=== PATIENT | female | born 1955 | race Caucasian/White ===

== ENCOUNTER 2024-10-21 09:28 | Outpatient (REF) | payer MEDICARE, SELFPAY ==
--- OUTSIDE RECORDS SUMMARY | 2024-10-21 09:33 | XMS_ITS | Encounter Summary ---
Author Organization [facility] Address [address] [place] [address] Care Team Providers Care Spinning Machine Operator Name Role Phone Derrick Ortiz DO Unavailable [phone] Derrick Ortiz DO Primary Care Provider [phone] Encounter Details Date Type Department Care Team (Late st Contact Info) Description 04/22/2024 Orders Only [facility] [address] [facility] [address] [place] [phone] Travis Arreguin MD [address] [facility] [address] [place] [address] Social History Tobacco Use Types Packs/Day Years Used Date Smoking Tobacco: Former Cigarettes Smokeless Tobacco: Never Alcohol Use Standard Drinks/Week Comments Never 0 (1 standard drink = 0.6 oz pur e alcohol) AUDIT-C Answer Date Recorded Q1: How often do you have a drink containing alcohol? Never 06/09/2023 Q2: How many drinks containi ng alcohol do you have on a typical day when you are drinking? Patient does not drink Q3: How often do you have si x or more drinks on one occasion? Never 06/09/2023 PHQ-2 Answer Date Recorded Patient Health Questionnaire-2 Score 0 02/05/2024 Comments No Sex and Gender Information Value Date Recorded Sex Assigned at Not on file Legal Sex Female 7:17 PM EDT Gender Identity Not on file Sexual Orientation Not on file documented as of this encounter Plan of Treatment Not on file documented as of this encounter Procedures Procedure Name Priority Date/Time Associated Diagnosis Comments COLONOSCOPY Routine 04/22/2024 9:00 AM EST documented in this encounter Results * Colonoscopy (04/22/2024 9:00 AM EST) Anatomical Region Laterality Modality Endoscopy Travis Yoon MD ENDOSCOPY PROCEDURE ORDERABL ES Final Result documented in this encounter Visit Diagnoses Not on filedocumented in this encounter Additional Health Concerns Assessment Noted Time PHQ-9 Depression Total Score: 0 05/14/19 24 2:00 PM EST documented as of this encounter Care Teams Spinning Machine Operator Relationship Specialty Start Date End Date Derrick Ortiz DO [address] [place] [address] PCP - ACO Reach 08/15/22 Derrick Ortiz DO [address] [place] [address] PCP - General Family Medicine 10/23/22 documented as of this encounter
--- OUTSIDE RECORDS SUMMARY | 2024-10-21 09:33 | XMS_ITS | Encounter Summary ---
Author Organization [facility] Address [address] [place] [address] Care Team Providers Care Facility Operations Manager Name Role Phone Derrick Ortiz DO Unavailable [phone] Derrick Ortiz DO Primary Care Provider [phone] Encounter Details Date Type Department Care Team (Late st Contact Info) Description 05/14/2024 Abstract [facility] [address] [place] [phone] Derrick Ortiz DO [address] [place] [address] Social History Tobacco Use Types Packs/Day Years [...] Date Recorded Patient Health Questionnaire-2 Score 0 05/14/2024 Comments No Sex and Gender Information Value Date Recorded Sex Assigned at Not on file Legal Sex Female 7:17 PM EDT Gender Identity Not on file Sexual Orientation Not on file documented as of this encounter Functional Status * Over the past 2 weeks, how often have you been bothered by any of the following problems? Question Answer Date of Assessment Author Little interest or pleasure in doing things Not at all 05/14/2024 11:00 AM Maryann Schreiber N P Feeling down, depressed, or hopeless Not at all 05/14/2024 11:00 AM Maryann Schreiber N P Patient Health Questionnaire -2 Score 0 05/14/2024 11:00 AM Maryann Schreiber N P * Question Answer Date of Assessment Author Trouble falling or staying asleep, or sleeping too much Not at all 05/14/2024 11:00 AM Britney Schreiber NP Feeling tired or having mac le energy Not at all 05/14/2024 11:00 AM Maryann Schreiber N P Poor appetite or overeating Not at all 05/14/2024 11 :00 AM Maryann Schreiber NP Feeling bad about yourself - or that you are a failure or have let yourself or your family down Not at all 05/14/2024 11:00 AM Maryann Johnson NP Trouble concentrating on thi ngs, such as reading the newspaper or watching television Not at all 05/14/2024 11:00 AM Maryann Schreiber N P Moving or speaking so slowly that other people could have noticed? Or the opposite - being so fidgety or restless that you have been moving around a lot more than usual. Not at all 05/14/2024 11:00 AM Maryann Schreiber N P Thoughts that you would be better off or hurting yourself in some way Not at all 05/14/2024 11:00 AM Maryann Schreiber NP Patient Health Questionnaire -9 Score 0 05/14/2024 11:00 AM Maryann Schreiber N P documented as of this encounter Plan of Treatment Not on file documented as of this encounter Visit Diagnoses Not on filedocumented in this encounter Additional Health Concerns Assessment Noted Time PHQ-9 Depression Total Score: 0 05/14/19 25 11:00 AM EST documented as of this encounter Care Teams Facility Operations Manager Relationship Specialty Start Date End Date Derrick Ortiz DO [address] [place] [address] PCP - ACO Reach 08/15/22 Derrick Ortiz DO [address] [facility] [address] [place] [address] PCP - General Family Medicine 10/23/22 documented as of this encounter
--- OUTSIDE RECORDS SUMMARY | 2024-10-21 09:33 | XMS_ITS | Encounter Summary ---
Author Organization [facility] Address [address] [place] [address] Care Team Providers Care Health Sciences Manager Name Role Phone Derrick Ortiz DO Unavailable Derrick Ortiz DO Primary Care Provider [phone] Encounter Details Date Type Department Care Team (Late st Contact Info) Description 05/14/2023 Abstract [facility] [address] [place] [phone] Derrick Ortiz DO [address] [place] [address] Social History Tobacco Use Types Packs/Day Years Used Date Smoking Tobacco: Former Cigarettes Smokeless Tobacco: Never Alcohol Use Standard Drinks/Week Comments Never 0 (1 standard drink = 0.6 oz pur e alcohol) AUDIT-C Answer Date Recorded Q1: How often do you have a drink containing alcohol? Never 12/10/2022 Q2: How many drinks containi ng alcohol do you have on a typical day when you are drinking? Patient does not drink Q3: How often do you have si x or more drinks on one occasion? Never 12/10/2022 PHQ-2 Answer Date Recorded Patient Health Questionnaire-2 Score 0 05/14/2023 Comments Unknown Sex and Gender Information Value Date Recorded [...] pleasure in doing things Not at all 05/14/2023 2:00 PM Lachelle Chavez MA Feeling down, depressed, or hopeless Not at all 05/14/2023 2:00 PM Lachelle Chavez MA Patient Health Questionnaire -2 Score 0 05/14/2023 2:00 PM Lachelle Chavez MA * Question Answer Date of Assessment Author Trouble falling or staying asleep, or sleeping too much Not at all 05/14/2023 2:00 PM Lachelle Chavez MA Feeling tired or having mca le energy Not at all 05/14/2023 2:00 PM Lachelle Chavez MA Poor appetite or overeating Not at all 05/14/2023 2: 00 PM Lachelle Chavez MA Feeling bad about yourself - or that you are a failure or have let yourself or your family down Not at all 05/14/2023 2:00 PM Lachelle Chavez MA Trouble concentrating on things, such as reading the newspaper or watching television Not at all 05/14/2023 2:00 PM Lachelle Chavez MA Moving or speaking so slowly that other people could have noticed? Or the opposite - being so fidgety or restless that you have been moving around a lot more than usual. Not at all 05/14/2023 2:00 PM Lachelle Chavez MA Thoughts that you would be better off or hurting yourself in some way Not at all 05/14/2023 2:00 PM Lachelle Chavez MA Patient Health Questionnaire -9 Score 0 05/14/2023 2:00 PM Lachelle Chavez MA documented as of this encounter Plan of Treatment Not on file documented as of this encounter Visit Diagnoses Not on filedocumented in this encounter Additional Health Concerns Assessment Noted Time PHQ-9 Depression Total Score: 0 05/14/19 2:00 PM EST documented as of this encounter Care Teams Health Sciences Manager Relationship Specialty Start Date End Date Derrick Ortiz DO [address] [place] [address] PCP - ACO Reach 08/15/22 Derrick Ortiz DO [address] [place] [id number] PCP - General Family Medicine 10/23/22 documented as of this encounter
--- OUTSIDE RECORDS SUMMARY | 2024-10-21 09:33 | XMS_ITS | Encounter Summary ---
Author Organization [facility] Address [address] [place] [address] Care Team Providers Care Professor Of Business Administration Name Role Phone Diana Derrick Loza DO Unavailable [phone] Derrick Ortiz DO Primary Care Provider [phone] Encounter Details Date Type Department Care Team (Late st Contact Info) Description 10/14/2024 Telephone [facility] [address] [place] [id number] Lachelle Moura MA Social History Tobacco Use Types Packs/Day Years [...] Date Recorded Patient Health Questionnaire-2 Score 0 09/28/2024 Comments No Sex and Gender Information Value Date Recorded Sex Assigned at Not on file Legal Sex Female 7:17 PM EDT Gender Identity Not on file Sexual Orientation Not on file documented as of this encounter Miscellaneous Notes * Telephone Encounter - Shen NICK Chauhan - 10/14/2024 12:45 PM EDT HH notified Dr. Ortiz will follow the patient. Closing. * Telephone Encounter - Lachelle Moura MA - 10/14/2024 9:32 AM EDT Viki from [facility] called to see if Dr. Ortiz would follow for [facility] [phone] this is a secure vm documented in this encounter Plan of Treatment Not on file documented as of this encounter Visit Diagnoses Not on filedocumented in this encounter Additional Health Concerns Assessment Noted Time PHQ-9 Depression Total Score: 0 05/14/19 25 11:00 AM EST documented as of this encounter Care Teams Professor Of Business Administration Relationship Specialty Start Date End Date Derrick Ortiz DO [address] [place] [address] PCP - ACO Reach 08/15/22 Derrick Ortiz DO [address] [place] [address] PCP - General Family Medicine 10/23/22 documented as of this encounter
--- OUTSIDE RECORDS SUMMARY | 2024-10-21 09:33 | XMS_ITS | Encounter Summary ---
Author Organization [facility] Address [address] [place] [address] Care Team Providers Care Bank Representative Name Role Phone Derrick Ortiz Unavailable [phone] Derrick Ortiz DO Primary Care Provider [phone] Encounter Details Date Type Department Care Team (Late st Contact Info) Description 03/25/2023 Orders Only [facility] [address] [place] [phone] A, Unknown Practice [address] [id number] Social History Tobacco Use Types Packs/Day Years [...] Date Recorded Patient Health Questionnaire-2 Score 0 10/24/2022 Comments Unknown Sex and Gender Information Value Date Recorded Sex Assigned at Not on file Legal Sex Female 7:17 PM EDT Gender Identity Not on file Sexual Orientation Not on file documented as of this encounter Plan of Treatment Not on file documented as of this encounter Procedures Procedure Name Priority Date/Time Associated Diagnosis Comments SCANNED LABS Routine 03/20/2023 2:22 PM EST SCANNED LABS Routine 03/20/2023 1:39 PM EST documented in this encounter Results * SCANNED LABS (03/20/2023 2:22 PM EST) us Unknown Practice A LAB CHG PERFORMABLES Final Re sult * SCANNED LABS (03/20/2023 1:39 PM EST) us Unknown Practice A LAB CHG PERFORMABLES Final Re sult documented in this encounter Visit Diagnoses Not on filedocumented in this encounter Care Teams Bank Representative Relationship Specialty Start Date End Date Derrick Ortiz DO [address] [place] [address] PCP - ACO Reach 08/15/22 Derrick Ortiz DO [address] [place] [address] PCP - General Family Medicine 10/23/22 documented as of this encounter
--- OUTSIDE RECORDS SUMMARY | 2024-10-21 09:33 | XMS_ITS | Encounter Summary ---
Author Organization [facility] Address [address] [facility] [place] [place] [address] Care Team Providers Care Team Guide Name Role Phone Derrick Ortiz DO Unavailable [phone] Derrick Ortiz DO Primary Care Provider [phone] Reason for Visit * Reason Onset Date Comments BS reading 10/18/2024 Encounter Details Date Type Department Care Team (Late st Contact Info) Description 10/18/2024 Telephone [facility] [address] [place] [address] Yanni Gonzalez MA BS reading Social History Tobacco Use Types Packs/Day Years [...] as of this encounter Miscellaneous Notes * Addendum Note - Mason Chauhan LPN - 10/18/2024 12:14 PM EDTAddended by: MASON CHAUHAN on: 10/18/2024 12:14 PM Modules accepted: Orders * Telephone Encounter - Mason Chauhan LPN - 10/18/2024 11:58 AM EDT Spoke to pt regarding. She states she is currently on IV abx tid. She states she is having procedures for kidney stone blasting but urology is keeping her off of ozempic. Spoke to Dr. Ortiz and he advised starting back on glyburide 2.5 mg bid. She does have a few of 5 mg at home which she will split in half until able to get to the pharmacy in a few days. Pt notified this was sent over and to call once procedure is completed. * Telephone Encounter - Yanni Gonzalez MA - 10/18/2024 10:05 AM EDT Pt called, she was giving our office her BS numbers. 145, 176, 163, 205, 175 these numbers are fromFriday until this morning documented in this encounter Plan of Treatment Not on file documented as of this encounter Visit Diagnoses Diagnosis Eczema, unspecified type Urinary tract infection with hematuria, site unspecified Type 2 diabetes mellitus without complication, without long-term current use of insulin (HCC) documented in this encounter Additional Health Concerns Assessment Noted Time PHQ-9 Depression Total Score: 0 05/14/19 25 11:00 AM EST documented as of this encounter Care Teams Team Guide Relationship Specialty Start Date End Date Derrick Ortiz DO [address] [place] [address] PCP - ACO Reach 08/15/22 Derrick Ortiz DO [address] [place] [address] PCP - General Family Medicine 10/23/22 documented as of this encounter
--- OUTSIDE RECORDS SUMMARY | 2024-10-21 09:33 | XMS_ITS | Clinical Summary ---
Author Organization [facility] Healthcare Address [address] [place] [address] Care Team Providers Care Icd 9 Coder Name Role Phone Derrick Ortiz DO Unavailable Derrick Ortiz DO Primary Care Provider [phone] Allergies No known active allergies Medications omeprazole (PriLOSEC) [address] capsuleIndication s:Gastroesophagea l reflux disease without esophagitis Take 1 capsule (20 mg) by mouth 1 (one) time each day at the same time 90 capsule 3 01/13/20 24 Active magnesium 30 MG tablet Take 30 mg by mouth Daily Active lisinopril 10 MG tabletIndications :Benign essential hypertension Take 1 tablet (10 mg) by mouth Daily 90 tablet 1 05/05/19 25 025 Active metFORMIN XR (Glucophage-XR) 500 MG 24 hr tabletIndications :Type 2 diabetes mellitus without complication, without long-term current use of insulin (HCC) Take 2 tablets (1,000 mg) by mouth in the evening. Take with meals Do not crush, chew, or split. 180 tablet 1 05/05/19 25 Active Semaglutide,0.25 or 0.5MG/DOS, (Ozempic, 0.25 or 0.5 MG/DOSE,) 2 MG/3ML solution pen-injectorIndic ations:Type 2 diabetes mellitus without complications (HCC) Inject 0.5 mg under the skin every 7 (seven) days 3 mL 09/03/19 25 Active semaglutide (Ozempic, 1 MG/DOSE,) 4 MG/3ML solution pen-injectorIndic ations:Type 2 diabetes mellitus without complication, without long-term current use of insulin (HCC) Inject 1 mg under the skin 1 (one) time per week 1 each 09/29/19 25 Active triamcinolone (Kenalog) 0.1 % creamIndications: Eczema, unspecified type Apply topically 2 (two) times a day as needed (pain and swelling) 45 g 2 09/29/19 25 Active aspirin 81 MG EC tabletIndications :Type 2 diabetes mellitus with diabetic nephropathy (HCC) Take 1 tablet (81 mg) by mouth 1 (one) time each day at the same time 09/29/19 25 Active glyBURIDE (Diabeta) 2.5 MG tabletIndications :Type 2 diabetes mellitus without complication, without long-term current use of insulin (HCC) Take 1 tablet (2.5 mg) by mouth in the morning and 1 tablet (2.5 mg) before bedtime. 60 tablet 11 10/19/19 25 026 Active aspirin 81 MG EC tabletIndications :Type 2 diabetes mellitus with diabetic nephropathy (HCC) Take 1 tablet (81 mg) by mouth 1 (one) time each day at the same time 05/05/19 25 025 Discontinu ed(Reorder ) glyBURIDE (Diabeta) 5 MG tabletIndications :Type 2 diabetes mellitus without complication, without long-term current use of insulin (HCC) Take 1 tablet (5 mg) by mouth in the morning and 1 tablet (5 mg) in the evening. Take with meals. 60 tablet 6 05/14/19 25 025 Discontinu ed(Ineffec tive) ciprofloxacin (Cipro) 500 MG tabletIndications :Urinary tract infection with hematuria, site unspecified,Recur rent UTI Take 1 tablet (500 mg) by mouth in the morning and 1 tablet (500 mg) before bedtime. Do all this for 7 days. 14 tablet 09/29/19 25 025 Active Problems Problem Noted Date Diagnosed Date History of recurrent urinary tract infection Microscopic hematuria 08/13/2024 Colon cancer screening 05/04/2024 Diverticulosis large intesti ne w/o perforation or abscess w/o bleeding 05/04/2024 Positive colorectal cancer screening using Colog uard test 03/30/2024 Post-menopause 01/13/2024 Visual impairment 05/13/2023 IBS (irritable bowel syndrome) 05/13/2023 Assessment & Plan (09/28/2024 1:30 PM EDT): Problem is stable, will continue with current treatment plan. Call or return to clinic if any changes occur Essential (primary) hypertension 05/13/2023 Assessment & Plan (09/28/2024 1:30 PM EDT): Record Blood Pressures 2-4 times weekly and record. Return with readings at next appointment. Call with readings if sees significant changes Eczema 05/13/2023 Assessment & Plan (09/28/2024 1:30 PM EDT): Patient advised to return if symptoms worsen and/or persist despite treatment. Orders: triamcinolone (Kenalog) 0.1 % cream; Apply topically 2 (two) times a day as needed (pain and swelling) Comprehensive metabolic panel; Future CBC and differential; Future Arthritis 05/13/2023 Benign essential hypertension 10/21/2022 Gastroesophageal reflux disease 10/21/2022 Mixed hyperlipidemia 10/21/2022 Assessment & Plan (09/28/2024 1:30 PM EDT): Labs ordered today, will follow up when results available Orders: Lipid panel; Future Comprehensive metabolic panel; Future CBC and differential; Future Neuropathy 10/21/2022 Assessment & Plan (09/28/2024 1:30 PM EDT): Problem is stable, will continue with current treatment plan. Call or return to clinic if any changes occur Orders: Comprehensive metabolic panel; Future CBC and differential; Future Type 2 diabetes mellitus without complications 0 10/21/2022 Assessment & Plan (09/28/2024 1:30 PM EDT): Reviewed labs and/or imaging at today. Will continue current treatment regimen and follow up at next scheduled visit unless problems arise. Orders: semaglutide (Ozempic, 1 MG/DOSE,) 4 MG/3ML solution pen-injector; Inject 1 mg under the skin 1 (one) time per week Microalbumin / creatinine urine ratio; Future Comprehensive metabolic panel; Future CBC and differential; Future Hemoglobin A1c; Future Assessment & Plan (09/28/2024 1:30 PM EDT): Orders: Comprehensive metabolic panel; Future CBC and differential; Future Leukocytosis 07/08/2019 Encounters Date Type Department Care Team Description 10/18/2024 Telephone [facility] [address] [place] [address] Yanni Gonzalez MA BS reading 10/15/2024 Telephone [facility] [address] [place] [address] Yanni Gonzalez MA Medication Question 10/15/2024 Patient Outreach [facility] [place] [address] [place] [address] Andreia Bolaños LPN 10/14/2024 Telephone [facility] [address] [place] [address] Lachelle Moura MA 09/28/2024 1:00 PM EDT Office Visit [facility] [address] [place] [address] Derrick Ortiz DO Essential (primary) hypertension (Primary Dx); Irritable bowel syndrome, unspecified type; Dysuria; Urinary tract infection with hematuria, site unspecified; Type 2 diabetes mellitus without complication, without long-term current use of insulin (HCC); Eczema, unspecified type; Mixed hyperlipidemia ; Neuropathy; Recurrent UTI; Type 2 diabetes mellitus without complications (HCC); Type 2 diabetes mellitus with diabetic nephropathy (HCC); Encounter for screening mammogram for breast cancer 09/28/2024 Bamboo flowsheet [facility] [address] [place] [id number] Derrick Ortiz DO 09/28/2024 Travel [facility]/02[facility] [address] [place] [phone] Derrick Ortiz, DO Type 2 diabetes mellitus without complications (HCC) 08/24/2024 10:20 AM EDT Office Visit [facility] [address] [place] [address] Urinary tract infection with hematuria, site unspecified 08/24/2024 Telephone [facility] [address] [place] [address] Yanni Gonzalez MA Care Coordination 08/24/2024 Travel 08/23/2024 Telephone [facility] [address] [place] [address] Derrick Ortiz, DO Medication Question from Last 3 Months Immunizations Immunization Administration Dates Next Due Influenza, High Dose Seasona l, Preservative Free 01/06/2020,02/02/2015,01/17/2014 Influenza, Injectable, MDCK, preservative free 01/13/2017 Influenza, Seasonal, Quadriv alent, Adjuvanted 01/06/2020 Influenza, Unspecified 01/06/2020,02/03/2015, Influenza, injectable, MDCK, preservative free, quadrivalent 01/13/2017 Influenza, injectable, quadr ivalent, preservative free 02/03/2015,01/18/2014 Influenza, seasonal, intrade rmal, preservative free 01/20/2015 Pneumococcal Conjugate PCV 13 08/27/2018 Pneumococcal Polysaccharide PPSV23 03/01/2015 Zoster, live 08/30/2015 Family History Medical History Relation Name Comments Heart disease Father Relation Name Status Comments Brother 2 brothers Daughter 2 daughters Father Mother Other Spouse Alive Sister 4 sisters Son 1 son Social History Tobacco Use Types Packs/Day Years Used Date Smoking Tobacco: Former Cigarettes Smokeless Tobacco: Never Tobacco Cessation:Counseling Given: Yes Alcohol Use Standard Drinks/Week Comments Never 0 [...] on file Sexual Orientation Not on file Last Filed Vital Signs Vital Sign Reading Time Taken Comments Blood Pressure 134/80 09/28/2024 12:52 PM EDT Pulse 107 09/28/2024 12:52 PM EDT Temperature 36.1 C (96.9 F) 09/28/2024 12:52 PM EDT Respiratory Rate - - Oxygen Saturation 97% 09/28/2024 12:52 PM EDT Inhaled Oxygen Concentration - - Weight 93.9 kg (207 lb) 09/28/2024 12:52 PM EDT Height 158.8 cm (5' 2.5 ) 09/28/2024 12:52 PM ED T Body Mass Index 37.26 09/28/2024 12:52 PM EDT Plan of Treatment Health Maintenance Due Date Last Done Comments CT Colonography 1953 FIT 1953 FOBT 1955 Sigmoidoscopy 1955 Diabetes: Retinopathy Screening 06/26/1963 Pneumococcal Vaccine: 65+ Ye ars (3 of 3 - PCV20 or PCV21) 08/28/2023 08/27/2018, 03/01/2015 Mammogram 06/17/2024 06/18/2023, 08/22, 12/01/2018, Additional history exists Influenza Vaccine (#1) 2024 0, 01/06/2020, 01/06/2020, Additional history exists Diabetes: Hemoglobin A1C 12/10/2024 025, 05/05/2024, 01/13/2024, Additional history exists Medicare Annual Wellness (AWV) 05/14/2025 0 05/14/2024, 05/14/2024, 05/14/2023, Additional history exists Diabetes: Urine Protein Screening 09/09/2025 09/09/2024, 05/05/2024, 01/13/2024, Additional history exists FIT-DNA 01/26/2027 01/27/2024, 10/0 07/2020, 12/26/2020, Additional history exists Colonoscopy 04/22/2034 04/22/2024, 03/30/2024 Colorectal Cancer Screening 04/22/2034 Procedures Procedure Name Priority Date/Time Associated Diagnosis Comments POCT URINALYSIS DIPSTICK Routine 09/28/2024 1:07 PM EDT Dysuria Urinary tract infection with hematuria, site unspecified URINE CULTURE CLEAN CATCH REFLEX Routine 09/28/2024 12:00 AM EDT CULTURE, URINE, ROUTINE Routine 09/28/2024 12:00 AM EDT Dysuria Urinary tract infection with hematuria, site unspecified HEMOGLOBIN A1C Routine 09/09/2024 2:32 PM EDT Recurrent UTI CBC (INCLUDES DIFF/PLT) Routine 09/09/2024 2:32 PM EDT Benign essential hypertension Type 2 diabetes mellitus without complication, without long-term current use of insulin (HCC) Recurrent UTI COMPREHENSIVE METABOLIC PANEL Routine 09/09/2024 2:32 PM EDT Benign essential hypertension Type 2 diabetes mellitus without complication, without long-term current use of insulin (HCC) Recurrent UTI MICROALBUMIN / CREATININE URINE RATIO Routine 09/09/2024 2:32 PM EDT Type 2 diabetes mellitus without complication, without long-term current use of insulin (HCC) POCT URINALYSIS DIPSTICK Routine 08/24/2024 10:44 AM EDT Urinary tract infection with hematuria, site unspecified URINE CULTURE CLEAN CATCH REFLEX Routine 08/24/2024 12:00 AM EDT CULTURE, URINE, ROUTINE Routine 08/24/2024 12:00 AM EDT Urinary tract infection with hematuria, site unspecified COLONOSCOPY Routine 04/22/2024 9:00 AM EST LAB COLOGUARD COLON CANCER SCREEN Routine 01/27/2024 9:31 AM EST Colon cancer screening BI MAMMOGRAM SCREENING TOMOSYNTHESIS BILATERAL Routine 06/18/2023 1:05 PM EDT Breast screening from Last 3 Months or Most Recently Relevant to Health Maintenance Results * (ABNORMAL) POCT Urinalysis dipstick (09/28/2024 1:07 PM EDT) Only the most recent of2 resultswithin the time period is included. Color, UA Yellow Clarity, UA Cloudy Glucose, UA Negative Negative - 2000(110) ++++ mg/dL Bilirubin, UA Negative Negative - 4(70) +++ mg/dL Ketones, UA Negative Negative - 160(16) ++++ mg/dL Spec Grav, UA 1.020 1 - 1.03 Blood, UA Positive Negative - 50 Jabier/mcL pH, UA 6.0 5 - 9 Protein, UA Trace Negative - 2000(20) ++++ mg/dL Urobilinogen, UA 1.0 0.2 - 12 mg/dL Leukocytes, UA Moderate Negative - 500+++ Tracy/mcL Nitrite, UA Positive Negative - Positive Urine 09/28/2024 1:07 PM EDT Derrick Ortiz DO POINT OF CARE TEST ENTER/EDIT ORDERABLES Final Result * Urine Culture Clean Catch Reflex (09/28/2024 12:00 AM EDT) Only the most recent of2 resultswithin the time period is included. Ur Cult 1 Comment [facility] Comment: Greater than 2 organisms recovered, none predominant. Please submit another sample if clinically indicated. Greater than 100,000 colony forming units per mL Ur Cult 2 Not applicable [facility] 09/28/2024 09/28/2024 Narrative [facility] - 10/02/2024 1:07 PM EDT Performed at: [address] [place] [id number] Bench Lathe Operator: Armani Gann PhD, Phone: [phone] Derrick Boothequentin LAB URINE ORDERABLES Final Re sult Performing Organization Address [facility] Co de Phone Number [facility] * Urine culture (09/28/2024 12:00 AM EDT) Only the most recent of2 resultswithin the time period is included. Urine Cult Rt Status Final report [facility] Urine Urine specimen obtained by clean catch procedure / Unknown 09/28/2024 09/28/2024 Comment:URINE - CLEAN CATCH Narrative [facility] - 10/02/2024 1:07 PM EDT Performed at: - [address] [id number] Bench Lathe Operator: Armani Gann PhD, Phone: [phone] Derrick Loza Diana LAB MICROBIOLOGY - GENERAL OR DERABLES Final Result Performing Organization Address [facility] de Phone Number [facility] * (ABNORMAL) Microalbumin / creatinine urine ratio (09/09/2024 2:32 PM EDT) Creat Ur 9.6 Not Estab. mg/dL [facility] Albumin Ur 10.1 Not Estab. ug/mL [facility] Alb/Creat Ratio Urine Comment(A ) 0 - 29 mg/g creat [facility] Comment: The result is below the assay's limit of quantitation which may indicate a dilute specimen or other clinical condition. Consider recollection at a time likely to provide a urine that is more concentrated. Normal: 0 - 29 Moderately increased: 30 - 300 Severely increased: >300 Urine Urine specimen obtained by clean catch procedure / Unknown 09/09/2024 2:32 PM EDT 09/09/2024 Narrative [facility] - 09/10/2024 10:07 AM EDT Performed at: 02 - [address] [id number] Bench Lathe Operator: Armani Gann PhD, Phone: [phone] Derrick Denia Diana LAB URINE ORDERABLES Final Re sult [facility] * (ABNORMAL) CBC and differential (09/09/2024 2:32 PM EDT) WBC 11.8(H) 3.4 - 10.8 x10E3/uL [facility] RBC 4.65 3.77 - 5.28 x10E6/uL [facility] Hgb 13.6 11.1 - 15.9 g/dL [facility] Hct 41.7 34.0 - 46.6 % [facility] MCV 90 79 - 97 fL [facility] MCH 29.2 26.6 - 33.0 pg [facility] MCHC 32.6 31.5 - 35.7 g/dL [facility] RDW 13.1 11.7 - 15.4 % [facility] Platelets 404 150 - 450 x10E3/uL [facility] Neutrophils 56 Not Estab. % [facility] Lymphs 36 Not Estab. % [facility] Monocytes 7 Not Estab. % [facility] Eos 1 Not Estab. % [facility] Basos 0 Not Estab. % [facility] Neutrophils Abs 6.6 1.4 - 7.0 x10E3/uL [facility] Lymphs Abs 4.2(H) 0.7 - 3.1 x10E3/uL [facility] MonocytesAbs 0.8 0.1 - 0.9 x10E3/uL [facility] Eos Abs 0.2 0.0 - 0.4 x10E3/uL [facility] Baso Abs 0.0 0.0 - 0.2 x10E3/uL [facility] Immature Granulocytes 0 Not Estab. % [facility] Immature Grans Abs 0.0 0.0 - 0.1 x10E3/uL [facility] Blood Venous blood specimen / Unknown 09/09/2024 2:32 PM EDT 09/09/2024 Narrative [facility] - 09/10/2024 10:07 AM EDT Performed at: 01 - [facility] [place] [address], [address], [place], [place] [id number] Bench Lathe Operator: Elroy Jack MD, Phone: [phone] Derrick Ortiz DO LAB BLOOD ORDERABLES Final Re sult [facility] * (ABNORMAL) Hemoglobin A1c (09/09/2024 2:32 PM EDT) HgbA1C 6.4(H) 4.8 - 5.6 % [facility] Comment: Prediabetes: 5.7 - 6.4 Diabetes: >6.4 Glycemic control for adults with diabetes: <7.0 Blood Venous blood specimen / Unknown 09/09/2024 2:32 PM EDT 09/09/2024 Narrative [facility] - 09/10/2024 10:07 AM EDT Performed at: 02 - [address] [id number] Bench Lathe Operator: Armani Gann PhD, Phone: [phone] Derrick Ortiz DO LAB BLOOD ORDERABLES Final Re sult Performing Organization Address City/[facility]/ZIP Co de Phone Number [facility] * (ABNORMAL) Comprehensive metabolic panel (09/09/2024 2:32 PM EDT) Glucose 107(H) 70 - 99 mg/dL [facility] BUN 18 8 - 27 mg/dL [facility] Creat 0.60 0.57 - 1.00 mg/dL [facility] EGFR 96 >59 mL/min/1.7 3 [facility] BUN/Creat Ratio 30(H) 12 - 28 [facility] Sodium 138 134 - 144 mmol/L [facility] Potassium 4.4 3.5 - 5.2 mmol/L [facility] Chloride 98 96 - 106 mmol/L [facility] Carbon Dioxide 25 20 - 29 mmol/L [facility] Calcium 10.2 8.7 - 10.3 mg/dL [facility] Protein Total 7.2 6.0 - 8.5 g/dL [facility] Albumin 4.6 3.8 - 4.8 g/dL [facility] Globulin Total 2.6 1.5 - 4.5 g/dL [facility] Bili Total 0.4 0.0 - 1.2 mg/dL [facility] Alk Phosphatase 68 44 - 121 IU/L [facility] AST 15 15 - 59 IU/L [facility] ALT 22 0 - 35 IU/L [facility] Blood Venous blood specimen / Unknown 09/09/2024 2:32 PM EDT 09/09/2024 Narrative [facility] - 09/10/2024 10:07 AM EDT Performed at: 01 - [facility] [address], [address], [place], [place] [id number] Bench Lathe Operator: Elroy Jack MD, Phone: [phone] Derrick Ortiz DO LAB BLOOD ORDERABLES Final Re sult [facility] * Colonoscopy (04/22/2024 9:00 AM EST) Anatomical Region Laterality Modality Endoscopy Travis Yoon MD ENDOSCOPY PROCEDURE ORDERABL ES Final Result * (ABNORMAL) Cologuard?? colon cancer screening (01/27/2024 9:31 AM EST) [facility] COLON CA DNA+OCC BLD SCRN STL-IMP Positive( A) Negative 02/03/2024 5:27 PM EST [facility] (CLIA #:[id number]) Comment: POSITIVE TEST RESULT. A positive Cologuard result should be followed with a colonoscopy or visual examination of the colon. The normal value (reference range) for this assay is negative. TEST DESCRIPTION: Composite algorithmic analysis of stool DNA-biomarkers with hemoglobin immunoassay. Quantitative values of individual biomarkers are not reportable and are not associated with individual biomarker result reference ranges. Cologuard is intended for colorectal cancer screening of adults of either sex, 45 years or older, who are at average-risk for colorectal cancer (CRC). Cologuard has been approved for use by the U.S. FDA. The performance of Cologuard was established in a cross sectional study of average-risk adults aged 50-84. Cologuard performance in patients ages 45 to 49 years was estimated by sub-group analysis of near-age groups. Colonoscopies performed for a positive result may find as the most clinically significant lesion: colorectal cancer [4.0%], advanced adenoma (including sessile serrated polyps greater than or equal to 1cm diameter) [20%] or non- advanced adenoma [31%]; or no colorectal neoplasia [45%]. These estimates are derived from a prospective cross-sectional screening study of 10,000 individuals at average risk for colorectal cancer who were screened with both Cologuard and colonoscopy. (Partha Farrar al, N Engl J Med 2014;370(14):6256-6636.) Cologuard may produce a false negative or false positive result (no colorectal cancer or precancerous polyp present at colonoscopy follow up). A negative Cologuard test result does not guarantee the absence of CRC or advanced adenoma (pre-cancer). The current Cologuard screening interval is every 3 years. ([place] [employer] and U.S. Multi-Society Task Force). Cologuard performance data in a 10,000 patient pivotal study using colonoscopy as the reference method can be accessed at the following location: www.[employer].fm/results. Additional description of the Cologuard test process, warnings and precautions can be found at [email or web address]. Stool specimen (specimen) 01/27/2024 9:31 AM EST 01/28/2024 12:14 PM EST Derrick Ortiz DO LAB MOLECULAR DIAGNOSTICS ORD ERABLES Final Result [facility] (CLIA #:[id number]) [place] [address] [place] [address], * Bilateral screening mammogram with tomosynthesis (06/18/2023 1:05 PM EDT) Anatomical Region Laterality Modality Breast Bilateral Mammography 06/20/2023 12:3 2 PM EDT Impressions 06/20/2023 1:47 PM EDT BIRADS 1 - Negative Follow-up: Routine Screening Mamm. Density: Almost entirely fatty [1]. Board Certified Radiologists. Accredited by the ACR and FDA. MAMMOGRAPHY IS VERY IMPORTANT TO YOUR HEALTH. THE CURRENT CITIZEN OF THE [place] [employer]LE[employer] OF [employer] AND NATIONAL COMPREHENSIVE [employer] NETWORK GUIDELINES RECOMMENDS ANNUAL MAMMOGRAPHY BEGINNING AT AGE 40. THIS FACILITY UTILIZES A REMINDER SYSTEM TO ENSURE ALL PATIENTS RECEIVE REMINDER NOTIFICATIONS AT THE APPROPRIATE TIME BASED ON THE RECOMMENDATIONS OF THIS EXAM. ELECTRONICALLY SIGNED BY: Tre Buck MD Narrative 06/20/2023 1:47 PM EDT EXAM: BI MAMMOGRAM SCREENING TOMOSYNTHESIS BILATERAL DATE: 06/18/2023 12:48 PM CLINICAL HISTORY: screening. COMPARISONS: 09/04/2021. TECHNIQUE: Routine full-field digital mammograms and 3D breast tomosynthesis of both breasts were obtained. FINDINGS: There are no developing masses, suspicious microcalcifications, or areas of architectural distortion identified on the current study. No significant changes are identified from the prior studies, given differences in technique and positioning. Derrick Ortiz DO [facility] BI PROCEDURES Final Resul t from Last 3 Months or Most Recently Relevant to Health Maintenance Insurance MEDICARE T Care Teams Icd 9 Coder Relationship Specialty Start Date End Date Derrick Ortiz DO [address] [address] PCP - ACO Reach 08/15/22 Derrick Ortiz DO [address] [facility] [address] [place] [address] PCP - General Family Medicine 10/23/22
--- OUTSIDE RECORDS SUMMARY | 2024-10-21 09:33 | XMS_ITS ---
Author Organization [facility] Address [address] [place] [address] Care Team Providers Care Filter Changer Name Role Phone Derrick Ortiz DO Unavailable [phone] Derrick Ortiz DO Primary Care Provider [phone] Inpatient Discharge Transitional Care Management (TCM) Status:Closed (Closed) Start date:10/14/2024 Enrollment date:10/15/2024 Enrollment reason:Identified using hospital discharge data End date:10/18/2024 Close reason:Unable to reach patient Overview Patient discharged from [facility] on 10/14. Please contact for hospital RICHARD and schedule follow-up appointment within 7-14 days. Continued Care and Services Coordination
--- OUTSIDE RECORDS SUMMARY | 2024-10-21 09:33 | XMS_ITS | Encounter Summary ---
Author Organization [facility] Address [address] [place] [address] Care Team Providers Care Funeral Home Location Manager Name Role Phone Derrick Ortiz DO Unavailable [phone] RkDerrick castellon Primary Care Provider [phone] Encounter Details Date Type Department Care Team (Late st Contact Info) Description 10/15/2024 Patient Outreach [facility] [address] [place] [place] [id number] Andreia Bolaños LPN [address] [place] [address] Social History Tobacco Use Types Packs/Day Years [...] on file documented as of this encounter Progress Notes * Andreia Bolaños LPN - 10/15/2024 10:57 AM EDT Images from the original note were not included. Records in chart. Ops Analyst leaves message x2 without return call back. [facility] complete, unable to reconcile meds. No upcoming appts with PCP. ELISA Ortiz Flowsheet Row Patient Outreach from 10/15/2024 in [facility] with Andreia Bolaños LPN Hospital Information ED, Hospital or Group Home Facility Discharge? Hospital Patient has been contacted within two business days of discharge No Have two attempts been made to contact the patient within two business days of being discharged? Yes [LM x2 without retunr clal back] Diagnosis DX:Medication monitoring encounter (Primary Dx), Urologic disorders, History of recurrenturinary tract infection, Primary hydronephrosis Discharge Date 10/14/24 Discharged To: Home Setting Discharge Hospital [facility] Engagement Admission Date 10/12/24 Medications Discharge medications reviewed and reconciled from hospital? No Appointments Does the patient have a primary care provider? Yes Self Management Patient Teaching Wrap Up Wrap Up Additional Comments PT had CYSTOSCOPY,INSERT URETERAL STENT CYSTOSCOPY INSERTION STENT URETER CYSTOSCOPY RETROGRADE PYELOGRAM and labs done documented in this encounter Plan of Treatment Not on file documented as of this encounter Visit Diagnoses Diagnosis Essential (primary) hypertension- Primary Unspecified essential hypertension Type 2 diabetes mellitus without complication, unspecified whether care home insulin use (HCC) documented in this encounter Additional Health Concerns Assessment Noted Time PHQ-9 Depression Total Score: 0 05/14/19 25 11:00 AM EST documented as of this encounter Care Teams Funeral Home Location Manager Relationship Specialty Start Date End Date Derrick Ortiz DO [address] [place] [address] PCP - ACO Reach 08/15/22 Derrick Ortiz DO [address] [place] [address] PCP - General Family Medicine 10/23/22 documented as of this encounter
--- OUTSIDE RECORDS SUMMARY | 2024-10-21 09:33 | XMS_ITS | Encounter Summary ---
Author Organization [facility] Address [address] [place] [address] Care Team Providers Care Salesperson Yard Goods Name Role Phone Derrick Ortiz DO Unavailable [phone] TlelizabethDerrick castellon Primary Care Provider [phone] Encounter Details Date Type Department Care Team (Late st Contact Info) Description 10/21/2022 Orders Only [facility] [address] [place] [id number] Amalia Baker, SEED DISTRICT SALES MANAGER [address] [place] [address] Social History Tobacco Use Types Packs/Day Years Used Date Smoking Tobacco: Former Cigarettes Smokeless Tobacco: Never Alcohol Use Standard Drinks/Week Comments Never 0 (1 standard drink = 0.6 oz pur e alcohol) PHQ-2 Answer Date Recorded Patient Health Questionnaire-2 [...] pleasure in doing things Not at all 10/24/2022 2:00 PM EDT Dianna Chauhan LPN Feeling down, depressed, or hopeless Not at all 10/24/2022 2:00 PM EDT Dianna Chauhan LPN Patient Health Questionnaire-2 Score 0 10/24/2022 2:00 PM EDT Raúl Chauhan LPN documented as of this encounter Plan of Treatment Not on file documented as of this encounter Visit Diagnoses Not on filedocumented in this encounter Care Teams Salesperson Yard Goods Relationship Specialty Start Date End Date Derrick Ortiz DO [address] [place] [address] PCP - ACO Reach 08/15/22 Derrick Ortiz DO [address] [place] [address] PCP - General Family Medicine 10/23/22 documented as of this encounter
[2024-10-21 09:55] LABS: Hematocrit 35.3 % (36.0-48.0); Hemoglobin 11.6 g/dL (12.0-16.0); Immature Granulocytes Abs Auto 0.02 10^3/uL (0.00-0.03); Immature Granulocytes Pct Auto 0.3 % (0.0-0.5); Lymphocytes Absolute Auto 2.4 10^3/uL (1.2-3.8); Mean Corpuscular HGB Conc 32.9 g/dL (29.9-35.2); Mean Corpuscular Hemoglobin 29.1 pg (26.7-34.0); Mean Corpuscular Volume 88.5 fL (81.0-99.0); Platelet Count 274 10^3/uL (150-450); Red Blood Count 3.99 10^6/uL (4.20-5.40); White Blood Count 6.6 10^3/uL (4.0-11.0)
[2024-10-21 10:29] LABS: Blood Urea Nitrogen 15.0 mg/dL (7.0-18.0); Estimated GFR (African America >60 (>=60 mL/min/1.73m^2); Estimated GFR (Non-African Ame >60 (>=60 mL/min/1.73m^2)
== END 2024-10-21 09:29 | disposition home or self-care (01) ==
LOC: LAB 09:28
DX: N20.0 Calculus of kidney (principal)
CPT/HCPCS: 36415; 82565; 84520; 85025; 86140

== ENCOUNTER 2024-10-21 17:21 | Emergency (ER) | payer MEDICARE, SELFPAY ==
[2024-10-21 17:28] VITALS: BP 145/80; PULSE 80; TEMP 37.2; O2SAT 100; BMI 37.1
--- NOTE | 2024-10-21 17:52 | ED_ITS ---
HPI HPI - General Adult General Chief complaint: Recheck/Abnormal Lab/Rx Stated complaint: BLEACH ANALYST ISSUE Time Seen by Provider: 10/21/24 17:39 Source: patient Mode of arrival: walk-in Limitations: no limitations History of Present Illness HPI narrative: The patient is 69-year-old female who is receiving at home meropenem with the help of her daughter for history of UTI, they are coming to the ER after the daughter mentioned that she have a concern about the PICC line not working Before my arrival the patient was helped by the caring nurse and she flushed the PICC line appropriately and it is working Related Data Home Medications ?Medication ?Instructions ?Recorded ?Confirmed glyburide 5 mg tablet mg 10/21/24 lisinopril 10 mg tablet mg 10/21/24 metformin 1,000 mg tablet mg 10/21/24 omeprazole 20 mg capsule,delayed mg 10/21/24 release oxybutynin chloride 10 mg mg PO 10/21/24 tablet,extended release 24 hr tamsulosin 0.4 mg capsule mg PO 10/21/24 Allergies Allergy/AdvReac Type Severity Reaction Status Date / Time No Known Drug Allergies Allergy Verified 10/21/24 17:28 Review of Systems ROS Status of ROS 10 or more systems reviewed and unremark able except as noted in history and below PFSH PFSH Social History Little interest or pleasure in doing things: not at all Feeling down, depressed, or hopeless: not at all Exam Narrative Exam Narrative: Nurses notes and vital signs reviewed and patient is not hypoxic. General: Well-appearing and in no apparent distress. Left arm exam: The patient have PICC line in the anterior of the left arm , no surrounding tenderness or edema and the patient have no vascular injury detected Constitutional Vital Signs, click to edit/add: Last Vital Signs Temp 98.9 F 10/21/24 17:28 Pulse 80 10/21/24 17:28 Resp 18 10/21/24 17:28 BP 145/80 H 10/21/24 17:28 Pulse Ox 100 10/21/24 17:28 O2 Del Method Room Air 10/21/24 17:28 Course Vital Signs Vital signs: Vital Signs Temperature 98.9 F 10/21/24 17:28 Pulse Rate 80 10/21/24 17:28 Respiratory Rate 18 10/21/24 17:28 Blood Pressure 145/80 H 10/21/24 17:28 Pulse Oximetry 100 10/21/24 17:28 Oxygen Delivery Method Room Air 10/21/24 17:28 Temperature 98.9 F 10/21/24 17:28 Pulse Rate 80 10/21/24 17:28 Respiratory Rate 18 10/21/24 17:28 Blood Pressure 145/80 H 10/21/24 17:28 Pulse Oximetry 100 10/21/24 17:28 Oxygen Delivery Method Room Air 10/21/24 17:28 Medical Decision Making MDM Narrative Medical decision making narrative: PICC line is working right now after it was flushed properly The family at the bedside had their questions addressed and they were informed that at any time they have any concern pt to can come back to the ER to be evaluated as well The patient is to follow up with primary care physician in next 2-3 days or to return to the emergency department should any of the signs or symptoms worsen or new symptoms develop. The patient agrees with the following Diagnosis and Treatment plan and the patient will be discharged home. Discharge Plan Discharge Chief Complaint: Recheck/Abnormal Lab/Rx Clinical Impression: PIC line (peripherally inserted central catheter) flush Patient Disposition: Home, Self-Care Time of Disposition Decision: 17:53 Condition: Good Prescriptions / Home Meds: No Action oxybutynin chloride 10 mg tablet extended release 24hr PO glyburide 5 mg tablet tamsulosin 0.4 mg capsule PO metformin 1,000 mg tablet lisinopril 10 mg tablet omeprazole 20 mg capsule,delayed release(/EC) Print Language: Japanese Instructions: How to Care for Your PICC (Peripherally Inserted Central Catheter) (ED) Referrals: Lul RILEY [Primary Care Provider, Family Practice] - 1 week Discharge Date/Time: 10/21/24 17:58
== END 2024-10-21 17:58 | disposition home or self-care (01) ==
PROVIDERS: Emergency Provider Emergency Medicine; PCP Family Medicine
DX: T82.898A Other specified complication of vascular prosthetic devices, implants and grafts, initial encounter (principal); Z87.440 Personal history of urinary (tract) infections; N20.0 Calculus of kidney
CPT/HCPCS: 36415; 82565; 84520; 85025; 86140; 99284

== ENCOUNTER 2024-10-28 09:06 | Outpatient (REF) | payer MEDICARE, SELFPAY ==
--- OUTSIDE RECORDS SUMMARY | 2014-01-17 20:00 | XMS_ITS | Continuity of Care Document ---
Author Organization [facility] Address [address] [place] [address] Phone Care Team Providers Care Heavy Equipment Operator Apprentice Name Role Phone Griffin CASTILLO sUama Unavailable Unavailable Procedures Procedure Date IMMUNIZATION ADMIN FLU VAC NO PRSV 4 CRISTINA 3 YRS+ OFFICE/OUTPATIENT VISIT, EST Advance Directives Directive Yes / No Effective Date File Name Resuscitation Not Answered N/A N/A Life Support Not Answered N/A N/A Intubation Not Answered N/A N/A Antibiotics Not Answered N/A N/A IV Fluid Support Not Answered N/A N/A Tube Feed Not Answered N/A N/A Other Directive N/A N/A WARNING:The information contained in this section is historical and is provided for information only and does not constitute a legal document or any assurance that the information is still accurate. Please verify the information with the berumen of the legal document before using it for clinical purposes. Encounters Encounter Description Practice Location Reason(s) For Visit Diagnoses Date Provider Providers Copied on Encounter OFFICE/OUTPATI ENT VISIT, EST [facility], [address] [place], [place], [id number], [place] tel:[phone] [facility] Influenza Vaccine Griffin Saavedra. [address] [place] [address], [id number], [place]. tel:[phone] Family History Family Member Type Diagnosis Age At Onset No Information Immunizations Vaccine Date Status Comments Flu (split) (3 yrs or older) administered Source: New Immunization Record Flu (split) (3 yrs or older) administered Source: New Immunization Record Flu (split) (3 yrs or older) administered Source: New Immunization Record Flu (split) (3 yrs or older) administered Source: New Immunization Record Flu (split) (3 yrs or older) administered Source: New Immunization Record Flu (split) (3 yrs or older) administered Source: New Immunization Record Flu (split) (3 yrs or older) administered Source: New Immunization Record Flu (split) (3 yrs or older) administered Source: New Immunization Record Flu (split) (3 yrs or older) administered Source: New Immunization Record Flu (split) (3 yrs or older) administered Source: New Immunization Record Flu (split) (3 yrs or older) administered Source: New Immunization Record Flu (split) (3 yrs or older) administered Source: New Immunization Record Flu (split) (3 yrs or older) administered Source: New Immunization Record Payers Payer name Insurance type Covered libertarian ID Authorhugo viramontes(s) Kia TACOS [id number] Social History Type Description Quantity Date Captured Comments Alcohol Use Details Unknown Caffeine Use Details Unknown Tobacco Use Status No Information Smoking Status No Information Sex Female Chief Complaint And Reason For Visit No Information Reason For Referral Reason For Referral No Information History Of Present Illness Encounter Date Complaint History Of Prese nt Illness No Information Functional Status Date Functional Assessmen t No Information Instructions Date Instruction Additional Infor mation No Information Assessments Type Assessment Date No Information Patient Care Teams Name Effective Dates (start - stop) Status Members No Information
--- OUTSIDE RECORDS SUMMARY | 2024-10-12 09:29 | XMS_ITS | Encounter Summary ---
Author Organization [facility] tem Address [id number] [address] [place] [address] Care Team Providers Care Manager Erp Name Role Phone Diana Joya DO, George R Primary Care Provider + Reason for Visit * Auth/Cert Specialty Diagnoses / Procedures Referred By Carlos t Referred To Contact Diagnoses Kidney stones History of recurrent urinary tract infection Primary hydronephrosis Kidney stones [N20.0] History of recurrent urinary tract infection [Z87.440] Primary hydronephrosis [Q62.0] Procedures DE CYSTOSCOPY,INSERT URETERAL STENT CYSTOSCOPY INSERTION STENT URETER CYSTOSCOPY RETROGRADE PYELOGRAM Rolando Ross Jr., MD [address] [place] [id number] Phone: tel: fax: Referral ID Status Reason Start Date Expiration Date Visits Re quested Visits Authorized [id number] 1 1 Encounter Details Date Type Department Care Team (Latest Contact Info) Description 10/12/2024 9:29 AM EDT - 10/14/2024 2:14 PM EDT Hospital Encounter [facility] [address] [place] [address] Rolando Ross Jr., MD [address] [place], [place] [id number] Medication monitoring encounter (Primary Dx); Urologic disorders; History of recurrent urinary tract infection; Primary hydronephrosis Discharge Disposition: Home Health Social History Tobacco Use Types Packs/Day Years Used Date Smoking Tobacco: Former Cigarettes 1 40 1 971 - 2010 Smokeless Tobacco: Never Alcohol Use Standard Drinks/Week Comments Not Currently 0 (1 standard drink = 0.6 oz pur e alcohol) Hunger Screening Answer Date Recorded Within the past 12 months we worried whether our food would run out before we got money to buy more. Never True 10/12/2024 Within the past 12 months th e food we bought just didn't last and we didn't have money to get more. Never True 10/12/2024 Comments No Sex and Gender Information Value Date Recorded Sex Assigned at Not on file Legal Sex Female 9:12 AM EST Gender Identity Not on file Sexual Orientation Not on file documented as of this encounter Last Filed Vital Signs Vital Sign Reading Time Taken Comments Blood Pressure 148/78 10/14/2024 7:45 AM EDT Pulse 100 10/14/2024 7:45 AM EDT Temperature 36.6 C (97.9 F) 10/14/2024 7:45 AM EDT Respiratory Rate 16 10/14/2024 7:45 AM EDT Oxygen Saturation 100% 10/14/2024 7:45 AM EDT Inhaled Oxygen Concentration - - Weight 93.9 kg (207 lb) 10/13/2024 10:09 PM EDT Height 160 cm (5' 3 ) 10/13/2024 10:09 PM EDT Body Mass Index 36.67 10/13/2024 10:09 PM EDT documented in this encounter Medications at Time of Discharge heparin lock flush, porcine, 10 unit/mL injection Infuse 1-5 mL (10-50 Units total) into a venous catheter as needed (line care per nursing agency protocol.). 1 mL 5 heparin lock flush, porcine, injection 100 unit/mL solution Infuse 1-5 mL (100-500 Units total) into a venous catheter as needed (line care per nursing agency protocol.). 1 mL 5 lisinopriL (PRINIVIL,ZESTR IL) 10 mg tabletIndicatio ns:hypertension Take 1 tablet (10 mg total) by mouth before bedtime. Indications: high blood pressure. meropenem (MERREM) 1 gram injection Infuse 1,000 mg into a venous catheter every 8 (eight) hours for 21 days. End Date 11/03/2024 63 each 5 11/04/19 25 meropenem 1,000 mg in sodium chloride 0.9 % 100 mL IVPB W/ADAPTER Infuse 1,000 mg into a venous catheter every 8 (eight) hours for 21 days. 1 each 5 11/04/19 25 metFORMIN (GLUCOPHAGE) 1000 mg tabletIndicatio ns:type 2 diabetes mellitus Take 1 tablet (1,000 mg total) by mouth daily with dinner Indications: type 2 diabetes mellitus. omeprazole (PriLOSEC) 20 mg capsuleIndicati ons:gastroesoph ageal reflux disease Take 1 capsule (20 mg total) by mouth every morning before breakfast Indications: gastroesophageal reflux disease. 5 oxybutynin XL (DITROPAN XL) 10 mg 24 hr tablet Take 1 tablet (10 mg total) by mouth in the morning. 30 tablet 5 oxyCODONE-aceta minophen (PERCOCET) 5-325 mg per tabletIndicatio ns:Kidney stones Take 1 tablet by mouth every 6 (six) hours as needed for pain for up to 5 days. Max Daily Amount: 4 tablets 5 tablet 5 10/31/19 25 sodium chloride injection Infuse 10-20 mL into a venous catheter as needed for line care (line care per nursing agency protocol.). 1 mL 5 tamsulosin (FLOMAX) 0.4 mg capsule Take 1 capsule (0.4 mg total) by mouth nightly. 90 capsule 1 5 triamcinolone (KENALOG) 0.1 % cream Apply 1 Application topically 2 (two) times a day as needed for rash or irritation. documented as of this encounter Progress Notes * Rolando Ross Jr., MD - 10/14/2024 7:39 AM EDT Images from the original note were not included. Urology Progress Note CC: Right obstructing kidney stone, UTI 0 Subjective: Tolerating stent, eager to go home. Weight: 93.9 kg (207 lb) Patient Vitals for the past 24 hrs: BP Temp Temp src Pulse Resp SpO2 Height Weight 10/13/24 2209 -- -- -- -- -- -- 160 cm (5' 3 ) 93.9 kg (207 lb) 10/13/24 1926 (!) 125/91 36.6 ??C (97.8 ??F) Oral 112 16 98 % -- -- 10/13/24 0750 146/63 36.8 ??C (98.2 ??F) Oral 80 17 96 % -- -- No intake or output data in the 24 hours ending 10/14/24 0739 Results from last 7 days Lab Units 10/13/24 0749 10/12/24 1606 10/12/24 1522 CREATININE mg/dL -- -- 0.49 BEDSIDE GLUCOSE mg/dL 159* < > -- < > = values in this interval not displayed. Results from last 7 days Lab Units 10/08/24 1254 HEMOGLOBIN g/dL 13.3 HEMATOCRIT % 41.0 Lab Results Component Value Date GLU 159 (H) 10/13/2024 Additional Lab/culture results:ntains abnormal data Urine Culture Order: [id number] Status: Edited Result - FINAL Next appt: 10/18/2024 at 08:00 AM in Urology (ROLANDO ROSS JR, MD) Dx: Kidney stones Test Result Released: Yes (not seen) Specimen Information: Urine, Clean Catch Midstream 0 Result Notes CULTURE RESULTS >100,000 CFU/mL Klebsiella pneumoniae Abnormal Resulting Agency: [facility] Susceptibility Klebsiella pneumoniae (1) Antibiotic Interpretation DIEGO value(ug/ml) Method Status Ampicillin Resistant >=32 Not Specified Final PIPERACIL/TAZOBACTAM Susceptible (dose dependent) 16 Not Specified Final Cefazolin (non-urinary) Resistant >=32 Not Specified Final Cefazolin (urinary) Resistant >=32 Not Specified Final Ertapenem Resistant 2 Not Specified Final This is an appended report. These results have been appended to a previously final verified report. IMIPENEM Resistant <=0.25 Not Specified Final This is an appended report. These results have been appended to a previously final verified report. Meropenem Resistant 1 Not Specified Final This is an appended report. These results have been appended to a previously final verified report. Amikacin Susceptible <=1 Not Specified Final Gentamicin Susceptible <=1 Not Specified Final Tobramycin Susceptible <=1 Not Specified Final Ciprofloxacin Resistant >=4 Not Specified Final Levofloxacin Resistant >=8 Not Specified Final Trimethoprim + Sulfamethoxazole Resistant 80 Not Specified Final KPC (CARBAPENEMASE) Negative Not Specified Final [id number] (CARBAPENEMASE) Negative Not Specified Final VIM (CARBAPENEMASE) Negative Not Specified Final IMP (CARBAPENEMASE) Negative Not Specified Final NDM (CARBAPENEMASE) Negative Not Specified Final Susceptibility Comments Carbapenem Resistant Organism (SUPERVISOR CLAM BED). The CARBA5 test only detects the 5 most prevalent carbapenemase producing mechanisms in the [place] Other carbapenemase producing mechanisms not detected by this test are rare. Physical Exam: Physical Exam Vitals reviewed. Constitutional: Appearance: She is not ill-appearing or diaphoretic. HENT: Head: Atraumatic. Mouth/Throat: Mouth: Mucous membranes are dry. Eyes: Conjunctiva/sclera: Conjunctivae normal. Cardiovascular: Rate and Rhythm: Tachycardia present. Pulmonary: Effort: Pulmonary effort is normal. No respiratory distress. Abdominal: General: There is no distension. Palpations: Abdomen is soft. Tenderness: There is no abdominal tenderness. Neurological: Mental Status: She is alert and oriented to person, place, and time. Interval Imaging Findings: Impression: 69 yof -MDR Klebsiella UTI, requiring home IV atb -Right obstructing ureteral stone -s/p cysto right ureteral stent, POD 2 Follow up Plan: -Discharge planning, Care navigation working on home health to start home IV atb today. -Follow up appointment scheduled for 10/18/24 8 a.m. with RED Chandler 10/14/24 0630 I, ROLANDO ROSS JR, MD, personally performed the face to face diagnostic evaluation on this patient. My findings are as follows: Interval Infectious Disease provider note reviewed and appreciated. Patient looks great but is tachycardic 112 this morning and has had on further review substantial prior episodes of tachycardia after surgery, and she obviously needs very substantial ongoing surgical intervention.. Impressions: 1. IBS with Urolithiasis; by history status post ESWL x2 estimated 2004 elsewhere without success [facility] stones ???in a pocket?? and at some point stent insertion; CT NOMS 02/16/2024 multiple right renal stones including 2.7 cm staghorn with mild hydronephrosis; CT urogram 08/26/2024 estimated at least 7 radiopaque right renal stones largest 2.7 cm to my view likely with 1 or possibly even2 stones in pelvicalyceal diverticuli with mild hydronephrosis and solitary punctate left renal stone; 10/12/2024 cystoscopic right stent placement with multi resistant Klebsiella; patient's nephew Conrad Adams MD 2. Very Recurrent UTIs 3. Microscopic hematuria 4. Multiple left parapelvic cysts CT urogram 08/26/2024 5. KUB July 2024; CT August 2024 Now with significant postop tachycardia and absence of any clinical deterioration. Recommendations: 1. Cardiology consultation regarding tachycardia, as this patient is going to require likely multiple significant endoscopic surgeons for her large stone burden. Discharge to home pending cardiology recommendations 2. really appreciate Infectious Disease making provisions for 3 weeks outpatient meropenem, and we will be attempting to schedule 1st stage of surgery well before that with outpatient office appointment in the meantime Dr. Lori Flores we will be taking over as hospitalist urologist for our group starting tomorrow. Thank you very much. I appreciate being asked to help with this patient's care. Rolando Ross Jr., M.D. [facility] [phone] * Alexx Bonner, - 10/13/2024 9:56 AM EDT Images from the original note were not included. Division of Infectious Diseases Progress note Academic Team Our team prefers to use [employer] for communication during business hours (8 AM - 5 PM). We make every effort to keep the Treatment Team in [facility] updated. If I do not respond within 30 minutes, please call the answering service. From 5 PM - 8 AM, please call our answering service at [phone] to speak to the on-call physician. Patient name: Rosina Alcantara Patient Today's Date and Time: 10/13/2024, 9:56 AM Admission Date: 10/12/2024 Impression : Complicated cystitis Primary hydronephrosis s/p stent placement Recurrent UTI Right sided nephrolithiasis Tolerating meropenem, does not have any oral options. Will need definitive stone management at a later date. Would provide up to three weeks of coverage at this time, prolonged carbapenem exposure likely to only increase resistance if there is no source control. Recommendations: Continue on meropenem Ok to discharge from ID standpoint. Subjective Interval History: Ambulating well, able to void, tolerating antibiotics Objective Physical Examination : BP 146/63 Pulse 80 Temp 36.8 ??C (98.2 ??F) (Oral) Resp 17 Wt 94 kg (207 lb 3.7 oz) SpO2 96% BMI 36.71 kg/m?? Temperature Range: Temp: 36.8 ??C (98.2 ??F) Temp Av.4 ??C (97.6 ??F) Min: 36.2 ??C (97.2 ??F)Max: 36.8 ??C (98.2 ??F) General Appearance: Awake, alert, and in no apparent distress Abdomen: soft, non-tender, without masses or organomegaly; normal bowel sounds Extremities: No cyanosis, clubbing, edema, or effusions. Neurologic: Alert and oriented x 3, gait normal. Skin: No rash or lesions. No pallor Laboratory data: I have independently reviewed the following labs: Results from last 7 days Lab Units 10/08/24 1254 HEMOGLOBIN g/dL 13.3 HEMATOCRIT % 41.0 Results from last 7 days Lab Units 10/12/24 1522 CREATININE mg/dL 0.49 Results from last 7 days Lab Units 10/08/24 1134 R. B. CELLS 14* W. B. CELLS 538* Imaging Studies: No new imaging. Cultures: Microbiology Results Procedure Component Value Units Date/Time Urine Culture [[id number]] (Abnormal) (Susceptibility) Collected: 10/08/24 1134 Specimen: Urine, Clean Catch Midstream Updated: 10/11/24 1459 CULTURE RESULTS >100,000 CFU/mL Klebsiella pneumoniae Susceptibility Klebsiella pneumoniae Not Specified Amikacin <=1 Susceptible Ampicillin >=32 Resistant Cefazolin (non-urinary) >=32 Resistant Cefazolin (urinary) >=32 Resistant Ciprofloxacin >=4 Resistant Ertapenem 2 Resistant [1] Gentamicin <=1 Susceptible IMIPENEM <=0.25 Resistant [1] IMP (CARBAPENEMASE) Negative KPC (CARBAPENEMASE) Negative Levofloxacin >=8 Resistant Meropenem 1 Resistant [1] NDM (CARBAPENEMASE) Negative [id number] (CARBAPENEMASE) Negative PIPERACIL/TAZOBACTAM 16 Susceptible (dose dependent) Tobramycin <=1 Susceptible Trimethoprim + Sulfamethoxazole 80 Resistant VIM (CARBAPENEMASE) Negative [1] This is an appended report. These results have been appended to a previously final verified report. Susceptibility Comments Klebsiella pneumoniae Carbapenem Resistant Organism (SUPERVISOR CLAM BED). The CARBA5 test only detects the 5 most prevalent carbapenemase producing mechanisms in the [place] Other carbapenemase producing mechanisms not detected by this test are rare. Medications: famotidine, 20 mg, oral, Q12H insulin lispro, 1-5 Units, subcutaneous, TID with meals lisinopriL, 10 mg, oral, Daily [COMPLETED] meropenem, 1,000 mg, intravenous, Once FOLLOWED BY meropenem, 1,000 mg, intravenous, Q8H [COMPLETED] Consult PICC nurse, , , Once AND sodium chloride, 10 mL, intravenous, Q12H AND sodium chloride, 10 mL, intravenous, PRN AND sodium chloride, 20 mL, intravenous, PRN sodium chloride, 3 mL, intravenous, Q12H MARY tamsulosin, 0.4 mg, oral, Nightly trospium, 20 mg, oral, BID AC This progress note was completed using a voice audio technician system. Every effort was made to ensure accuracy; however, inadvertent computerized audio technician errors may be present. Thank you for allowing us to participate in the care of this patient. Alexx Bonner DO [place] Infectious Diseases Pager: I prefer to be contacted via [employer] for non-urgent matters. After hours, please call [phone] to have the on-call physician contacted. * Rolando Ross Jr., MD - 10/13/2024 7:01 AM EDT Images from the original note were not included. Jr. Allyn, Ermelinda Lopez, Jr. Vandana, Ermelinda Buckner, Lito Garcia M.D., Collin Doe M.D., Segnu Garcia M.D., Tiny Brar M.D., Segun Parker M.D., Lori Canales M.D. Hospital day: 0 Chief Complaint: nephrolithiasis, MDR UTI. Subjective: pt is POD 1 cystoscopy, R ureteral stent placement, kevin placement. She complains of kevin discomfort, sensation of burning and urinary urgency. Midline IV placed yesterday for need for IV abx at home per ID. Patient Vitals for the past 24 hrs: BP Temp Temp src Pulse Resp SpO2 10/12/242013 132/79 36.6 ??C (97.8 ??F) Oral 110 16 94 % 10/12/24 1500 130/64 36.4 ??C (97.5 ??F) Oral 105 16 94 % 10/12/24 1420 129/71 36.2 ??C (97.2 ??F) -- -- -- -- 10/12/24 1355 129/71 36.3 ??C (97.3 ??F) -- 91 12 98 % 10/12/24 1325 119/82 -- -- 95 18 99 % 10/12/24 1320 100/79 -- -- 97 23 100 % 10/12/24 1253 99/75 -- -- 91 18 96 % 10/12/24 1223 96/48 -- -- 95 19 96 % 10/12/24 1208 105/45 -- -- 97 19 96 % 10/12/24 1155 (!) 88/49 -- -- 101 17 96 % 10/12/24 1143 92/56 -- -- 98 16 100 % 10/12/24 1137 (!) 84/49 36.2 ??C (97.2 ??F) -- 92 12 100 % 10/12/24 1015 130/51 36.5 ??C (97.7 ??F) Skin 97 24 96 % Intake/Output Summary (Last 24 hours) at 10/13/2024 0701 Last data filed at 10/13/2024 0600 Gross per 24 hour Intake 1367.96 ml Output 3675 ml Net -2307.04 ml Results from last 7 days Lab Units 10/12/24 2141 10/12/24 1606 10/12/24 1522 CREATININE mg/dL -- -- 0.49 BEDSIDE GLUCOSE mg/dL 206* < > -- < > = values in this interval not displayed. Results from last 7 days Lab Units 10/08/24 1254 HEMOGLOBIN g/dL 13.3 HEMATOCRIT % 41.0 Lab Results Component Value Date GLU 206 (H) 10/12/2024 Additional Lab/culture results: Physical Exam: Gen: NAD CV: RRR Resp: nonlabored ABD: tender over R flank. : kevin in place draining clear yellow urine. Interval Imaging Findings: Impression: Multiple large R renal calculi POD 1 R ureteral stent placement MDR UTI Klebsiella pneumoniae Plan: IV meropenem for at least 3 wks Plan for definitive stone tx while on abx RED MOREIRA 7:01 AM 10/13/2024 RED Moreira 10/13/24 0706 IROLANDO JR, MD, personally performed the face to face diagnostic evaluation on this patient. My findings are as follows: interval Infectious Disease provider note reviewed and appreciated. Operative findings reviewed with the patient. Clear kate urine Kevin catheter. She wants to get rid of the catheter understandably.lVoiding trial today, then I expect discharge to home. Office staff is arranging ureteroscopic at least 1st stage treatment of her multiple right renal stones. Outpatient IV antibiotics as noted. Appointment with me next week in the office to follow up on all the plans. The patient/family are to call for fever, bleeding, signs of infection, urinary rete ntion, malfunction of any urinary catheters, chest pain, shortness of breath, swelling or pain in lower extremities, or any other problems. Rolando Ross Jr., M.D. [facility] [phone]. * Paula Villafuerte RN - 10/12/2024 10:00 PM EDT Patient refused insulin stated she takes ozempic at home and does not want that. * Neno Arce RPH - 10/12/2024 1:[address] [facility] Department of Pharmacy Pharmacist to Physician Communication The dose of meropenem for UTI has been changed to a 1 gram loading dose infused over 30 minutes followed by 1 gram infused every 8 hours by extended infusion over 3 hours per the [facility] approved extended-infusion beta-lactam dosing policy, based on an previous Scr 0.81 on 08/17/24. Ordering new Scr to confirm renal function. Thank you, Neno Arce RPH documented in this encounter H&P Notes * Rolando Ross Jr., MD - 10/12/2024 10:37 AM EDT HISTORY AND PHYSICAL INTERVAL NOTE: Rosina Alcantara 1955 [id number] H&P updated. The patient was examined and patient with dramatic multiple right renal stones andpossible stone or stones in varicocele diverticuli also with culture proven Klebsiella UTI multi resistant and left parapelvic renal cysts. I personally obtained consent for the procedure. Advise patient she will need admission to observation for initiation of long-term IV antibiotic to permit definitive ureteroscopic management of her stones. ROLANDO ROSS JR, MD Source Note - Anaya Broderick APRN-MULTI SLIDE MACHINE TENDER - 10/08/2024 11:45 AM EDT PRE-ADMISSION TESTING HISTORY AND PHYSICAL EXAM DATE: 10/08/24 PCP: SAMEER ORTIZ JR, DO CHIEF COMPLAINT: kidney stones HISTORY OF PRESENT ILLNESS: Rosina Olsen Quinton, a 69 y.o. White or female, presents to [facility] for a pre- surgical H&P. The patient has been diagnosed with Kidney stones [N20.0]. Patient has a history of kidney stones in the past and has had 2 lithotripsies with stents. Patient has chronic urinary tract infections and has been on antibiotics off and on for the last 2-1/2 years. Patient has a lot of bladder irritation. S he denies any dysuria. She has some occasional right-sided flank pain. She denies any gross hematuria but does have microscopic hematuria on urinalysis. Patient has urgency and frequency but she attributes this to increased fluid intake to try and flush the kidneys. She denies any recent illness, fever, or cough. Anesthesia problems: denies. Latex allergy: denies. Bleeding/ clotting disorders: denies. Recent hospitalizations: denies. PAST MEDICAL HISTORY: Past Medical History: Diagnosis Date Atherosclerosis Colon, diverticulosis Dental disease upper partial, full lower plate Diabetes ([facility] Diarrhea Diverticulosis large intestine w/o perforation or abscess w/o bleeding 07/2024 per colonoscopy History of recurrent urinary tract infection 08/13/2024 Hypertension Irritable bowel Kidney stones 08/13/2024 Nephrolithiasis Neuropathy Obesity Primary hydronephrosis 10/08/2024 Rash 10/08/2024 currently using steroid cream as needed on legs Urologic disorders 08/12/2024 1. IBS with Urolithiasis; by history status post ESWL x2 estimated 2004 elsewhere without success [facility] stones ???in a pocket?? ; CT NOMS 02/16/2024 multiple right renalstones including 2.7 cm staghorn with mild hydronephrosis; patient's nephew Conrad Adams MD 2. Recurrent UTIs 3. Microscopic hematuria UTI (urinary tract infection) Visual impairment glasses PAST SURGICAL HISTORY: Past Surgical History: Procedure Laterality Date CHOLECYSTECTOMY pt unsure of date - done at [facility] COLONOSCOPY 07/2024 [facility] [place] [place] - no further screening colonoscopies required per DENTAL SURGERY multiple teeth extractions on both upper and lower LITHOTRIPSY x 2 with stents - pt unsure of date TONSILLECTOMY 1964 as a child TUBAL LIGATION 1978 FAMILY HISTORY: Family History Problem Relation Age of Onset Anesthesia problems Neg Hx SOCIAL HISTORY: The patient reports that she does not currently use alcohol. She reports that she quit smoking about 14 years ago. Her smoking use included cigarettes. She started smoking about 54 years ago. She has a 40 pack-year smoking history. She has never used smokelesstobacco. She reports no history of drug use. ALLERGIES: No Known Allergies MEDICATIONS: Current Outpatient Medications: lisinopriL (PRINIVIL,ZESTRIL) 10 mg tablet, Take 1 tablet (10 mg total) by mouth before bedtime. Indications: high blood pressure., Disp: , Rfl: metFORMIN (GLUCOPHAGE) 1000 mg tablet, Take 1 tablet (1,000 mg total) by mouth daily with dinner Indications: type 2 diabetes mellitus., Disp: , Rfl: omeprazole (PriLOSEC) 20 mg capsule, Take 1 capsule (20 mg total) by mouth every morning before breakfast Indications: gastroesophageal reflux disease., Disp: , Rfl: semaglutide 1 mg/dose (4 mg/3 mL) pen injector, Inject 0.5 mg under the skin once a week Indications: type 2 diabetes mellitus. Takes every Friday - pt did take her last injection on 10/04/2024, Disp:, Rfl: triamcinolone (KENALOG) 0.1 % cream, Apply 1 Application topically 2 (two) times a day as needed for rash or irritation., Disp: , Rfl: ciprofloxacin HCl (CIPRO) 500 mg tablet, Take 1 tablet (500 mg total) by mouth in the morning and 1tablet (500 mg total) before bedtime. Do all this for 7 days., Disp: 14 tablet, Rfl: 0 tamsulosin (FLOMAX) 0.4 mg capsule, Take 1 capsule (0.4 mg total) by mouth nightly., Disp: 90 capsule, Rfl: 1 REVIEW OF SYSTEMS: Review of Systems Constitutional: Negative. HENT: Negative. Eyes: Glasses Respiratory: Negative for apnea, shortness of breath and wheezing. Cardiovascular: Negative for chest pain, palpitations and tachycardia. Hypertension Gastrointestinal: Diverticulosis, IBS Endocrine: Negative. Genitourinary: Positive for flank pain. History of urinary tract infection, primary hydronephrosis, kidney stone Skin: Negative. Allergic/Immunologic: Negative. Neurological: Negative. Hematological: Negative. Psychiatric/Behavioral: Negative. VITAL SIGNS: BP 143/73 Pulse 94 Temp 36.7 ??C (98.1 ??F) (Oral) Resp 16 Ht 160 cm (5' 3 ) Wt 94 kg (207 lb 3.7 oz) SpO2 98% BMI 36.71 kg/m?? PHYSICAL EXAM: Physical Exam Constitutional: Appearance: Normal appearance. HENT: Head: Normocephalic and atraumatic. Nose: Nose normal. Mouth/Throat: Mouth: Mucous membranes are moist. Pharynx: Oropharynx is clear. Eyes: Extraocular Movements: Extraocular movements intact. Conjunctiva/sclera: Conjunctivae normal. Pupils: Pupils are equal, round, and reactive to light. Cardiovascular: Rate and Rhythm: Normal rate and regular rhythm. Heart sounds: Normal heart sounds. Pulmonary: Effort: Pulmonary effort is normal. Breath sounds: Normal breath sounds. Abdominal: General: Bowel sounds are normal. Palpations: Abdomen is soft. Musculoskeletal: General: Normal range of motion. Cervical back: Normal range of motion and neck supple. Skin: General: Skin is warm. Neurological: General: No focal deficit present. Mental Status: She is alert and oriented to person, place, and time. PERTINENT TESTING AVAILABLE IN [facility] (WITHIN THE PAST 2 YEARS): EK10/08/2024 pending cardiology interpretation. Echo: No results found. Stress test: 11/19/2017 in Care Everywhere 1. Normal exercise tolerance test. 2. No ischemic ST segment abnormalities were noted with exercise. 3. No chest pain or cardiac arrhythmia provoked by exercise. 4. Limited exercise tolerance for age. No previous studies are available for comparison. Holter: No results found. Cardiac catheterization: No results found. Carotids: No results found. Pulmonary function testing: No results found. RECENT LABS: Lab Results Component Value Date CREATININE 0.81 08/17/2024 EGFR 78 08/17/2024 *Please note that labs listed above are the most recent lab values available in [facility] at the time the H&P was signed. ASSESSMENT / DIAGNOSIS: Kidney stones [N20.0] PLAN: Rosina Alcantara is scheduled for CYSTOSCOPY INSERTION STENT URETER - Right, CYSTOSCOPY RETROGRADE PYELOGRAM(psb) - Right on 10/11/[address] Ross. Labs and EKG done with today's visit. See [facility] for results. Anaya Broderick APRN-MULTI SLIDE MACHINE TENDER 10/08/24 1321 Anaya Broderick APRN-OMAIRA 10/12/24 1038 documented in this encounter Procedure Notes * Carroll Dia RN - 10/12/2024 4:02 PM EDT Midline placement note: Dynamic deicer kit assembler: Carroll Dia RN Prescribed IV therapy: Okay to place midline, we will plan on meropenem currently and continue meropenem till at least the date of her surgery for definitive stone management and likely afterwards aswell. History / Labs / Allergies were reviewed prior to insertion Bedside time out performed with nurse TONY Steel utilizing two identifiers Midline: Product type: 18 gauge SL Bard powerglide inserted into the left cephalic vein Ref: [id number] Lot: [id number] Exp: 08/21/2025 Catheter length 10 cm with 0 cm external Number of attempts: 1 Dressed per protocol with statlock and CHG tegaderm Following successful completion of procedure, all Midline kit components including sharps were accounted for, intact, and disposed of properly. Midline catheter tip is located at the level of the axilla and was placed with a brisk blood return. Line is immediately released for use. Per facility policy midline is okay for 30 days use but is to be removed due to signs of infiltration / phlebitis / extravasation. Line is to be used as a peripheral catheter with caution for any vesicant administration. Per facility policy and product IFU line is okay for lab draws if a blood return is present. Midline is okay to use if no blood return is present as long as there are no signs/symptoms of infiltration / phlebitis / extravasation including but not limited to leaking and/or redness at the insertion site and pain during infusion. documented in this encounter Consult Notes * Neno Allen MD - 10/14/2024 10:53 AM EDT Images from the original note were not included. [facility] [address] [place] [address] HISTORY & PHYSICAL / CONSULT NOTE Rosina Alcantara PCP: SAMEER ORTIZ JR, DO Date of Admission: 10/12/2024 Date of Consultation: 10/14/2024 10:53 AM Consult for tachycardia SUBJECTIVE History of Present Illness: Rosina Alcantara is a 69 y.o. female asked to consult on tachycardia. Patient's heart rates has been a low 100s at most. Presently in the 90s it all appears to be sinus although the patient is not on monitor at this time. ECGs show sinus rhythm. Smoker but quit many years ago Patient has several reasons for physiologic sinus tach including infection/discomfort/kidney stones. She actually looks pretty good and feels fine presently. The patient is generally active with no interference symptoms at home can achieve above 4 Mets with no issues Previous Medical History: Past Medical History: Diagnosis Date Atherosclerosis Colon, diverticulosis Common bile duct dilatation Dental disease upper partial, full lower plate Diabetes ([facility]) Diarrhea Diverticulosis large intestine w/o perforation or abscess w/o bleeding 07/2024 per colonoscopy History of recurrent urinary tract infection 08/13/2024 Hypertension Irritable bowel Kidney stones 08/13/2024 Nephrolithiasis Neuropathy Obesity Primary hydronephrosis 10/08/2024 Rash 10/08/2024 currently using steroid cream as needed on legs Urologic disorders 08/12/2024 1. IBS with Urolithiasis; by history status post ESWL x2 estimated 2004 elsewhere without success [facility] stones ???in a pocket?? ; CT NOMS 02/16/2024 multiple right renalstones including 2.7 cm staghorn with mild hydronephrosis; patient's nephew Conrad Adams MD 2. Recurrent UTIs 3. Microscopic hematuria UTI (urinary tract infection) Visual impairment glasses Previous Surgical History: Past Surgical History: Procedure Laterality Date CHOLECYSTECTOMY pt unsure of date - done at [facility] COLONOSCOPY 07/2024 [facility] in [place], [place] - no further screening colonoscopies required per CYSTOSCOPY INSERTION STENT URETER Right 10/12/2024 Performed by Rolando Ross Jr., MD at [facility] CYSTOSCOPY RETROGRADE PYELOGRAM Right 10/12/2024 Performed by Rolando Ross Jr., MD at [facility] DENTAL SURGERY multiple teeth extractions on both upper and lower LITHOTRIPSY x 2 with stents - pt unsure of date TONSILLECTOMY 1964 as a child TUBAL LIGATION 1978 Allergies: No Known Allergies Hospital Meds: Current Facility-Administered Medications Medication Dose Route Frequency Provider Last Rate Last Admin dextrose (GLUTOSE) 40 % gel 15 g 15 g oral PRN Scar Demarco MD dextrose 5 % (D5W) infusion 100 mL/hr intravenous Continuous PRN Scar Demarco MD dextrose 50 % in water (D50W) 50% solution 25 mL 25 mL intravenous PRN Scar Demarco MD famotidine (PEPCID) tablet 20 mg 20 mg oral Q12H Scar Demarco MD 20 mg at 10/14/24 0952 glucagon HCL injection 1 mg 1 mg intramuscular PRN Scar Demarco MD insulin lispro (HumaLOG) injection 1-5 Units 1-5 Units subcutaneous TID with meals Scar Demarco MD 2 Units at 10/12/24 1610 lisinopriL (PRINIVIL,ZESTRIL) tablet 10 mg 10 mg oral Daily Scar Demarco MD 10 mg at 10/14/24 0951 meropenem (MERREM) 1,000 mg in sodium chloride 0.9 % 100 mL IVPB W/ADAPTER 1,000 mg intravenous [id number] Bonner, DO 33.3 mL/hr at 10/14/24 0958 1,000 mg at 10/14/24 0958 sennosides-docusate sodium (SENOKOT-S) 8.6-50 mg 1 tablet 1 tablet oral Q12H PRN Scar Demarco MD sodium chloride 0.9 % flush 10 mL 10 mL intravenous Q12H Alexx Bonner, DO 10 mL at 10/14/24 0055 And sodium chloride 0.9 % flush 10 mL 10 mL intravenous PRN Alexx Bonner DO And sodium chloride 0.9 % flush 20 mL 20 mL intravenous PRN Alexx Bonner, DO sodium chloride 0.9 % flush 3 mL 3 mL intravenous PRN Scar Demarco MD sodium chloride 0.9 % flush 3 mL 3 mL intravenous Q12H [facility] Scar Demarco MD 3 mL at 10/14/24 0959 sodium chloride 0.9 % flush bag 25 mL intravenous PRN Scar Demarco MD tamsulosin (FLOMAX) 24 hr capsule 0.4 mg 0.4 mg oral Nightly Scar Demarco MD 0.4 mg at 10/13/242024 triamcinolone (KENALOG) 0.1 % cream 1 Application 1 Application topical BID PRN Scar Demarco MD trospium (SANCTURA) tablet 20 mg 20 mg oral BID AC Scar Demarco MD 20 mg at 10/14/24 0527 Home Meds: Prior to Admission medications Medication Sig Start Date End Date Taking? Authorizing Provider lisinopriL (PRINIVIL,ZESTRIL) 10 mg tablet Take 1 tablet (10 mg total) by mouth before bedtime. Indications: high blood pressure. Yes Not In System Ref Prov metFORMIN (GLUCOPHAGE) 1000 mg tablet Take 1 tablet (1,000 mg total) by mouth daily with dinner Indications: type 2 diabetes mellitus. Yes Not In System Ref Prov omeprazole (PriLOSEC) 20 mg capsule Take 1 capsule (20 mg total) by mouth every morning before breakfast Indications: gastroesophageal reflux disease. 06/15/24 Yes Not In System Ref Prov tamsulosin (FLOMAX) 0.4 mg capsule Take 1 capsule (0.4 mg total) by mouth nightly. 10/08/24 Yes Rolando Ross Jr., MD triamcinolone (KENALOG) 0.1 % cream Apply 1 Application topically 2 (two) times a day as needed forrash or irritation. Yes Not In System Ref Prov heparin lock flush, porcine, 10 unit/mL injection Infuse 1-5 mL (10-50 Units total) into a venous catheter as needed (line care per nursing agency protocol.). 10/13/24 Alexx Bonner, DO heparin lock flush, porcine, injection 100 unit/mL solution Infuse 1-5 mL (100- 500 Units total) into a venous catheter as needed (line care per nursing agency protocol.). 10/13/24 Alexx Bonner, DO meropenem (MERREM) 1 gram injection Infuse 1,000 mg into a venous catheter every 8 (eight) hours for 21 days. End Date 11/03/2024 10/13/24 11/03/24 Alexx Bonner, DO meropenem 1,000 mg in sodium chloride 0.9 % 100 mL IVPB W/ADAPTER Infuse 1,000 mg into a venous catheter every 8 (eight) hours for 21 days. 10/13/24 11/03/24 RED Moreira oxybutynin XL (DITROPAN XL) 10 mg 24 hr tablet Take 1 tablet (10 mg total) by mouth in the morning.10/13/24 RED Moreira semaglutide 1 mg/dose (4 mg/3 mL) pen injector Inject 0.5 mg under the skin once a week Indications: type 2 diabetes mellitus. Takes every Friday - pt did take her last injection on 10/04/2024 07/14/24Not In System Ref Prov sodium chloride injection Infuse 10-20 mL into a venous catheter as needed for line care ([facility] 10/13/24 Alexx Bonner DO Social History: TOBACCO: reports that she quit smoking about 14 years ago. Her smoking use included cigarettes. Shestarted smoking about 54 years ago. She has a 40 pack- year smoking history. She has never used smokeless tobacco. ETOH: reports that she does not currently use alcohol. DRUGS: reports no history of drug use. OCCUPATION: Family History: Family History Problem Relation Age of Onset Anesthesia problems Neg Hx Review of Systems: Constitutional: there has been no unanticipated weight loss, no change in energy level, sleep pattern, or activity level. Eyes: No visual changes or diplopia, no scleral icterus. ENT: No Headaches, hearing loss or vertigo, no mouth sores or sore throat. Cardiovascular: No chest pain, dyspnea on exertion, palpitations or loss of consciousness, no cough, hemoptysis, pleuritic pain, or phlebitis. Respiratory: No cough or wheezing, no sputum production, no hematemesis. Gastrointestinal: No abdominal pain, appetite loss, blood in stools, no change in bowel or bladder habits. Genitourinary: No dysuria, trouble voiding, or hematuria Musculoskeletal: No gait disturbance, weakness or joint complaints Integumentary: No rash or pruritis Neurological: No headache, diplopia, change in muscle strength, numbness or tingling, no change in gait, balance, coordination, mood, affect, memory, mentation, behavior Psychiatric: No anxiety, or depression Endocrine: No temperature intolerance, no excessive thirst, fluid intake, or urination, no tremor Hematologic/Lymphatic: No abnormal bruising or bleeding, blood clots or swollen lymph nodes Allergic/Immunologic: No nasal congestion or hives OBJECTIVE LAST LABS: CBC: Results from last 7 days Lab Units 10/08/24 1254 HEMOGLOBIN g/dL 13.3 HEMATOCRIT % 41.0 BMP: Results from last 7 days Lab Units 10/12/24 1522 CREATININE mg/dL 0.49 PT/INR: APTT: MAG: D Dimer: Troponin I ProBNP Lipid Panel: No results found for: CHOL , TRIG , HDL , CHOLHDLR Liver Panel: No results found for: TBIL , ALB HgA1C: No results found for: HGBA1C ABG: CV HISTORY: ECHO: No results found. STRESS: No results found. HOLTER: No results found. CARDIAC CATH: No results found. CAROTID: No results found. CXR: No results found. EKG: TELEMETRY: PHYSICAL EXAM Admission Weight: Weight: 94 kg (207 lb 3.7 oz) I/O last 3 completed shifts: In: - Out: 2049 [Urine:2049] Weight change: Wt Readings from Last 3 Encounters: 10/13/24 93.9 kg (207 lb) 10/08/24 94 kg (207 lb 3.7 oz) 10/08/24 93.9 kg (207 lb) Vitals: Vitals: 10/13/24 0750 10/13/24 1926 10/13/24 2209 10/14/24 0745 BP: 146/63 (!) 125/91 148/78 Pulse: 80 112 100 Resp: 17 16 16 Temp: 36.8 ??C (98.2 ??F) 36.6 ??C (97.8 ??F) 36.6 ??C (97.9 ??F) TempSrc: Oral Oral Oral SpO2: 96% 98% 100% Weight: 93.9 kg (207 lb) Height: 160 cm (5' 3 ) Admit Weight Weight: 94 kg (207 lb 3.7 oz) Last 3 Weights Last 3 Weight Readings 10/13/24 0700 10/13/242208 Weight: 94 kg (207 lb 3.7 oz) 93.9 kg (207 lb) Body mass index is 36.67 kg/m??. INTAKE/OUTPUT I/O last 3 completed shifts: In: - Out: 2049 [Urine:2049] No intake or output data in the 24 hours ending 10/14/24 1053 General appearance: Alert oriented and cooperative, in no acute distress Skin: Warm and dry to touch Head: Normocephalic, without obvious abnormality, atraumatic Eyes: Conjunctivae unremarkable, EOMs intact, sclera non icteric Neck: No JVD, no carotid bruit, neck supple, trachea midline Lungs: Clear to ausculation bilaterally, no use of accessory muscles. Heart:: RRR with normal S1 and S2 , no murmurs and no gallops. Abdomen: Soft, non-tender, bowel sounds normal Extremities: No edema Neurologic: Oriented to time, person and place, affect appropriate, no focal/major motor or sensorydefects noted Psychiatric: Appropriate mood, memory and judgment ASSESSMENT 1. Most likely physiologic sinus tach. Patient should tolerate procedures as planned at low risk. Iunderstand she is going home today and there is no reason for us to hold this up PLAN 1. Neno Allen MD This note was completed using a voice audio technician system. Every effort was made to ensure accuracy. However, inadvertent computerized audio technician errors may be present. * Alexx Bonner DO - 10/12/2024 12:07 PM EDTAssociated Order(s): IP CONSULT TO INFECTIOUS DISEASES Images from the original note were not included. Division of Infectious Diseases Initial Consult note Academic Team Our team prefers to use [employer] for communication during business hours (8 AM - 5 PM). We make every effort to keep the Treatment Team in [employer] updated. If I do not respond within 30 minutes, please call the answering service. From 5 PM - 8 AM, please call our answering service at [phone] to speak to the on-call physician.. Patient name: Rosina Alcantara Patient Today's Date and Time: 10/12/2024, 12:07 PM Admission Date: 10/12/2024 Impression: Complicated cystitis Primary hydronephrosis s/p stent placement Recurrent UTI Right sided nephrolithiasis Can continue with meropenem, while she has noted ertapenem resistance with Klebsiella pneumoniae the mics to both meropenem and imipenem are low indicating susceptibility. She does not have any oral options given that she is Bactrim resistant she has had several courses of Bactrim in the last 6 months. She has also fluoroquinolone resistant. Okay to place midline, we will plan on meropenem currently and continue meropenem till at least thedate of her surgery for definitive stone management and likely afterwards as well. Recommendations: Discontinue gentamicin Will start meropenem, ok to place midline Plan on at least 3 weeks given we do not have oral suppressive option Will need definitive stone management. Subjective Reason for consultation / Chief complaint: ESBL/MDR Klebsiella Our consultation addresses :complex antimicrobial therapy counseling and treatment History of Present Illness Rosina Alcantara is a 69 y.o.-year-old female who was initially admitted on 10/12/2024. Patient with apast medical history of nephrolithiasis has previously had 2 lithotripsies with stents. Patient hasbeen dealing with recurrent cystitis and urinary tract infection for approximately the last 2-2-1/2years. In the last 6 months she has gotten several courses of either oral Bactrim or ciprofloxacin.Most recent culture from 10/06 shows MDR Klebsiella pneumoniae. Patient presented with complaints ofoccasional right-sided flank pain no gross hematuria but had increasing urgency and frequency. She describes the increased urgency and frequency to increased oral fluid intake in an attempt to try and flush her kidneys. She denies any recent fevers cough nausea or vomiting. Patient was admitted for right-sided hydronephrosis and plan for cystoscopy placement of right ureteral stent possible retrograde pyelogram. Patient was given Ancef and ciprofloxacin prior to her planned procedure. Given the susceptibilities on her most recent urine culture she was given preop doses of IV gentamicin. Stent was placed noted to have cloudy urine from stent placement. She has also had significant cystitis on visualization. Doing well in postop. Denied any fevers chills nausea vomiting following procedure. She does have tenderness to the suprapubic region. Past Medical History: Past Medical History: Diagnosis Date Atherosclerosis Colon, diverticulosis Common bile duct dilatation Dental disease upper partial, full lower plate Diabetes ([facility]) Diarrhea Diverticulosis large intestine w/o perforation or abscess w/o bleeding 07/2024 per colonoscopy History of recurrent urinary tract infection 08/13/2024 Hypertension Irritable bowel Kidney stones 08/13/2024 Nephrolithiasis Neuropathy Obesity Primary hydronephrosis 10/08/2024 Rash 10/08/2024 currently using steroid cream as needed on legs Urologic disorders 08/12/2024 1. IBS with Urolithiasis; by history status post ESWL x2 estimated 2004 elsewhere without success [facility] stones ???in a pocket?? ; CT NOMS 02/16/2024 multiple right renalstones including 2.7 cm staghorn with mild hydronephrosis; patient's nephew Conrad Adams MD 2. Recurrent UTIs 3. Microscopic hematuria UTI (urinary tract infection) Visual impairment glasses Past Surgical History: Past Surgical History: Procedure Laterality Date CHOLECYSTECTOMY pt unsure of date - done at [facility] COLONOSCOPY 07/2024 [facility] in [place], [place] - no further screening colonoscopies required per MD DENTAL SURGERY multiple teeth extractions on both upper and lower LITHOTRIPSY x 2 with stents - pt unsure of date TONSILLECTOMY 1963 as a child TUBAL LIGATION 1978 Medications: famotidine, 20 mg, oral, Q12H gentamicin, 1.5 mg/kg (Order-Specific), intravenous, Q12H insulin lispro, 1-5 Units, subcutaneous, TID with meals lisinopriL, 10 mg, oral, Daily sodium chloride, 3 mL, intravenous, Q12H MARY tamsulosin, 0.4 mg, oral, Nightly trospium, 20 mg, oral, BID AC Social History: Social History Socioeconomic History Marital status: Tobacco Use Smoking status: Former Current packs/day: 0.00 Average packs/day: 1 pack/day for 40.0 years (40.0 ttl pk-yrs) Types: Cigarettes Start date: 1970 Quit date: 2010 Years since quittin.5 Smokeless tobacco: Never Vaping Use Vaping status: Never Used Substance and Sexual Activity Alcohol use: Not Currently Drug use: Never Sexual activity: Defer Social Drivers of Health Food Insecurity: No Food Insecurity (10/08/2024) Hunger Screening Food Insecurity - Worry: Never True Food Insecurity - Inability: Never True Family History: Family History Problem Relation Age of Onset Anesthesia problems Neg Hx Immunization History: There is no immunization history on file for this patient. Allergies: No Known Allergies Review of Systems: General: Negative for fever, chills, night sweats Eyes: Negative for double vision, redness, vision loss ENT: Negative for sore throat, nasal congestion, ear pain Cardiovascular: Negative for chest pain, palpitations, orthopnea Lung: Negative for dyspnea, cough, sputum production Abdomen: Negative for abdominal pain, nausea, vomiting, diarrhea Genitourinary: Negative for dysuria, hematuria, suprapubic pain, flank pain Musculoskeletal: Negative for joint pain, muscle pain Hematologic: Negative for bleeding, bruising Neurologic: Negative for headache, vision changes, weakness, tingling Review of systems reviewed and otherwise negative unless listed in HPI or above ROS portion. Objective Physical Examination: BP (!) 84/49 Pulse 92 Temp 36.2 ??C (97.2 ??F) Resp 12 SpO2 100% Temperature Range: Temp: 36.2 ??C (97.2 ??F) Temp Av.4 ??C (97.5 ??F) Min: 36.2 ??C (97.2 ??F)Max: 36.5 ??C (97.7 ??F) General Appearance: Awake, alert, and in no apparent distress Head: Normocephalic, without obvious abnormality, atraumatic Eyes: Pupils equal, round, reactive, to light and accommodation; extraocular movements intact; sclera anicteric; conjunctivae pink ENT: Oropharynx clear, without erythema, exudate, or thrush. Neck: Supple, without lymphadenopathy. Pulmonary/Chest: Clear to auscultation, without wheezes, rales, or rhonchi Cardiovascular: Regular rate and rhythm without murmurs, rubs, or gallops. Abdomen: Soft, nontender, nondistended. Suprapubic tenderness on palpation Extremities: No cyanosis, clubbing, edema, or effusions. Neurologic: Bulk and tone are normal. No atrophy is noted. Skin: No rash or lesions. Labs: Results from last 7 days Lab Units 10/08/24 1254 HEMOGLOBIN g/dL 13.3 HEMATOCRIT % 41.0 Results from last 7 days Lab Units 10/12/24 1032 BEDSIDE GLUCOSE mg/dL 152* Results from last 7 days Lab Units 10/08/24 1134 R. B. CELLS 14* W. B. CELLS 538* Imaging Studies: Relevant imaging reviewed Cultures: Microbiology Results Procedure Component Value Units Date/Time Urine Culture [[id number]] (Abnormal) (Susceptibility) Collected: 10/08/24 1134 Specimen: Urine, Clean Catch Midstream Updated: 10/11/24 1459 CULTURE RESULTS >100,000 CFU/mL Klebsiella pneumoniae Susceptibility Klebsiella pneumoniae Not Specified Amikacin <=1 Susceptible Ampicillin >=32 Resistant Cefazolin (non-urinary) >=32 Resistant Cefazolin (urinary) >=32 Resistant Ciprofloxacin >=4 Resistant Ertapenem 2 Resistant [1] Gentamicin <=1 Susceptible IMIPENEM <=0.25 Resistant [1] IMP (CARBAPENEMASE) Negative KPC (CARBAPENEMASE) Negative Levofloxacin >=8 Resistant Meropenem 1 Resistant [1] NDM (CARBAPENEMASE) Negative [id number] (CARBAPENEMASE) Negative PIPERACIL/TAZOBACTAM 16 Susceptible (dose dependent) Tobramycin <=1 Susceptible Trimethoprim + Sulfamethoxazole 80 Resistant VIM (CARBAPENEMASE) Negative [1] This is an appended report. These results have been appended to a previously final verified report. Susceptibility Comments Klebsiella pneumoniae Carbapenem Resistant Organism ([employer]). The CARBA5 test only detects the 5 most prevalent carbapenemase producing mechanisms in the [place] Other carbapenemase producing mechanisms not detected by this test are rare. Thank you for allowing us to participate in the care of this patient. Alexx Bonner DO [place] Infectious Diseases Pager: I prefer to be contacted via [employer] for non-urgent matters. After hours, please call [phone] to have the on-call physician contacted. documented in this encounter Nursing Notes * Yolis Johnson RN - 10/14/2024 1:55 PM EDT AVS reviewed, all questions answered. documented in this encounter Miscellaneous Notes * Discharge Planning Note - Navin Vazquez RN - 10/14/2024 10:30 AM EDT DISCHARGE PLANNING NOTE Notified that patient is ready for discharge. Received phone call from [facility] that they will be doing a start of care this evening at 5:00 PM. They were requesting patient midline information which was print attached in [employer]. [facility] will be delivering medications between 11:00 and 3:00 PM. * Discharge Planning Note - Lachelle Wetzel RN - 10/13/2024 12:25 PM EDT DISCHARGE PLANNING NOTE Community Referral Form/medication reconciliation attached to [facility] for [facility] and [facility]. [facility] care can start care tomorrow 10-14-24 at 5pm. [facility] between 11am-3pm. Yennifer daughter updated. Bedside RN updated as well. - Lachelle Wetzel RN 10/13/24 2:37 PM Patient should DC with [facility] and [facility] for IV infusion. Awaiting call back from [facility] regarding start of care time. Patient is q8H with antibiotics and need to make sure SOC willline up with next dose. [facility] is coming to bedside to teach today. Cost of medications is 140.00/wk with supplies. Daughter Yennifer has been updated and agreeable to cost. Once SOC and delivery is arranged patient can DC. - Lachelle Wetzel RN 10/13/24 12:27 PM * Significant Event - Alexx Bonner DO - 10/13/2024 9:56 AM EDT Images from the original note were not included. Patient name: Rosina Alcantara Date of : 1955 Admission date: 10/12/2024 ANTIBIOTIC ORDERS Infectious Diseases Diagnosis for antibiotic management: ESBL Klebsiella Name/dosing/frequency of antibiotic: Meropenem 1 grams IV every 8 hours Continue antibiotics through: 11/03/2024 Dosing changes determined by pharmacy should be discussed with the Infectious Diseases provider managing the case LABORATORY ORDERS: Draw WEEKLY the following labs: CBC BUN, Creatinine >>>FAX RESULTS TO [phone] <<< Discontinue laboratory orders when antibiotics have completed Call Infectious Diseases with critical lab values. CONTACT NUMBERS For all questions call: [phone] or [phone] IV ACCESS: Midline OK to draw blood from IV access device: yes Leave intravenous access in place until patient's follow up appointment. IV ACCESS FLUSHING ORDERS PER INFUSION COMPANY PROTOCOL ID PHYSICIAN WHO WILL BE OVERSEEING OUTPATIENT IV ANTIMICROBIAL THERAPY: Callie Adams CNP PRIMARY CARE PROVIDER: SAMEER ORTIZ JR, DO ALLERGIES: No Known Allergies WEIGHT: Wt Readings from Last 1 Encounters: 10/13/24 94 kg (207 lb 3.7 oz) HEIGHT: Ht Readings from Last 1 Encounters: 10/08/24 160 cm (5' 3 ) RECENT LABS: Results from last 7 days Lab Units 10/13/24 0749 10/12/24 1606 10/12/24 1522 CREATININE mg/dL -- -- 0.49 BEDSIDE GLUCOSE mg/dL 159* < > -- < > = values in this interval not displayed. Results from last 7 days Lab Units 10/08/24 1254 HEMOGLOBIN g/dL 13.3 HEMATOCRIT % 41.0 Significant Hospital Summary: Recurrent UTI with Klebsiella, significant resistance. Hydronephrosison the right s/p stent placement. Can continue with meropenem, while she has noted ertapenem resistance with Klebsiella pneumoniae the mics to both meropenem and imipenem are low indicating susceptibility. She does not have any oral options given that she is Bactrim resistant she has had several courses of Bactrim in the last 6 months. She has also fluoroquinolone resistant. Okay to place midline, we will plan on meropenem currently and continue meropenem till at least thedate of her surgery for definitive stone management and likely afterwards as well. MICROBIOLOGY: Susceptibility data from last 90 days. Collected Specimen Info Organism Amikacin $$ Ampicillin $ Cefazolin (non- urinary) Cefazolin (Urinary) Ciprofloxacin $ Ertapenem $$$$ Gentamicin $ Imipenem IMP Carbapenemase KPC Carbapenemase 10/08/24 Urine, Clean Catch Midstream Klebsiella pneumoniae S R R R R R S R NEG NEG Collected Specimen Info Organism Levofloxacin $ Meropenem $$$ NDM Carbapenemase OXA-48-like Carbapenemase Piperacillin / Tazobactam $$ Tobramycin $ Trimethoprim + Sulfamethoxazole 10/08/24 Urine, Clean Catch Midstream Klebsiella pneumoniae R R NEG NEG SDD S R Collected Specimen Info Organism VIM Carbapenemase 10/08/24 Urine, Clean Catch Midstream Klebsiella pneumoniae NEG DISPOSITION: Home Follow-up: Patient needs to follow up in 2 weeks. Please call patient to schedule appointment. * Discharge Planning Note - China Rudd - 10/12/2024 5:07 PM EDT DISCHARGE PLANNING NOTE Referral sent to. [facility] in [place], [place] (P# ; F# ) Referral sent to. [facility]- [place], [place] [facility] - (P# ; F# ) * Discharge Planning Note - Navin Vazquez RN - 10/12/2024 4:15 PM EDT Images from the original note were not included. DISCHARGE PLANNING NOTE Services Requested: Services Requested Patient expects to be discharged to:: Home Care and Infusion Does the patient wish to have family/friend/caregiver involved in their discharge planning?: No, the patient does not wish to have family/friend/caregiver involved in their discharge planning Discharge Disposition: Home with home health services, Home Infusion Facility/Service Name: [facility] Name: [facility] Does the patient need discharge transportation arranged?: No Mobility issues discussed with transportation provider: No Patient choice offered: Yes List Provided: Yes [facility] List Provided: Home Care Patient Goals: Goals: Goals <enter goal here> (pt-stated) Evaluation of progress towards goal: Patient will discharge with home health care and infusion. - Navin Vazquez RN 10/12/24 4:26 PM Met with patient to review transitions of care. Patient lives at home alone. She is going to require IV antibiotics at discharge. Patient is teachable. Offered home care choice and started referral to [facility]. Pt will need acceptance. Also started referral to [facility]. PCP is Dr Diana Mccauley. Patient has transportation. She can afford her medications. She denies smoking, drinking alcohol, or doing illicit drugs. * Op Note - Rolando Ross Jr., MD - 10/12/2024 10:57 AM EDT Operative Note NAME: Rosina Alcantara :1955 PROCEDURE DATE: 10/12/2024 Surgeon: ROLANDO ROSS JR, MD Assistants: Dr. Deep Demarco Pre-op Diagnosis: Kidney stones [N20.0] History of recurrent urinary tract infection [Z87.440] Primary hydronephrosis [Q62.0] Multiple large right renal stones, Klebsiella UTI recurrent, likely right per calyceal diverticularstone or stones Post-op Diagnosis: Post-Op Diagnosis Codes: * Kidney stones [N20.0] * History of recurrent urinary tract infection [Z87.440] * Primary hydronephrosis [Q62.0] Multiple large right renal stones, Klebsiella UTI recurrent, likely right per calyceal diverticularstone or stones, cystitis, grade 2 midline cystocele Procedure : Cystoscopy, insertion right ureteral stent with fluoroscopic visualization Indications: The patient is a 69-year-old female with the aforementioned presentation. Benefits, risks, and alternatives discussed and questions answered. As requested, I have offered to schedule theprocedure. Details of Procedure: Patient on oral Cipro, resistant to her Klebsiella. I marked the patient's right flank in the preoperative holding area with marking pen with my initials, with the patient's assistance per protocol. EPC cuffs were applied and activated. The patient was taken to the OR, administered general anesthesia, IV gentamicin antibiotic, and protocol time-out was completed. The patientwas sterilely prepped and draped in the dorsal lithotomy position. Cystoscope was passed in the bladder. Cystoscopic findings included normal urethra. Obvious substantial cystitis throughout the bladder. Urine however was clear and not cloudy. Clear efflux orthotopic ureteral orifice bilaterally, ex cept she did have a grade 2 midline cystocele. No tumors or stones identified.. An angled Glidewire was passed up the right ureter with direct and fluoroscopic visualization, withcoil confirmed in the expected position of the collecting system. Next, a 8 Faroese 24 cm, double-J ureteral stent was passed over the wire using a pusher until the stent was positioned appropriately, and the wire was then withdrawn, with coil confirmed in the renal collecting system and in the bladder. Cloudy drainage from stent. Scope withdrawn. Due to bladder appearances and cloudy drainage from stent, Eighteen Faroese well lubricated Kevin catheter passed in the bladder with return of clear irrigating fluid. Balloon inflated to 10 mL with sterile water. Catheter attached to gravity drainage. Please note the stones were seen very easily under fluoroscopy. Anesthesia Type: General LMA anesthesia * No Diagnosis Codes entered * Complications: None Additions (Drains, Specimens, Implants): Stent and Kevin catheter Estimated Blood Loss: 0 Total IV Fluids: Intravenous fluids were administered Crystalloids 500 mls Colloids 0 mls. Condition: good Findings: Substantial cystitis, grade 2 midline cystocele Disposition: Operative findings discussed with her daughter, Yennifer. Admit to observation with Infectious Disease consultation to help set up long-term outpatient antibiotic. I will plan definitive ureteroscopic treatment with laser no sooner than 14 days, and she needs to be kept on IV antibiotic through the day of surgery and several days after. Discharge to home pending clinical course either today or tomorrow, I expect with Kevin catheter removed. Plan to continue Flomax 0.4 mg nightly. Discontinue p.o. Cipro. Start Ditropan XL 10 mg daily. Analgesic as needed. Await radiology report. The patient/family are instructed to call for fever, bleeding, urinary retention, pain, malfunction of any drainage tubes, chest pain, shortness of breath, swelling or pain ofthe lower extremities, or any other trouble. Otherwise keep scheduled follow-up appointment. * Perioperative Nursing Note - Kasie Bray RN - 10/11/2024 6:41 AM EDT + FAXED TO [facility]. documented in this encounter Plan of Treatment Upcoming Encounters Date Type Department Care Team (Latest Contact Info) Description 11/01/2024 3:30 PM EDT Hospital Encounter [facility] [address] [place] [phone] Rolando Ross Jr., MD [address] [place] [phone] 11/01/2024 3:30 PM EDT - 11/01/2024 7:00 PM EDT Surgery [facility] [address] [place] [phone] Rolando Ross Jr., MD [address] [place] [phone] LASER HOLMIUM URETEROSCOPY WITH VACUUM ASPIRATION 11/02/2024 4:15 PM EDT Office Visit [facility] [address] [place] [phone] Rolando Ross Jr., MD [address] [place] [phone] Scheduled Orders Name Type Priority Associated Diagnoses Orde r Schedule CBC auto differential Lab Routine History of recurrent urinary tract infection Primary hydronephrosis Medication monitoring encounter Once a week for 3 Occurrences starting 10/13/2024 until 10/13/2025 Basic Metabolic Panel Lab Routine History of recurrent urinary tract infection Primary hydronephrosis Medication monitoring encounter Once a week for 3 Occurrences starting 10/13/2024 until 10/13/2025 Liver panel Lab Routine History of recurrent urinary tract infection Primary hydronephrosis Medication monitoring encounter Once a week for 3 Occurrences starting 10/13/2024 until 10/13/2025 Scheduled Procedures Name Priority Associated Diagnoses Date/Ti me LASER HOLMIUM URETEROSCOPY WITH VACUUM ASPIRATION Kidney stones Ureteral stent present 11/01/2024 3:30 PM EDT CYSTOSCOPY EXCHANGE STENT URETER Kidney stones Ureteral stent present 11/01/2024 3:30 PM EDT CYSTOSCOPY RETROGRADE PYELOGRAM Kidney stones Ureteral stent present 11/01/2024 3:30 PM EDT documented as of this encounter Goals Goal Patient Goal Type Associated Problems Recent Progress Patient-Stated? Author <enter goal here> General Yes Navin Vazquez, RN Note: Evaluation of progress towards goal: Patient will discharge with home health care and infusion. - Navin Vazquez RN 10/12/24 4:26 PM Autogenerated Goal Care Plan Autogenerated Problem No Abida Ace documented as of this encounter Procedures Procedure Name Priority Date/Time Associated Diagnosis Comments BEDSIDE GLUCOSE Routine 10/13/2024 7:49 AM EDT BEDSIDE GLUCOSE Routine 10/12/2024 9:41 PM EDT BEDSIDE GLUCOSE Routine 10/12/2024 4:06 PM EDT CREATININE, SERUM Routine 10/12/2024 3:2 2 PM EDT EXTRA TUBES LAVENDER TOP Routine 10/12/2024 3:17 PM EDT EXTRA TUBES Routine 10/12/2024 3:17 PM EDT FL FLUOROSCOPY UP TO 1 HOUR Routine 10/12/2024 1:42 PM EDT BEDSIDE GLUCOSE Routine 10/12/2024 12:48 PM EDT PULSE OXIMETRY, SPOT Routine 10/12/2024 11:48 AM EDT CYSTOSCOPY RETROGRADE PYELOGRAM 10/12/2024 10:57 AM EDT Kidney stones History of recurrent urinary tract infection Primary hydronephrosis Case Notes LAURA (EPIC 45, GAVE 45) DE CYSTOSCOPY,INSERT URETERAL STENT 10/12/2024 10:57 AM EDT Kidney stones History of recurrent urinary tract infection Primary hydronephrosis Case Notes LAURA (EPIC 45, GAVE 45) BEDSIDE GLUCOSE Routine 10/12/2024 10:32 AM EDT documented in this encounter Results * (ABNORMAL) Bedside Glucose *Place/Obtain serum glucose if >500 per glucometer. (10/13/2024 7:49 AM EDT) Bedside Glucose (POC) 159(H) 65 - 99 mg/dL 10/13/2024 8:46 AM EDT [facility] arterial/capilla ry 10/13/2024 7:49 AM EDT 10/13/2024 8:46 AM EDT us Rolando Ross Jr., MD POINT OF CARE TEST ORDER LINCOLN Final Result Performing Organization Address City/[facility]/ZIP Co de Phone Number [facility] [address] [place] [address], [place] * (ABNORMAL) Bedside Glucose *Place/Obtain serum glucose if >500 per glucometer. (10/12/2024 9:41 PM EDT) Bedside Glucose (POC) 206(H) 65 - 99 mg/dL 10/12/2024 9:43 PM EDT [facility] arterial/capilla ry 10/12/2024 9:41 PM EDT 10/12/2024 9:43 PM EDT us Rolando Ross Jr., MD POINT OF CARE TEST ORDER LINCOLN Final Result Performing Organization Address City/[facility]/ZIP Co de Phone Number [facility] [address] [place] [address], [place] * (ABNORMAL) Bedside Glucose *Place/Obtain serum glucose if >500 per glucometer. (10/12/2024 4:06 PM EDT) Bedside Glucose (POC) 216(H) 65 - 99 mg/dL 10/12/2024 4:12 PM EDT [facility] arterial/capilla ry 10/12/2024 4:06 PM EDT 10/12/2024 4:12 PM EDT us Rolando Ross Jr., MD POINT OF CARE TEST ORDER LINCOLN Final Result Performing Organization Address City/[facility]/ZIP Co de Phone Number [facility] [address] [place] [address], [place] * Creatinine includes GFR, serum (10/12/2024 3:22 PM EDT) CREATININE 0.49 0.40 - 1.00 mg/dL 10/12/2024 4:16 PM EDT [facility] Comment:METHOD TRACEABLE TO IDMS STANDARD EGFR Non-Race Dependent >90 >=60 ml/min/1.7 3sq.m 10/12/2024 4:16 PM EDT [facility] Comment: Reported eGFR is based on the CKD-EPI 2020 equation that does not use a race coefficient. Blood Venous blood / Unknown Venipuncture / Unknown 10/12/2024 3:22 PM EDT 10/12/2024 3:43 PM EDT us Alexx Bonner DO LAB BLOOD ORDERABLES Final Resu lt Performing Organization Address City/[facility]/ZIP Co de Phone Number [facility] [address] [place] [address], [place] [phone] * Lavender Top (10/12/2024 3:17 PM EDT) Extra Tube Auto Resulted 10/12/2024 5:01 PM EDT [facility] Blood Venous blood / Unknown Venipuncture / Unknown 10/12/2024 3:17 PM EDT 10/12/2024 3:43 PM EDT us Rolando Ross Jr., MD LAB BLOOD ORDERABLES Fin al Result Performing Organization Address City/[facility]/ZIP Co de Phone Number [facility] [address] [place] [address], [place] [phone] * Fluoroscopy less than one hour (10/12/2024 1:42 PM EDT) Anatomical Region Laterality Modality Radio Fluoroscop y 10/12/2024 1:49 PM EDT Narrative 10/12/2024 1:49 PM EDT FL FLUOROSCOPY UP TO 1 HOUR HISTORY: Stent. COMPARISON: None. IMPRESSION: Reference air kerma 0.6 mGy. Fluoroscopic guidance provided. Please see details within procedural/operative note. Finalized by Hans Green MD on 10/12/2024 1:49 PM Procedure Note Hans Green MD - 10/12/2024 FL FLUOROSCOPY UP TO 1 HOUR HISTORY: Stent. COMPARISON: None. IMPRESSION: Reference air kerma 0.6 mGy. Fluoroscopic guidance provided. Please seedetails within procedural/operative note. Finalized by Hans Green MD on 10/12/2024 1:49 PM us Rolando Ross Jr., MD IMG FLUOROSCOPY ORDERABL ES Final Result * (ABNORMAL) Bedside Glucose *Place/Obtain serum glucose if >500 per glucometer. (10/12/2024 12:48PM EDT) Bedside Glucose (POC) 147(H) 65 - 99 mg/dL 10/12/2024 12:50 PM EDT [facility] arterial/capilla ry 10/12/2024 12:48 PM EDT 10/12/2024 12:50 PM EDT Rolando Ross Jr., MD POINT OF CARE TEST ORDER LINCOLN Final Result [facility] [address] [place] [address], [place] * (ABNORMAL) Bedside Glucose *Place/Obtain serum glucose if >500 per glucometer. 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 Urologic disorders Unspecified disorder of urethra and urinary tract History of recurrent urinary tract infection Primary hydronephrosis 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 Medication monitoring encounter Encounter for therapeutic drug monitoring History of recurrent urinary tract infection Urologic disorders Unspecified disorder of urethra and urinary tract Kidney stones Calculus of kidney Ureteral stent present documented in this encounter Admitting Diagnoses Diagnosis Kidney stones Calculus of kidney History of recurrent urinary tract infection Primary hydronephrosis 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 If blood glucose is not greater than 70 mg/dL after initial treatment, repeat treatment. dextrose 5 % (D5W) infusion 100 mL/hr, intravenous, Continuous PRN, blood glucose less than 70 mg/dL, Starting on Fri10/12/24 at 1151, Use immediately following dextrose 50% or glucagon treatment for patients who are unconscious or NPO. Contact prescriber for additional orders. If blood glucose is not greater than 70 mg/dL after initial treatment, repeat treatment. dextrose 50 % in water (D50W) 50% solution 25 mL 25 mL, intravenous, As needed, low blood sugar, blood glucose less than 70 mg/dL and unconscious or NPO with IV access, Starting on Fri10/12/24 at 1151, Push over 1-3 minutes STAT. If conscious and not NPO, immediately follow with meal tray or high protein (7 grams) snack if tray not available. If NPO, initiate 5% dextrose in water at 100 mL/hr and contact prescriber for additional orders. If blood glucose is not greater than 70 mg/dL after initial treatment, repeat treatment. VESICANT (RED) Warning: HYPERTONIC solution. famotidine (PEPCID) tablet 20 mg 20 mg, oral, Every 12 hours, First dose on Fri10/12/24 at 1200, Pharmacy to adjust dose per renal function Given 10/14/2024 9:52 AM EDT 20 mg Given 10/13/2024 8:25 PM EDT 20 mg Given 10/13/2024 8:31 AM EDT 20 mg glucagon HCL injection 1 mg 1 mg, intramuscular, As needed, low blood sugar, blood glucose less than 70 mg/dL and unconscious or NPO without IV access., Starting on Fri10/12/24 at 1151, If conscious and not NPO, immediately follow with meal tray or high protein (7Grams) snack if tray not available. If NPO, initiate IV 5% Dextrose/Water at 100 mL/hr and contact prescriber for additional orders. If blood glucose is not greater than 70 mg/dL after initial treatment, repeat treatment. insulin lispro (HumaLOG) injection 1-5 Units 1-5 Units, subcutaneous, 3 times daily with meals, First dose on Fri10/12/24 at 1200, Daytime hyperglycemia dosing. For blood glucose 151-200 mg/dL, give 1 unit. For blood glucose 201-250 mg/dL, give 2 units. For blood glucose 251-300 mg/dL, give 3 units. For blood glucose 301-350 mg/dL, give 4 units. For blood glucose 351-400 mg/dL, give 5 units. Give even if NPO or meals skipped. Do NOT give more often than every 4 hours when NPO. Notify prescriber if blood glucose greater than 400 mg/dL. Look-alike/sound-alike medication - verify indication for use. Prime with 2 units of insulin prior to administration. Prandial/supplemental Insulin. Pre-filled pens stable 28 days at room temperature. Insulin lispro should be administered within 15 minutes before or immediately after a meal. Given 10/12/2024 4:10 PM EDT 2 Units Left Arm lactated ringers infusion 50 mL/hr, intravenous, Continuous, Starting on Fri10/12/24 at 1000, Pre-op, If fluid restriction is not indicated, infuse at a rate up to 5 mL/kg/hr not to exceed the total replacement volume (2 ml/kg/hr) from the time NPO status was initiated. Restarted 10/12/2024 11:28 AM EDT Continued by Anesthesia 10/12/2024 10:57 AM EDT 50 mL/hr New Bag 10/12/2024 10:38 AM EDT 50 mL/hr 50 mL/hr lisinopriL (PRINIVIL,ZESTRIL) tablet 10 mg 10 mg, oral, Daily, First dose on Fri10/12/24 at 1200, Hold for SBP < 110 Look-alike/sound-alike medication - verify indication for use., Indications: hypertensionIndications:hypertension Given 10/14/2024 9:51 AM EDT 10 mg Given 10/13/2024 8:25 PM EDT 10 mg meropenem (MERREM) 1,000 mg in sodium chloride 0.9 % 100 mL IVPB W/ADAPTER 1,000 mg, intravenous, at 200 mL/hr, Administer over 0.5 Hours, Once, On Fri10/12/24 at 1530, For 1 dose, For Vial-2-Bag: Attach bag and vial to adapter - Use immediately after activating; dissolve drug prior to administration., Pathogen: ESBL organism, Indication: UTI, Authorizing Service: ID consult has been placed, I acknowledge that an appropriate consult is REQUIRED to use this drug at [facility], [facility] and [facility] per [facility]-approved policy # MM 1.15: Yes New Bag 10/12/2024 4:08 PM EDT 1,000 mg 200 mL/hr meropenem (MERREM) 1,000 mg in sodium chloride 0.9 % 100 mL IVPB W/ADAPTER 1,000 mg, intravenous, at 33.3 mL/hr, Administer over 3 Hours, Every 8 hours, First dose on Fri10/12/24 at 2330, For Vial-2-Bag: Attach bag and vial to adapter - Use immediately after activating; dissolve drug prior to administration., Pathogen: ESBL organism, Indication: UTI, Authorizing Service: ID consult has been placed, I acknowledge that an appropriate consult is REQUIRED to use this drug at [facility], [facility] and [facility] per [facility]-approved policy # MM 1.15: Yes New Bag 10/14/2024 9:58 AM EDT 1,000 mg 33.3 mL/hr New Bag 10/14/2024 12:00 AM EDT 1,000 mg 33.3 mL/hr New Bag 10/13/2024 4:04 PM EDT 1,000 mg 33.3 mL/hr midazolam (PF) (VERSED) injection 2 mg 2 mg, intravenous, Once as needed, anxiety, Starting on Fri10/12/24 at 0955, For 1 dose, Pre-op, May repeat in 10 minutes, if needed, if original midazolam (VERSED) ineffective, Indication: Other, Indication: anxiety Given 10/12/2024 10:54 AM EDT 2 mg sennosides-docusate sodium (SENOKOT-S) 8.6-50 mg 1 tablet 1 tablet, oral, Every 12 hours PRN, constipation, Starting on Fri10/12/24 at 1148 sodium chloride 0.9 % flush 10 mL 10 mL, intravenous, Every 12 hours, First dose on Fri10/12/24 at 1400, PICC line. Administer 10 mL per lumen; 10 mL total (for single lumen flush) Given 10/14/2024 12:55 AM EDT 10 mL Given 10/13/2024 4:02 PM EDT 10 mL Given 10/12/2024 4:13 PM EDT 10 mL sodium chloride 0.9 % flush 10 mL 10 mL, intravenous, As needed, line care, Starting on Fri10/12/24 at 1345, PICC line. Administer 10 mL to each lumen before and after each use. Administer 10 mL per lumen; 10 mL total (for single lumen flush) sodium chloride 0.9 % flush 20 mL 20 mL, intravenous, As needed, line care, Starting on Fri10/12/24 at 1345, PICC line. Administer 20 mL to each lumen after lab draws, blood infusion, and meds known to precipitate. Administer 20 mL per lumen; 20 mL total (for single lumen flush) sodium chloride 0.9 % flush 3 mL 3 mL, intravenous, As needed, line care, before and after each intermittent use, Starting on Fri10/12/24 at 1147 sodium chloride 0.9 % flush 3 mL 3 mL, intravenous, Every 12 hours scheduled, First dose on Fri10/12/24 at 1200 Given 10/14/2024 9:59 AM EDT 3 mL Given 10/13/2024 7:31 PM EDT 3 mL Given 10/13/2024 8:32 AM EDT 3 mL sodium chloride 0.9 % flush bag 25 mL, intravenous, at 100 mL/hr, Administer over 15 Minutes, As needed, line care, line care after IVPB administration, Starting on Fri10/12/24 at 1147 sodium chloride 0.9 % infusion 75 mL/hr, intravenous, Continuous, Starting on Fri10/12/24 at 1200, For 1 day Rate/Dose Verify 10/12/2024 6:27 PM EDT 75 mL/hr Rate/Dose Verify 10/12/2024 4:56 PM EDT 75 mL/h r Rate/Dose Verify 10/12/2024 4:55 PM EDT 75 mL/h r tamsulosin (FLOMAX) 24 hr capsule 0.4 mg 0.4 mg, oral, Nightly, First dose on Fri10/12/24 at 2200, Do not crush or chew. Given 10/13/2024 8:25 PM EDT 0.4 m g Given 10/12/2024 10:12 PM EDT 0.4 mg trospium (SANCTURA) tablet 20 mg 20 mg, oral, 2 times daily before meals, First dose (after last modification) on Fri10/12/24 at 1245, PACU & Post-op Given 10/14/2024 5:27 AM EDT 20 mg Given 10/13/2024 5:07 PM EDT 20 mg Given 10/13/2024 5:56 AM EDT 20 mg documented in this encounter Active and Recently Administered Medications Times are shown in EDT. Scheduled Medication Order 10/12/2024 10/13/2024 10/14/2024 famotidine (PEPCID) tablet 20 mg 20 mg, oral, Every 12 hours, First dose on Fri10/12/24 at 1200, Pharmacy to adjust dose per renal function 1249 (Given - Provider: Angela Jha RN)2212 (Given - Provider: Paula Villafuerte RN) 0831 (Given - Provider: Milvia Hussein, TONY)2024 (Given - Provider: Javi Sagastume RN) 0952 (Given - Provider: Yolis Johnson RN) gentamicin (GARAMYCIN) injection 80 mg 80 mg, intramuscular, Once, On Fri10/12/24 at 1030, For 1 dose, Indication: UTI 1030 (Due) gentamicin IVPB 80 mg/100 mL in iso-osmotic sodium chloride (0.8 mg/mL premix) (COMPLETED) 80 mg, intravenous, at 100 mL/hr, Administer over 60 Minutes, Once, On Fri10/12/24 at 1045, For 1 dose, Indication: UTI 1058 (Given - Provider: EFRA Saravia)1158 (Stop Bag - Provider: EFRA Saravia) insulin lispro (HumaLOG) injection 1-5 Units 1-5 Units, subcutaneous, 3 times daily with meals, First dose on Fri10/12/24 at 1200, Daytime hyperglycemia dosing. For blood glucose 151-200 mg/dL, give 1 unit. For blood glucose 201-250 mg/dL, give 2 units. For blood glucose 251-300 mg/dL, give 3 units. For blood glucose 301-350 mg/dL, give 4 units. For blood glucose 351-400 mg/dL, give 5 units. Give even if NPO or meals skipped. Do NOT give more often than every 4 hours when NPO. Notify prescriber if blood glucose greater than 400 mg/dL. Look-alike/sound-alike medication - verify indication for use. Prime with 2 units of insulin prior to administration. Prandial/supplemental Insulin. Pre-filled pens stable 28 days at room temperature. Insulin lispro should be administered within 15 minutes before or immediately after a meal. 1200 (Not Given - Provider: Angela Jha RN - Reason: Order parameters not met - Comment: [id number])1610 (Given - Provider: Milvia Hussein RN) 0800 (Not Given - Provider: Milvia Hussein RN - Reason: Patient/family refused)1200 (Not Given - Provider: Milvia Hussein RN - Reason: Patient/family refused)1700 (Not Given - Provider: Milvia Hussein RN - Reason: Patient/family refused) 0906 (Not Given - Provider: Yolis Johnson RN - Reason: Patient/family refused)1200 (Due) lisinopriL (PRINIVIL,ZESTRIL) tablet 10 mg 10 mg, oral, Daily, First dose on Fri10/12/24 at 1200, Hold for SBP < 110 Look-alike/sound-alike medication - verify indication for use., Indications: hypertension 1200 (Not Given - Provider: Angela Jha RN - Reason: Order parameters not met - Comment: low bp) 202 (Given - Provider: Javi Sagastume RN) 0951 (Given - Provider: Yolis Johnson RN) meropenem (MERREM) 1,000 mg in sodium chloride 0.9 % 100 mL IVPB W/ADAPTER (COMPLETED)(Linked Group 1) 1,000 mg, intravenous, at 200 mL/hr, Administer over 0.5 Hours, Once, On Fri10/12/24 at 1530, For 1 dose, For Vial-2-Bag: Attach bag and vial to adapter - Use immediately after activating; dissolve drug prior to administration., Pathogen: ESBL organism, Indication: UTI, Authorizing Service: ID consult has been placed, I acknowledge that an appropriate consult is REQUIRED to use this drug at [facility], [facility] and [facility] per [facility]-approved policy # MM 1.15: Yes 1400 (Canceled Entry - Provider: Nandini Humphreys LPN)1608 (New Bag - Provider: Milvia Hussein RN)1638 (Stop Bag - Provider: Nandini Humphreys LPN) meropenem (MERREM) 1,000 mg in sodium chloride 0.9 % 100 mL IVPB W/ADAPTER(Linked Group 1) 1,000 mg, intravenous, at 33.3 mL/hr, Administer over 3 Hours, Every 8 hours, First dose on Fri10/12/24 at 2330, For Vial-2-Bag: Attach bag and vial to adapter - Use immediately after activating; dissolve drug prior to administration., Pathogen: ESBL organism, Indication: UTI, Authorizing Service: ID consult has been placed, I acknowledge that an appropriate consult is REQUIRED to use this drug at [facility], [facility] and [facility] per [facility]-approved policy # MM 1.15: Yes 2214 (New Bag - Provider: Paula Villafuerte RN - Comment: pt req) 0114 (Stop Bag - Provider: Paula Villafuerte RN)0556 (New Bag - Provider: Paula Villafuerte RN - Comment: pt req)0856 (Stop Bag - Provider: Milvia Hussein RN)1604 (New Bag - Provider: Milvia Hussein RN)1904 (Stop Bag - Provider: Javi Sagastume RN) 0000 (New Bag - Provider: Javi Sagastume RN)0300 (Stop Bag - Provider: Javi Sagastume RN)0958 (New Bag - Provider: Yolis Johnson RN)1258 (Due: Stop Bag - Provider: Yolis Johnson RN) sodium chloride 0.9 % flush 10 mL(Linked Group 2) 10 mL, intravenous, Every 12 hours, First dose on Fri10/12/24 at 1400, PICC line. Administer 10 mL per lumen; 10 mL total (for single lumen flush) 1613 (Given - Provider: Milvia Hussein RN) 0200 (Not Given - Provider: Paula Villafuerte RN - Reason: IV infusing)1602 (Given - Provider: Milvia Hussein RN) 0055 (Given - Provider: Javi Sagastume RN)1400 (Due) sodium chloride 0.9 % flush 3 mL 3 mL, intravenous, Every 12 hours scheduled, First dose on Fri10/12/24 at 1200 1200 (Not Given - Provider: Angela Jha RN - Reason: IV infusing)2200 (Not Given - Provider: Paula Villafuerte RN - Reason: IV infusing) 0832 (Given - Provider: Milvia Hussein RN)1931 (Given - Provider: Javi Sagastume RN) 0959 (Given - Provider: Yolis Johnson RN) tamsulosin (FLOMAX) 24 hr capsule 0.4 mg 0.4 mg, oral, Nightly, First dose on Fri10/12/24 at 2200, Do not crush or chew. 2212 (Given - Provider: Paula Villafuerte RN) 2025 (Given - Provider: Javi Sagastume RN) trospium (SANCTURA) tablet 20 mg 20 mg, oral, 2 times daily before meals, First dose (after last modification) on Fri10/12/24 at 1245, PACU & Post-op 1249 (Given - Provider: Angela Jha RN) 0556 (Given - Provider: Paula Villafuerte RN - Comment: patient req)1707 (Given - Provider: Milvia Hussein RN) 0527 (Given - Provider: Javi Sagastume RN) Continuous Medication Order 10/12/2024 10/13/2024 10/14/2024 lactated ringers infusion (CANCELED) 50 mL/hr, intravenous, Continuous, Starting on Fri10/12/24 at 1000, Pre-op, If fluid restriction is not indicated, infuse at a rate up to 5 mL/kg/hr not to exceed the total replacement volume (2 ml/kg/hr) from the time NPO status was initiated. 1038 (New Bag - Provider: Marcelino Monge RN)1057 (Continued by Anesthesia - Provider: EFRA Saravia)1127 (Paused - Provider: EFRA Saravia - Comment: Switch to gravity)1128 (Restarted - Provider: EFRA Saravia)1135 (Stop Bag - Provider: Angela Jha RN - Comment: [Order ends at this time. Document the following action when infusion is complete: Stop Bag])1136 (Anesthesia Volume Adjustment - Provider: EFRA Sandhu) sodium chloride 0.9 % infusion () 75 mL/hr, intravenous, Continuous, Starting on Fri10/12/24 at 1200, For 1 day 1200 (Not Given - Provider: Angela Jha RN - Reason: IV infusing)1541 (New Bag - Provider: Milvia Hussein RN)1608 (Paused - Provider: Milvia Hussein RN)1638 (Restarted - Provider: Milvia Hussein RN)1655 (Rate/Dose Verify - Provider: Milvia Hussein RN)1656 (Rate/Dose Verify - Provider: Milvia Hussein RN)1827 (Rate/Dose Verify - Provider: Milvia Hussein RN) 1540 (Stop Bag - Provider: Milvia Hussein RN - Comment: [Order ends at this time. Document the following action when infusion is complete: Stop Bag]) PRN Medication Order 10/12/2024 10/13/2024 10/14/2024 dextrose (GLUTOSE) 40 % gel 15 g 15 g, oral, As needed, low blood sugar, blood glucose less than 70 mg/dL, Starting on Fri10/12/24 at 1151, If patient conscious and taking PO. If blood glucose is not greater than 70 mg/dL after initial treatment, repeat treatment. dextrose 5 % (D5W) infusion 100 mL/hr, intravenous, Continuous PRN, blood glucose less than 70 mg/dL, Starting on Fri10/12/24 at 1151, Use immediately following dextrose 50% or glucagon treatment for patients who are unconscious or NPO. Contact prescriber for additional orders. If blood glucose is not greater than 70 mg/dL after initial treatment, repeat treatment. dextrose 50 % in water (D50W) 50% solution 25 mL 25 mL, intravenous, As needed, low blood sugar, blood glucose less than 70 mg/dL and unconscious or NPO with IV access, Starting on Fri10/12/24 at 1151, Push over 1-3 minutes STAT. If conscious and not NPO, immediately follow with meal tray or high protein (7 grams) snack if tray not available. If NPO, initiate 5% dextrose in water at 100 mL/hr and contact prescriber for additional orders. If blood glucose is not greater than 70 mg/dL after initial treatment, repeat treatment. VESICANT (RED) Warning: HYPERTONIC solution. glucagon HCL injection 1 mg 1 mg, intramuscular, As needed, low blood sugar, blood glucose less than 70 mg/dL and unconscious or NPO without IV access., Starting on Fri10/12/24 at 1151, If conscious and not NPO, immediately follow with meal tray or high protein (7Grams) snack if tray not available. If NPO, initiate IV 5% Dextrose/Water at 100 mL/hr and contact prescriber for additional orders. If blood glucose is not greater than 70 mg/dL after initial treatment, repeat treatment. midazolam (PF) (VERSED) injection 2 mg (COMPLETED) 2 mg, intravenous, Once as needed, anxiety, Starting on Fri10/12/24 at 0955, For 1 dose, Pre-op, May repeat in 10 minutes, if needed, if original midazolam (VERSED) ineffective, Indication: Other, Indication: anxiety 1054 (Given - Provider: Marcelino Monge RN) sennosides-docusate sodium (SENOKOT-S) 8.6-50 mg 1 tablet 1 tablet, oral, Every 12 hours PRN, constipation, Starting on Fri10/12/24 at 1148 sodium chloride 0.9 % (bag) (NS) 0.9 % irrigation solution (CANCELED) As needed, Starting on Fri10/12/24 at 1104, Intra-op 1104 (Given - Provider: Rolando Ross Jr., MD) sodium chloride 0.9 % flush 10 mL(Linked Group 2) 10 mL, intravenous, As needed, line care, Starting on Fri10/12/24 at 1345, PICC line. Administer 10 mL to each lumen before and after each use. Administer 10 mL per lumen; 10 mL total (for single lumen flush) sodium chloride 0.9 % flush 20 mL(Linked Group 2) 20 mL, intravenous, As needed, line care, Starting on Fri10/12/24 at 1345, PICC line. Administer 20 mL to each lumen after lab draws, blood infusion, and meds known to precipitate. Administer 20 mL per lumen; 20 mL total (for single lumen flush) sodium chloride 0.9 % flush 3 mL 3 mL, intravenous, As needed, line care, before and after each intermittent use, Starting on Fri10/12/24 at 1147 sodium chloride 0.9 % flush bag 25 mL, intravenous, at 100 mL/hr, Administer over 15 Minutes, As needed, line care, line care after IVPB administration, Starting on Fri10/12/24 at 1147 sterile water irrigation solution (CANCELED) As needed, Starting on Fri10/12/24 at 1104, Intra-op 1104 (Given - Provider: Rolando Ross Jr., MD) triamcinolone (KENALOG) 0.1 % cream 1 Application 1 Application, topical, 2 times daily PRN, rash, irritation, Starting on Fri10/12/24 at 1150, Apply to affected areas. Linked Groups Order Group 1: meropenem (MERREM) 1,000 mg in sodium chloride 0.9 % 100 mL IVPB W/ADAPTER (COMPLETED)Jump to med 1,000 mg, intravenous, at 200 mL/hr, Administer over 0.5 Hours, Once, On Fri10/12/24 at 1530, For 1 dose, For Vial-2-Bag: Attach bag and vial to adapter - Use immediately after activating; dissolve drug prior to administration., Pathogen: ESBL organism, Indication: UTI, Authorizing Service: ID consult has been placed, I acknowledge that an appropriate consult is REQUIRED to use this drug at [facility], [facility] and [facility] per [facility]-approved policy # MM 1.15: Yes Followed by meropenem (MERREM) 1,000 mg in sodium chloride 0.9 % 100 mL IVPB W/ADAPTERJump to med 1,000 mg, intravenous, at 33.3 mL/hr, Administer over 3 Hours, Every 8 hours, First dose on Fri10/12/24 at 2330, For Vial-2-Bag: Attach bag and vial to adapter - Use immediately after activating; dissolve drug prior to administration., Pathogen: ESBL organism, Indication: UTI, Authorizing Service: ID consult has been placed, I acknowledge that an appropriate consult is REQUIRED to use this drug at [facility], [facility] and [facility] per [facility]-approved policy # MM 1.15: Yes Group 2: Consult PICC nurse (COMPLETED) Reason for consult? Insert Midline IV, Indication: Antibiotic Therapy, Number of Lumen(s): 1 Lumen And sodium chloride 0.9 % flush 10 mLJump to med 10 mL, intravenous, Every 12 hours, First dose on Fri10/12/24 at 1400, PICC line. Administer 10 mL per lumen; 10 mL total (for single lumen flush) And sodium chloride 0.9 % flush 10 mLJump to med 10 mL, intravenous, As needed, line care, Starting on Fri10/12/24 at 1345, PICC line. Administer 10 mL to each lumen before and after each use. Administer 10 mL per lumen; 10 mL total (for single lumen flush) And sodium chloride 0.9 % flush 20 mLJump to med 20 mL, intravenous, As needed, line care, Starting on Fri10/12/24 at 1345, PICC line. Administer 20 mL to each lumen after lab draws, blood infusion, and meds known to precipitate. Administer 20 mL per lumen; 20 mL total (for single lumen flush) documented in this encounter Additional Health Concerns Active Problems Noted Date Diagnosed Date Autogenerated Problem 10/08/2024 documented as of this encounter Care Teams Manager Erp Relationship Specialty Start Date End Date Sameer Ortiz Jr., [address] [place] [address], [place] [id number] PCP - General Family Medicine 09/30/24 documented as of this encounter
--- OUTSIDE RECORDS SUMMARY | 2024-10-18 14:15 | XMS_ITS | Encounter Summary ---
Author Organization [facility] tem Address [id number] [address] [place] [address] Care Team Providers Care Environmental Quality Analyst Name Role Phone Diana Joya DO, George R Primary Care Provider + Encounter Details Date Type Department Care Team (Late st Contact Info) Description 10/18/2024 2:15 PM EDT [facility] On [address] [phone] Social History Tobacco Use Types Packs/Day Years [...] got money to buy more. Never True 10/18/2024 Within the past 12 months th e food we bought just didn't last and we didn't have money to get more. Never True 10/18/2024 Comments No Sex and Gender Information Value Date Recorded Sex Assigned at Not on file Legal Sex Female 9:12 AM EST Gender Identity Not on file Sexual Orientation Not on file documented as of this encounter Miscellaneous Notes * Pre-Procedure Instructions - Aby Kulkarni RN - 10/18/2024 2:15 PM EDT Bathing Before Surgery- Patients greater than 2 months of age You can help to lower your chance of infection at the site of your surgery by showering or bathing with a special soap called chlorhexidine gluconate (CHG). Germs live on your skin. This special soapwill help lower the amount of germs so they do not get into your surgery site. Special points to know: Do not use this soap if you know that you are allergic to CHG. Shower or bathe with CHG the night before and the morning of surgery. Do not shave the area of your body where the surgery will be done within 7 days of surgery. The CHG may make your skin a little dry, but do not use lotion. Steps for Bathing: Wash your hair as usual with your normal shampoo. Rinse your hair and body well after you shampoo to get rid all of the shampoo. Wash gently with the CHG from the neck down, but do not scrub the skin to hard. Be sure to wash thearea of your surgery very well. If showering, turn the water off while washing and then turn the water back onto rinse. Do not get CHG in the genital (private) area. Do not get CHG in the eyes, ears, nose or mouth. (If the soap gets into the eyes, flush them immediately with water). Do not wash with regular soap after CHG is used. Pat skin dry with a soft, clean towel. Patient should sleep in freshly laundered night clothes and report for surgery in clean clothes. Place freshly laundered linens on your bed after bathing with wipes or soap. Do not allow pets in your bed Your surgery/procedure is scheduled at [facility] on 10-25-2024 at 3:45 PM Arrival Time 1:45 PM [facility] Address: [address] [place] [address]. [address]1 Parking lot located on [facility]. Report to the Entrance B. Check in at the information desk the surgery. The waiting room located on the second floor. If you have any questions prior to surgery, please call Pre-Admission Clinic at [phone] between 7:30 am and 4:30 pm Friday through Friday. If you have questions the morning of surgery, please call the Pre-op Department at [phone]. Notify your SURGEON if you develop any illness such as a cold, cough, fever, sore throat, vomiting or are hospitalized between now and your surgery. Medication Instructions (Do not stop your medications without consulting the prescribing physician). Take the following medications the morning of surgery with a sip of water: OMEPRAZOLE Diabetic or Weight loss medications: HOLD OZEMPIC LAST DOSE 10-04-2024 Take inhalers as prescribed the morning of surgery. Due to the risk associated with these medications. If these medications are not held per instruction below, your surgery is at an increased risk for cancellation. SGLT2 Medications- Hold 3 days prior to surgery: Jardiance, Empagliflozin, Farxiga, Dapagliflozin, Invokana, Canagliflozin, Trijardy, Synjardy GLP-1 Medications (Injection or Pill)- If taken daily hold day of surgery. If taken weekly, hold 1 week prior to surgery: Adlyxin, Byetta, Bydureon, Ozempic, Rybelsus,Trulicity, Victoza, Wegovy, Lixisenatide, Exenatide, Semaglutide, Dulaglutide, Liraglutide GIP/GLP-1(Injection or Pill)- If taken daily hold day of surgery. If taken weekly, hold 1 week prior to surgery: Mounjaro . Blood thinners: Please contact your prescribing physician regarding a stop/hold date for these medications. Medications such as Coumadin, Heparin, Aspirin, Plavix, Eliquis, Pradaxa Diabetics: If you take insulin, contact your prescribing doctor for instructions on how to manage this the night before and the morning of surgery. Non-steriodal Anti-Inflammatory Drugs (NSAIDS)- Hold 3 days prior to surgery unless otherwise directed by your surgeon. Vitamins/Herbal Products: You may continue to take your prescribed vitamins such as potassium, iron, vitamin B, vitamin C, or multivitamin unless specifically instructed by your surgeon to hold. STOPtaking all herbal products/teas one week prior to your surgery. Marijuana: Stop marijuana 72 hours prior to surgery, stop CBD oil 48 hours prior to surgery. If you have been given bowel prep instructions by your surgeon, please call the surgeon's office with any questions about these instructions. What do I do the day of Surgery? Age 2 through adult - Stop all solids by midnight, You may have clear liquids up to 2 hours before surgery, unless otherwise instructed by your surgeon. Clear liquids are: water, sports drinks such as Gatorade or G2, or apple juice. You may NOT have: tube feedings, dairy products, alcoholic beverages, orange juice, or any liquids with solids or pulp in it. If applicable, shower again with CHG soap the morning of your surgery. In order to help prevent infection post-operatively, you may be asked to use a CHG mouthwash when you arrive to the Pre-op area. Your nurse will provide instruction the morning of. What do I need to do to prepare for surgery? If you will be going home the same day as your surgery, arrange for an adult over [address] Riding in a bus or taxi by yourself is not permitted. You should not smoke or drink alcohol 24 hours before your surgery. Alcohol thins the blood and may cause bleeding problems during surgery. Smoking increases the risk of breathing problems after surgery. Do not use lotions, creams, powders, perfume, make up, cologne or after-shaves day of surgery. Remove ALL jewelry including wedding rings, body piercings (including dermal piercing's, hair extensions that contain metal, nail amharic, make-up, and contact lens. You may brush your teeth the morning of surgery, but do not swallow the water. Wear your dentures and partial plates to the hospital (no adhesive). Shower the night the before. If applicable, use the CHG (chlorhexidine gluconate) soap or wipes. Place clean linens on your bed after showering. Do not allow pets to sleep in your bed What should I bring to the hospital? Eyeglass or contact lens case If you will be spending the night, please bring personal care items and leave them in the car untilyou are taken to your room after surgery. Leave ALL valuables at home. If any of these instructions conflict with those you received from the surgeon, please seek clarification from your surgeon's office. DEEP BREATHING EXERCISES This exercise helps promote good air exchange and helps to prevent pneumonia after surgery. Breathe in slowly and deeply through the nose. Hold your breath for a few seconds and then exhale slowly through the mouth. Repeat this three times and then cough.Coughing helps to clear your lungs. If you have had a surgery with an incision into your abdomen or chest, press gently against your incision with a pillow or a folded blanket when you cough. Please be aware - it may not be ortiz to cough following some types of surgeries involving the eyes,ears, sinuses and throat. Always follow your doctor's instructions. LEG EXERCISE These exercises help promote good circulation and help to prevent blood clots after surgery. Point your toes to the ceiling and then point them to the wall. Do this slowly about 15-20 times. You may also move your feet in circles. Do the exercise that is most comfortable for you. If you have had surgery involving your shoulder or arm, we recommend you move your fingers. PRACTICING We ask that you begin practicing these exercises before your surgery. After surgery try to do both exercises at least every 2 hours during the day and early evening. Surgical Site Infection Prevention What is a Surgical Site Infection (SSI)? Infection can happen to the area of the body where surgery is done. This is called a surgical site infection (SSI). A SSI does not happen very often. What are some of the things that hospitals are doing to prevent SSIs? Soap and water or alcohol hand rub are used before and after caring for each patient. Special soap is used to clean surgery workers hands and arms just before the surgery. Masks, gowns, gloves and hair covers are worn during the surgery to keep the area clean. Hair in the surgery area may be removed with clippers (not razors). A special soap that kills germs is used to clean the skin at the surgery site. Antibiotics may be given before the surgery starts. What can you do to prevent SSIs? Before surgery: You may be asked to shower or bathe with a special soap that kills germs the night before and the day of surgery. Use the soap as you were told. Place clean sheets on your bed the night before surgery and do not allow your pets in your bed. If you smoke or vape, stop or cut down. This creates a stress response in your body that increases inflammation, constricts blood vessels and deprives your tissues of oxygen. After surgery, this stress response disrupts the travel of oxygen, nutrients, and blood to your surgical site, interfering with the wound healing process. It also decreases the ability of your cells to fight infection. Ask your doctor about ways to quit. If you have high blood sugars or diabetes please talk with your doctor about having healthy blood sugar levels to promote healing. Do not shave near where you will have surgery. Shaving can irritate the skin and make it easier to get and infection. After surgery: Be sure that the doctors and nurses clean their hands before and after touching you. Be sure your family and friends clean their hands before and after visiting you. Do not be afraid to remind them. Always wash your hands before touching your incisional area. * Care for your wound at home as told by your doctor or nurse * Call your doctor right away if you have fever, redness, increased pain, or drainage at the surgery site. Can SSIs be treated? Antibiotics are used to treat SSI. Some patients may need another surgery to treat the infection. The doctor will discuss treatment options with you. Further questions? Contact the doctor, nurse or the Infection Prevention and Control department if you have any questions. PATIENT RIGHTS AND RESPONSIBILITIES As a patient at [facility], you have the right to: Receive medical care and be informed of who is taking care of you Be treated with dignity and respect Have a family member/customer sales representative of choice and your physician notified of your admission Receive information and actively participate in decisions about your care and treatment Refuse care, treatment and services Decide who may provide your support and speak for you Access mandaen and spiritual services Participate in ethical issues and questions about your care Receive private and confidential care Have appropriate assessment and management of your pain Know guest visitation restrictions or limitations Have an advance directive Access protective services Consent or refuse to participate in research studies or production or recordings, films or other images Have resolution of your complaints Receive information of hospital charges and payment methods Patient/patient customer sales representative responsibilities are to: Provide information about health status to facilitate care, treatment and services Follow the treatment, plan, keep appointments and speak up when you do not understand the plan Respect the rights of other patients and healthcare personnel Follow organizational rules and regulations that support quality care and a safe environment Fulfill financial obligations as promptly as possible documented in this encounter Plan of Treatment Upcoming Encounters Date Type Department Care Team (Latest Contact Info) Description 11/01/2024 3:30 PM EDT Hospital Encounter [facility] - Surgery [address] [place] [address]. [place] [phone] Dudley Lundberg Jr., MD [facility] [place] [address] 11/01/2024 3:30 PM EDT - 11/01/2024 7:00 PM EDT Surgery [facility] - Surgery [address] [place] [phone] Dudley Lundberg Jr., MD [address] [place] [phone] LASER HOLMIUM URETEROSCOPY WITH VACUUM ASPIRATION 11/02/2024 4:15 PM EDT Office Visit [facility] [address] [place] [phone] uDdley Lundberg Jr., MD [address] [place] [phone] Scheduled Procedures Name Priority Associated Diagnoses Date/Ti wv LASER HOLMIUM URETEROSCOPY WITH VACUUM ASPIRATION Kidney stones Ureteral stent present 11/01/2024 3:30 PM EDT CYSTOSCOPY EXCHANGE STENT URETER Kidney stones Ureteral stent present 11/01/2024 3:30 PM EDT CYSTOSCOPY RETROGRADE PYELOGRAM Kidney stones Ureteral stent present 11/01/2024 3:30 PM EDT documented as of this encounter Goals Goal Patient Goal Type Associated Problems Recent Progress Patient-Stated? Author <enter goal here> General Yes Navin Vazquez, TONY Note: Evaluation of progress towards goal: Patient will discharge with home health care and infusion. - Navin Vazquez RN 10/12/24 4:26 PM Autogenerated Goal Care Plan Autogenerated Problem No Abida Ace Autogenerated Goal Care Plan Autogenerated Problem No Calli Wheat documented as of this encounter Visit Diagnoses Not on filedocumented in this encounter Additional Health Concerns Active Problems Noted Date Diagnosed Date Autogenerated Problem 10/08/2024 Autogenerated Problem 10/14/2024 documented as of this encounter Care Teams Environmental Quality Analyst Relationship Specialty Start Date End Date Derrick Ortiz Jr., [address] [facility], [id number] [place] [address] PCP - General Family Medicine 09/30/24 documented as of this encounter
--- OUTSIDE RECORDS SUMMARY | 2024-10-21 15:00 | XMS_ITS | Encounter Summary ---
Author Organization [facility] Address [address] [place] [address] Care Team Providers Care Adjunct Nursing Faculty Name Role Phone Unavailable Primary Care Provider Unavailabl e Encounter Details Date Type Department Care Team (Late st Contact Info) Description 10/21/2024 3:00 PM EDT Telemedicine [facility] Infectious Disease [address] [place] [address] Nakul Coleman CNP [address] [facility]/[place] [address] Recurrent UTI (Primary Dx); Infection due to ESBL-producing Klebsiella pneumoniae; Right renal stone; Ureteral stent present Social History Tobacco Use Types Packs/Day Years Used Date Smoking Tobacco: Never Assessed Comments Unknown Sex and Gender Information Value Date Recorded Sex Assigned at Choose not to disclose 1:05 PM EDT Legal Sex Female 3:24 PM EDT Gender Identity Choose not to disclose 1:05 PM EDT Sexual Orientation Choose not to disclose 2024 1:05 PM EDT documented as of this encounter Patient Instructions * Patient Instructions* Nakul Coleman CNP - 10/21/2024 3:00 PM EDT Continue to monitor for signs and symptoms of infection including fever, chills, shortness of breath, chest pain, abdominal pain, nausea, vomiting and diarrhea. Flank pain, hematuria. Call our office if you notice any of these or go to the ED if needing to documented in this encounter Progress Notes * Nakul Coleman CNP - 10/21/2024 3:00 PM EDT Infectious Disease. Telemedicine Note Consent Statement: I discussed risks, benefits, and alternatives of a real-time synchronous audiovisual consultation with the patient (and any accompanying persons) including the risks that the patient's personal health details and medical records will be discussed over real-time, synchronous, interactive video/audio/telecommunication technology, the visit will not be recorded without the express consent of both the provider and the patient, and that there are some limitations compared to [id number] evaluations. We elected to proceed. Division of Infectious Diseases - Progress Note Our team prefers to use [employer] for communication during business hours (8 AM - 5 PM). We make every effort to keep the Treatment Team in Walk-in updated. If I do not respond within 30 minutes, please call the answering service. From 5 PM - 8 AM, please call our answering service at [phone] to speak to the on-call physician. Patient name: Rosina Alcantara Patient Today's Date and Time: 10/20/2024, 3:26 PM PCP: N/a Discharged from [facility] on 10/18/24 Location of provider: [facility] Current location of patient: [place] Impression /Recommendations: Recurrent UTI Right renal stones Ureteral stent Bilateral ureter stricture (malformation) 15 years of stones. Hx of two lithotripsy and stents Dealing with this for 2.5 years, monthly 08/26 CT urogram: Multiple and large, partially obstructive right renal calculi measuring 2.7 cm withconfiguration suggestive of a staghorn calculus. Mucosal thickening and periureteral stranding about the proximal/mid right ureter could reflect sequela of intermittent obstruction versus infectious/inflammatory process 10/08 UC: MDR Klebsiella pneumoniae (Meropenem resistant but no CRE so susceptibility inferred, gentand amikacin susceptible) 10/12 S/p stent placement 10/21 Dysuria improved 10/25 plan for lithotripsy Please send cultures if able Continue Meropenem 1g q8, EOT 11/03/24 Midline Weekly CBC, CMP DM 2, poorly controlled 05/14 A1c: 7.2 Tight glycemic is control important for preventing infections Frequently check feet, including between toes and heels to assess for any skin breakdown IBS Labs: N/a WBC: Cr.: () Pt doing well with only slight dysuria. Plan as above. Continue to monitor for s/s of worsening infection. If you start having fever, chills, nausea with vomiting; go to the ED. Follow Up: 11/03/24 Subjective Interval History: Rosina Alcantara is a 69 y.o.-year-old female who was initially admitted on 10/12/24. This is a patient with a PMH significant for 15 years of stones. Hx of two lithotripsy and stents. Patient has been dealing with recurrent cystitis and urinary tract infection for approximately the last 2-2-1/2 years. In the last 6 months she has gotten several courses of either oral Bactrim or ciprofloxacin. Pt came to the ED s/t intermittent right flank pain, dysuria, urgency and frequency. Recently 08/26 CT urogram showed, Multiple and large, partially obstructive right renal calculi measuring 2.7 cm with configuration suggestive of a staghorn calculus. Mucosal thickening and periureteral stranding about the proximal/mid right ureter could reflect sequela of intermittent obstruction versus infectious/inflammatory process. 10/08 UC: MDR Klebsiella pneumoniae (Meropenem resistant but no CRE so susceptibility inferred, gent and amikacin susceptible). She was started on IV Meropenem. ON 10/12 s/p stentplacement. A midline was placed and she was discharged. Today, the patient is completing a hospital follow up with telemedicine. The patient reports doing well. Continues to drink lots of water to flush her system. Continues infusing the IV Meropenem via midline as prescribed. Did have some issues with the rate of infusion and the midline had to be adjusted. Now working fine. C/o some dysuria, but improved. Denies fever, chills, flank pain, frequency,urgency, nausea and vomiting. Plans to undergo lithotripsy with Dr. Toño Mccauley on 10/25. Medical History[1] Objective Physical Examination : There were no vitals taken for this visit. Temperature Range: General Appearance: Awake, alert, and in no apparent distress Eyes: Sclera anicteric; conjunctivae pink ENT: Oropharynx clear, without erythema, exudate, or thrush. Neck: Supple, without lymphadenopathy. Extremities: RUE midline, No cyanosis, clubbing, edema, or effusions. Neurologic: A&Ox4 . Medications: This progress note was completed using a voice central office inspector system. Every effort was made to ensure accuracy; however, inadvertent computerized central office inspector errors may be present. Thank you for allowing us to participate in the care of this patient. Please do not hesitate to reach out to me via [employer] or pager with any questions or concerns. Nakul Coleman APRN, CNP Please contact via [employer] [1] No past medical history on file. documented in this encounter Plan of Treatment Upcoming Encounters Date Type Department Care Team (Late st Contact Info) Description 11/03/2024 2:00 PM EDT Telemedicine [facility] Infectious Disease [address] [place] [address] Nakul Coleman CNP [address] [facility] [address] documented as of this encounter Visit Diagnoses Diagnosis Recurrent UTI- Primary Urinary tract infection, site not specified Infection due to ESBL-producing Klebsiella pneumoniae Right renal stone Ureteral stent present documented in this encounter
--- OUTSIDE RECORDS SUMMARY | 2024-10-25 13:52 | XMS_ITS | Encounter Summary ---
Author Organization [employer] tem Address [id number] [address] [place] [address] Care Team Providers Care Flight Mechanic Name Role Phone Diana Joya DO, George R Primary Care Provider + Reason for Referral * Misc (Routine) - Authorized Specialty Diagnoses / Procedures Referred By Contac t Referred To Contact Procedures No dressing needed Rolando Ross Jr., MD [address] [place] [address] Phone: tel: fax: Referral ID Status Reason Start Date Expiration Date V isits Requested Visits Authorized [id number] Authorized 10/25/2024 10/25/2025 1 1 * Misc (Routine) - Authorized Specialty Diagnoses / Procedures Referred By Contac t Referred To Contact Procedures Adult diet Rolando Ross Jr., MD [address] [place] [address] Phone: tel: fax: Referral ID Status Reason Start Date Expiration Date V isits Requested Visits Authorized [id number] Authorized 10/25/2024 10/25/2025 1 1 * Misc (Routine) - Authorized Specialty Diagnoses / Procedures Referred By Contac t Referred To Contact Procedures Discharge Follow-Up - Specify Details in Comments Rolando Ross Jr., MD [address] [place] [address] Phone: tel: fax: Referral ID Status Reason Start Date Expiration Date V isits Requested Visits Authorized [id number] Authorized 10/25/2024 10/25/2025 1 1 Reason for Visit * Auth/Cert Specialty Diagnoses / Procedures Referred By Contac t Referred To Contact Diagnoses Kidney stones Kidney stones [N20.0] Procedures LASER HOLMIUM URETEROSCOPY WITH VACUUM ASPIRATION CYSTOSCOPY EXCHANGE STENT URETER CYSTOSCOPY RETROGRADE PYELOGRAM WITH FLOUROSCOPY Rolando Ross Jr., MD [address] [place] [address] Phone: tel: fax: Referral ID Status Reason Start Date Expiration Date Visits Re quested Visits Authorized [id number] Encounter Details Date Type Department Care Team (Latest Contact Info) Description 10/25/2024 1:52 PM EDT - 10/25/2024 8:26 PM EDT Hospital Encounter [facility] - Surgery [address] [place] [phone] Rolando Ross Jr., MD [address] [place] [id number] Kidney stones Discharge Disposition: Home Social History Tobacco Use Types Packs/Day Years [...] Sign Reading Time Taken Comments Blood Pressure 158/62 10/25/2024 8:09 PM EDT Pulse 97 10/25/2024 8:09 PM EDT Temperature 36 C (96.8 F) 10/25/2024 8:09 PM EDT Respiratory Rate 17 10/25/2024 8:09 PM EDT Oxygen Saturation 94% 10/25/2024 8:09 PM EDT Inhaled Oxygen Concentration - - Weight 93.9 kg (207 lb) 10/25/2024 2:14 PM EDT Height 160 cm (5' 3 ) 10/25/2024 2:14 PM EDT Body Mass Index 36.67 10/25/2024 2:14 PM EDT documented in this encounter Discharge Instructions * Discharge Instructions* Dimple Phillips RN - 10/25/2024 7:18 PM EDT Images from the original note were not included. GENERAL ACTIVITY: If you have been put to sleep (general anesthetic) or received any sedation your judgment and/or coordination may be impaired. Be careful on steps, holding a hot drink, etc. Do not make any important decisions or sign any important papers in the next 24 Hours. You should have a responsible adult with you the rest of today and tonight. Restrict your activities and rest for the day. Resume light to normal activity tomorrow as you feel you can. Do not engage in strenuous activities that may place stress on your incision. Do not drive or operate machinery for 24 hours. Ask your Surgeon when you can resume driving. Do not consume alcohol, tranquilizers, sleeping medications, or any non-prescribed medication for 24 hours unless advised by your doctor to do so. You are advised to go directly home from the hospital. Children may become very pink and flushed for the next 24 hours. Diet: May resume normal diet as you feel you can. Begin with liquids. If not nauseated, you may progress to a regular diet when you desire. SPECIFIC PROBLEMS TO WATCH FOR: ___ Persistent bleeding or bleeding through dressing and stopped by direct pressure. A small amountof bleeding may occur. ___ Large amount of swelling around the incision. A small amount of swelling and/or bruising is expected. ___ Severe or unexplained pain. ___ Numbness, tingling or discoloration of fingers or toes. ___ Fever in the next few days. A low grade fever may occur. ___ Inability to pass urine in the next 6 to 8 hours. ___ If you have had a laparoscopic procedure you may develop shoulder pain in the first 24 hours. To help relieve this pain try setting up, reclining or lying on your side. ___ Special Instructions: ___ HIGH [employer]CHOOL BAND DIRECTOR procedures: You may have varying amounts of vaginal drainage, less than a normal period. Notify the Doctor: if you are changing your dylan pad more than once an hour or have any bright red bleeding/large amounts of clots. If you develop any of these problems contact your Surgeon. How to Prevent Surgical Site Infections About this topic A surgical wound is a cut in the skin from a procedure. Doctors are either taking something out of the body or treating a disease inside the body. Any cut made on the skin gives germs easy access into the body. This may result in infection. Some surgical site infections are at the skin level only. Others are more serious and involve tissues under the skin, organs, or implanted materials from the surgery. This infection can start at any time from 2 to 3 days to 2 to 3 weeks after the surgery. The infection may spread deeper in the body if it is not treated. You will start to feel unwell and serious health problems may happen. An infection may also cause the cut to open again. General These things can raise your risk of getting infection after surgery: Poor nutritional status If you have diabetes and you do not take your drugs regularly Smoking or use of tobacco products Being overweight If you have other infected wounds Weak immune system like in HIV, chemotherapy, and transplant patients Long-term use of steroids Long stay in the hospital People using contraceptive pills Certain health problems like liver disease, kidney disease, and poor blood circulation You can help to lower your chance of getting a surgical site infection. Here are some things you can do. Before Your Surgery Tell your doctor if you already have other infections. Even something like a cold or sore throat may raise your risk of getting a surgical site infection. Wash your hair and take a bath or shower before your procedure. Your doctor may have you use a special soap or shampoo. Talk to your doctor about all of the infections you have had in the past. Your doctor may order drugs for you before, during, and after your surgery. If you need to remove hair from the surgical site, clip the hair with scissors or electrical clippers. Do not shave the area with a razor. Do not apply lotions, powders, hair spray, or makeup before your surgery. If your doctor gives you antibiotics before the procedure, take them as ordered. Do not miss any doses. After Your Surgery Wash your hands before and after you touch your wound or dressing or change the dressing. Make sureany person who touches the dressing washes their hands first. Tell your doctor right away if you see signs of infection or if you feel ill. Talk to your doctor and learn how to care for your cut site. Ask your doctor about: When you should change your bandages When you may take a bath or shower If your doctor prescribes drugs for infection, you need to take the drug as directed until the drugis gone. When changing your dressing, do it in a clean room. Store your bandages in a clean bag and cabinet.Throw away the dirty dressing right away and wash your hands. What will the results be? Taking good care of your surgical site will help avoid infection and your wound will heal faster. What lifestyle changes are needed? Keep good hygiene. Cleanliness is very important for proper wound healing. Stop or lessen smoking. Get lots of rest. Sleep when you are feeling tired. Avoid doing tiring activities. Eat a healthy diet. Ask your doctor what kind of diet you should be on. Keep pets out of your bed while you recover. Take care of your general health. Other diseases you may have, such as diabetes, can affect wound healing What drugs may be needed? The doctor may order drugs to: Help with pain Prevent or fight an infection Will physical activity be limited? Movement may be limited in most used body parts like the hands, elbows, and knees. Limiting the movement may help with faster wound healing. Do not go swimming, take tub baths, or do other activities that may soak your wound. Dirty water can get in the wound and may cause infection. Avoid stretching and pulling activities that could cause your scar to pull apart. Call your doctor if this happens. Your doctor may ask you to avoid lifting, straining, exercise, or sports for the first month after surgery. Talk with your doctor about the right amount of activity for you. Will there be any other care needed? Some wounds need tubes to drain the fluids coming out of the wound. Talk with your doctor about howto care for your drain if you have one. Some stitches melt away in 1 to 3 weeks. You need to clean the cut line with care. Your doctor willgive you orders on how to clean them. If you have stitches or gerald, you will need to have them taken out. Your doctor will often want to do this in 1 to 2 weeks. What problems could happen? Infection Scarring Wound opens up Pneumonia Blood clots When do I need to call the doctor? Signs of infection. These include a fever of 100.4??F (38??C) or higher, chills, wound that will not heal. Signs of wound infection. These include swelling, redness, warmth around the wound; too much pain when touched; yellowish, greenish, or bloody discharge; foul smell coming from the cut site; cut siteopens up. You are not feeling better in 2 to 3 days or you are feeling worse Helpful tips Wear loose clothing. Good blood supply is important for healing. Do not remove your bandages unless your doctor says so. If your wound all of a sudden bleeds, applying some pressure may help stop the bleeding. See your doctor right away. Teach Back: Helping You Understand The Teach Back Method helps you understand the information we are giving you. After you talk with the staff, tell them in your own words what you learned. This helps to make sure the staff has described each thing clearly. It also helps to explain things that may have been confusing. Before going home, make sure you can do these: I can tell you about my procedure. I can tell you what I can do to help prevent infection before and after my surgery. I can tell you what I will do if I have a fever, or swelling, redness, or warmth around my wound. Where can I learn more? Centers for Disease Control and Prevention http://www.cdc.gov/Features/SafeSurgery/ Last Reviewed Date 2020-06-21 Consumer Information Use and Disclaimer This generalized information is a limited summary of diagnosis, treatment, and/or medication information. It is not meant to be comprehensive and should be used as a tool to help the user understand and/or assess potential diagnostic and treatment options. It does NOT include all information about conditions, treatments, medications, side effects, or risks that may apply to a specific patient. Itis not intended to be medical advice or a substitute for the medical advice, diagnosis, or treatment of a health care provider based on the health care provider's examination and assessment of a patient???s specific and unique circumstances. Patients must speak with a health care provider for complete information about their health, medical questions, and treatment options, including any risks orbenefits regarding use of medications. This information does not endorse any treatments or medications as safe, effective, or approved for treating a specific patient. [employer] and its affiliates disclaim any warranty or liability relating to this information or the use thereof. The use of this information is governed by the Terms of Use, available at https://www.[employer].InStaff/en/know/lmudedlq-cobcgpngbsttz-iwfyv Copyright Copyright ?? 2022 [employer] and its affiliates and/or licensors. All rights reserved. documented in this encounter Medications at Time of Discharge glyBURIDE (DIABETA) 2.5 mg tablet Take 1 tablet (2.5 mg total) by mouth in the morning and 1 tablet (2.5 mg total) before bedtime. 5 10/19/19 26 heparin lock flush, porcine, 10 unit/mL injection [...] 4 tablets 5 tablet 5 10/31/19 25 semaglutide (OZEMPIC) 1 mg/dose (4 mg/3 mL) pen injector Inject under the skin. LAST DOSE 10-04-2024 HOLDING UNTIL AFTER SURGERY 10-25-2024 sodium chloride injection Infuse 10-20 mL into [...] or irritation. documented as of this encounter H&P Notes * Rolando Ross Jr., MD - 10/25/2024 3:52 PM EDT HISTORY AND PHYSICAL INTERVAL NOTE: Rosina Alcantara 1955 [id number] H&P updated. The patient was examined and continues on home meropenem. I personally obtained consent for the procedure. ROLANDO ROSS JR, MD Source Note - Anaya Broderick, COMPUTER TRAINING SPECIALIST-FREIGHT COORDINATOR - 10/08/2024 11:45 AM EDT PRE-ADMISSION TESTING HISTORY AND PHYSICAL EXAM DATE: 10/08/24 PCP: SAMEER ORTIZ JR, DO CHIEF COMPLAINT: kidney stones HISTORY OF PRESENT ILLNESS: Rosina Alcantara, a 69 y.o. White or female, presents to [facility] for a pre- surgical H&P. The patient [...] disease upper partial, full lower plate Diabetes ([facility]) Diarrhea Diverticulosis large intestine w/o perforation or abscess w/o bleeding 07/2024 per colonoscopy History of recurrent urinary tract infection 08/13/2024 Hypertension Irritable bowel Kidney stones 08/13/2024 Nephrolithiasis Neuropathy Obesity Primary hydronephrosis 10/08/2024 Rash 10/08/2024 currently using steroid cream as needed on legs Urologic disorders 08/12/2024 1. IBS with Urolithiasis; by history status post ESWL x2 estimated 2004 elsewhere without success [facility] stones ???in a pocket?? ; CT NOMS 02/16/2024 multiple right renalstones including 2.7 cm staghorn with mild hydronephrosis; patient's nephew Conrad Adams MD 2. Recurrent UTIs 3. Microscopic hematuria UTI (urinary tract infection) Visual impairment glasses PAST SURGICAL HISTORY: Past Surgical History: Procedure Laterality Date CHOLECYSTECTOMY pt unsure of date - done at [facility] COLONOSCOPY 07/2024 Surgical Center in [place], [place] - no further screening colonoscopies required [...] place, and time. PERTINENT TESTING AVAILABLE IN [facility] (WITHIN THE PAST 2 YEARS): EK10/08/2024 [...] the most recent lab values available in [facility] at the time the H&P was signed. ASSESSMENT / DIAGNOSIS: Kidney stones [N20.0] PLAN: Rosina Alcantara is scheduled for CYSTOSCOPY INSERTION STENT URETER - Right, CYSTOSCOPY RETROGRADE PYELOGRAM(psb) - Right on 10/11/[address] Ross. Labs and EKG done with today's visit. See [facility] for results. DONTAE Waldron 10/08/24 1321 DONTAE Waldron 10/25/24 1553 documented in this encounter Miscellaneous Notes * Op Note - Rolando Ross Jr., MD - 10/25/2024 4:11 PM EDT Operative Note NAME: Rosina Alcantara :1955 PROCEDURE DATE: 10/25/2024 Surgeon: ROLANDO ROSS JR, MD Assistants: none Pre-op Diagnosis: Kidney stones [N20.0] Multiple right renal stones with UTI and possible dylan calyceal diverticular stones Post-op Diagnosis: Post-Op Diagnosis Codes: * Kidney stones [N20.0] Same Procedure : Procedure(s): Cystoscopy, right flexible ureteral pyeloscopy holmium laser right 2.7 cm renal pelvic stone with clear Gregory vacuum assist access sheath, exchange right ureteral stent with fluoroscopy Note: Request modifier 22 due to needed use of vacuum assist access sheath and laser time of 2 hours plus additional scope time for total scope time about 2.5 hours Indications: The patient is a 69-year-old female with the aforementioned presentation. Benefits, risks, and alternatives discussed and questions answered. As requested, I have offered to schedule theprocedure. Preoperative films were reviewed. Details of Procedure: I marked the patient's right side with patient/family involvement in the preoperative holding area per protocol. The patient was taken the OR. Time-out completed the patient wasadministered Mirapex him IV antibiotic, which he has been taking at therapeutic dose, and EPC cuffsapplied and activated. The patient was administered general anesthesia in the supine position and paralysis and sterilely prepped and draped in the dorsal lithotomy position. Twenty-two Sri [place]ankan cystoscope sheath was passed with 30 degree lens into the bladder. Cystoscopic findings included normal urethra. Stent visualized coming from the right ureteral orifice. Stent grasped with grasping forceps, the distal tip brought outside the urethral meatus. Glidewire passed with direct and fluoroscopic visualization through the stent to the right renal collecting system. The remainder of the stent was removed manually without difficulty. Digital flexible ureteral scope passed over the wire into the bladder and subsequently all the way up the right ureter to the right renal collecting system. Wire withdrawn, and the collecting system was inspected, but not completely because of a very large right renal pelvic stone. Upper pole calices did not appear to have stone, but I was not able to visualize the mid and lower pole calices because of the renal pelvic stone. Patient was placed in Trendelenburg position. Protective eye gear were provided all operating room personnel, and the patient's eyes were taped closed. The ureter seemed decently open, so I did decide to try to place a clear Gregory 11 Sri [place]ankan 46 cm ureteral access sheath. The ureteral scope was withdrawn over a replaced guidewire, and the clear Gregory vacuum assist access sheath was passed with obturator easily over the wire to the right UPJ, and theobturator and wire were withdrawn. Digital flexible ureteral scope passed through the access sheath to the collecting system.. Two hundred seventy-two micron meter holmium laser inserted through the ureteral scope, and the very large renal pelvic stone was addressed with mostly dusting and sometimes fragment setting with 0.4or 1 joules, 50 hertz or 10 hertz, 20 w or 10 w totalk joules 43.68. The vacuum assist access sheath was used with suction to retrieve stone fragments, frequently retracting the ureteral scope through the access sheath to bring out larger fragments. With a great deal of progress made on the renal pelvic stone determined fluoroscopically but some persistent stones certainly still present as well as the other obvious stones, and with laser time at about 2 hours withpatient with positive prior urine culture and some mild ooze slowing work pace, I decided to complete the procedure for the day and place stent. Accordingly, the laser was withdrawn. Glidewire passedthrough the ureteral scope to the renal collecting system, and the ureteral scope and access sheathwere withdrawn simultaneously, confirming good condition of the ureter with no stones in the ureter. Cystoscope backloaded over the remaining wire and placed in the bladder. Seven Sri [place]ankan 24 cm double-J ureteral stent passed over the wire advancing the stent with a pusher, until the stent was nicely up the right ureter. Wire withdrawn with coil confirmed in the collecting system and in the bladder.Bladder drained. Scope withdrawn. Uro jet applied. Staff ordered a send stone for analysis. Anesthesia Type: General endotracheal anesthesia with paralysis * No Diagnosis Codes entered * Complications: None Additions (Drains, Specimens, Implants): Seven Sri [place]ankan double-J ureteral stent Estimated Blood Loss: 10 mL Total IV Fluids: Intravenous fluids were administered Crystalloids 600 mls Colloids 0 mls. Condition: good Findings: Dramatic stone burden Disposition: Operative findings discussed with her daughter, Caroline. Plan discharge continuing herIV meropenem which is supposed to and on 11/03/2024. Discussed option of quaternary referral but atthis point we will plan on second- look ureteroscopy next Friday or Friday. I think she would do fine with a 12 Sri [place]ankan clear Gregory access sheath based on the easy passage today of the 11 Sri Lankan. Continue IV meropenem, Ditropan XL, Flomax, and I provided prescription for 5 tablets of Percocet 5/325. Await stone analysis and radiology reports. Eventually metabolic stone evaluation. documented in this encounter Plan of Treatment Upcoming Encounters Date Type Department Care Team (Latest Contact Info) Description 11/01/2024 3:30 PM EDT Hospital Encounter [facility] Surgery [address] [place] [address]. [place] [phone] Rolando Ross Jr., MD [address] [place] [id number] 11/01/2024 3:30 PM EDT - 11/01/2024 7:00 PM EDT Surgery [facility] Surgery [address] [place] [phone] Rolando Ross Jr., MD [address] [place] [id number] LASER HOLMIUM URETEROSCOPY WITH VACUUM ASPIRATION 11/02/2024 4:15 PM EDT Office Visit [facility] [address] [place] [phone] Rolando Ross Jr., MD [address] [place] [phone] Pending Results Name Type Priority Associated Diagnoses Date /Time Kidney Stone Analysis: Lab STAT Kidney stones 10/25/2024 6:54 PM EDT Scheduled Orders Name Type Priority Associated Diagnoses Orde r Schedule Kidney Stone Analysis: Lab Routine Kidney stones Release Upon Ordering for 1 Occurrences starting 10/25/2024 Scheduled Procedures Name Priority Associated Diagnoses Date/Ti nc LASER HOLMIUM URETEROSCOPY WITH VACUUM ASPIRATION Kidney [...] Calli Wheat documented as of this encounter Procedures Procedure Name Priority Date/Time Associated Diagnosis Comments FL FLUOROSCOPY UP TO 1 HOUR Routine 10/25/2024 7:21 PM EDT BEDSIDE GLUCOSE Routine 10/25/2024 7:13 PM EDT CYSTOSCOPY RETROGRADE PYELOGRAM 10/25/2024 4:11 PM EDT Kidney stones Case Notes (EPIC 175) GAVE 180 WORKING CLEAR GREGORY / GENERAL ANESTHESIA WITH PARALYSIS Special Needs CLEAR GREGORY / GENERAL ANESTHESIA WITH PARALYSIS CYSTOSCOPY EXCHANGE STENT URETER 10/25/2024 4:11 PM EDT Kidney stones Case Notes (EPIC 175) GAVE 180 WORKING CLEAR GREGORY / GENERAL ANESTHESIA WITH PARALYSIS Special Needs CLEAR GREGORY / GENERAL ANESTHESIA WITH PARALYSIS LASER HOLMIUM URETEROSCOPY WITH VACUUM ASPIRATION 10/25/2024 4:11 PM EDT Kidney stones Case Notes (EPIC 175) GAVE 180 WORKING CLEAR GREGORY / GENERAL ANESTHESIA WITH PARALYSIS Special Needs CLEAR GREGORY / GENERAL ANESTHESIA WITH PARALYSIS documented in this encounter Results * Fluoroscopy less than one hour (10/25/2024 7:21 PM EDT) Anatomical Region Laterality Modality Radio Fluoroscop y 10/25/2024 11:0 7 PM EDT Narrative 10/25/2024 11:07 PM EDT FL FLUOROSCOPY UP TO 1 HOUR: 10/25/2024 PROVIDED HISTORY: * 69 years old Female * Right cystoscopy with laser and stent COMPARISON: None TECHNIQUE: Fluoroscopic images were obtained intraoperatively and submitted for dictation. FINDINGS/IMPRESSION: Fluoroscopic images demonstrate ongoing intervention. Reference air kerma: 8 mGy Recommend correlation with real-time findings and operative note for further details. Finalized by Lambert Husain MD on 10/25/2024 11:07 PM Procedure Note Lambert Husain MD - 10/25/2024 FL FLUOROSCOPY UP TO 1 HOUR: 10/25/2024 PROVIDED HISTORY: * 69 years old Female * Right cystoscopy with laser and stent COMPARISON: None TECHNIQUE: Fluoroscopic images were obtained intraoperatively andsubmitted for dictation. FINDINGS/IMPRESSION: Fluoroscopic images demonstrate ongoing intervention. Reference air kerma: 8 mGy Recommend correlation with real-time findings and operative note forfurther details. Finalized by Lambert Husain MD on 10/25/2024 11:07 PM Rolando Ross Jr., MD IMG FLUOROSCOPY ORDERABL ES Final Result * (ABNORMAL) Bedside Glucose *Place/Obtain serum glucose if >500 per glucometer. (10/25/2024 7:13 PM EDT) Bedside Glucose (POC) 166(H) 65 - 99 mg/dL 10/26/2024 3:11 AM EDT [facility] arterial/capilla ry 10/25/2024 7:13 PM EDT 10/26/2024 3:11 AM EDT us Rolando Ross Jr., MD POINT OF CARE TEST ORDER LINCOLN Final Result [facility] [address] [place] [address], documented in this encounter Visit Diagnoses Diagnosis Kidney stones- Primary Calculus of kidney Kidney stones Calculus of kidney Ureteral stent present documented in this encounter Admitting Diagnoses Diagnosis Kidney stones Calculus of kidney documented in this encounter Administered Medications Inactive Administered Medications - up to 3 most recent administrations Medication Order MAR Action Action Date Dose Rate Site amisulpride (BARHEMSYS) injection 10 mg 10 mg, intravenous, Once, On Fri10/25/24 at 2014, For 1 dose, PACU & Post-op, Administer over 2 minutes. Flush line before and after administration with D5W or NS. Given 10/25/2024 8:01 PM EDT 10 mg fentaNYL (SUBLIMAZE) injection 25 mcg 25 mcg, intravenous, Every 5 min PRN, pain scale 1-6, Starting on Fri10/25/24 at 1858, PACU (only), Maximum fentaNYL (SUBLIMAZE) dose: 200 mcg Look-alike/sound-alike medication - verify indication for use. fentaNYL (SUBLIMAZE) injection 50 mcg 50 mcg, intravenous, Every 5 min PRN, severe pain - pain scale 7-10, Starting on Fri10/25/24 at 1858, PACU (only), Maximum fentaNYL (SUBLIMAZE) dose: 200 mcg Look-alike/sound-alike medication - verify indication for use. Given 10/25/2024 7:40 PM EDT 50 mcg hydrALAZINE (APRESOLINE) injection 5 mg 5 mg, intravenous, Every 10 min PRN, high blood pressure, systolic blood pressure greater than 160 mmHg, Starting on Fri10/25/24 at 1858, PACU (only), Maximum dose of hydrALAZINE (APRESOLINE) is 20 mg while in PACU Look-alike/sound-alike medication - verify indication for use. Administer IV doses as a slow IV push; maximum rate: 5 mg/minute. labetaloL (NORMODYNE,TRANDATE) injection 5 mg 5 mg, intravenous, Every 5 min PRN, high blood pressure, systolic blood pressure greater than 160 mmHg and heart rate greater than 60 beats per minute, Starting on Fri10/25/24 at 1858, PACU (only), Maximum dose of labetalol (TRANDATE) is 20 mg while in PACU Look-alike/sound-alike medication - verify indication for use. lactated ringers infusion 50 mL/hr, intravenous, Continuous, Starting on Fri10/25/24 at 1515, Pre-op, If fluid restriction is not indicated, infuse at a rate up to 5 mL/kg/hr not to exceed the total replacement volume (2 ml/kg/hr) from the time NPO status was initiated. Restarted 10/25/2024 4:11 PM EDT New Bag 10/25/2024 4:08 PM EDT 50 mL/hr 50 mL/hr meperidine (DEMEROL) injection 25 mg 25 mg, intravenous, Every 15 min PRN, shivering, Starting on Fri10/25/24 at 1858, For 2 doses, PACU (only), May repeat initial dose in 15 minutes, once, if initial meperidine (DEMEROL) dose ineffective for shivering. midazolam (PF) (VERSED) injection 2 mg 2 mg, intravenous, As needed, anxiety, Starting on Fri10/25/24 at 1507, Pre-op, May repeat in 10 minutes, if needed, if original midazolam (VERSED) ineffective, Indication: Other, Indication: anxiety Given 10/25/2024 4:07 PM EDT 2 mg ondansetron (PF) (ZOFRAN) injection 4 mg 4 mg, intravenous, Once as needed, nausea, Starting on Fri10/25/24 at 1858, For 1 dose, PACU (only), Intravenous administration preferred to be given over 2-5 minutes. Given 10/25/2024 7:26 PM EDT 4 mg oxyCODONE (ROXICODONE) immediate release tablet 10 mg 10 mg, oral, Every 4 hours PRN, severe pain - pain scale 7-10, Starting on Fri10/25/24 at 1858, For 2 doses, PACU (only), Look-alike/sound-alike medication - verify indication for use. Immediate release. oxyCODONE (ROXICODONE) immediate release tablet 5 mg 5 mg, oral, Every 4 hours PRN, pain scale 1-6, Starting on Fri10/25/24 at 1858, For 2 doses, PACU (only), Look-alike/sound-alike medication - verify indication for use. Immediate release. documented in this encounter Active and Recently Administered Medications Times are shown in EDT. Scheduled Medication Order 10/23/2024 10/24/2024 10/25/2024 amisulpride (BARHEMSYS) injection 10 mg (COMPLETED) 10 mg, intravenous, Once, On Fri10/25/24 at 2015, For 1 dose, PACU & Post-op, Administer over 2 minutes. Flush line before and after administration with D5W or NS. 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, Indication: Other, Specify: currently taking at home for resistant uti, Authorizing Service: ID consult has been placed, I acknowledge that an appropriate consult is REQUIRED to use this drug at [facility], [facility] and [facility] per [facility]-approved policy # MM 1.15: Yes 1632 (New Bag - Prov ider: EFRA Blair)1702 (Stop Bag - Provider: EFRA Blair) Continuous Medication Order 10/23/2024 10/24/2024 10/25/2024 lactated ringers infusion (CANCELED) 50 mL/hr, intravenous, Continuous, Starting on Fri10/25/24 at 1515, Pre-op, If fluid restriction is not indicated, infuse at a rate up to 5 mL/kg/hr not to exceed the total replacement volume (2 ml/kg/hr) from the time NPO status was initiated. 1608 (New Bag - Prov ider: Brigid Bernabe RN)1610 (Paused - Provider: EFRA Blair - Comment: Switch to gravity)161 (Restarted - Provider: EFRA Blair)185 (Anesthesia Volume Adjustment - Provider: EFRA Cramer)1907 (Due: Order Ending - Provider: Automatic Transfer Provider - Comment: [Order ends at this time. Document the following action when infusion is complete: Stop Bag]) PRN Medication Order 10/23/2024 10/24/2024 10/25/2024 fentaNYL (SUBLIMAZE) injection 25 mcg 25 mcg, intravenous, Every 5 min PRN, pain scale 1-6, Starting on Fri10/25/24 at 1858, PACU (only), Maximum fentaNYL (SUBLIMAZE) dose: 200 mcg Look-alike/sound-alike medication - verify indication for use. fentaNYL (SUBLIMAZE) injection 50 mcg 50 mcg, intravenous, Every 5 min PRN, severe pain - pain scale 7-10, Starting on Fri10/25/24 at 1858, PACU (only), Maximum fentaNYL (SUBLIMAZE) dose: 200 mcg Look-alike/sound-alike medication - verify indication for use. 1940 (Given - Provid er: Lachelle Mathias RN) hydrALAZINE (APRESOLINE) injection 5 mg 5 mg, intravenous, Every 10 min PRN, high blood pressure, systolic blood pressure greater than 160 mmHg, Starting on Fri10/25/24 at 1858, PACU (only), Maximum dose of hydrALAZINE (APRESOLINE) is 20 mg while in PACU Look-alike/sound-alike medication - verify indication for use. Administer IV doses as a slow IV push; maximum rate: 5 mg/minute. iohexoL (OMNIPAQUE) 300 mg iodine/mL (CANCELED) As needed, Starting on Fri10/25/24 at 1629, Intra-op 1629 (Given - Provid er: Rolando Ross Jr., MD - Comment: GIVEN TO STERILE FIELD) labetaloL (NORMODYNE,TRANDATE) injection 5 mg 5 mg, intravenous, Every 5 min PRN, high blood pressure, systolic blood pressure greater than 160 mmHg and heart rate greater than 60 beats per minute, Starting on Fri10/25/24 at 1858, PACU (only), Maximum dose of labetalol (TRANDATE) is 20 mg while in PACU Look-alike/sound-alike medication - verify indication for use. lidocaine (URO-JET) 2 % jelly (CANCELED) As needed, Starting on Fri10/25/24 at 1845, Intra-op 1845 (Given - Provid er: Rolando Ross Jr., MD) meperidine (DEMEROL) injection 25 mg 25 mg, intravenous, Every 15 min PRN, shivering, Starting on Fri10/25/24 at 1858, For 2 doses, PACU (only), May repeat initial dose in 15 minutes, once, if initial meperidine (DEMEROL) dose ineffective for shivering. midazolam (PF) (VERSED) injection 2 mg (CANCELED) 2 mg, intravenous, As needed, anxiety, Starting on Fri10/25/24 at 1507, Pre-op, May repeat in 10 minutes, if needed, if original midazolam (VERSED) ineffective, Indication: Other, Indication: anxiety 1607 (Given - Provid er: Brigid Bernabe RN) ondansetron (PF) (ZOFRAN) injection 4 mg (COMPLETED) 4 mg, intravenous, Once as needed, nausea, Starting on Fri10/25/24 at 1858, For 1 dose, PACU (only), Intravenous administration preferred to be given over 2-5 minutes. 192 (Given - Provid er: Lachelle Mathias RN) oxyCODONE (ROXICODONE) immediate release tablet 10 mg(Linked Group 1) 10 mg, oral, Every 4 hours PRN, severe pain - pain scale 7-10, Starting on Fri10/25/24 at 1858, For 2 doses, PACU (only), Look-alike/sound-alike medication - verify indication for use. Immediate release. oxyCODONE (ROXICODONE) immediate release tablet 5 mg(Linked Group 1) 5 mg, oral, Every 4 hours PRN, pain scale 1-6, Starting on Fri10/25/24 at 1858, For 2 doses, PACU (only), Look-alike/sound-alike medication - verify indication for use. Immediate release. sodium chloride 0.9 % (bag) (NS) 0.9 % irrigation solution (CANCELED) As needed, Starting on Fri10/25/24 at 1631, Intra-op 1631 (Given - Provid er: Rolando Ross Jr., MD) sterile water irrigation solution (CANCELED) As needed, Starting on Fri10/25/24 at 1628, Intra-op 1628 (Given - Provid er: Rolando Ross Jr., MD - Comment: BACK TABLE) Linked Groups Order Group 1: oxyCODONE (ROXICODONE) immediate release tablet 5 mgJump to med 5 mg, oral, Every 4 hours PRN, pain scale 1-6, Starting on Fri10/25/24 at 1858, For 2 doses, PACU (only), Look-alike/sound-alike medication - verify indication for use. Immediate release. Or oxyCODONE (ROXICODONE) immediate release tablet 10 mgJump to med 10 mg, oral, Every 4 hours PRN, severe pain - pain scale 7-10, Starting on Fri10/25/24 at 1858, For 2 doses, PACU (only), Look-alike/sound-alike medication - verify indication for use. Immediate release. documented in this encounter Additional Health Concerns Active Problems Noted Date Diagnosed Date Autogenerated Problem 10/08/2024 Autogenerated Problem 10/14/2024 documented as of this encounter Care Teams Flight Mechanic Relationship Specialty Start Date End Date Sameer Ortiz Jr., [address] [place] [address], # [id number] [phone] PCP - General Family Medicine 09/30/24 documented as of this encounter
--- OUTSIDE RECORDS SUMMARY | 2024-10-25 15:53 | XMS_ITS | Encounter Summary ---
Author Organization [facility] tem Address [id number] [address] [place] [address] Care Team Providers Care Obstetric Assistant Name Role Phone Diana Joya DO, George R Primary Care Provider + Reason for Visit * Auth/Cert Specialty Diagnoses / Procedures Referred By Carlos t Referred To Contact Diagnoses Kidney stones Kidney stones [N20.0] Procedures LASER HOLMIUM URETEROSCOPY WITH VACUUM ASPIRATION CYSTOSCOPY EXCHANGE STENT URETER CYSTOSCOPY RETROGRADE PYELOGRAM WITH FLOUROSCOPY Rolando Ross Jr., MD [address] [place] [address] Phone: tel: fax: Referral ID Status Reason Start Date Expiration Date Visits Re quested Visits Authorized [id number] Encounter Details Date Type Department Care Team (Late st Contact Info) Description 10/25/2024 3:53 PM EDT - 10/25/2024 7:23 PM EDT Surgery [facility] - Surgery [address] [place] [phone] Rolando Ross Jr., MD [address] [place] [phone] LASER HOLMIUM URETEROSCOPY WITH VACUUM ASPIRATION Surgery Details Date/Time Status Location OR Service Patient Class Case Cl ass Case Type Trauma Case? 10/25/2024 3:53 PM Posted [facility] 1 Procedure LRB Anes Op Region Wound Class Comments LASER HOLMIUM URETEROSCOPY W ITH VACUUM ASPIRATION Right General Clean Contaminated CYSTOSCOPY EXCHANGE STENT URETER Right General Clean Contaminated CYSTOSCOPY RETROGRADE PYELOG SUSANA WITH FLOUROSCOPY Right General Clean Contaminated Surgeon Surgeon Role Service Panel Rolando Ross Jr., MD Primary Urology 1 Case Notes (EPIC 175) GAVE 180 WORKING CLEAR GREGORY / GENERAL ANESTHESIA WITH PARALYSIS Special Needs CLEAR GREGORY / GENERAL ANESTHESIA WITH PARALYSIS documented in this encounter Social History Tobacco Use Types Packs/Day Years Used Date Smoking Tobacco: Former Cigarettes 1 40 1 1 - 2010 Smokeless Tobacco: Never Alcohol Use [...] Sign Reading Time Taken Comments Blood Pressure 152/68 10/25/2024 7:09 PM EDT Pulse 92 10/25/2024 7:09 PM EDT Temperature 36.4 C (97.5 F) 10/25/2024 7:09 PM EDT Respiratory Rate 17 10/25/2024 7:09 PM EDT Oxygen Saturation 98% 10/25/2024 7:09 PM EDT Inhaled Oxygen Concentration - - [...] on your side. ___ Special Instructions: ___ VALIDATION SCIENTIST procedures: You may have varying amounts of [...] or approved for treating a specific patient. [employer] and its affiliates disclaim any warranty or liability relating to this information or the use thereof. The use of this information is governed by the Terms of Use, available at https://www.woltersKingdom Breweriesuwer.com/en/know/oupgvjwi-zemmidknkilie-dyyxj Copyright Copyright ?? 2022 [employer]. and its affiliates and/or licensors. All rights [...] AND PHYSICAL INTERVAL NOTE: Rosina Alcantara 1955 [id number] H&P updated. The patient was examined and continues on home meropenem. I personally obtained consent for the procedure. ROLANDO ROSS JR, MD Source Note - Anaya Denia Broderick APRN-HYDRAULIC CHAIR ASSEMBLER - 10/08/2024 11:45 AM EDT PRE-ADMISSION TESTING HISTORY AND PHYSICAL EXAM DATE: 10/08/24 PCP: SAMEER ORTIZ JR, DO CHIEF COMPLAINT: kidney stones HISTORY OF PRESENT ILLNESS: Rosina Alcantara, a 69 y.o. White or female, presents to [facility] for a pre- surgical H&P. The [...] disease upper partial, full lower plate Diabetes ([facility]) Diarrhea Diverticulosis large intestine w/o perforation or abscess w/o bleeding 07/2024 per colonoscopy History of recurrent urinary tract infection 08/13/2024 Hypertension Irritable bowel Kidney stones 08/13/2024 Nephrolithiasis Neuropathy Obesity Primary hydronephrosis 10/08/2024 Rash 10/08/2024 currently using steroid cream as needed on legs Urologic disorders 08/12/2024 1. IBS with Urolithiasis; by history status post ESWL x2 estimated 2004 elsewhere without success [facility] and [facility] stones ???in a pocket?? ; CT NOMS 02/16/2024 multiple right renalstones including 2.7 cm staghorn with mild hydronephrosis; patient's nephew Conrad Adams MD 2. Recurrent UTIs 3. Microscopic hematuria UTI (urinary tract infection) Visual impairment glasses PAST SURGICAL HISTORY: Past Surgical History: Procedure Laterality Date CHOLECYSTECTOMY pt unsure of date - done at [facility] COLONOSCOPY 07/2024 Surgical [facility] in [place], [place] - no further screening colonoscopies required [...] place, and time. PERTINENT TESTING AVAILABLE IN [facility] (WITHIN THE PAST 2 YEARS): EK10/08/2024 pending [...] the most recent lab values available in [facility] at the time the H&P was signed. ASSESSMENT / DIAGNOSIS: Kidney stones [N20.0] PLAN: Rosina Alcantara is scheduled for CYSTOSCOPY INSERTION STENT URETER - Right, CYSTOSCOPY RETROGRADE PYELOGRAM(psb) - Right on 10/11/[address] Ross. Labs and EKG done with today's visit. See [facility] for results. DONTAE Waldron 10/08/24 1321 DONTAE [...] draped in the dorsal lithotomy position. Twenty-two Chilean cystoscope sheath was passed with 30 degree [...] try to place a clear Gregory 11 Chilean 46 cm ureteral access sheath. The ureteral [...] wire and placed in the bladder. Seven Chilean 24 cm double-J ureteral stent passed over [...] Complications: None Additions (Drains, Specimens, Implants): Seven Chilean double-J ureteral stent Estimated Blood Loss: 10 [...] she would do fine with a 12 Chilean clear Gregory access sheath based on the easy passage today of the 11 Chilean. Continue IV meropenem, Ditropan XL, Flomax, and I provided prescription for 5 tablets of Percocet 5/325. Await stone analysis and radiology reports. Eventually metabolic stone evaluation. documented in this encounter Plan of Treatment Upcoming Encounters Date Type Department Care Team (Latest Contact Info) Description 11/01/2024 3:30 PM EDT Hospital Encounter [facility] - Surgery [address] [place] [phone] Rolando Ross Jr., MD [address] [place] [phone] 11/01/2024 3:30 PM EDT - 11/01/2024 7:00 PM EDT Surgery [facility] Surgery [address] [place] [phone] Rolando Ross Jr., MD [address] [place] [phone] LASER HOLMIUM URETEROSCOPY WITH VACUUM ASPIRATION 11/02/2024 4:15 PM EDT Office Visit [facility] [address] [place] [phone] Rolando Ross Jr., MD [address] [place] [phone] Pending Results Name Type Priority Associated Diagnoses Date /Time Kidney Stone Analysis: Lab STAT Kidney stones 10/25/2024 6:54 PM EDT Scheduled Orders Name Type Priority Associated Diagnoses Orde r Schedule Kidney Stone Analysis: Lab Routine Kidney stones Release Upon Ordering for 1 Occurrences starting 10/25/2024 Scheduled Procedures Name Priority Associated Diagnoses Date/Ti mo LASER HOLMIUM URETEROSCOPY WITH VACUUM ASPIRATION Kidney stones Ureteral stent present 11/01/2024 3:30 PM EDT CYSTOSCOPY EXCHANGE STENT URETER Kidney stones Ureteral stent present 11/01/2024 3:30 PM EDT CYSTOSCOPY RETROGRADE PYELOGRAM Kidney stones Ureteral stent present 11/01/2024 3:30 PM EDT documented as of this encounter Goals Goal Patient Goal Type Associated Problems Recent Progress Patient-Stated? Author <enter goal here> General Yes Navin Vazquez RN Note: Evaluation of progress towards goal: [...] - 99 mg/dL 10/26/2024 3:11 AM EDT [facility] arterial/capilla ry 10/25/2024 7:13 PM EDT 10/26/2024 3:11 AM EDT us Rolando Ross Jr., MD POINT OF CARE TEST ORDER LINCOLN Final Result [facility] [address] [place] [address], documented in this encounter Visit Diagnoses Diagnosis Kidney stones- Primary Calculus of kidney Kidney stones Calculus of kidney Kidney stones Calculus of kidney Ureteral stent present documented in this encounter Admitting Diagnoses Diagnosis Kidney stones Calculus of kidney documented in this encounter Administered Medications Inactive Administered Medications - up to 3 most recent administrations Medication Order MAR Action Action Date Dose Rate Site amisulpride (BARHEMSYS) injection 10 mg 10 mg, intravenous, Once, On 10/25/24 at 2014, For 1 dose, PACU & [...] 5 mg/minute. iohexoL (OMNIPAQUE) 300 mg iodine/mL As needed, Starting on Fri10/25/24 at 1629, Intra-op Given 10/25/2024 4:29 PM EDT 50 mL Operative Site labetaloL (NORMODYNE,TRANDATE) injection 5 mg 5 mg, [...] 4:08 PM EDT 50 mL/hr 50 mL/hr lidocaine (URO-JET) 2 % jelly As needed, Starting on Fri10/25/24 at 1845, Intra-op Given 10/25/2024 6:45 PM EDT 1 Application Operative Site meperidine (DEMEROL) injection 25 mg 25 mg, [...] % (bag) (NS) 0.9 % irrigation solution As needed, Starting on Fri10/25/24 at 1631, Intra-op Given 10/25/2024 4:31 PM EDT 3,000 mL Operative Site sterile water irrigation solution As needed, Starting on Fri10/25/24 at 1628, Intra-op Given 10/25/2024 4:28 PM EDT 1,000 mL Operative Site documented in this encounter Active and Recently [...] is REQUIRED to use this drug at [facility], [facility] and [facility] per [facility]-approved policy # MM 1.15: Yes 1632 (New [...] Blair)185 (Anesthesia Volume Adjustment - Provider: EFRA Cramer)190 (Due: Order Ending - Provider: Automatic Transfer [...] Look-alike/sound-alike medication - verify indication for use. 194 (Given - Provid er: Lachelle Mathias RN) [...] preferred to be given over 2-5 minutes. 1926 (Given - Provid er: Lachelle Mathias RN) [...] documented as of this encounter Care Teams Obstetric Assistant Relationship Specialty Start Date End Date Sameer Ortiz Jr., DO [address] [place] [address], # [id number] [phone] PCP - General Family Medicine 09/30/24 documented as of this encounter
--- OUTSIDE RECORDS SUMMARY | 2024-10-25 16:11 | XMS_ITS | Encounter Summary ---
Author Organization [facility] tem Address [id number] [address] [place] [address] Care Team Providers Care Depositing Machine Operator Name Role Phone Diana Joya DO, George R Primary Care Provider + Reason for Visit * Auth/Cert Specialty Diagnoses / Procedures Referred By Carlos t Referred To Contact Diagnoses Kidney stones Kidney stones [N20.0] Procedures LASER HOLMIUM URETEROSCOPY WITH VACUUM ASPIRATION CYSTOSCOPY EXCHANGE STENT URETER CYSTOSCOPY RETROGRADE PYELOGRAM WITH FLOUROSCOPY Dudley Lundberg Jr., MD [address] [place] [address] Phone: tel: fax: Referral ID Status Reason Start Date Expiration Date Visits Re quested Visits Authorized [id number] Encounter Details Date Type Department Care Team (Late st Contact Info) Description 10/25/2024 4:11 PM EDT Anesthesia Event [facility] - Surgery [address] [place] [address] Pankaj Wilcox MD [address] [place] [address] Aubrie Fletcher, SPOOL HAULER-CHANNELING MACHINE OPERATOR [address] [place] [address] Anesthesia Record Procedure Summary Procedure Name Responsible Anesthesiologist Anesthesia Start Time Anesthesia Stop Time LASER HOLMIUM URETEROSCOPY WITH VACUUM ASPIRATION (Right) Pankaj Wilcox MD 10/25/24 1611 10/25/24 1909 Events Date Time Event Comment 10/25/2024 1510 1611 An Start 1611 An Start Data 1617 An Induction The patient was reevaluated immediately before moderate or deep sedation use and before anesthesia induction. 1622 An Intubation 1624 Patient Ready for Surgeon 1624 Position 1654 Quick Note Paralytic given and RR decreased per surgeons request 1904 An Extubation 1904 an stop data 1904 Transport/Transfer From the OR 1908 Handoff to RN Transported to :PACU, Spontaneous Ventilation, O2 per Simple face mask, 5 LPM Pt. Tolerated procedure well, vital signs stable and document on nursing record Care transferred to receiving RN 1908 An Stop Meds Name Total fentaNYL (SUBLIMAZE) injection 150 mcg lidocaine PF (XYLOCAINE) local injection 1% 50 mg propofol (DIPRIVAN) injection 120 mg rocuronium (ZEMURON) 50 mg/5 mL injectio n 70 mg dexAMETHasone (DECADRON) injection 4 mg/ mL 5 mg ondansetron PF (ZOFRAN) 2 mg/mL injectio n 4 mg sugammadex (BRIDION) injection 200 mg meropenem (MERREM) 1,000 mg in sodium ch loride 0.9 % 100 mL IVPB W/ADAPTER 1,000 mg phenylephrine (HERLINDA-SYNEPHRINE) injection 100 mcg/mL 500 mcg lactated ringers infusion 600 mL * Agents Name Sevoflurane Inspired Sevoflurane * Blood No blood administrations on file. Lines, Drains, and Airways Type Details Placement Removal Midline Single Lumen Placement Date: 10/12/24; Placement Time: 1601; Existing LDA Placed by: Other (Comment); Cath Out Checklist Completed: Yes; Length: 10 cm; Orientation: Left; Location: Cephalic; Site Prep: Chlorhexadine and isopropyl alcohol; Local Anesth: None; Inserted By: Carroll Dia RN; Insertion Attempts: 1; Patient Tolerance: Tolerated well; Placement Verification: Blood return 10/12/24 1601 by Carroll Dia RN ETT Placement Date: 10/25/24; Placement Time: 1622 (created via procedure documentation); Mask Ventilation: With oral airway; Type: Cuffed, Inflated; Tube Size: 7 mm; Laryngoscope: (christianson); Blade Size: 3; Location: Oral; Grade View: 1; Insertion Attempts: 2; Placement Verification: Auscultation, End tidal CO2, Symmetrical chest wall movement; Airway Comment: Poor view with mac 3; Removal Date: 10/25/24; Removal Time: 190310/25/24 1622 by EFRA Blair 10/25/24 190 by EFRA Cramer documented in this encounter Social History Tobacco [...] on file documented as of this encounter OR Notes * Anesthesia Postprocedure Evaluation - Kalen Ramirez MD - 10/25/2024 7:09 PM EDT ANESTHESIA POST-EVALUATION [facility] Procedure Summary Date: 10/25/24 Room / Location: [facility] Anesthesia Start: 161 Anesthesia Stop: Procedures: LASER HOLMIUM URETEROSCOPY WITH VACUUM ASPIRATION (Right) CYSTOSCOPY EXCHANGE STENT URETER (Right) CYSTOSCOPY RETROGRADE PYELOGRAM WITH FLOUROSCOPY (Right) Diagnosis: Kidney stones (Kidney stones [N20.0]) Surgeons: Dudley Lundberg Jr., MD Responsible Provider: Pankaj Wilcox MD Anesthesia Type: general endotracheal ASA Status: 3 Vitals: 10/25/241908 BP: 152/68 Pulse: 92 Resp: 17 Temp: 36.4 ??C (97.5 ??F) SpO2: 98% Patient Evaluated: PACU Patient Participation: Complete - patient participated Patient Level of Consciousness: Awake and Alert Pain Management: Adequate Airway Patency: Patent Anesthetic Complications: No Cardiovascular Status: Hemodynamically Stable Respiratory Status: Stable/Baseline, Nonlabored Ventilation and Face Mask Post-op Hydration: Euvolemic Final Anesthesia Type: general endotracheal No notable events documented. * Anesthesia Procedure Notes - EFRA Blair - 10/25/2024 4:37 PM EDT Associated Order(s): Airway Airway Patient location during procedure: OR Urgency: Elective Date/Time: 10/25/2024 4:22 PM Airway not difficult IV In Situ: Peripheral General Information and Staff Service Provider: Pankaj Wilcox MD Placed by: EFRA Blair Patient Identified, IV Checked, Risks and Benefits Discussed, Surgical Consent, Monitors and Equipment Checked, Pre-op Evaluation and Timeout Performed Fire Risk Assessment Score: 0 Consent for Emergent Airway (if performed for an anesthetic, see related documentation for consents) Risks and benefits: risks, benefits and alternatives were discussed Indications and Patient Condition Sedation level: Deep Preoxygenated: yesPatient position: Supine MILS maintained throughout Mask difficulty assessment: With Oral Airway Indications for airway management: Anesthesia Complications: Yes Esophageal Intubation - recognized Complicating Factors: Yes Anterior Larynx Final Airway Details Final airway type: ETT Endotracheal airway: Cuffed, ETT - Single Lumen and Inflated Techniques used for successful ETT Placement: With Stylet and Video Laryngoscopy Cormack-Lehane Classification: Grade I Endotracheal tube insertion site: Oral Dentition Check Pre: See Pre-Evaluaton documentation Post Intubation Trauma? No Visibility: Cords Clear Blade type: christianson. Blade size: #3 Placement verified by: chest auscultation, capnography and symmetrical chest wall movement ETT size: 7.0 mm Measured from: Lips Secured at (cm): 21 Number of other approaches attempted: 1 Ventilation between attempts: None Number of attempts at approach: 2 Other AttemptsUnsuccessful attempted endotracheal techniques: Direct Laryngoscopy Additional Comments Poor view with mac 3 * Anesthesia Preprocedure Evaluation - Mike Comer MD - 10/25/2024 3:08 PM EDT Images from the original note were not included. ANESTHESIA [facility] Procedure(s): LASER HOLMIUM URETEROSCOPY WITH VACUUM ASPIRATION CYSTOSCOPY EXCHANGE STENT URETER CYSTOSCOPY RETROGRADE PYELOGRAM WITH FLOUROSCOPY Past Medical History: Diagnosis Date Atherosclerosis Colon, diverticulosis Common bile duct dilatation Dental disease upper partial, full lower plate Diabetes [facility] Diabetes mellitus type 2, controlled ([facility]) Diarrhea Diverticulosis large intestine w/o perforation or abscess w/o bleeding 07/2024 per colonoscopy History of recurrent urinary tract infection 08/13/2024 Hypertension IBS (irritable bowel syndrome) Irritable bowel Kidney stones 08/13/2024 Nephrolithiasis Neuropathy Obesity Primary hydronephrosis 10/08/2024 Rash 10/08/2024 currently using steroid cream as needed on legs Urologic disorders 08/12/2024 1. IBS with Urolithiasis; by history status post ESWL x2 estimated 2004 elsewhere without success [facility] stones ???in a pocket?? ; [facility] 02/16/2024 multiple right renalstones including 2.7 cm staghorn with mild hydronephrosis; patient's nephew Conrad Adams MD 2. Recurrent UTIs 3. Microscopic hematuria UTI (urinary tract infection) RESISTANCE TO ANTIBIOTICS Visual impairment glasses Past Surgical History: Procedure Laterality Date CHOLECYSTECTOMY pt unsure of date - done at [facility] COLONOSCOPY 07/2024 [facility] in [place], [place] - no further screening colonoscopies required per CYSTOSCOPY INSERTION STENT URETER Right 10/12/2024 Performed by Dudley Lundberg Jr., MD at [facility] CYSTOSCOPY RETROGRADE PYELOGRAM Right 10/12/2024 Performed by Dudley Lundberg Jr., MD at [facility] DENTAL SURGERY multiple teeth extractions on both upper and lower LITHOTRIPSY x 2 with stents - pt unsure of date TONSILLECTOMY 1964 as a child TUBAL LIGATION 1978 ANESTHESIA PHYSICAL EXAM Patient summary reviewed and nursing notes reviewed. Echocardiogram reviewed No history of anesthetic complications Airway Mallampati: II TM distance: >3 FB Neck ROM: full Patient is not intubated Patient does not have tracheostomy (-) vocal cord disorder Dental Pulmonary : exam normal Cardiovascular : exam normal Exercise tolerance: Good ECG reviewed Rhythm: Regular Rate: Normal Neuro Abdominal : exam normal Other Findings Medication List ASK your doctor about these medications Instructions Last Dose Given Next Dose Due glyBURIDE 2.5 mg tablet Commonly known as: DIABETA Take 1 tablet (2.5 mg total) by mouth in the morning and 1 tablet (2.5 mg total) before bedtime. * heparin lock flush (porcine) 10 unit/mL injection Infuse 1-5 mL (10-50 Units total) into a venous catheter as needed (line care per nursing agency protocol.). * heparin lock flush (porcine) injection 100 unit/mL solution Infuse 1-5 mL (100-500 Units total) into a venous catheter as needed (line care per nursing agency protocol.). lisinopriL 10 mg tablet Commonly known as: PRINIVIL,ZESTRIL Take 1 tablet (10 mg total) by mouth before bedtime. Indications: high blood pressure. meropenem 1 gram injection Commonly known as: MERREM Infuse 1,000 mg into a venous catheter every 8 (eight) hours for 21 days. End Date 11/03/2024 meropenem 1,000 mg in sodium chloride 0.9 % 100 mL IVPB W/ADAPTER Infuse 1,000 mg into a venous catheter every 8 (eight) hours for 21 days. metFORMIN 1000 mg tablet Commonly known as: GLUCOPHAGE Take 1 tablet (1,000 mg total) by mouth daily with dinner Indications: type 2 diabetes mellitus. omeprazole 20 mg capsule Commonly known as: PriLOSEC Take 1 capsule (20 mg total) by mouth every morning before breakfast Indications: gastroesophageal reflux disease. oxybutynin XL 10 mg 24 hr tablet Commonly known as: DITROPAN XL Take 1 tablet (10 mg total) by mouth in the morning. OZEMPIC 1 mg/dose (4 mg/3 mL) pen injector Generic drug: semaglutide Inject under the skin. LAST DOSE 10-04-2024 HOLDING UNTIL AFTER SURGERY 10-25-2024 sodium chloride injection Infuse 10-20 mL into a venous catheter as needed for line care (line care per nursing agency protocol.). tamsulosin 0.4 mg capsule Commonly known as: FLOMAX Take 1 capsule (0.4 mg total) by mouth nightly. triamcinolone 0.1 % cream Commonly known as: KENALOG Apply 1 Application topically 2 (two) times a day as needed for rash or irritation. * This list has 2 medication(s) that are the same as other medications prescribed for you. Read thedirections carefully, and ask your doctor or other care provider to review them with you. 1. Normal exercise Cardiolite SPECT MPI. 2. No tomographic evidence of ischemia or prior myocardial infarction. 3. Normal left ventricular volume and wall motion, ejection fraction measured 74% with normal TID at 0.8. No previous study is available for comparison. Transcribed By: LILIA 11/21/17 1824 Dictated By: Chidi Arceo MD 11/21/17 1300 Signed By: <Electronically signed by Chidi Arceo MD> 11/25/17 0948 Narrative PERFORMED AT [facility] LOCATION:[address] [place] [address] [place] [address] Nuclear Medicine Report Signed Patient: Rosina Alcantara MR#: [id number] : 1955 Acct:[id number] Age/Sex: 62 / F ADM Date: 11/19/17 Loc: Room: Type: [facility] Attending Dr: Mejia Ortiz DO Ordering Provider: Mejia ORTIZ DO Date of Service: 11/19/17 NM/NM kurt perf SPECT rest str: CHEST PAIN Copies to: Chidi Arceo MD, G. ROBERT DO Resting images were obtained after intravenous administration of 28.4 mCi of Cardiolite given on . Stress images were obtained after intravenous administration of 27.5 mCi of Cardiolite given after peak exercise on 11/19/2017. Subsequently, gated SPECT MPI was obtained. TOMOGRAPHIC DATA: The study is normal and demonstrates homogenous tracer uptake. Left ventricular volu Invalid input(s): LABALBU ANNIE ANESTHESIA PLAN ASA 3 Anesthesia Type: general endotracheal Induction: Intravenous Anesthetic risks, plan and alternatives discussed with Patient. Use of blood products discussed with Patient who. Plan discussed with CHANNELING MACHINE OPERATOR. Airway Management: Endotracheal Post op Pain Management: IV Analgesics Transfer to PACU PONV: Intermediate Risk Total Score: 2 Female patient Non-smoker Criteria that do not apply: History of PONV and/or Motion Sickness Intended opioid administration RCRI: Low Risk: Score of 0 = 3.9% (2.8-5.4%) Risk of major cardiac event Score of 1 = 6.0% (4.9-7.4%) Risk of major cardiac event Total Score: 0 Criteria that do not apply: Cerebrovascular Disease Ischemic Heart Disease Congestive Heart Failure Elevated Risk Surgery Pre-operative Treatment with Insulin Pre-operative Creatinine >2 mg/dL / 176.8 mol/L Patient Active Problem List Diagnosis Urologic disorders Kidney stones History of recurrent urinary tract infection Microscopic hematuria Primary hydronephrosis documented in this encounter Plan of Treatment Upcoming Encounters Date Type Department Care Team (Latest Contact Info) Description 11/01/2024 3:30 PM EDT Hospital Encounter [address] [phone] Dudley Lundberg Jr., MD [address] [place] [id number] 11/01/2024 3:30 PM EDT - 11/01/2024 7:00 PM EDT Surgery [address] [phone] Dudley Lundberg Jr., MD [address] [place] [address] LASER HOLMIUM URETEROSCOPY WITH VACUUM ASPIRATION 11/02/2024 4:15 PM EDT Office Visit [facility] [address] [place] [phone] Dudley Lundberg Jr., MD [address] [place] [address] Scheduled Procedures Name Priority Associated Diagnoses Date/Ti al LASER HOLMIUM URETEROSCOPY WITH VACUUM ASPIRATION Kidney [...] Procedure Name Priority Date/Time Associated Diagnosis Comments HI AN ELECTIVE ENDOTRACHEAL AIRWAY Routine 10/25/2024 4:22 PM EDT documented in this encounter Results * HI AN ELECTIVE ENDOTRACHEAL AIRWAY (10/25/2024 4:22 PM EDT) Narrative Aubrie Fletcher APRN-CRNA - 10/25/2024 4:22 PM EDT EFRA Blair 10/25/2024 4:38 PM Airway Patient location during procedure: OR Urgency: Elective Date/Time: 10/25/2024 4:22 PM Airway not difficult IV In Situ: Peripheral General Information and Staff Service Provider: Pankaj Wilcox MD Placed by: EFRA Blair Patient Identified, IV Checked, Risks and Benefits Discussed, Surgical Consent, Monitors and Equipment Checked, Pre-op Evaluation and Timeout Performed Fire Risk Assessment Score: 0 Consent for Emergent Airway (if performed for an anesthetic, see related documentation for consents) Risks and benefits: risks, benefits and alternatives were discussed Indications and Patient Condition Sedation level: Deep Preoxygenated: yesPatient position: Supine MILS maintained throughout Mask difficulty assessment: With Oral Airway Indications for airway management: Anesthesia Complications: Yes Esophageal Intubation - recognized Complicating Factors: Yes Anterior Larynx Final Airway Details Final airway type: ETT Endotracheal airway: Cuffed, ETT - Single Lumen and Inflated Techniques used for successful ETT Placement: With Stylet and Video Laryngoscopy Cormack-Lehane Classification: Grade I Endotracheal tube insertion site: Oral Dentition Check Pre: See Pre-Evaluaton documentation Post Intubation Trauma? No Visibility: Cords Clear Blade type: christianson. Blade size: #3 Placement verified by: chest auscultation, capnography and symmetrical chest wall movement ETT size: 7.0 mm Measured from: Lips Secured at (cm): 21 Number of other approaches attempted: 1 Ventilation between attempts: None Number of attempts at approach: 2 Other AttemptsUnsuccessful attempted endotracheal techniques: Direct Laryngoscopy Additional Comments Poor view with mac 3 us Pankaj Wilcox MD ANESTHESIA ORDERABLES Final Resu lt documented in this encounter Visit Diagnoses Not on filedocumented in this encounter Administered Medications Inactive Administered Medications - up to 3 most recent administrations Medication Order MAR Action Action Date Dose Rate Site dexAMETHasone (DECADRON) injection intravenous, As needed, Starting on Fri10/25/24 at 1630, Anesthesia Intra-op Given 10/25/2024 4:30 PM EDT 5 mg fentaNYL (SUBLIMAZE) injection intravenous, As needed, Starting on Fri10/25/24 at 1617, Anesthesia Intra-op Given 10/25/2024 6:42 PM EDT 25 mcg Given 10/25/2024 5:40 PM EDT 25 mcg Given 10/25/2024 4:17 PM EDT 100 mcg lactated ringers infusion 50 mL/hr, intravenous, Continuous, Starting on Fri10/25/24 at 1515, Pre-op, If fluid restriction is not indicated, infuse at a rate up to 5 mL/kg/hr not to exceed the total replacement volume (2 ml/kg/hr) from the time NPO status was initiated. Restarted 10/25/2024 4:11 PM EDT New Bag 10/25/2024 4:08 PM EDT 50 mL/hr 50 mL/hr lidocaine PF (XYLOCAINE) 10 mg/mL (1 %) injection intravenous, As needed, Starting on Fri10/25/24 at 1617, Anesthesia Intra-op Given 10/25/2024 4:17 PM EDT 50 mg meropenem (MERREM) 1,000 mg in sodium [...] is REQUIRED to use this drug at [facility], [facility] and [facility] per [facility]-approved policy # MM 1.15: Yes New Bag 10/25/2024 4:32 PM EDT 1,000 mg ondansetron (PF) (ZOFRAN) injection intravenous, As needed, Starting on Fri10/25/24 at 1850, Anesthesia Intra-op Given 10/25/2024 6:50 PM EDT 4 mg phenylephrine HCl in 0.9% NaCl 1 mg/10 mL (100 mcg/mL) syringe intravenous, As needed, Starting on Fri10/25/24 at 1651, Anesthesia Intra-op Given 10/25/2024 5:32 PM EDT 100 mcg Given 10/25/2024 5:19 PM EDT 100 mcg Given 10/25/2024 5:08 PM EDT 100 mcg propofoL (DIPRIVAN) infusion intravenous, As needed, Starting on Fri10/25/24 at 1617, Anesthesia Intra-op Given 10/25/2024 4:17 PM EDT 120 mg rocuronium (ZEMURON) injection intravenous, As needed, Starting on Fri10/25/24 at 1617, Anesthesia Intra-op Given 10/25/2024 4:54 PM EDT 10 mg Given 10/25/2024 4:49 PM EDT 10 mg Given 10/25/2024 4:17 PM EDT 50 mg sugammadex (BRIDION) injection intravenous, As needed, Starting on Fri10/25/24 at 1855, Anesthesia Intra-op Given 10/25/2024 6:55 PM EDT 200 mg documented in this encounter Additional Health Concerns Active Problems Noted Date Diagnosed Date Autogenerated Problem 10/08/2024 Autogenerated Problem 10/14/2024 documented as of this encounter Care Teams Depositing Machine Operator Relationship Specialty Start Date End Date Derrick Ortiz Jr., DO [address] [place] [address], [id number] [place] [address] PCP - General Family Medicine 09/30/24 documented as of this encounter
--- OUTSIDE RECORDS SUMMARY | 2024-10-28 09:09 | XMS_ITS | Encounter Summary ---
Author Organization [facility] Healthcare Address [address] [place] [address] Care Team Providers Care Strategic Marketing Manager Name Role Phone Derrick Ortiz DO Unavailable [phone] RkDerrick castellon Primary Care Provider [phone] Encounter Details Date Type Department Care Team (Late st Contact Info) Description 10/15/2024 Patient Outreach [facility] [address] [place] [phone] Andreia Bolaños LPN [address] [place] [address] Social History Tobacco Use Types Packs/Day Years [...] note were not included. Records in chart. Assembly Machine Operator leaves message x2 without return call back. [facility] complete, unable to reconcile meds. No upcoming appts with PCP. ELISA Ortiz Flowsheet Row Patient Outreach from 10/15/2024 in [facility] with Andreia Bolaños LPN Hospital Information ED, Hospital or Longterm Facility Discharge? Hospital Patient has been contacted within two business days of discharge No Have two attempts been made to contact the patient within two business days of being discharged? Yes [LM x2 without retunr clal back] Diagnosis DX:Medication monitoring encounter (Primary Dx), Urologic disorders, History of recurrenturinary tract infection, Primary hydronephrosis Discharge Date 10/14/24 Discharged To: Home Setting Discharge Hospital [facility] Engagement Admission Date 10/12/24 Medications Discharge [...] 2 diabetes mellitus without complication, unspecified whether termite helper insulin use (HCC) documented in this encounter Additional Health Concerns Assessment Noted Time PHQ-9 Depression Total Score: 0 05/14/19 25 11:00 AM EST documented as of this encounter Care Teams Strategic Marketing Manager Relationship Specialty Start Date End Date Derrick Ortiz DO [address] [place] [address] PCP - ACO Reach 08/15/22 Derrick Ortiz DO [address] [place] [address] PCP - General Family Medicine 10/23/22 documented as of this encounter
--- OUTSIDE RECORDS SUMMARY | 2024-10-28 09:09 | XMS_ITS | Encounter Summary ---
Author Organization [facility] Address [address] [place] [address] Care Team Providers Care Product Development Intern Name Role Phone Diana Derrick Loza DO Unavailable [phone] Derrick Ortiz DO Primary Care Provider [phone] Encounter Details Date Type Department Care Team (Late st Contact Info) Description 10/14/2024 Telephone [facility] [place] [facility] [address] [place] [phone] Lachelle Moura MA Social History Tobacco Use [...] - 10/14/2024 9:32 AM EDT Viki from [facility] called to see if Dr. Ortiz would follow for [facility] [phone] this is a secure vm documented in this encounter Plan of Treatment Not on file documented as of this encounter Visit Diagnoses Not on filedocumented in this encounter Additional Health Concerns Assessment Noted Time PHQ-9 Depression Total Score: 0 05/14/19 25 11:00 AM EST documented as of this encounter Care Teams Product Development Intern Relationship Specialty Start Date End Date Derrick Ortiz DO [address] [place] [address] PCP - ACO Reach 08/15/22 Derrick Ortiz DO [address] [place] [address] PCP - General Family Medicine 10/23/22 documented as of this encounter
--- OUTSIDE RECORDS SUMMARY | 2024-10-28 09:09 | XMS_ITS | Encounter Summary ---
Author Organization [facility] Address [address] [place] [address] Care Team Providers Care Production Proofreader Name Role Phone Derrick Ortiz DO Unavailable [phone] Derrick Ortiz DO Primary Care Provider [phone] Reason for Visit * Reason Onset Date Comments Medication Question 10/15/2024 Encounter Details Date Type Department Care Team (Late st Contact Info) Description 10/15/2024 Telephone [facility] [address] [facility] [address] [facility] [address] [place] [address] Yanni Gonzalez MA Medication Question Social History Tobacco Use Types Packs/Day Years [...] encounter Miscellaneous Notes * Telephone Encounter - Lachelle Moura MA - 10/15/2024 12:10 PM EDT Pt notified of recommendations and will call back on Friday with readings * Telephone Encounter - Yanni Gonzalez MA - 10/15/2024 11:18 AM EDT Pt called, she was released yesterday from [facility]. They took her off of her Ozempic, she is unsure if she should go back on her Glipizide. She currently has a IV in at this time and she willhave it in at least 3 week. She is currently doing treatments at home. She will be going in 10/25 to have some stones zapped. documented in this encounter Plan of Treatment Not on file documented as of this encounter Visit Diagnoses Not on filedocumented in this encounter Additional Health Concerns Assessment Noted Time PHQ-9 Depression Total Score: 0 05/14/19 11:00 AM EST documented as of this encounter Care Teams Production Proofreader Relationship Specialty Start Date End Date Derrick Ortiz DO [address] [place] [address] PCP - ACO Reach 08/15/22 Derrick Ortiz DO [address] [place] [address] PCP - General Family Medicine 10/23/22 documented as of this encounter
--- OUTSIDE RECORDS SUMMARY | 2024-10-28 09:09 | XMS_ITS | Encounter Summary ---
Author Organization [facility] Address [address] [facility]Note 2[place] [address] Care Team Providers Care Physics Technician Name Role Phone Derrick Ortiz DO Unavailable [phone] Derrick Ortiz DO Primary Care Provider [phone] Reason for Visit * Reason Onset Date Comments BS reading 10/18/2024 Encounter Details Date Type Department Care Team (Late st Contact Info) Description 10/18/2024 Telephone [facility] [address] [facility] [address] [place] [address] Yanni Gonzalez MA BS reading Social History [...] documented as of this encounter Care Teams Physics Technician Relationship Specialty Start Date End Date Derrick Ortiz DO [address] [place] [address] PCP - ACO Reach 08/15/22 Derrick Ortiz DO [address] [place] [address] PCP - General Family Medicine 10/23/22 documented as of this encounter
--- OUTSIDE RECORDS SUMMARY | 2024-10-28 09:09 | XMS_ITS | Encounter Summary ---
Author Organization [facility] Address [address] [place] [address] Care Team Providers Care Furnace Roaster Name Role Phone Derrick Ortiz Unavailable [phone] Derrick Ortiz DO Primary Care Provider Encounter Details Date Type Department Care Team (Late st Contact Info) Description 03/25/2023 Orders Only [facility] [address] [place] [phone] A, Unknown Practice [address] [phone] Social History Tobacco Use Types Packs/Day Years [...] on filedocumented in this encounter Care Teams Furnace Roaster Relationship Specialty Start Date End Date Derrick Ortiz DO [address] [place] [address] PCP - ACO Reach 08/15/22 Derrick Ortiz DO [address] [place] [address] PCP - General Family Medicine 10/23/22 documented as of this encounter
--- OUTSIDE RECORDS SUMMARY | 2024-10-28 09:10 | XMS_ITS ---
Author Organization [facility] Address [address] [place] [address] Care Team Providers Care Induction Machine Setter Name Role Phone Derrick Ortiz DO Unavailable [phone] Derrick Ortiz DO Primary Care Provider Inpatient Discharge Transitional Care Management (TCM) Status:Closed (Closed) Start date:10/14/2024 Enrollment date:10/15/2024 Enrollment reason:Identified using hospital discharge data End date:10/18/2024 Close reason:Unable to reach patient Overview Patient discharged from [facility] on 10/14. Please contact for hospital RICHARD and schedule follow-up appointment within 7-14 days. Continued Care and Services Coordination
--- OUTSIDE RECORDS SUMMARY | 2024-10-28 09:10 | XMS_ITS | Encounter Summary ---
Author Organization [employer] Address [id number] [address] [place] [address] Care Team Providers Care Instant Powder Supervisor Name Role Phone Diana Joya DO, George R Primary Care Provider + Encounter Details Date Type Department Care Team (Late st Contact Info) Description 10/12/2024 Telephone [facility] [address] [place] [address] [address] [place] [address] Dudlye Lundberg Jr., MD [address] [place], [place] [id number] Social History Tobacco Use Types Packs/Day Years [...] encounter Miscellaneous Notes * Telephone Encounter - Dudley Lundberg Jr., MD - 10/12/2024 11:51 AM EDT Dx multiple large right renal stones diameter greater than 2 cm procedure cystoscopy, right flexible ureteral pyeloscopy holmium laser/basket extraction right renal stones with clear Gloria, exchange right ureteral stent possible retrograde pyelogram with fluoroscopic visualization anesthesia Schedule with general anesthetic with paralysis with PAT clearance. location any preferably [facility] or [place] when 10-14 days. Please note patient is being maintained on IV antibiotic. No sooner than 10 days. asa class 3 time 3 hours-1.75 hours if [facility] follow up 1 week antibiotics patient to continue IV antibiotic arranged by Infectious Disease meds to hold none pre op films no other no * Telephone Encounter - Ebonie Valdez - 10/12/2024 11:51 AM EDT Holding time pt is not aware. * Telephone Encounter - Ebonie Valdez - 10/12/2024 11:51 AM EDT Spoke to pt 10/15/24 Pat phone call 10/18/2024 (Pat completed 10/08/2024 with urine_ Tth 10/25/2024 @ 345pm arrive @ 145pm F/u 11/02/2024 @ 415pm Pt aware verbal 10/15/2024 documented in this encounter Plan of Treatment Upcoming Encounters Date Type Department Care Team (Latest Contact Info) Description 11/01/2024 3:30 PM EDT Hospital Encounter [facility] Surgery [address] [place] [phone] Dudley Lundberg Jr., MD [address] [place] [address] 11/01/2024 3:30 PM EDT - 11/01/2024 7:00 PM EDT Surgery [facility] Surgery [address] [place] [phone] Dudley Lundberg Jr., MD [address] [place] [place] [address] LASER HOLMIUM URETEROSCOPY WITH VACUUM ASPIRATION 11/02/2024 4:15 PM EDT Office Visit [facility] [address] [place] [phone] Dudley Lundberg Jr., MD [address] [place] [place] [address] Scheduled Procedures Name Priority Associated Diagnoses Date/Ti wy LASER HOLMIUM URETEROSCOPY WITH VACUUM ASPIRATION Kidney [...] documented as of this encounter Care Teams Instant Powder Supervisor Relationship Specialty Start Date End Date Derrick Ortiz Jr., [address] [facility], [address] [address] PCP - General Family Medicine 09/30/24 documented as of this encounter
--- OUTSIDE RECORDS SUMMARY | 2024-10-28 09:10 | XMS_ITS | Encounter Summary ---
Author Organization [employer] Address [id number] [address] [place] [address] Care Team Providers Care Program Coordinator Executive Education Name Role Phone Diana Joya DO, George R Primary Care Provider + Encounter Details Date Type Department Care Team (Late st Contact Info) Description 10/11/2024 [facility] [address] [place] [address] Tory Welsh CMA Social History Tobacco Use Types Packs/Day Years [...] encounter Miscellaneous Notes * Telephone Encounter - Tory Welsh CMA - 10/11/2024 8:44 AM EDT Patient has a PRE-KAISER +UC 10/08/2024 with a procedure date of 10/12/2024. Please advise. * Telephone Encounter - MEEK FinkELECTRICAL AND INSTRUMENT MECHANIC - 10/11/2024 8:[address] Lundberg started her on Cipro 10/08/24. Please continue to track for final results and discuss withDr Lundberg. Thank you documented in this encounter Plan of Treatment Upcoming Encounters Date Type Department Care Team (Latest Contact Info) Description 11/01/2024 3:30 PM EDT Hospital Encounter [facility] Surgery [address] [place] [phone] Dudley Lundberg Jr., MD [address] [place] [address] 11/01/2024 3:30 PM EDT - 11/01/2024 7:00 PM EDT Surgery [address] [address] Dudley Lundberg Jr., MD [address] [place] [address] LASER HOLMIUM URETEROSCOPY WITH VACUUM ASPIRATION 11/02/2024 4:15 PM EDT Office Visit [facility] [address] [place] [phone] Dudley Lundberg Jr., MD [address] [place] [address] Scheduled Procedures Name Priority Associated Diagnoses Date/Ti co LASER HOLMIUM URETEROSCOPY WITH VACUUM ASPIRATION Kidney [...] Abida Ace documented as of this encounter Visit Diagnoses Not on filedocumented in this encounter Additional Health Concerns Active Problems Noted Date Diagnosed Date Autogenerated Problem 10/08/2024 documented as of this encounter Care Teams Program Coordinator Executive Education Relationship Specialty Start Date End Date Derrcik Ortiz Jr., DO [address] [place] [address], [address] [address] PCP - General Family Medicine 09/30/24 documented as of this encounter
--- OUTSIDE RECORDS SUMMARY | 2024-10-28 09:10 | XMS_ITS | Clinical Summary ---
Author Organization [facility] Address [address] [place] [address] Care Team Providers Care Cash Shortage Investigator Name Role Phone Derrick Ortiz DO Unavailable [phone] Derrick Ortiz DO Primary Care Provider [phone] Allergies No known active allergies Medications omeprazole (PriLOSEC) [address] capsuleIndication s:Gastroesophagea l reflux disease without esophagitis Take 1 capsule (20 mg) by mouth 1 (one) time each day at the same time 90 capsule 3 4 Active magnesium 30 MG tablet Take 30 mg by mouth Daily Active lisinopril 10 MG tabletIndications :Benign essential hypertension Take 1 tablet (10 mg) by mouth Daily 90 tablet 1 5 11/02/19 25 Active metFORMIN XR (Glucophage-XR) 500 MG 24 hr tabletIndications :Type 2 diabetes mellitus without complication, without long-term current use of insulin (HCC) Take 2 tablets (1,000 mg) by mouth in the evening. Take with meals Do not crush, chew, or split. 180 tablet 1 5 Active Semaglutide,0.25 or 0.5MG/DOS, (Ozempic, 0.25 or 0.5 MG/DOSE,) 2 MG/3ML solution pen-injectorIndic ations:Type 2 diabetes mellitus without complications (HCC) Inject 0.5 mg under the skin every 7 (seven) days 3 mL 5 Active semaglutide (Ozempic, 1 MG/DOSE,) 4 MG/3ML solution pen-injectorIndic ations:Type 2 diabetes mellitus without complication, without long-term current use of insulin (HCC) Inject 1 mg under the skin 1 (one) time per week 1 each 5 5 Active triamcinolone (Kenalog) 0.1 % creamIndications: Eczema, unspecified type Apply topically 2 (two) times a day as needed (pain and swelling) 45 g 2 5 Active aspirin 81 MG EC tabletIndications :Type 2 diabetes mellitus with diabetic nephropathy (HCC) Take 1 tablet (81 mg) by mouth 1 (one) time each day at the same time 5 Active glyBURIDE (Diabeta) 2.5 MG tabletIndications :Type 2 diabetes mellitus without complication, without long-term current use of insulin (HCC) Take 1 tablet (2.5 mg) by mouth in the morning and 1 tablet (2.5 mg) before bedtime. 60 tablet 11 5 10/19/19 26 Active ciprofloxacin (Cipro) 500 MG tabletIndications :Urinary tract infection with hematuria, site unspecified,Recur rent UTI Take 1 tablet (500 mg) by mouth in the morning and 1 tablet (500 mg) before bedtime. Do all this for 7 days. 14 tablet 5 10/06/19 25 Active Problems Problem Noted Date Diagnosed Date [...] Department Care Team Description 10/18/2024 Telephone [facility] [address] [place] [address] Yanni Gonzalez MA BS reading 10/15/2024 Telephone [facility] [address] [place] [phone] Yanni Gonzalez MA Medication Question 10/15/2024 Patient Outreach [facility] [place] [address] Andreia Bolaños, BRAND ADVOCATE 10/14/2024 Telephone [facility] [address] [place] [address] Lachelle Moura MA 09/28/2024 1:00 PM EDT Office Visit [facility] [address] [place] [phone] Derrick Ortiz DO Essential (primary) hypertension (Primary [...] mammogram for breast cancer 09/28/2024 [facility] [address] [place] [phone] Derrick Ortiz DO 09/28/2024 Travel 09/02/2024 Refill [facility] [address] [place] [phone] Derrick Ortiz DO Type 2 diabetes mellitus without complications (HCC) 08/24/2024 10:20 AM EDT Office Visit [facility] [address] [place] [phone] Urinary tract infection with hematuria, site unspecified 08/24/2024 Telephone [facility] [address] [place] [phone] Yanni Gonzalez MA Care Coordination 08/24/2024 Travel 08/23/2024 Telephone [facility] [address] [place] [address] Derrick Ortiz, DO Medication Question from [...] Additional history exists Influenza Vaccine (#1) 2024 , 01/06/2020, 01/06/2020, Additional history exists Diabetes: Hemoglobin A1C 12/10/2024 025, 05/05/2024, 01/13/2024, Additional history exists Medicare Annual Wellness (AWV) 05/14/2025 0 05/14/2024, 05/14/2024, 05/14/2023, Additional history exists Diabetes: Urine Protein Screening 09/09/2025 09/09/2024, 05/05/2024, 01/13/2024, Additional history exists FIT-DNA 01/26/2027 01/27/2024, 10/0 07/2020, 12/26/2020, Additional history exists Colonoscopy 04/22/2034 04/22/2024 Colorectal Cancer Screening 04/22/2034 Procedures Procedure Name [...] per mL Ur Cult 2 Not applicable [facility] 09/28/2024 09/28/2024 Narrative [facility] - 10/02/2024 1:07 PM EDT Performed at: [address] [place] [id number] Bus Person Dishwasher: Armani Gann PhD, Phone: [phone] Derrick Ortiz DO LAB URINE ORDERABLES Final Re sult [facility] * Urine culture (09/28/2024 12:00 AM EDT) Only the most recent of2 resultswithin the time period is included. Urine Cult Rt Status Final report [facility] Urine Urine specimen obtained by clean catch procedure / Unknown 09/28/2024 09/28/2024 Comment:URINE - CLEAN CATCH Narrative [facility] - 10/02/2024 1:07 PM EDT Performed at: 01 - [facility] [id number] Bus Person Dishwasher: Armani Gann PhD, Phone: [phone] Derrick Ortiz DO LAB MICROBIOLOGY - GENERAL OR DERABLES Final Result Performing Organization Address [facility] de Phone Number [facility] * (ABNORMAL) Microalbumin [...] 10:07 AM EDT Performed at: 02 - [facility] [id number] Bus Person Dishwasher: Armani Gann PhD, Phone: [phone] Derrick Ortiz DO LAB URINE ORDERABLES Final Re sult Performing Organization Address [facility] de Phone Number [facility] * (ABNORMAL) CBC and differential (09/09/2024 [...] 10:07 AM EDT Performed at: 01 - [place] [address], [place], [place] [id number] Bus Person Dishwasher: Elroy Jack MD, Phone: [phone] Derrick Ortiz DO LAB BLOOD ORDERABLES Final Re sult [facility] * (ABNORMAL) Hemoglobin A1c (09/09/2024 2:32 PM EDT) [facility] HgbA1C 6.4(H) 4.8 - 5.6 % [facility] Comment: Prediabetes: 5.7 - 6.4 Diabetes: >6.4 Glycemic control for adults with diabetes: <7.0 Blood Venous blood specimen / Unknown 09/09/2024 2:32 PM EDT 09/09/2024 Narrative [facility] - 09/10/2024 10:07 AM EDT Performed at: 02 - [address] [id number] Bus Person Dishwasher: Armani Gann PhD, Phone: [phone] Derrick Ortiz DO LAB BLOOD ORDERABLES Final Re sult Performing Organization Address [facility]/ZIP Co de Phone Number [facility] * (ABNORMAL) Comprehensive metabolic panel (09/09/2024 2:32 PM EDT) [facility] Glucose 107(H) 70 - 99 mg/dL [facility] [...] 10:07 AM EDT Performed at: 01 - [facility] [address], [place], [place] [id number] Bus Person Dishwasher: Elroy Jack MD, Phone: [phone] Derrick Ortiz DO LAB BLOOD ORDERABLES Final Re sult Performing Organization Address [facility]/ZIP Co de Phone Number [facility] * Colonoscopy (04/22/2024 9:00 AM EST) Anatomical Region Laterality Modality Endoscopy Travis Yoon MD ENDOSCOPY PROCEDURE ORDERABL ES Final Result * (ABNORMAL) Cologuard?? colon cancer screening (01/27/2024 9:31 AM EST) NONINV COLON CA DNA+OCC BLD SCRN STL-IMP Positive( A) Negative 02/03/2024 5:27 PM EST [facility] (CLIA #:[id number]) Comment: POSITIVE TEST RESULT. A positive Cologuard [...] screened with both Cologuard and colonoscopy. (Partha Ortega, N Engl J Med 2014;370(14):7273-9795.) Cologuard may produce a false negative or false positive result (no colorectal cancer or precancerous polyp present at colonoscopy follow up). A negative Cologuard test result does not guarantee the absence of CRC or advanced adenoma (pre-cancer). The current Cologuard screening interval is every 3 years. ([place] [employer] Society and U.S. Multi-Society Task Force). Cologuard performance data in a 10,000 patient pivotal study using colonoscopy as the reference method can be accessed at the following location: www.[email or web address].Insights/results. Additional description of the Cologuard test process, warnings and precautions can be found at www.[email or web address] [email or web address].com. Stool specimen (specimen) 01/27/2024 9:31 AM EST 01/28/2024 12:14 PM EST us Derrick Ortiz DO LAB MOLECULAR DIAGNOSTICS ORD ERABLES Final Result [facility] (CLIA #:[id number]) [place] [address], * Bilateral screening mammogram with tomosynthesis (06/18/2023 1:05 PM EDT) Anatomical Region Laterality Modality Breast Bilateral Mammography 06/20/2023 12:3 2 PM EDT Impressions 06/20/2023 1:47 PM EDT BIRADS 1 - Negative Follow-up: Routine Screening Mamm. Density: Almost entirely fatty [1]. Board Certified Radiologists. Accredited by the ACR and FDA. MAMMOGRAPHY IS VERY IMPORTANT TO YOUR HEALTH. THE CURRENT [employer] COLLEGE OF RADIOLOGY AND NATIONAL COMPREHENSIVE CANCER NETWORK GUIDELINES RECOMMENDS ANNUAL MAMMOGRAPHY BEGINNING AT AGE 40. THIS FACILITY UTILIZES A REMINDER SYSTEM TO ENSURE ALL PATIENTS RECEIVE REMINDER NOTIFICATIONS AT THE APPROPRIATE TIME BASED ON THE RECOMMENDATIONS OF THIS EXAM. ELECTRONICALLY SIGNED BY: MD Terry Nielson 06/20/2023 1:47 PM EDT EXAM: BI MAMMOGRAM [...] in technique and positioning. Derrick Ortiz DO IMG BI PROCEDURES Final Resul t from Last 3 Months or Most Recently Relevant to Health Maintenance Insurance MEDICARE AET Care Teams Cash Shortage Investigator Relationship Specialty Start Date End Date Derrick Ortiz DO [address] [facility] [address] [place] [address] PCP - ACO Reach 08/15/22 Derrick Ortiz DO [address] [facility] [address] [place] [address] PCP - General Family Medicine 10/23/22
--- OUTSIDE RECORDS SUMMARY | 2024-10-28 09:10 | XMS_ITS | Encounter Summary ---
Author Organization [facility] Address [address] [place] [address] Care Team Providers Care Hand Mounter Name Role Phone Derrick Ortiz DO Unavailable [phone] Derrick Ortiz DO Primary Care Provider [phone] Encounter Details Date Type Department Care Team (Late st Contact Info) Description 05/14/2023 Abstract [facility] [address] [place] [phone] Derrick Ortiz DO [address] [place] [address] Social History Tobacco Use Types Packs/Day Years [...] Lachelle Chavez MA Feeling tired or having mac le energy Not at all 05/14/2023 2:00 [...] documented as of this encounter Care Teams Hand Mounter Relationship Specialty Start Date End Date Derrick Ortiz DO [address] [place] [address] PCP - ACO Reach 08/15/22 Derrick Ortiz DO [address] [place] [phone] PCP - General Family Medicine 10/23/22 documented as of this encounter
--- OUTSIDE RECORDS SUMMARY | 2024-10-28 09:10 | XMS_ITS | Encounter Summary ---
Author Organization [facility] Address [id number] [address] [place] [address] Care Team Providers Care Business Intelligence Director Name Role Phone Diana Joya DO, George R Primary Care Provider + Encounter Details Date Type Department Care Team (Late st Contact Info) Description 10/18/2024 Documentation [facility] [address] [place] [address] [address] [place] [address] Dudley Lundberg Jr., MD [address] [place] [address] Social History Tobacco Use Types Packs/Day Years [...] as of this encounter Progress Notes * Dudley Lundberg Jr., MD - 10/18/2024 8:48 AM EDT Patient did not keep appointment. I did speak with Infectious Disease , who does confirmed that the Klebsiella in fact is sensitive to the prescribed meropenem, despite lab report suggesting otherwise. We will plan on proceeding with surgery as scheduled. documented in this encounter Plan of Treatment Upcoming Encounters Date Type Department Care Team (Latest Contact Info) Description 11/01/2024 3:30 PM EDT Hospital Encounter [facility] [address] [place] [phone] Dudley Lundberg Jr., MD [address] [place] [address] 11/01/2024 3:30 PM EDT - 11/01/2024 7:00 PM EDT Surgery [facility] [address] [place] [phone] Dudley Lundberg Jr., MD [address] [place] [address] LASER HOLMIUM URETEROSCOPY WITH VACUUM ASPIRATION 11/02/2024 4:15 PM EDT Office Visit [facility] [address] [place] [phone] Dudley Lundberg Jr., MD [address] [place] [address] Scheduled Procedures Name Priority Associated Diagnoses Date/Ti [...] documented as of this encounter Care Teams Business Intelligence Director Relationship Specialty Start Date End Date Derrick Ortiz Jr., DO [address] [place] [address], [address], [place] [address] PCP - General Family Medicine 09/30/24 documented as of this encounter
--- OUTSIDE RECORDS SUMMARY | 2024-10-28 09:11 | XMS_ITS | Encounter Summary ---
Author Organization [facility] Address [address] [place] [address] Care Team Providers Care Dredge Engineer Name Role Phone Unavailable Primary Care Provider Unavailabl e Encounter Details Date Type Department Care Team (Late st Contact Info) Description 10/18/2024 Telephone [facility] Infectious Disease [address] [facility], [address] [place] [phone] Maritza Dimas, TONY Social History Tobacco Use Types Packs/Day Years Used Date Smoking Tobacco: Never Assessed Comments Unknown Sex and Gender Information Value Date Recorded Sex Assigned at Choose not to disclose 1:05 PM EDT Legal Sex Female 3:24 PM EDT Gender Identity Choose not to disclose 1:05 PM EDT Sexual Orientation Choose not to disclose 2024 1:05 PM EDT documented as of this encounter Miscellaneous Notes * Telephone Encounter - Maritza Dimas RN - 10/18/2024 11:14 AM EDT Opat received. Call to [facility] and confirmed orders with [facility] for med, labs and EOT. Callto pt and follow up appt scheduled. documented in this encounter Plan of Treatment Upcoming Encounters Date Type Department Care Team (Late st Contact Info) Description 11/03/2024 2:00 PM EDT Telemedicine [facility] Infectious Disease [address] [place] [phone] Nakul Coleman, ASSISTANT PROFESSOR OF COMMUNICATION [address] [facility] [place] [address] documented as of this encounter Visit Diagnoses Not on filedocumented in this encounter
--- OUTSIDE RECORDS SUMMARY | 2024-10-28 09:11 | XMS_ITS | Encounter Summary ---
Author Organization [facility] Address [address] [place] [address] Care Team Providers Care Reference Archivist Name Role Phone Derrick Ortiz DO Unavailable [phone] TlelizabethDerrick castellon Primary Care Provider [phone] Encounter Details Date Type Department Care Team (Late st Contact Info) Description 10/21/2022 Orders Only [facility] [address] [place] [phone] Amalia Baker, DATA MIGRATION LEAD [address] [place] [address] Social History Tobacco Use Types [...] on filedocumented in this encounter Care Teams Reference Archivist Relationship Specialty Start Date End Date Derrick Ortiz DO [address] [place] [address] PCP - ACO Reach 08/15/22 Derrick Ortiz DO [address] [place] [address] PCP - General Family Medicine 10/23/22 documented as of this encounter
--- OUTSIDE RECORDS SUMMARY | 2024-10-28 09:11 | XMS_ITS | Encounter Summary ---
Author Organization [facility] Address [address] [place] [address] Care Team Providers Care Director Pediatric Name Role Phone Derrick Ortiz DO Unavailable [phone] Derrick Ortiz DO Primary Care Provider [phone] Encounter Details Date Type Department Care Team (Late st Contact Info) Description 04/22/2024 Orders Only [facility] [address] [facility] [address] [place] [phone] Travis Arreguin MD [address] [facility] [address] [place] [address] Social History Tobacco Use Types Packs/Day Years [...] documented as of this encounter Care Teams Director Pediatric Relationship Specialty Start Date End Date Derrick Ortiz DO [address] [place] [address] PCP - ACO Reach 08/15/22 Derrick Otriz DO [address] [place] [address] PCP - General Family Medicine 10/23/22 documented as of this encounter
--- OUTSIDE RECORDS SUMMARY | 2024-10-28 09:11 | XMS_ITS | Encounter Summary ---
Author Organization [facility] [facility] [employer] Address [id number] [address] [place] [address] Care Team Providers Care Cd Reactor Operator Name Role Phone Diana Joya DO, George R Primary Care Provider + Encounter Details Date Type Department Care Team (Late st Contact Info) Description 10/25/2024 Telephone [facility] [address] [place] [address] [address] [place] [address] Dudley Lundberg Jr., MD [address] [place], [place] [phone] Social History Tobacco Use Types Packs/Day Years [...] Encounter - Dudley Lundberg Jr., MD - 10/25/2024 7:08 PM EDT Dx multiple large right renal stones diameter greater than 2 cm procedure cystoscopy, right flexible ureteral pyeloscopy holmium laser/basket extraction right renal stones with clear Gloria, exchange right ureteral stent possible retrograde pyelogram with fluoroscopic visualization anesthesia Schedule with general anesthetic with paralysis with PAT clearance. Any November 01 or 2024 location any preferably [facility] or [place] Next Friday or FridayNovember [id number] Please note patient is being maintained on IV meropenem. Keep her follow up appointment of 11/02/2024 if she is scheduled for surgery for 11/01/2024. Otherwise you can cancel that appointment. asa class 3 time 3 hours-1.75 hours if [facility] follow up 1 week antibiotics patient to continue IV antibiotic arranged by Infectious Disease meds to hold none pre op films no other no * Telephone Encounter - Ebonie José Miguel - 10/25/2024 7:08 PM EDT Spoke to pt daughter 10/26/2024 Pat done 10/18/2024 Tth 11/01/2024 @ 330pm arrive @ 130pm F/u 11/02/2024 @ 415pm Daughter aware verbal 10/26/2024 documented in this encounter Plan of Treatment Upcoming Encounters Date Type Department Care Team (Latest Contact Info) Description 11/01/2024 3:30 PM EDT Hospital Encounter [facility] Surgery [address] [place] [phone] Dudley Lundberg Jr., MD [address] [place] [address] 11/01/2024 3:30 PM EDT - 11/01/2024 7:00 PM EDT Surgery [facility] Surgery [address] [place] [phone] Dudley Lundberg Jr., MD [address] [place] [address] LASER HOLMIUM URETEROSCOPY WITH VACUUM ASPIRATION 11/02/2024 4:15 PM EDT Office Visit [facility] [address] [place] [address] Dudley Lundberg Jr., MD [address] [place] [address] Scheduled Procedures Name Priority Associated Diagnoses Date/Ti [...] documented as of this encounter Care Teams Cd Reactor Operator Relationship Specialty Start Date End Date Derrick Ortiz Jr., [address] [facility], [id number] [place] [address] PCP - General Family Medicine 09/30/24 documented as of this encounter
--- OUTSIDE RECORDS SUMMARY | 2024-10-28 09:11 | XMS_ITS | Encounter Summary ---
Author Organization [facility] Address [address] [place] [address] Care Team Providers Care Cutter Inspector Name Role Phone Derrick Ortiz DO Unavailable [phone] Derrick Ortiz DO Primary Care Provider [phone] Encounter Details Date Type Department Care Team (Late st Contact Info) Description 05/14/2024 Abstract [facility] [address] [place] [phone] Derrick Ortiz DO [address] [place] [address] Social History Tobacco Use Types Packs/Day Years [...] documented as of this encounter Care Teams Cutter Inspector Relationship Specialty Start Date End Date Derrick Ortiz DO [address] [place] [address] PCP - ACO Reach 08/15/22 Derrick Ortiz DO [address] [facility] [address] [place] [address] PCP - General Family Medicine 10/23/22 documented as of this encounter
--- OUTSIDE RECORDS SUMMARY | 2024-10-28 09:11 | XMS_ITS | Encounter Summary ---
Author Organization [facility] Address [id number] [address] [place] [address] Care Team Providers Care Medical Office Assistant Name Role Phone Diana Joya DO, George R Primary Care Provider + Encounter Details Date Type Department Care Team (Latest Contact Info) Description 10/25/2024 Travel Social History Tobacco Use Types Packs/Day Years [...] as of this encounter Plan of Treatment Upcoming Encounters Date Type Department Care Team (Latest Contact Info) Description 11/01/2024 3:30 PM EDT Hospital Encounter [facility] Surgery [address] [place] [phone] Dudley Lundberg Jr., MD [address] [place] [address] 11/01/2024 3:30 PM EDT - 11/01/2024 7:00 PM EDT Surgery [facility] Surgery [address] [place] [phone] Dudley Lundberg Jr., MD [address] [place] [address] LASER HOLMIUM URETEROSCOPY WITH VACUUM ASPIRATION 11/02/2024 4:15 PM EDT [facility] [address] [place] [phone] Dudley Lundberg Jr., MD [address] [place] [address] Scheduled Procedures Name Priority Associated Diagnoses Date/Ti [...] documented as of this encounter Care Teams Medical Office Assistant Relationship Specialty Start Date End Date Derrick Ortiz Jr., [address] [place] [address], [id number] [place] [address] PCP - General Family Medicine 09/30/24 documented as of this encounter
--- OUTSIDE RECORDS SUMMARY | 2024-10-28 09:11 | XMS_ITS | Encounter Summary ---
Author Organization [facility] Address [address] [place] [address] Care Team Providers Care Labor Union Business Representative Name Role Phone Unavailable Primary Care Provider Unavailabl e Encounter Details Date Type Department Care Team (Late st Contact Info) Description 10/27/2024 Telephone [facility] Infectious Disease [address] [place] [address] Maritza Dimas RN Social History Tobacco Use Types Packs/Day Years [...] Telephone Encounter - Maritza Dimas RN - 10/27/2024 3:21 PM EDT Second call to [facility] for lab results. Medical records is still tracking them down and will faxed when they are received. documented in this encounter Plan of Treatment Upcoming Encounters Date Type Department Care Team (Late st Contact Info) Description 11/03/2024 2:00 PM EDT Telemedicine [facility] Infectious Disease [address] [place] [address] Nakul Coleman, CLERK TELEGRAPH SERVICE [address] [facility]/[place] [address] documented as of this encounter Visit Diagnoses Not on filedocumented in this encounter
--- OUTSIDE RECORDS SUMMARY | 2024-10-28 09:11 | XMS_ITS | Clinical Summary ---
Author Organization [facility] Address [address] [place] [address] Care Team Providers Care Medical Director Of Hospice Name Role Phone Unavailable Primary Care Provider Unavailabl e Medications aspirin 81 mg EC tablet Take 81 mg by mouth. 09/28/2024 Active glyBURIDE (Diabeta) 2.5 mg tablet Take 2.5 mg by mouth twice a day. 10/18/2024 10/19/19 26 Active lisinopril 10 mg tablet Take 10 mg by mouth in the morning. 03/20/2023 Active meropenem (Merrem) 1 gram injection Infuse 1,000 mg into a venous catheter every 8 (eight) hours. 10/13/2024 11/04/19 25 Active metFORMIN (Glucophage) 1,000 mg tablet Take 1,000 mg by mouth. 03/20/2023 Active omeprazole (PriLOSEC) [address] capsule Take 20 mg by mouth. 03/20/2023 Active oxyBUTYnin XL (Ditropan-XL) 10 mg 24 hr tablet Take 10 mg by mouth in the morning. 10/13/2024 Active Ozempic 1 mg/dose (4 mg/3 mL) pen injector Inject under the skin. 09/28/2024 Active Ozempic 0.25 mg or 0.5 mg (2 mg/3 mL) pen injector Inject 0.5 mg under the skin once a week. 09/02/2024 Active tamsulosin (Flomax) 0.4 mg 24 hr capsule Take 0.4 mg by mouth in the morning. 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 Infectious Disease [address] [facility], [address] [place] [address] Maritza Dimas RN from Last 3 Months Social History Tobacco Use Types Packs/Day Years Used Date Smoking Tobacco: Never Assessed Comments Unknown Sex and Gender Information Value Date Recorded Sex Assigned at Choose not to disclose 1:05 PM EDT Legal Sex Female 3:24 PM EDT Gender Identity Choose not to disclose 1:05 PM EDT Sexual Orientation Choose not to disclose 2024 1:05 PM EDT Plan of Treatment Upcoming Encounters Date Type Department Care Team (Late st Contact Info) Description 11/03/2024 2:00 PM EDT Telemedicine [facility] Infectious Disease [address] [place] [address] Nakul Coleman CNP [address] [facility]/[place] [address] Health Maintenance Due Date Last Done Comments CT Colonography 1955 FOBT 1955 Medicare Annual Wellness (AWV) 1955 Sigmoidoscopy 1955 Diabetes: Retinopathy Screening 06/26/1963 Depression Screening 1965 Adult Tetanus 06/26/1975 Zoster Vaccines (1 of 2) 06/26/2003 08/30/2015 Fall Risk Screening 2018 Pneumococcal Vaccine: 50+ Years (3 of 3 - PCV20 or PCV21) 08/28/2023 08/27/2018, 03/01/2015 COVID-19 Vaccine ( season) 2023 Influenza Vaccine (#1) 2024 , 01/13/2017, 01/13/2017, Additional history exists Diabetes: Hemoglobin A1C 12/10/2024 09/09/2024 FIT 01/26/2025 01/27/2024 Mammogram 06/17/2025 06/18/2023 Diabetes: Urine Protein Screening 09/09/2025 09/09/2024 FIT-DNA 01/26/2027 01/27/2024, 10/0 07/2020, 11/18/2017 Colonoscopy 04/22/2034 04/22/2024 Colorectal Cancer Screening 04/22/2034 HIB Vaccines Aged Out No longer eligi ble based on patient's age to complete this topic HPV Vaccines Aged Out No longer eligi ble based on patient's age to complete this topic IPV Vaccines Aged Out No longer eligi ble based on patient's age to complete this topic Meningococcal B Vaccine Aged Out No l onger eligible based on patient's age to complete this topic Meningococcal Vaccine Aged Out No beatrice art eligible based on patient's age to complete this topic Rotavirus Vaccines Aged Out No longer eligible based on patient's age to complete this topic Insurance MEDICARE Member Subscriber Plan / Payer (Ef fective 2018-Present) Name:Rosina Alcantara Member ID:[id number] Relation to Subscriber:Self Name:Rosina Alcantara Subscriber ID:[id number] Payer ID:[id number] Group ID:Not on file Type:Medicare Address: [facility] [place] [id number] [employer]
--- OUTSIDE RECORDS SUMMARY | 2024-10-28 09:11 | XMS_ITS | Clinical Summary ---
Author Organization eGood tem Address [id number] [address] [place] [address] Care Team Providers Care Senior Mechanical Designer Name Role Phone Diana Joya DO, George R Primary Care Provider + Allergies No known active allergies Medications omeprazole (PriLOSEC) 20 mg capsuleIndica tions:gastroe sophageal reflux disease Take 1 capsule (20 mg total) by mouth every morning before breakfast Indications: gastroesophageal reflux disease. 025 Active lisinopriL (PRINIVIL,ZES TRIL) 10 mg tabletIndicat ions:hyperten erick Take 1 tablet (10 mg total) by mouth before bedtime. Indications: high blood pressure. Active tamsulosin (FLOMAX) 0.4 mg capsule Take 1 capsule (0.4 mg total) by mouth nightly. 90 capsule 1 025 Active triamcinolone (KENALOG) 0.1 % cream Apply 1 Application topically 2 (two) times a day as needed for rash or irritation. Active metFORMIN (GLUCOPHAGE) 1000 mg tabletIndicat ions:type 2 diabetes mellitus Take 1 tablet (1,000 mg total) by mouth daily with dinner Indications: type 2 diabetes mellitus. Active heparin lock flush, porcine, 10 unit/mL injection Infuse 1-5 mL (10-50 Units total) into a venous catheter as needed (line care per nursing agency protocol.). 1 mL 025 Active heparin lock flush, porcine, injection 100 unit/mL solution Infuse 1-5 mL (100-500 Units total) into a venous catheter as needed (line care per nursing agency protocol.). 1 mL 07/23/2 025 Active sodium chloride injection Infuse 10-20 mL into a venous catheter as needed for line care (line care per nursing agency protocol.). 1 mL Active meropenem (MERREM) 1 gram injection Infuse 1,000 mg into a venous catheter every 8 (eight) hours for 21 days. End Date 11/03/2024 63 each 2024 Active meropenem 1,000 mg in sodium chloride 0.9 % 100 mL IVPB W/ADAPTER Infuse 1,000 mg into a venous catheter every 8 (eight) hours for 21 days. 1 each 2024 Active oxybutynin XL (DITROPAN XL) 10 mg 24 hr tablet Take 1 tablet (10 mg total) by mouth in the morning. 30 tablet Active glyBURIDE (DIABETA) 2.5 mg tablet Take 1 tablet (2.5 mg total) by mouth in the morning and 1 tablet (2.5 mg total) before bedtime. 2025 Active semaglutide (OZEMPIC) 1 mg/dose (4 mg/3 mL) pen injector Inject under the skin. LAST DOSE 10-04-2024 HOLDING UNTIL AFTER SURGERY 10-25-2024 Active oxyCODONE-grzegorz taminophen (PERCOCET) 5-325 mg per tabletIndicat ions:Kidney stones Take 1 tablet by mouth every 6 (six) hours as needed for pain for up to 5 days. Max Daily Amount: 4 tablets 5 tablet 2024 Active metFORMIN XR (GLUCOPHAGE XR) 500 mg 24 hr tablet Take 1 tablet (500 mg total) by mouth daily with breakfast. 2024 Discontinued(T herapy completed) glyBURIDE (DIABETA) 5 mg tablet Take 1 tablet (5 mg total) by mouth in the morning and 1 tablet (5 mg total) in the evening. Take with meals. 2024 Discontinued(D iscontinued by another clinician) semaglutide 1 mg/dose (4 mg/3 mL) pen injectorIndic ations:type 2 diabetes mellitus Inject 0.5 mg under the skin once a week Indications: type 2 diabetes mellitus. Takes every Friday - pt did take her last injection on 10/04/2024 025 2024 Discontinued(S top Taking at Discharge) sulfamethoxaz ole-trimethop rim (BACTRIM DS) 800-160 mg per tablet Take 1 tablet by mouth once. 2024 Discontinued(T herapy completed) ciprofloxacin HCl (CIPRO) 500 mg tablet Take 1 tablet (500 mg total) by mouth in the morning and 1 tablet (500 mg total) before bedtime. Do all this for 7 days. 14 tablet 025 2024 Discontinued Hospital, Clinic, or Other Facility Administered Medication Ordered Dose Route Frequency Start Date End Date Status gentamicin (GARAMYCIN) injection 80 mgIndications:Urologic disorders,History of recurrent urinary tract infection 80 mg IM Once 10/12/2024 Active Active Problems Problem Noted Date Diagnosed Date Ureteral stent present 10/26/2024 Primary hydronephrosis 10/08/2024 Kidney stones 08/13/2024 History of recurrent urinary tract infection Microscopic hematuria 08/13/2024 Urologic disorders 08/12/2024 Overview (10/08/2024): 1. IBS with Urolithiasis; by history status post ESWL x2 estimated 2004 elsewhere without success [facility] stones i n a pocket and at some point stent insertion; CT NOMS 02/16/2024 multiple right renal stones including 2.7 cm staghorn with mild hydronephrosis; CT urogram 08/26/2024 estimated at least 7 radiopaque right renal stones largest 2.7 cm to my view likely with 1 or possibly even2 stones in pelvicalyceal diverticuli with mild hydronephrosis and solitary punctate left renal stone; patient's nephew Conrad Adams MD 2. Very Recurrent UTIs 3. Microscopic hematuria 4. Multiple left parapelvic cysts CT urogram 08/26/2024 5. KUB July 2024; CT August 2024 Encounters Date Type Department Care Team Description 10/25/2024 4:11 PM EDT Anesthesia Event [facility] - Surgery [address] [place] [address] Pankaj Wilcox MD [place], AVIATION NEUROPSYCHOLOGIST-TRY OUT PERSON 10/25/2024 3:53 PM EDT - 10/25/2024 7:23 PM EDT Surgery [address] [address] Dudley Lundberg Jr., MD LASER HOLMIUM URETEROSCOPY WITH VACUUM ASPIRATION 10/25/2024 1:52 PM EDT - 10/25/2024 8:26 PM EDT Hospital Encounter [address] [address] Dudley Lundberg Jr., MD Kidney stones Discharge Disposition: Home 10/25/2024 Telephone [facility] [address] [place] [address] [address] [place] [address] Dudley Lundberg Jr., MD 10/25/2024 Travel 10/18/2024 2:15 PM EDT Support [facility] On [address] [phone] 10/18/2024 Documentation [facility] [address] [place] [address] Dudley Lundberg Jr., MD 10/13/2024 Telephone [facility] [address] [place] [address] [address] [place] [address] Dudley Lundberg Jr., MD 10/12/2024 11:45 AM EDT - 10/12/2024 1:00 PM EDT Surgery [address] [address] Dduley Lundberg Jr., MD CYSTOSCOPY INSERTION STENT URETER [56662 (CPT )] 10/12/2024 10:57 AM EDT Anesthesia Event [address] [address] Boris Friedman MD 10/12/2024 9:29 AM EDT - 10/14/2024 2:14 PM EDT Hospital Encounter [facility] - Observation Unit [address] [facility] [place] [address] Dudley Lundberg Jr., MD Medication monitoring encounter (Primary Dx); Urologic disorders; History of recurrent urinary tract infection; Primary hydronephrosis Discharge Disposition: Home Health 10/12/2024 Telephone [facility] [address] [place] [address] [address] [place] [address] Dudley Lundberg Jr., MD 10/12/2024 Travel 10/11/2024 Telephone [facility] [place] [place] [address] Tory Welsh CMA 10/08/2024 11:45 AM EDT Procedure visit [facility] On [address] [address] Preop testing (Primary Dx) 10/08/2024 10:00 AM EDT Office Visit [facility] [address] [place] [phone] Dudley Lundberg Jr., MD History of recurrent urinary tract infection (Primary Dx); Kidney stones; Urologic disorders; Microscopic hematuria 10/08/2024 Telephone [facility] [address] [place] [address] [address] [place] [address] Dudley Lundberg Jr., MD 10/04/2024 Telephone [facility] [address] [place] [address] Dudley Lundberg Jr., MD 09/30/2024 Telephone [facility] [address] [place] [address] [place] [address] Dudley Lundberg Jr., MD 08/30/2024 Telephone [facility] [address] [place] [address] [address] [place] [address] Dudley Lundberg Jr., MD 08/26/2024 2:24 PM EDT - 08/26/2024 11:59 PM EDT Hospital Encounter [facility] - CT Imaging [address] [place] [address] Dudley Lundberg Jr., MD Kidney stones; Microscopic hematuria; History of recurrent urinary tract infection Discharge Disposition: Home 08/26/2024 Travel 08/17/2024 Travel 08/13/2024 11:55 AM EDT - 08/13/2024 11:59 PM EDT Hospital Encounter [facility] - Radiology [address] [place] [address] Dudley Lundberg Jr., MD Kidney stones; Microscopic hematuria; History of recurrent urinary tract infection Discharge Disposition: Home 08/13/2024 10:30 AM EDT Office Visit [facility] [address] [place] [place] [address] Dudley Lundberg Jr., MD Urologic disorders (Primary Dx); Kidney stones; Microscopic hematuria; History of recurrent urinary tract infection 08/13/2024 Travel 08/13/2024 Telephone [facility] [address] [place] [address] Dudley Lundberg Jr., MD 08/12/2024 Telephone [facility] [address] [place] [address] Yuliana López LPN from Last 3 Months Family History Medical History Relation Name Comments Anesthesia problems Neg Hx Social History Tobacco Use Types Packs/Day Years Used Date Smoking Tobacco: Former Cigarettes 1 40 1 1 - 2010 Smokeless Tobacco: Never Tobacco Cessation:Counseling Given: Not Answered Alcohol Use Standard Drinks/Week Comments Not Currently [...] Mass Index 36.67 10/25/2024 2:14 PM EDT Plan of Treatment Upcoming Encounters Date Type Department Care Team (Latest Contact Info) Description 11/01/2024 3:30 PM EDT Hospital Encounter [facility] Surgery [address] [place] [phone] Dudley Lundberg Jr., MD [address] [place] [address] 11/01/2024 3:30 PM EDT - 11/01/2024 7:00 PM EDT Surgery [facility] Surgery [address] [place] [phone] Dudley Lundberg Jr., MD [address] [place] [address] LASER HOLMIUM URETEROSCOPY WITH VACUUM ASPIRATION 11/02/2024 4:15 PM EDT [facility] [address] [place] [phone] Dudley Lundberg Jr., MD [address] [place] [address] Scheduled Procedures Name Priority Associated Diagnoses Date/Ti me LASER HOLMIUM URETEROSCOPY WITH VACUUM ASPIRATION Kidney stones Ureteral stent present 11/01/2024 3:30 PM EDT CYSTOSCOPY EXCHANGE STENT URETER Kidney stones Ureteral stent present 11/01/2024 3:30 PM EDT CYSTOSCOPY RETROGRADE PYELOGRAM Kidney stones Ureteral stent present 11/01/2024 3:30 PM EDT Health Maintenance Due Date Last Done Comments Depression Screening 1965 Adult BMI Follow Up Plan 06/26/1971 DTaP,Tdap and Td Vaccines (1 - Tdap) 1972 Zoster (Shingles) Vaccine (2 of 3) 10/25/2015 08/30/2015 Fall Risk Screening 2018 Influenza Vaccine 11/22/2024 01/06/2020, , 02/03/2015, Additional history exists Adult BMI Screening 10/25/2025 10/25/2024 Tobacco Screening 10/25/2025 10/25/2024 Goals Goal Patient Goal Type Associated Problems Recent Progress Patient-Stated? Author <enter goal here> General Yes Navin Vazquez, RN Note: Evaluation of progress towards goal: Patient will discharge with home health care and infusion. - Navin Vazquez RN 10/12/24 4:26 PM Autogenerated Goal Care Plan Autogenerated Problem No Abida Ace Autogenerated Goal Care Plan Autogenerated Problem No [employer] Implanted Type Area Turbinated Bone Grinder Device Identifier Shelf Expiration Date Model / Serial / Lot Stent Uret 7fr 24cm 2 Pgtl Crv Rdpq Pstnr Mfl [facility] Firm - [id number] Implanted:Qty: 1 on 10/25/2024 by Dudley Lundberg Jr., MD at [facility] Stent Right: Ureter [employer] 07/21/2027 [id number] / / [id number] Explanted Type Area Turbinated Bone Grinder Device Identifier Shelf Expiration Date Model / Serial / Lot Stent Uret 8fr 24cm 2 Pgtl Crv Rdpq Pstnr Brd [facility] Rpl [id number] - [id number] Implanted:Qty: 1 on 10/12/2024 by Dudley Lundberg Jr., MD at [facility] Explanted:Qty: 1 on 10/25/2024 at [facility] Stent Right: Ureter [employer] 08/20/2025 [id number] / / [id number] Procedures Procedure Name Priority Date/Time Associated Diagnosis Comments FL FLUOROSCOPY UP TO 1 HOUR Routine 10/25/2024 7:21 PM EDT BEDSIDE GLUCOSE Routine 10/25/2024 7:13 PM EDT RI AN ELECTIVE ENDOTRACHEAL AIRWAY Routine 10/25/2024 4:22 PM EDT CYSTOSCOPY RETROGRADE PYELOGRAM 10/25/2024 4:11 [...] CLEAR GREGORY / GENERAL ANESTHESIA WITH PARALYSIS BEDSIDE GLUCOSE Routine 10/13/2024 7:49 AM EDT [...] OXIMETRY, SPOT Routine 10/12/2024 11:48 AM EDT ANESTHESIA INTUBATION Routine 10/12/2024 11:05 AM EDT CYSTOSCOPY RETROGRADE PYELOGRAM 10/12/2024 10:57 AM EDT Kidney stones History of recurrent urinary tract infection Primary hydronephrosis Case Notes LAURA (EPIC 45, GAVE 45) RI CYSTOSCOPY,INSERT URETERAL STENT 10/12/2024 10:57 AM EDT Kidney stones History of recurrent urinary tract infection Primary hydronephrosis Case Notes LAURA (EPIC 45, GAVE 45) BEDSIDE GLUCOSE Routine 10/12/2024 10:32 AM EDT HEMOGLOBIN AND HEMATOCRIT, BLOOD Routine 10/08/2024 12:54 PM EDT Preop testing ECG 12-LEAD Routine 10/08/2024 12:39 PM EDT Preop testing SEND OUT TEST Routine 10/08/2024 11:34 AM EDT Kidney stones MICROSCOPIC URINE Routine 10/08/2024 11:34 AM EDT Kidney stones URINE CULTURE Routine 10/08/2024 11:34 AM EDT Kidney stones PM AMB POCT URINALYSIS AUTO, W/O MICROSCOPY Routine 10/08/2024 10:07 AM EDT History of recurrent urinary tract infection CT UROGRAM Routine 08/26/2024 3:44 PM EDT Kidney stones Microscopic hematuria History of recurrent urinary tract infection CREATININE, SERUM Routine 08/17/2024 11:50 AM EDT Kidney stones Microscopic hematuria History of recurrent urinary tract infection XR ABDOMEN AP 1 VW Routine 08/13/2024 12:03 PM EDT Kidney stones Microscopic hematuria History of recurrent urinary tract infection from Last 3 Months Results * Fluoroscopy less than one hour (10/25/2024 7:21 PM EDT) Only the most recent of2 resultswithin the time period is included. Anatomical Region Laterality Modality Radio Fluoroscop y [...] Lambert Husain MD on 10/25/2024 11:07 PM Dudley Lundberg Jr., MD IMG FLUOROSCOPY ORDERABL ES Final Result * (ABNORMAL) Bedside Glucose *Place/Obtain serum glucose if >500 per glucometer. (10/25/2024 7:13 PM EDT) Only the most recent of6 resultswithin the time period is included. Bedside Glucose (POC) 166(H) 65 - 99 mg/dL 10/26/2024 3:[address] [facility] arterial/capilla ry 10/25/2024 7:13 PM EDT 10/26/2024 3:11 AM EDT us Dudley Lundberg Jr., MD POINT OF CARE TEST ORDER LINCOLN Final Result [facility] [address] [place] [address], [place] * RI AN ELECTIVE ENDOTRACHEAL AIRWAY (10/25/2024 4:22 PM EDT) Narrative Aubrie Fletcher APRN-TRY OUT PERSON - 10/25/2024 4:22 PM EDT Aubrie Fletcher AVIATION NEUROPSYCHOLOGIST-TRY OUT PERSON 10/25/2024 4:38 PM Airway Patient location during procedure: OR Urgency: Elective Date/Time: 10/25/2024 4:22 PM Airway not difficult IV In Situ: Peripheral General Information and Staff Service Provider: Pankaj Wilcox MD Placed by: Aubrie Fletcher AVIATION NEUROPSYCHOLOGIST-TRY OUT PERSON Patient Identified, IV Checked, Risks and Benefits [...] Wilcox MD ANESTHESIA ORDERABLES Final Resu lt * Creatinine includes GFR, serum (10/12/2024 3:22 PM EDT) Only the most recent of2 resultswithin the time period is included. CREATININE 0.49 0.40 - 1.00 mg/dL 10/12/2024 4:16 PM EDT [facility] Comment:METHOD TRACEABLE TO IDMS STANDARD EGFR Non-Race Dependent >90 >=60 ml/min/1.7 3sq.m 10/12/2024 4:16 PM EDT [facility] Comment: Reported eGFR is based on the CKD-EPI 2020 equation that does not use a race coefficient. Blood Venous blood / Unknown Venipuncture / Unknown 10/12/2024 3:22 PM EDT 10/12/2024 3:43 PM EDT Alexx Bonner DO LAB BLOOD ORDERABLES Final Resu lt [facility] [address] [place] [address], [place] [phone] * Lavender Top (10/12/2024 3:17 PM EDT) [facility] Extra Tube Auto Resulted 10/12/2024 5:01 PM EDT [facility] Blood Venous blood / Unknown Venipuncture / Unknown 10/12/2024 3:17 PM EDT 10/12/2024 3:43 PM EDT Dudley Lundberg Jr., MD LAB BLOOD ORDERABLES Fin al Result [facility] [address] [place] [address], [place] [phone] * RI AN ELECTIVE SUPRAGLOTTIC AIRWAY (10/12/2024 11:05 AM EDT) Narrative Marylou Wong APRN-CRNA - 10/12/2024 11:05 AM EDT EFRA Saravia 10/12/2024 11:15 AM Airway Patient location during procedure: OR Urgency: Elective Date/Time: 10/12/2024 11:05 AM Airway not difficult IV In Situ: Peripheral General Information and Staff Service Provider: Boris Friedman MD Placed by: EFRA Saravia Patient Identified, IV Checked, Risks and Benefits Discussed, Surgical Consent, Monitors and Equipment Checked, Pre-op Evaluation and Timeout Performed Fire Risk Assessment Score: 1 Consent for Emergent Airway (if performed for an anesthetic, see related documentation for consents) Risks and benefits: risks, benefits and alternatives were discussed Indications and Patient Condition Sedation level: Deep Preoxygenated: yesPatient position: Supine MILS maintained throughout Mask difficulty assessment: Not Attempted Indications for airway management: Anesthesia Complications: No Final Airway Details Final airway type: Supraglottic Airway Successful Airway: Intersurgical SolusOral SGA size: 4 Dentition Check Pre: Dentures/Partials Removed Post Intubation Trauma? No Placement verified by: chest auscultation and capnography Number of other approaches attempted: 0 Number of attempts at approach: 1 Airway Brand: Intersurgical Solus Boris Friedman MD ANESTHESIA ORDERABLES Final Resu lt * Hemoglobin and hematocrit, blood (10/08/2024 12:54 PM EDT) Hemoglobin 13.3 11.7 - 15.5 g/dL 10/08/2024 3:55 PM EDT [facility] Hematocrit 41.0 35 - 47 % 10/08/2024 3:55 PM EDT [facility] Blood Venous blood / Unknown Venipuncture / Unknown 10/08/2024 12:54 PM EDT 10/08/2024 12:54 PM EDT Albaro Herring MD LAB BLOOD ORDERABLES Final R esult [facility] [address] [place] [address], [place] [phone] * ECG 12 lead (10/08/2024 12:39 PM EDT) 10/08/2024 12:3 9 PM EDT Narrative TRACEMASTERVUE - 10/08/2024 5:06 PM EDT us Albaro Herring MD ECG ORDERABLES Final Result Performing Organization Address [facility] Co de Phone Number ARNULFO * Send Out Test (10/08/2024 11:34 AM EDT) TEST NAME CRE 10/15/2024 6:24 AM EDT [facility] SPECIMEN URINE 10/15/2024 6:24 AM EDT [facility] SENT TO [facility] 10/15/2024 6:24 AM EDT [facility] TEST RESULT 10/15/2024 6:24 AM EDT [facility] Urine Urine specimen collection, clean catch / Unknown 10/08/2024 11:34 AM EDT 10/08/2024 11:39 AM EDT Narrative [facility] - 10/15/2024 6:24 AM EDT See separate report. View in OnBase or in EPIC. us Dudley Lundberg Jr., MD LAB ORDERABLES Final Re sult Performing Organization Address City/[facility] Co de Phone Number [facility] [address] [place] [address], [place] [phone] * (ABNORMAL) Microscopic, urine (10/08/2024 11:34 AM EDT) MUCOUS Present(A) None 10/08/2024 1:26 PM EDT [facility] R.B.CELLS 14(H) 0 - 5 10/08/2024 1:26 PM EDT [facility] SQUAMOUS EPITHELIUM 1 0 - 5 10/08/2024 1:26 PM EDT [facility] W.B.CELLS 538(H) 0 - 5 10/08/2024 1:26 PM EDT [facility] Urine specimen collection, clean catch / Unknown 10/08/2024 11:34 AM EDT 10/08/2024 11:39 AM EDT us Dudley Lundberg Jr., MD URINE ORDERABLES Final R esult [facility] [address] [place] [address], * (ABNORMAL) Urine Culture (10/08/2024 11:34 AM EDT) CULTURE RESULTS >100,000 CFU/mL Klebsiella pneumoniae(A) 10/11/2024 2:59 PM EDT [facility] Urine Urine specimen collection, clean catch / Unknown 10/08/2024 11:34 AM EDT 10/08/2024 11:39 AM EDT Narrative Organism Antibiotic Method Susceptibility Klebsiella pneumoniae Ampicillin >=32: Resistant Klebsiella pneumoniae PIPERACIL/TAZOBACTAM 16: Susceptible (dose dependent) Klebsiella pneumoniae Cefazolin (non-urinary) >=32: Resistant Klebsiella pneumoniae Cefazolin (urinary) >=32: Resistant Klebsiella pneumoniae Ertapenem 2: Resistant Comment:This is an a ppended report. These results have been appended to a previously final verified report. Klebsiella pneumoniae IMIPENEM <=0.25: Resistant Comment:This is an a ppended report. These results have been appended to a previously final verified report. Klebsiella pneumoniae Meropenem 1: Resistant Comment:This is an a ppended report. These results have been appended to a previously final verified report. Klebsiella pneumoniae Amikacin <=1: Susceptible Klebsiella pneumoniae Gentamicin <=1: Susceptible Klebsiella pneumoniae Tobramycin <=1: Susceptible Klebsiella pneumoniae Ciprofloxacin >=4: Resistant Klebsiella pneumoniae Levofloxacin >=8: Resistant Klebsiella pneumoniae Trimethoprim + Sulfamethoxazole 80: Resistant Klebsiella pneumoniae KPC (CARBAPENEMASE) Negative Klebsiella pneumoniae [id number] (CARBAPENEMASE) Negative Klebsiella pneumoniae VIM (CARBAPENEMASE) Negative Klebsiella pneumoniae IMP (CARBAPENEMASE) Negative Klebsiella pneumoniae NDM (CARBAPENEMASE) Negative Comment:Carbapenem Resistant Organism (LOG CHAIN FEEDER). The CARBA5 test only detects the 5 most prevalent carbapenemase producing mechanisms in the [place] Other carbapenemase producing mechanisms not detected by this test are rare. us Dudley Lundberg Jr., MD MICROBIOLOGY - GENERAL O RDERABLES Edited Result - Final [facility] [address] [place] [address], [place] [phone] * POCT Urinalysis Auto, W/O Microscopy (10/08/2024 10:07 AM EDT) External Poct Urine Glucose Negative MANUALLY TRANSCRIBED RESULTS External Poct Urine Ketones Negative MANUALLY TRANSCRIBED RESULTS External Poct Urine Blood 1+ MANUALLY TRANSCRIBED RESULTS External Poct Urine Ph 5.5 MANUALLY TRANSCRIBED RESULTS External Poct Urine Protein 1+ MANUALLY TRANSCRIBED RESULTS External Poct Urine Nitrite Positive MANUALLY TRANSCRIBED RESULTS External Poct Urine Leukocyte Esterase Large MANUALLY TRANSCRIBED RESULTS Urine 10/08/2024 10:0 7 AM EDT us Dudley Lundberg Jr., MD POINT OF CARE TEST ORDER LINCOLN Final Result MANUALLY TRANSCRIBED RESULTS * CT urogram (08/26/2024 3:44 PM EDT) Anatomical Region Laterality Modality Body, Abdomen, Body Covera N/A Compu cherrie Tomography 08/30/2024 9:25 AM EDT Narrative 08/30/2024 11:[address] UROGRAM HISTORY: Hematuria, recurrent UTI. EXAM/TECHNIQUE: * CT of the abdomen with and without contrast (CT Urogram). 100 mL of Omnipaque 350 was injected intravenously. Volume rendered 3D maximum intensity projection reconstructions constructed under concurrent physician supervision reviewed for purposes of evaluation of the urinary tract and collecting systems. * All CT scans at this facility use dose modulation, iterative reconstruction, and/or weight based dosing when appropriate to reduce radiation dose to as low as reasonably achievable. COMPARISON: 02/11/2024 FINDINGS: KIDNEYS AND URINARY TRACT: Multiple large calculi within the inferior right renal pole and renal pelvis measuring up to 2.7 cm. Urothelial thickening and periureteral stranding of the proximal/mid right ureter, with mild distention throughout. Multiple left parapelvic renal cystic lesions require no additional imaging follow-up. Urinary bladder appears unremarkable. No focal enhancement, stones, or wall thickening. REMAINDER OF THE ABDOMEN AND PELVIS: Visualized portions of lung parenchyma appear unremarkable. No pericardial or pleural effusions. No intra-abdominal free air or free fluid. Noncirrhotic liver morphology with no focal hepatic lesion. Mild intra- /extrahepatic biliary ductal dilatation with no hyperattenuating biliary calculus. Common bile duct measures up to 8 mm in diameter. Spleen, pancreas, and adrenal glands appear unremarkable. No pelvic free fluid. The uterus appears unremarkable. Sigmoid diverticulosis with no evidence of diverticulitis. Small bowel and appendix appear unremarkable. No abdominal or pelvic lymphadenopathy. Nonaneurysmal abdominal aorta. Moderate atherosclerosis. No acute osseous abnormality. IMPRESSION: * Multiple and large, partially obstructive right renal calculi measuring 2.7 cm with configuration suggestive of a staghorn calculus. Mucosal thickening and periureteral stranding about the proximal/mid right ureter could reflect sequela of intermittent obstruction versus infectious/inflammatory process. Recommend correlation with urinalysis. * Mild nonspecific intra-/extrahepatic biliary ductal prominence, with no hyperattenuating biliary calculus. Consider correlation with LFTs. Approved by Resident: Shen Santillan MD on 08/30/2024 9:25 AM Collin Marroquin MD have personally reviewed the image(s) and agree with and/or edited the report Finalized by Collin Holland MD on 08/30/2024 11:51 AM Procedure Note Collin Holland MD - 08/30/2024 CT UROGRAM HISTORY: Hematuria, recurrent UTI. EXAM/TECHNIQUE: * CT of the abdomen with and without contrast (CT Urogram). 100 mL ofOmnipaque 350 was injected intravenously. Volume rendered 3D maximumintensity projection reconstructions constructed under concurrentphysician supervision reviewed for purposes of evaluation of the urinarytract and collecting systems. * All CT scans at this facility use dose modulation, iterativereconstruction, and/or weight based dosing when appropriate to reduceradiation dose to as low as reasonably achievable. COMPARISON: 02/11/2024 FINDINGS: KIDNEYS AND URINARY TRACT: Multiple large calculi within the inferior right renal pole and renalpelvis measuring up to 2.7 cm. Urothelial thickening and periureteralstranding of the proximal/mid right ureter, with mild distentionthroughout. Multiple left parapelvic renal cystic lesions require noadditional imaging follow-up. Urinary bladder appears unremarkable. No focal enhancement, stones, orwall thickening. REMAINDER OF THE ABDOMEN AND PELVIS: Visualized portions of lung parenchyma appear unremarkable. Nopericardial or pleural effusions. No intra-abdominal free air or free fluid. Noncirrhotic liver morphology with no focal hepatic lesion. Mildintra- /extrahepatic biliary ductal dilatation with no hyperattenuatingbiliary calculus. Common bile duct measures up to 8 mm in diameter. Spleen, pancreas, and adrenal glands appear unremarkable. No pelvic free fluid. The uterus appears unremarkable. Sigmoid diverticulosis with no evidence of diverticulitis. Small bowel andappendix appear unremarkable. No abdominal or pelvic lymphadenopathy. Nonaneurysmal abdominal aorta.Moderate atherosclerosis. No acute osseous abnormality. IMPRESSION: * Multiple and large, partially obstructive right renal calculi measuring2.7 cm with configuration suggestive of a staghorn calculus. Mucosalthickening and periureteral stranding about the proximal/mid right uretercould reflect sequela of intermittent obstruction versusinfectious/inflammatory process. Recommend correlation with urinalysis. * Mild nonspecific intra-/extrahepatic biliary ductal prominence, with nohyperattenuating biliary calculus. Consider correlation with LFTs. Approved by Resident: Shen Santillan MD on 08/30/2024 9:25AM ICollin MD have personally reviewed the image(s) and agree withand/or edited the report Finalized by Collin Holland MD on 08/30/2024 11:51 AM us Dudley Lundberg Jr., MD IMG CT ORDERABLES Final Result * X-ray abdomen ap 1 view (08/13/2024 12:03 PM EDT) Anatomical Region Laterality Modality Body, Abdomen N/A Computed Radiogr aphy 08/16/2024 8:09 PM EDT Narrative 08/16/2024 8:10 PM EDT EXAM: XR ABDOMEN AP 1 VW CLINICAL INFORMATION: Kidney stones; Microscopic hematuria; History of recurrent urinary tract infection. COMPARISON: None. FINDINGS: There are multiple (approximately 7) prominent right-sided renal stones measuring up to 2.7 cm. There is a tiny 0.2 cm stone in the upper pole of the left kidney. There are no dilated loops of bowel or evidence of pneumatosis or free air. IMPRESSION: 1. Large burden right-sided nephrolithiasis, with multiple (approximately 7) prominent right-sided renal stones measuring up to 2.7 cm. 2. Tiny 0.2 cm stone in the upper pole of the left kidney. Finalized by Jorden Burns MD on 08/16/2024 8:10 PM Procedure Note Joredn Burns MD - 08/16/2024 EXAM: XR ABDOMEN AP 1 VW CLINICAL INFORMATION: Kidney stones; Microscopic hematuria; History ofrecurrent urinary tract infection. COMPARISON: None. FINDINGS: There are multiple (approximately 7) prominent right-sided renal stonesmeasuring up to 2.7 cm. There is a tiny 0.2 cm stone in the upper pole ofthe left kidney. There are no dilated loops of bowel or evidence of pneumatosis or freeair. IMPRESSION: 1. Large burden right-sided nephrolithiasis, with multiple (approximately7) prominent right-sided renal stones measuring up to 2.7 cm. 2. Tiny 0.2 cm stone in the upper pole of the left kidney. Finalized by Jorden Burns MD on 08/16/2024 8:10 PM Dudley Lundberg Jr., MD [facility] DIAGNOSTIC IMAGING O RDERABLES Final Result from Last 3 Months Additional Health Concerns Active Problems Noted Date Diagnosed Date Autogenerated Problem 10/08/2024 Autogenerated Problem 10/14/2024 Insurance MEDICARE [employer] Advance Directives * Full Code (Latest Code Status on File) Date Activated Date Inactivated Comments 10/12/2024 11:48 AM 10/14/2024 4:14 PM Care Teams Senior Mechanical Designer Relationship Specialty Start Date End Date Derrick Ortiz Jr., [address] [place] [address], [id number] [place] [address] PCP - General Family Medicine 09/30/24
[2024-10-28 09:46] LABS: Blood Urea Nitrogen 13.0 mg/dL (7.0-18.0); Estimated GFR (African America >60 (>=60 mL/min/1.73m^2); Estimated GFR (Non-African Ame >60 (>=60 mL/min/1.73m^2)
[2024-10-28 10:00] LABS: Hematocrit 34.7 % (36.0-48.0); Hemoglobin 11.6 g/dL (12.0-16.0); Immature Granulocytes Abs Auto 0.03 10^3/uL (0.00-0.03); Immature Granulocytes Pct Auto 0.3 % (0.0-0.5); Lymphocytes Absolute Auto 2.5 10^3/uL (1.2-3.8); Mean Corpuscular HGB Conc 33.4 g/dL (29.9-35.2); Mean Corpuscular Hemoglobin 29.4 pg (26.7-34.0); Mean Corpuscular Volume 88.1 fL (81.0-99.0); Platelet Count 288 10^3/uL (150-450); Red Blood Count 3.94 10^6/uL (4.20-5.40); White Blood Count 8.8 10^3/uL (4.0-11.0)
== END 2024-10-28 09:07 | disposition home or self-care (01) ==
LOC: LAB 09:06
PROVIDERS: PCP Family Medicine
DX: N20.0 Calculus of kidney (principal)
CPT/HCPCS: 36415; 82565; 84520; 85025; 86140

== ENCOUNTER 2024-11-04 09:21 | Outpatient (REF) | payer MEDICARE, SELFPAY ==
[2024-11-04 09:40] LABS: Hematocrit 33.2 % (36.0-48.0); Hemoglobin 11.0 g/dL (12.0-16.0); Immature Granulocytes Abs Auto 0.05 10^3/uL (0.00-0.03); Immature Granulocytes Pct Auto 0.5 % (0.0-0.5); Lymphocytes Absolute Auto 2.7 10^3/uL (1.2-3.8); Mean Corpuscular HGB Conc 33.1 g/dL (29.9-35.2); Mean Corpuscular Hemoglobin 28.7 pg (26.7-34.0); Mean Corpuscular Volume 86.7 fL (81.0-99.0); Platelet Count 213 10^3/uL (150-450); Red Blood Count 3.83 10^6/uL (4.20-5.40); White Blood Count 9.8 10^3/uL (4.0-11.0)
[2024-11-04 10:05] LABS: Blood Urea Nitrogen 11.0 mg/dL (7.0-18.0); Estimated GFR (African America >60 (>=60 mL/min/1.73m^2); Estimated GFR (Non-African Ame >60 (>=60 mL/min/1.73m^2)
== END 2024-11-04 09:22 | disposition home or self-care (01) ==
LOC: LAB 09:21
PROVIDERS: PCP Family Medicine
DX: N20.0 Calculus of kidney (principal)
CPT/HCPCS: 36415; 82565; 84520; 85025; 86140

== ENCOUNTER 2024-11-11 09:28 | Outpatient (REF) | payer MEDICARE, SELFPAY ==
--- OUTSIDE RECORDS SUMMARY | 2014-01-17 20:00 | XMS_ITS | Continuity of Care Document ---
Author Organization [facility] Address [address] [place] [address] Phone Care Team Providers Care Talcer Name Role Phone Griffin CASTILLO Usama Unavailable Unavailable Procedures Procedure Date IMMUNIZATION ADMIN [...] Copied on Encounter OFFICE/OUTPATI ENT VISIT, EST [facility], [address] [place], [place], [id number], [place] tel:[phone] [facility] Influenza Vaccine Griffin Saavedra. [address] [place] [address], [id number], [place]. tel:[phone] Family History Family Member Type Diagnosis Age [...] Record Payers Payer name Insurance type Covered democrat ID Authorhugo viramontes(s) Kia TACOS [id number] Social History Type Description Quantity Date Captured [...]
--- OUTSIDE RECORDS SUMMARY | 2024-11-01 12:59 | XMS_ITS | Encounter Summary ---
Author Organization [employer] Address [id number] [address] [place] [address] Care Team Providers Care Hvac/R Service Technician Name Role Phone Diana Joya DO, George R Primary Care Provider + Reason for Referral * Misc (Routine) - Authorized Specialty Diagnoses / Procedures Referred By Contac t Referred To Contact Procedures No dressing needed Rolando Lundberg Jr., MD [address] [place] [address] Phone: tel: fax: Referral ID Status Reason Start Date Expiration Date V isits Requested Visits Authorized [id number] Authorized 11/01/2024 11/01/2025 1 1 * Misc (Routine) - Authorized Specialty Diagnoses / Procedures Referred By Contac t Referred To Contact Procedures Adult diet Rolando Lundberg Jr., MD [address] [place] [address] Phone: tel: fax: Referral ID Status Reason Start Date Expiration Date V isits Requested Visits Authorized [id number] Authorized 11/01/2024 11/01/2025 1 1 * Misc (Routine) - Authorized Specialty Diagnoses / Procedures Referred By Contac t Referred To Contact Procedures Discharge Follow-Up - Specify Details in Comments Rolando Lundberg Jr., MD [address] [place] [address] Phone: tel: fax: Referral ID Status Reason Start Date Expiration Date V isits Requested Visits Authorized [id number] Authorized 11/01/2024 11/01/2025 1 1 Reason for Visit * Auth/Cert Specialty Diagnoses / Procedures Referred By Contac t Referred To Contact Diagnoses Kidney stones Ureteral stent present Kidney stones [N20.0] Ureteral stent present [Z96.0] Procedures LASER HOLMIUM URETEROSCOPY WITH VACUUM ASPIRATION CYSTOSCOPY EXCHANGE STENT URETER CYSTOSCOPY RETROGRADE PYELOGRAM WITH FLUOROSCOPIC VISUALIZATION Rolando Lundberg Jr., MD [address] [place] [phone] Phone: tel: fax: Referral ID Status Reason Start Date Expiration Date Visits Re quested Visits Authorized [id number] Encounter Details Date Type Department Care Team (Latest Contact Info) Description 11/01/2024 12:59 PM EDT - 11/01/2024 11:00 PM EDT Hospital Encounter [facility] - Surgery [address] [place] [phone] Rolando Lundberg Jr., MD [address] [place] [phone] Kidney stones; Ureteral stent present Discharge Disposition: Home Social History Tobacco Use [...] got money to buy more. Never True 11/02/2024 Within the past 12 months th e food we bought just didn't last and we didn't have money to get more. Never True 11/02/2024 Comments No Sex and Gender Information Value Date Recorded Sex Assigned at Not on file Legal Sex Female 9:12 AM EST Gender Identity Not on file Sexual Orientation Not on file documented as of this encounter Last Filed Vital Signs Vital Sign Reading Time Taken Comments Blood Pressure 127/70 11/01/2024 10:45 PM EDT Pulse 99 11/01/2024 10:45 PM EDT Temperature 36 C (96.8 F) 11/01/2024 10:45 PM EDT Respiratory Rate 23 11/01/2024 10:45 PM EDT Oxygen Saturation 96% 11/01/2024 10:45 PM EDT Inhaled Oxygen Concentration - - Weight 93.9 kg (207 lb) 11/01/2024 2:16 PM EDT Height 160 cm (5' 3 ) 11/01/2024 2:16 PM EDT Body Mass Index 36.67 11/01/2024 2:16 PM EDT documented in this encounter Discharge Instructions * Discharge Instructions* Woodrow Bowen RN - 11/01/2024 9:40 PM EDT General Activity: If you have been put to sleep (general anesthetic) or received any sedation, your judgement and coordination may be impaired. Be careful on steps, holding a hot drink, etc. Do not make any important decisions or sign any important papers in the next 24 hours. You should have a responsible adult with you the rest of today and tonight. Restrict your activities and rest for the day. Resume light to normal activity tomorrow as you feelyou can. You are advised to go directly home from the hospital. Do not engage in strenuous activities that may place stress on your incision. Do not drive or operate machinery for 24 hours. Do not consume alcohol, tranquilizers, sleeping medications, or any non- prescribed medication for 24 hours unless advised by your doctor to do so. Children may become very pink and flushed for the next 24 hours. Diet: May resume normal diet as you feel you can. Begin with liquids. If not nauseated, you may progress to a regular diet when you desire. Specific problems to watch for: Persistent bleeding or bleeding not stopped by direct pressure. A small amount of bleeding may occur. Large amount of swelling around incision. A small amount of swelling and/ or bruising may occur. Severe of unexplained pain. Fever greater than 101 in the next few days. Inability to pass urine in the next 6-8 hours. If you had a laproscopic procedure you may develop shoulder pain in the first 24 hours from residual gas. Lying flat or on your side may help alleviate this. Call your surgeons office for an appointment for a post op check-up if not already scheduled. documented in this encounter Medications at Time [...] mouth before bedtime. Indications: high blood pressure. metFORMIN (GLUCOPHAGE) 1000 mg tabletIndicatio ns:type 2 [...] mouth in the morning. 30 tablet 5 sodium chloride injection Infuse 10-20 mL into a venous catheter as needed for line care (line care per nursing agency protocol.). 1 mL 5 tamsulosin (FLOMAX) 0.4 mg capsule Take 1 capsule (0.4 mg total) by mouth nightly. 90 capsule 1 5 triamcinolone (KENALOG) 0.1 % cream Apply 1 Application topically 2 (two) times a day as needed for rash or irritation. semaglutide (OZEMPIC) 1 mg/dose (4 mg/3 mL) pen injector Inject under the skin. LAST DOSE 7-14-2025 HOLDING UNTIL AFTER SURGERY 10-25-2024 meropenem 1,000 mg in sodium chloride 0.9 % 100 mL IVPB W/ADAPTER Infuse 1,000 mg into a venous catheter every 8 (eight) hours for 21 days. 1 each 5 11/04/19 meropenem (MERREM) 1 gram injection Infuse 1,000 mg into a venous catheter every 8 (eight) hours for 21 days. End Date 11/03/2024 63 each 5 11/04/19 heparin lock flush, porcine, injection 100 unit/mL solution Infuse 1-5 mL (100-500 Units total) into a venous catheter as needed (line care per nursing agency protocol.). 1 mL 5 11/03/19 documented as of this encounter H&P Notes * Rolando Lundberg Jr., MD - 11/01/2024 3:44 PM EDT HISTORY AND PHYSICAL INTERVAL NOTE: Rosina Alcantara 1955 [id number] H&P updated. The patient was examined and Status post first-stage ureteroscopic laser now for second-stage With stent exchange possible retrograde pyelogram. I personally obtained consent for theprocedure. ROLANDO LUNDBERG JR, MD Source Note - Anaya Denia Broderick APRN-SHOPFITTER - 10/08/2024 11:45 AM EDT PRE-ADMISSION TESTING HISTORY AND PHYSICAL EXAM DATE: 10/08/24 PCP: SAMEER ORTIZ JR, DO CHIEF COMPLAINT: kidney stones HISTORY OF PRESENT ILLNESS: Rosina Alcantara, a 69 y.o. White or female, presents to [facility] for a pre- surgical H&P. The patient [...] disease upper partial, full lower plate Diabetes ([facility]) Diarrhea Diverticulosis large intestine w/o perforation or abscess w/o bleeding 07/2024 per colonoscopy History of recurrent urinary tract infection 08/13/2024 Hypertension Irritable bowel Kidney stones 08/13/2024 Nephrolithiasis Neuropathy Obesity Primary hydronephrosis 10/08/2024 Rash 10/08/2024 currently using steroid cream as needed on legs Urologic disorders 08/12/2024 1. IBS with Urolithiasis; by history status post ESWL x2 estimated 2004 elsewhere without success [facility] stones ???in a pocket?? ; CT [facility] 02/16/2024 multiple right renalstones including 2.7 cm staghorn with mild hydronephrosis; patient's nephew Conrad dAams MD 2. Recurrent UTIs 3. Microscopic hematuria UTI (urinary tract infection) Visual impairment glasses PAST SURGICAL HISTORY: Past Surgical History: Procedure Laterality Date CHOLECYSTECTOMY pt unsure of date - done at [facility] COLONOSCOPY 07/2024 Surgical [facility] in [place], [place] - no further screening colonoscopies required per MD DENTAL SURGERY multiple teeth extractions on both upper and lower LITHOTRIPSY x 2 with stents - pt unsure of date TONSILLECTOMY 1963 as a child TUBAL LIGATION 1978 FAMILY [...] time. PERTINENT TESTING AVAILABLE IN [facility] (WITHIN THE PAST 2 YEARS): EK10/08/2024 pending [...] recent lab values available in [facility] at the time the H&P was signed. ASSESSMENT / DIAGNOSIS: Kidney stones [N20.0] PLAN: Rosina Alcantara is scheduled for CYSTOSCOPY INSERTION STENT URETER - Right, CYSTOSCOPY RETROGRADE PYELOGRAM(psb) - Right on 10/11/[address] Lundberg. Labs and EKG done with today's visit. See [facility] for results. DONTAE Waldron 10/08/24 1321 DONTAE Waldron 11/01/24 1545 documented in this encounter Miscellaneous Notes * Op Note - Rolando Lundberg Jr., MD - 11/01/2024 4:52 PM EDT Operative Note NAME: Rosina Alcantara :1955 PROCEDURE DATE: 11/01/2024 Surgeon: ROLANDO LUNDBERG JR, MD Assistants: none Pre-op Diagnosis: Kidney stones [N20.0] Ureteral stent present [Z96.0] Multiple large right renal stones largest 2.7 cm, possible pelvicalyceal diverticuli with stones, very recurrent UTIs Post-op Diagnosis: Post-Op Diagnosis Codes: * Kidney stones [N20.0] * Ureteral stent present [Z96.0] Multiple large right renal stones largest 2.7 cm, very recurrent UTIs Procedure : Procedure(s): cystoscopy, right flexible ureteral pyeloscopy with holmium laser 2.7 cm right renal pelvic stone with clear Gregory vacuum assist access sheath, right flexible ureteral pyeloscopy holmium laser multiple right lower pole calyceal stones with clear Gregory vacuum assist access sheath, right flexible ureteral pyeloscopy holmium laser ablation right upper pole calyceal stone, removal right ureteral stent, insertion right ureteral stent with fluoroscopic visualization Note: Request modifier 22 secondary to enormous stone burden as noted above requiring use of vacuumassist access sheath, total scope time 4:00 hours and total time lasering 3.5 hours Indications: The patient is a 69-year-old female with the aforementioned presentation. Benefits, risks, and alternatives discussed and questions answered. As requested, I have offered to schedule theprocedure. Preoperative films were reviewed. Details of Procedure: patient continues on home meropenem. I marked the patient's Right side with patient/family involvement in the preoperative holding area per protocol. The patient was taken the OR. Time-out completed the patient was administered IV antibiotic meropenem in the preoperative holding area EPC cuffs applied and activated. The patient was administered general anesthesia with paralysisin the supine position and sterilely prepped and draped in the dorsal lithotomy position. Incidentally patient was also administered gentamicin 80 mg IV about 3 hours into the case Twenty-two Croatian cystoscope sheath was passed with 30 degree lens into the bladder. Cystoscopic findings included normal urethra and stent coming from the right ureteral orifice. Stent grasped with grasping forceps, and the distal tip was brought outside the urethral meatus. Angled Glidewire passed through the stent to the right renal collecting system confirmed fluoroscopically. The remainder of the stent was then removed manually without difficulty. Flexible digital ureteral scope passed over the wire into the bladder and all the way up the right ureter the right renal collecting system. There was stone in the right ureter, and the ureter was otherwise nice and open and in good condition. Stone was observed in the collecting system. Ureteral scope withdrawn over the wire. I passed a ureteral access sheath over the wire, but this was not the requested clear Gregory access sheath, so I withdrew this access sheath and passed the 12 Croatian 46 cm well lubricated clear Gregory access sheath with obturator over the wire to the right UPJ and then withdrew the obturator and wire. Protective eye gear were provided all operating room personnel, and the patient's eyes were taped closed. Flexible digital ureteral scope passed easily through the access sheath to the collecting system. Systematic or partially systematic inspection of the collecting system demonstrated right upper pole calyceal stone with a fairly tight infundibulum, but I was able to negotiate the infundibulum with the scope. They were actually about 4 stones in his upper pole calyx. The access sheath could not be placed easily in the calyx at this time. Three hundred seventy-five micro meter holmium laser inserted. Right ureteral pyeloscopy was performed, and the right upper pole calyceal stones were treated on dusting setting breaking them into pretty small pieces. Next, right flexible ureteral pyeloscopy was performed, and the residual right renal pelvic stone was likewise treated on the dusting setting, and the vacuum assist access sheath was used to harvest all of those visible fragments. Next, right flexible ureteral pyeloscopy was performed, and multiple lower pole calyceal stones were identified and treated on dusting and fragment settings, and as best as possible, those fragments were also retrieved with the vacuum assist access sheath. Finally, after he had been using the laser for 3.5 hours, I felt it prudent to end the case. There were clearly 1 or 2 significant lower pole calyceal stones remaining, which I had not identified. Hopefully we will be able to get to those endoscopically at next procedure. Laser withdrawn. Glidewire passed through the ureteral scope to the upper pole calyx. Ureteral scope and access sheath were withdrawn simultaneously confirming perfect condition of the ureter. I did not see any residual stone in the ureter at this time. To prevent postoperative obstruction and make access easier for next look ureteroscopy, I did placea right ureteral stent. To do this, the cystoscope was backloaded over the wire and passed back into the bladder. Seven Croatian 24 cm double-J stent passed over the wire using the pusher, advancing the stent up the right ureter until was positioned appropriately. Wire withdrawn with coil confirmed in the upper pole calyx and in the bladder. Bladder drained. Scope withdrawn. Uro jet applied. Stone ordered sent for analysis. Anesthesia Type: General endotracheal anesthesia with paralysis * No Diagnosis Codes entered * Complications: None Additions (Drains, Specimens, Implants): Right ureteral stent Estimated Blood Loss: 5 mL Total IV Fluids: Intravenous fluids were administered Crystalloids 1200 mls Colloids 0 mls. Condition: good Findings: Dramatic stone burden with very good progress on stone removal Disposition: operative findings discussed with her daughter, Caroline. Continue home IV meropenem. Continue Flomax 0.4 mg nightly. Continue Ditropan XL 10 mg. Await stone analysis And x-ray reports. I would recommend additional ureteroscopic holmium laser in about 2 weeks, and I would recommend antibiotic coverage in the meantime, but we will need Infectious Disease input on that. Laser settings0.4 joules dusting 0.8 joules fragment, 50 hertz dusting and 10 hertz fragment total 85.62k joules. The patient/family are to call for fever, bleeding, signs of infection, urinary retention, malfunction of any urinary catheters, chest pain, shortness of breath, swelling or pain in lower extremities, or any other problems. documented in this encounter Plan of Treatment Upcoming Encounters Date Type Department Care Team (Latest Contact Info) Description 11/15/2024 12:00 PM EDT Hospital Encounter [facility] - [facility] [address] [place] [phone] Rolando Lundberg Jr., MD [address] [place] [phone] 11/15/2024 12:00 PM EDT - 11/15/2024 3:00 PM EDT Surgery [facility] [address] [place] [phone] Rolando Lundberg Jr., MD [address] [place] [phone] LASER HOLMIUM URETEROSCOPY RENAL STONE >1CM 11/26/2024 2:00 PM EDT Office Visit [facility] [address] [place] [phone] Rolando Lundberg Jr., MD [address] [place] [phone] Scheduled Procedures Name Priority Associated Diagnoses Date/Ti al LASER HOLMIUM URETEROSCOPY RENAL STONE >1CM Kidney stones History of recurrent urinary tract infection 11/15/2024 12:00 PM EDT CYSTOSCOPY EXCHANGE STENT URETER Kidney stones History of recurrent urinary tract infection 11/15/2024 12:00 PM EDT CYSTOSCOPY RETROGRADE PYELOGRAM Kidney stones History of recurrent urinary tract infection 11/15/2024 12:00 PM EDT LASER HOLMIUM URETEROSCOPY WITH VACUUM ASPIRATION Kidney stones History of recurrent urinary tract infection 11/15/2024 12:00 PM EDT documented as of this encounter [...] Date/Time Associated Diagnosis Comments BEDSIDE GLUCOSE Routine 11/01/2024 9:51 PM EDT FL FLUOROSCOPY UP TO 1 HOUR Routine 11/01/2024 9:41 PM EDT KIDNEY STONE ANALYSIS STAT 11/01/2024 9:28 PM EDT Kidney stones Ureteral stent present CYSTOSCOPY RETROGRADE PYELOGRAM 11/01/2024 4:52 PM EDT Kidney stones Ureteral stent present Case Notes LAURA 1.75W (EPIC 173, GAVE 180) CLEAR GREGORY / GENERAL ANESTHESIA WITH PARALYSIS PT JUST HAD PAT VISIT 10/18--NO PAT REQ Special Needs CLEAR GREGORY / GENERAL ANESTHESIA WITH PARALYSIS CYSTOSCOPY EXCHANGE STENT URETER 11/01/2024 4:52 PM EDT Kidney stones Ureteral stent present Case Notes LAURA 1.75W (EPIC 173, GAVE 180) CLEAR GREGORY / GENERAL ANESTHESIA WITH PARALYSIS PT JUST HAD PAT VISIT 10/18--NO PAT REQ Special Needs CLEAR GREGORY / GENERAL ANESTHESIA WITH PARALYSIS LASER HOLMIUM URETEROSCOPY WITH VACUUM ASPIRATION 11/01/2024 4:52 PM EDT Kidney stones Ureteral stent present Case Notes LAURA 1.75W (EPIC 173, GAVE 180) CLEAR GREGORY / GENERAL ANESTHESIA WITH PARALYSIS PT JUST HAD PAT VISIT 10/18--NO PAT REQ Special Needs CLEAR GREGORY / GENERAL ANESTHESIA WITH PARALYSIS BEDSIDE GLUCOSE Routine 11/01/2024 3:11 PM EDT documented in this encounter Results * (ABNORMAL) Bedside Glucose *Place/Obtain serum glucose if >500 per glucometer. (11/01/2024 9:51 PM EDT) Bedside Glucose (POC) 213(H) 65 - 99 mg/dL 11/01/2024 9:53 PM EDT [facility] arterial/capilla ry 11/01/2024 9:51 PM EDT 11/01/2024 9:52 PM EDT us Rolando Lundberg Jr., MD POINT OF CARE TEST ORDER LINCOLN Final Result [facility] [address] [place] [address], [place] * Fluoroscopy less than one hour (11/01/2024 9:41 PM EDT) Anatomical Region Laterality Modality Radio Fluoroscop y 11/01/2024 11:3 4 PM EDT Narrative 11/01/2024 11:35 PM EDT FL FLUOROSCOPY UP TO 1 HOUR INDICATION: Kidney stone right stent placement. FINDINGS: Intraoperative fluoroscopy provided during kidney stone removal and ureteral stent placement. No radiologist present during the examination. Reference Air Kerma: 11.9 mGy IMPRESSION: Intraoperative fluoroscopy provided as above. See operative report for additional details. Finalized by Jonathan Glover MD on 11/01/2024 11:35 PM Procedure Note Jonathan Glover MD - 11/01/2024 FL FLUOROSCOPY UP TO 1 HOUR INDICATION: Kidney stone right stent placement. FINDINGS: Intraoperative fluoroscopy provided during kidney stone removal andureteral stent placement. No radiologist present during theexamination. Reference Air Kerma: 11.9 mGy IMPRESSION: Intraoperative fluoroscopy provided as above. See operative report foradditional details. Finalized by Jonathan Glover MD on 11/01/2024 11:35 PM us Rolando Lundberg Jr., MD IMG FLUOROSCOPY ORDERABL ES Final Result * Kidney Stone Analysis: (11/01/2024 9:28 PM EDT) KIDNEY STONE ANALYSIS DNR 11/10/2024 12:50 PM EDT [facility] STONE SOURCE: Right Ureter 11/10/2024 12:50 PM EDT [facility] STONE INTERPRETATION SEE COMMENTS 11/10/2024 12:50 PM EDT [facility] Comment: 70% Calcium phosphate (apatite). 20% Calcium oxalate monohydrate. 10% Calcium oxalate dihydrate. RESULT COMMENT SEE COMMENTS 11/10/2024 12:50 PM EDT [facility] Comment: For stones containing calcium oxalate, calcium phosphate, and/or uric acid, a 24 hr urinary supersaturation test may help detect underlying risk factors for this type of stone formation and provide guidance for a stone prevention strategy. ADDITIONAL INFORMATION This test was developed and its performance characteristics determined by [facility] in a manner consistent with CLIA requirements. This test has not been cleared or approved by the U.S. Food and Drug Administration. Test Performed by: [facility] - [address] [address] Marble Polisher: Orlando Pena Ph.D.; CLIA# [id number] Calculus Structure of right ureter / Unknown 11/01/2024 9:28 PM EDT 11/02/2024 7:20 AM EDT Comment:Pre-op diagnosis: Kidney stones [N20.0] Ureteral stent present [Z96.0] Rolando Lundberg Jr., MD LAB ORDERABLES Final Re sult [facility] [address] [place] [address], [place] * (ABNORMAL) Bedside Glucose *Place/Obtain serum glucose if >500 per glucometer. (11/01/2024 3:11 PM EDT) Bedside Glucose (POC) 125(H) 65 - 99 mg/dL 11/01/2024 3:14 PM EDT [facility] arterial/capilla ry 11/01/2024 3:11 PM EDT 11/01/2024 3:14 PM EDT Rolando Lundberg Jr., MD POINT OF CARE TEST ORDER LINCOLN Final Result Performing Organization Address City/[facility]/ZIP Co de Phone Number [facility] [address] [place] [address], documented in this encounter Visit Diagnoses Diagnosis Ureteral stent present- Primary Kidney stones Calculus of kidney Kidney stones Calculus of kidney History of recurrent urinary tract infection documented in this encounter Admitting Diagnoses Diagnosis Kidney stones Calculus of kidney Ureteral stent present documented in this encounter Administered Medications Inactive Administered Medications - up to 3 most recent administrations Medication Order MAR Action Action Date Dose Rate Site dexAMETHasone (DECADRON) injection 8 mg 8 mg, intravenous, Once, On Fri11/01/24 at 1445, For 1 dose, Pre-op, May alter blood glucose or insulin requirements. Look-alike/sound-alike medication - verify indication for use., Intravenous Specific Administration: IV Push Given 11/01/2024 3:35 PM EDT 8 mg fentaNYL (SUBLIMAZE) injection 25 mcg 25 mcg, intravenous, Every 5 min PRN, Pain Scale 1-5, Starting on Fri11/01/24 at 2134, PACU (only), Up to a maximum dose of 150 mcg. Look-alike/sound-alike medication - verify indication for use. fentaNYL (SUBLIMAZE) injection 50 mcg 50 mcg, intravenous, Every 5 min PRN, Pain Scale 6-10, Starting on Fri11/01/24 at 2134, PACU (only), Up to a maximum dose of 150 mcg Look-alike/sound-alike medication - verify indication for use. Given 11/01/2024 10:07 PM EDT 50 mcg hydrALAZINE (APRESOLINE) injection 5 mg 5 mg, intravenous, Every 10 min PRN, high blood pressure, systolic blood pressure greater than 160 mmHg, Starting on Fri11/01/24 at 2134, PACU (only), Maximum dose of hydrALAZINE (APRESOLINE) [...] than 60 beats per minute, Starting on Fri11/01/24 at 2134, PACU (only), Maximum dose of labetalol (TRANDATE) is 20 mg while in PACU Look-alike/sound-alike medication - verify indication for use. lactated ringers infusion 75 mL/hr, intravenous, Continuous, Starting on Fri11/01/24 at 1445, Pre-op, If fluid restriction is not indicated, infuse at a rate up to 5 mL/kg/hr not to exceed the total replacement volume (2 ml/kg/hr) from the time NPO status was initiated. New Bag 11/01/2024 3:35 PM EDT 75 mL/hr 75 mL/hr lactated ringers infusion 100 mL/hr, intravenous, Continuous, Starting on Fri11/01/24 at 2145, PACU (only) meropenem (MERREM) 1,000 mg in sodium chloride 0.9 % 100 mL IVPB W/ADAPTER 1,000 mg, intravenous, at 200 mL/hr, Administer over 0.5 Hours, Once, On Fri11/01/24 at 1600, For 1 dose, Pre-op, For Vial-2-Bag: Attach bag and vial to adapter - Use immediately after activating; dissolve drug prior to administration., Approved Indication: MDR infection with no alternatives, Indication: UTI, Authorizing Service: No ID, Pulmonary, or seed and fertilizer specialist at hospital, I acknowledge that an appropriate consult is REQUIRED to use this drug at [facility], [facility] and [facility] per [facility]-approved policy # MM 1.15: Yes New Bag 11/01/2024 4:00 PM EDT 1,000 mg 200 mL/hr midazolam (PF) (VERSED) injection 1 mg 1 mg, intravenous, Once, On Fri11/01/24 at 1445, For 1 dose, Pre-op, May repeat in 10 minutes, if needed, if original midazolam (VERSED) ineffective, Indication: Other, Indication: anxiety Given 11/01/2024 4:46 PM EDT 1 mg morphine injection 2 mg 2 mg, intravenous, Every 5 min PRN, for Pain Scale 1-5 if pain not controlled by fentanyl, Starting on Fri11/01/24 at 2134, PACU (only), Up to a maximum dose of 12 mg Look-alike/sound-alike medication - verify indication for use. morphine injection 4 mg 4 mg, intravenous, Every 5 min PRN, Pain Scale 6-10 if pain not controlled by fentanyl, Starting on Fri11/01/24 at 2134, PACU (only), Up to a maximum dose of 12 mg Look-alike/sound-alike medication - verify indication for use. ondansetron (PF) (ZOFRAN) injection 4 mg 4 mg, intravenous, Once, On Fri11/01/24 at 1445, For 1 dose, Pre-op, Intravenous administration preferred to be given over 2-5 minutes., Intravenous Specific Administration: IV Push Given 11/01/2024 3:35 PM EDT 4 mg documented in this encounter Active and Recently Administered Medications Times are shown in EDT. Scheduled Medication Order 10/30/2024 10/31/2024 11/01/2024 dexAMETHasone (DECADRON) injection 8 mg (COMPLETED)(Linked Group 1) 8 mg, intravenous, Once, On Fri11/01/24 at 1445, For 1 dose, Pre-op, May alter blood glucose or insulin requirements. Look-alike/sound-alike medication - verify indication for use., Intravenous Specific Administration: IV Push 1535 (Given - Provid er: Marcelino Monge RN) meropenem (MERREM) 1,000 mg in sodium chloride 0.9 % 100 mL IVPB W/ADAPTER (COMPLETED) 1,000 mg, intravenous, at 200 mL/hr, Administer over 0.5 Hours, Once, On Fri11/01/24 at 1600, For 1 dose, Pre-op, For Vial-2-Bag: Attach bag and vial to adapter - Use immediately after activating; dissolve drug prior to administration., Approved Indication: MDR infection with no alternatives, Indication: UTI, Authorizing Service: No ID, Pulmonary, or seed and fertilizer specialist at hospital, I acknowledge that an appropriate consult is REQUIRED to use this drug at [facility], [facility] and [facility] per [facility]-approved policy # MM 1.15: Yes 1600 (New Bag - Prov ider: Marcelino Monge RN)1630 (Due: Stop Bag - Provider: Marcelino Monge RN) midazolam (PF) (VERSED) injection 1 mg (COMPLETED) 1 mg, intravenous, Once, On Fri11/01/24 at 1445, For 1 dose, Pre-op, May repeat in 10 minutes, if needed, if original midazolam (VERSED) ineffective, Indication: Other, Indication: anxiety 1646 (Given - Provid er: Marcelino Monge RN) ondansetron (PF) (ZOFRAN) injection 4 mg (COMPLETED)(Linked Group 1) 4 mg, intravenous, Once, On Fri11/01/24 at 1445, For 1 dose, Pre-op, Intravenous administration preferred to be given over 2-5 minutes., Intravenous Specific Administration: IV Push 1535 (Given - Provid er: Marcelino Monge RN) Continuous Medication Order 10/30/2024 10/31/2024 11/01/2024 lactated ringers infusion (CANCELED) 75 mL/hr, intravenous, Continuous, Starting on Fri11/01/24 at 1445, Pre-op, If fluid restriction is not indicated, infuse at a rate up to 5 mL/kg/hr not to exceed the total replacement volume (2 ml/kg/hr) from the time NPO status was initiated. 1534 (New Bag - Prov ider: Marcelino Monge RN)2139 (Due: Order Ending - Provider: Automatic Transfer Provider - Comment: [Order ends at this time. Document the following action when infusion is complete: Stop Bag]) lactated ringers infusion 100 mL/hr, intravenous, Continuous, Starting on Fri11/01/24 at 2145, PACU (only) 2144 (Due) PRN Medication Order 10/30/2024 10/31/2024 11/01/2024 fentaNYL (SUBLIMAZE) injection 25 mcg 25 mcg, intravenous, Every 5 min PRN, Pain Scale 1-5, Starting on Fri11/01/24 at 2134, PACU (only), Up to a maximum dose of 150 mcg. Look-alike/sound-alike medication - verify indication for use. fentaNYL (SUBLIMAZE) injection 50 mcg 50 mcg, intravenous, Every 5 min PRN, Pain Scale 6-10, Starting on Fri11/01/24 at 2134, PACU (only), Up to a maximum dose of 150 mcg Look-alike/sound-alike medication - verify indication for use. 2206 (Given - Provid er: Woodrow Bowen RN) hydrALAZINE (APRESOLINE) injection 5 mg 5 mg, intravenous, Every 10 min PRN, high blood pressure, systolic blood pressure greater than 160 mmHg, Starting on Fri11/01/24 at 2134, PACU (only), Maximum dose of hydrALAZINE (APRESOLINE) [...] than 60 beats per minute, Starting on Fri11/01/24 at 2134, PACU (only), Maximum dose of labetalol (TRANDATE) is 20 mg while in PACU Look-alike/sound-alike medication - verify indication for use. lidocaine (URO-JET) 2 % jelly (CANCELED) As needed, Starting on Fri11/01/24 at 2130, Intra-op 0 (Given - Provid er: Rolando Lundberg Jr., MD) morphine injection 2 mg 2 mg, intravenous, Every 5 min PRN, for Pain Scale 1-5 if pain not controlled by fentanyl, Starting on Fri11/01/24 at 2134, PACU (only), Up to a maximum dose of 12 mg Look-alike/sound-alike medication - verify indication for use. morphine injection 4 mg 4 mg, intravenous, Every 5 min PRN, Pain Scale 6-10 if pain not controlled by fentanyl, Starting on Fri11/01/24 at 2134, PACU (only), Up to a maximum dose of 12 mg Look-alike/sound-alike medication - verify indication for use. sodium chloride 0.9 % (bag) (NS) 0.9 % irrigation solution (CANCELED) As needed, Starting on Fri11/01/24 at 1927, Intra-op 7 (Given - Provid er: Rolando Lundberg Jr., MD) Linked Groups Order Group 1: ondansetron (PF) (ZOFRAN) injection 4 mg (COMPLETED)Jump to med 4 mg, intravenous, Once, On Fri11/01/24 at 1445, For 1 dose, Pre-op, Intravenous administration preferred to be given over 2-5 minutes., Intravenous Specific Administration: IV Push And dexAMETHasone (DECADRON) injection 8 mg (COMPLETED)Jump to med 8 mg, intravenous, Once, On Fri11/01/24 at 1445, For 1 dose, Pre-op, May alter blood glucose or insulin requirements. Look-alike/sound-alike medication - verify indication for use., Intravenous Specific Administration: IV Push documented in this encounter Additional Health Concerns Active Problems Noted Date Diagnosed Date Autogenerated Problem 10/14/2024 documented as of this encounter Care Teams Hvac/R Service Technician Relationship Specialty Start Date End Date Sameer Ortiz Jr., DO [address] [place] [address], # 230[place] [phone] PCP - General Family Medicine 09/30/24 documented as of this encounter
--- OUTSIDE RECORDS SUMMARY | 2024-11-01 16:14 | XMS_ITS | Encounter Summary ---
Author Organization [facility] tem Address [id number] [address] [place] [address] Care Team Providers Care Color Receiver Name Role Phone Diana Joya DO, George R Primary Care Provider + Reason for Visit * Auth/Cert Specialty Diagnoses / Procedures Referred By Carlos t Referred To Contact Diagnoses Kidney stones Ureteral stent present Kidney stones [N20.0] Ureteral stent present [Z96.0] Procedures LASER HOLMIUM URETEROSCOPY WITH VACUUM ASPIRATION CYSTOSCOPY EXCHANGE STENT URETER CYSTOSCOPY RETROGRADE PYELOGRAM WITH FLUOROSCOPIC VISUALIZATION Rolando Lundberg Jr., MD [address] [place] [address] Phone: tel: fax: Referral ID Status Reason Start Date Expiration Date Visits Re quested Visits Authorized [id number] Encounter Details Date Type Department Care Team (Late st Contact Info) Description 11/01/2024 4:14 PM EDT - 11/01/2024 7:44 PM EDT Surgery [facility] - Surgery [address] [place] [phone] Rolando Lundberg Jr., MD [address] [place] [address] [id number] LASER HOLMIUM URETEROSCOPY WITH VACUUM ASPIRATION Surgery Details Date/Time Status Location OR Service Patient Class Case Cl ass Case Type Trauma Case? 11/01/2024 4:14 PM Posted [facility] 1 Procedure LRB Anes Op Region Wound Class Comments LASER HOLMIUM URETEROSCOPY W ITH VACUUM ASPIRATION Right General Clean Contaminated CYSTOSCOPY EXCHANGE STENT URETER Right General Clean Contaminated CYSTOSCOPY RETROGRADE PYELOG SUSANA WITH FLUOROSCOPIC VISUALIZATION Right General Clean Con taminated Surgeon Surgeon Role Service Panel Rolando Lundberg Jr., MD Primary Urology 1 Case Notes LAURA 1.75W (EPIC 173, GAVE [...] Sign Reading Time Taken Comments Blood Pressure 120/58 11/01/2024 2:16 PM EDT Pulse 80 11/01/2024 2:16 PM EDT Temperature 36.9 C (98.4 F) 11/01/2024 2:16 PM EDT Respiratory Rate 21 11/01/2024 2:16 PM EDT Oxygen Saturation 95% 11/01/2024 2:16 PM EDT Inhaled Oxygen Concentration - - [...] DOSE 10-04-2024 HOLDING UNTIL AFTER SURGERY 10-25-2024 meropenem 1,000 mg in sodium chloride 0.9 % 100 mL IVPB W/ADAPTER Infuse 1,000 mg into a venous catheter every 8 (eight) hours for 21 days. 1 each 5 11/04/19 25 meropenem (MERREM) 1 gram injection Infuse 1,000 mg into a venous catheter every 8 (eight) hours for 21 days. End Date 11/03/2024 63 each 5 11/04/19 25 heparin lock flush, porcine, injection 100 unit/mL solution Infuse 1-5 mL (100-500 Units total) into a venous catheter as needed (line care per nursing agency protocol.). 1 mL 5 11/03/19 25 documented as of this encounter H&P Notes * Rolando Lundberg Jr., MD - 11/01/2024 3:44 PM EDT HISTORY AND PHYSICAL INTERVAL NOTE: Rosina Alcantara [id number] H&P updated. The patient was examined and Status post first-stage ureteroscopic laser now for second-stage With stent exchange possible retrograde pyelogram. I personally obtained consent for theprocedure. ROLANDO LUNDBERG JR, MD Source Note - Anaya Broderick, CASHIER SELF SERVICE GASOLINE-MARKETING TEAM LEAD - 10/08/2024 11:45 AM EDT PRE-ADMISSION TESTING HISTORY AND PHYSICAL EXAM DATE: 10/08/24 PCP: SAMEER ORTIZ JR, DO CHIEF COMPLAINT: kidney stones HISTORY OF PRESENT ILLNESS: Rosina Alcantara, a 69 y.o. White or female, presents to [facility] for a pre- surgical H&P. The [...] disease upper partial, full lower plate Diabetes ([facility]) Diarrhea Diverticulosis large intestine w/o perforation or abscess w/o bleeding 07/2024 per colonoscopy History of recurrent urinary tract infection 08/13/2024 Hypertension Irritable bowel Kidney stones 08/13/2024 Nephrolithiasis Neuropathy Obesity Primary hydronephrosis 10/08/2024 Rash 10/08/2024 currently using steroid cream as needed on legs Urologic disorders 08/12/2024 1. IBS with Urolithiasis; by history status post ESWL x2 estimated 2004 elsewhere without success [facility] stones ???in a pocket?? ; CT [facility] 02/16/2024 multiple right renalstones including 2.7 cm staghorn with mild hydronephrosis; patient's nephew Conrad Adams MD 2. Recurrent UTIs 3. Microscopic hematuria UTI (urinary tract infection) Visual impairment glasses PAST SURGICAL HISTORY: Past Surgical History: Procedure Laterality Date CHOLECYSTECTOMY pt unsure of date - done at [facility] COLONOSCOPY 07/2024 Surgical [facility] in [place], [place] - no further screening colonoscopies required [...] place, and time. PERTINENT TESTING AVAILABLE IN [facility] (WITHIN THE PAST 2 YEARS): EK10/08/2024 [...] the most recent lab values available in [facility] at the time the H&P was signed. ASSESSMENT / DIAGNOSIS: Kidney stones [N20.0] PLAN: Rosina Alcantara is scheduled for CYSTOSCOPY INSERTION STENT URETER - Right, CYSTOSCOPY RETROGRADE PYELOGRAM(psb) - Right on 10/11/[address] Lundberg. Labs and EKG done with today's visit. See [facility] for results. DONTAE Waldron 10/08/24 1321 [...] about 3 hours into the case Twenty-two Albanian cystoscope sheath was passed with 30 degree [...] this access sheath and passed the 12 Albanian 46 cm well lubricated clear Gregory access [...] and passed back into the bladder. Seven Albanian 24 cm double-J stent passed over the [...] Description 11/15/2024 12:00 PM EDT Hospital Encounter [facility] Surgery [address] [place] [phone] Rolando Lundberg Jr., MD [address] [place] [phone] 11/15/2024 12:00 PM EDT - 11/15/2024 3:00 PM EDT Surgery [address] [phone] Rolando Lundberg Jr., MD [address] [place] [phone] LASER HOLMIUM URETEROSCOPY RENAL STONE >1CM 11/26/2024 2:00 PM EDT Office Visit [facility] [address] [place] [phone] Rolando Lundberg Jr., MD [address] [place] [phone] Scheduled Procedures Name Priority Associated Diagnoses Date/Ti ak LASER HOLMIUM URETEROSCOPY RENAL STONE >1CM Kidney [...] Autogenerated Goal Care Plan Autogenerated Problem No Bokala Calli documented as of this encounter Procedures Procedure [...] - 99 mg/dL 11/01/2024 9:53 PM EDT [facility] arterial/capilla ry 11/01/2024 9:51 PM EDT 11/01/2024 9:52 PM EDT Rolando Lundberg Jr., MD POINT OF CARE TEST ORDER LINCOLN Final Result [facility] [address] [place] [place] [address], [place] * Fluoroscopy less than one hour [...] STONE ANALYSIS DNR 11/10/2024 12:50 PM EDT [facility] STONE SOURCE: Right Ureter 11/10/2024 12:50 PM EDT [facility] STONE INTERPRETATION SEE COMMENTS 11/10/2024 12:50 PM EDT [facility] Comment: 70% Calcium phosphate (apatite). 20% Calcium oxalate monohydrate. 10% Calcium oxalate dihydrate. RESULT COMMENT SEE COMMENTS 11/10/2024 12:50 PM EDT [facility] Comment: For stones containing calcium oxalate, calcium phosphate, and/or uric acid, a 24 hr urinary supersaturation test may help detect underlying risk factors for this type of stone formation and provide guidance for a stone prevention strategy. ADDITIONAL INFORMATION This test was developed and its performance characteristics determined by [facility] in a manner consistent with CLIA requirements. This test has not been cleared or approved by the U.S. Food and Drug Administration. Test Performed by: [facility] [address] [place] [address] Winding Inspector And Tester: Orlando Pena Ph.D.; CLIA# [id number] Calculus Structure of right ureter / Unknown 11/01/2024 9:28 PM EDT 11/02/2024 7:20 AM EDT Comment:Pre-op diagnosis: Kidney stones [N20.0] Ureteral stent present [Z96.0] us Rolando Lundberg Jr., MD LAB ORDERABLES Final Re sult [facility] [address] [place] [address], * (ABNORMAL) Bedside Glucose *Place/Obtain serum glucose if >500 per glucometer. (11/01/2024 3:11 PM EDT) Pathologist [facility] Bedside Glucose (POC) 125(H) 65 - 99 mg/dL 11/01/2024 3:14 PM EDT [facility] arterial/capilla ry 11/01/2024 3:11 PM EDT 11/01/2024 3:14 PM EDT us Rolando Lundberg Jr., MD POINT OF CARE TEST ORDER LINCOLN Final Result [facility] [address] [place] [address], [place] documented in this encounter Visit Diagnoses Diagnosis Ureteral stent present- Primary Kidney stones Calculus of kidney Kidney stones Calculus of kidney Ureteral stent present Kidney stones Calculus of kidney History of [...] Starting on Fri11/01/24 at 2145, PACU (only) lidocaine (URO-JET) 2 % jelly As needed, Starting on Fri11/01/24 at 2130, Intra-op Given 11/01/2024 9:30 PM EDT 1 Application meropenem (MERREM) 1,000 mg in sodium chloride [...] UTI, Authorizing Service: No ID, Pulmonary, or direct care specialist at hospital, I acknowledge that an appropriate consult is REQUIRED to use this drug at [facility], [facility] and [facility] per [facility]-approved policy # MM 1.15: Yes [...] Given 11/01/2024 3:35 PM EDT 4 mg sodium chloride 0.9 % (bag) (NS) 0.9 % irrigation solution As needed, Starting on Fri11/01/24 at 1927, Intra-op Given 11/01/2024 7:27 PM EDT 3,000 mL documented in this encounter Active and Recently [...] UTI, Authorizing Service: No ID, Pulmonary, or direct care specialist at hospital, I acknowledge that an appropriate consult is REQUIRED to use this drug at [facility], [facility] and [facility] per [facility]-approved policy # MM 1.15: Yes 1600 [...] 2-5 minutes., Intravenous Specific Administration: IV Push 153 (Given - Provid er: Marcelino Monge RN) Continuous Medication Order 10/30/2024 10/31/2024 11/01/2024 lactated ringers infusion (CANCELED) 75 mL/hr, intravenous, Continuous, Starting on Fri11/01/24 at 1445, Pre-op, If fluid restriction is not indicated, infuse at a rate up to 5 mL/kg/hr not to exceed the total replacement volume (2 ml/kg/hr) from the time NPO status was initiated. 153 (New Bag - Prov ider: Marcelino Monge [...] needed, Starting on Fri11/01/24 at 2130, Intra-op 2129 (Given - Provid er: Rolando Lundberg Jr., [...] needed, Starting on Fri11/01/24 at 1927, Intra-op 1927 (Given - Provid er: Rolando Lundberg Jr., [...] documented as of this encounter Care Teams Color Receiver Relationship Specialty Start Date End Date Sameer Ortiz Jr., [address] [place] [address], # [id number] [phone] PCP - General Family Medicine 09/30/24 documented as of this encounter
--- OUTSIDE RECORDS SUMMARY | 2024-11-01 16:52 | XMS_ITS | Encounter Summary ---
Author Organization [facility] tem Address [id number] [address] [place] [address] Care Team Providers Care Real Estate Financial Analyst Name Role Phone Diana Joya DO, George R Primary Care Provider + Reason for Visit * Auth/Cert Specialty Diagnoses / Procedures Referred By Contdebra t Referred To Contact Diagnoses Kidney stones Ureteral stent present Kidney stones [N20.0] Ureteral stent present [Z96.0] Procedures LASER HOLMIUM URETEROSCOPY WITH VACUUM ASPIRATION CYSTOSCOPY EXCHANGE STENT URETER CYSTOSCOPY RETROGRADE PYELOGRAM WITH FLUOROSCOPIC VISUALIZATION Dudley Lundberg Jr., MD [address] [place] [address] Phone: tel: fax: Referral ID Status Reason Start Date Expiration Date Visits Re quested Visits Authorized [id number] Encounter Details Date Type Department Care Team (Late st Contact Info) Description 11/01/2024 4:52 PM EDT Anesthesia Event [facility] - Surgery [address] [place] [id number] Alban Villanueva MD [address] [place] [address] Dee Wolff MD [address] [place] [address] Anesthesia Record Procedure Summary Procedure Name Responsible Anesthesiologist Anesthesia Start Time Anesthesia Stop Time LASER HOLMIUM URETEROSCOPY WITH VACUUM ASPIRATION (Right) Alban Villanueva MD [id number] Events Date Time Event Comment 11/01/2024 1515 1652 An Start 165 An Start Data 165 Quick Note Fractured front tooth before intubation noted. 1655 An Induction The patient was reevaluated immediately before moderate or deep sedation use and before anesthesia induction. 1701 An Intubation 1702 Patient Ready for Surgeon 1703 Position 2134 An Extubation 2138 an stop data 2138 Transport/Transfer From the OR 2139 Handoff to RN Transported to :PACU, Spontaneous Ventilation, O2 per Simple face mask, 6 LPM Pt. Tolerated procedure well, vital signs stable and document on nursing record Care transferred to receiving RN 2141 An Stop Meds Name Total propofol (DIPRIVAN) injection 150 mg rocuronium (ZEMURON) 50 mg/5 mL injectio n 100 mg fentaNYL (SUBLIMAZE) injection 275 mcg lidocaine PF (XYLOCAINE) local injection 1% 50 mg phenylephrine (HERLINDA-SYNEPHRINE) syringe 1 00 mcg dexAMETHasone (DECADRON) injection 4 mg/ mL 4 mg sugammadex (BRIDION) injection 200 mg acetaminophen (OFIRMEV) IVPB 1000 mg/100 mL in mannitol and water (10 mg/mL premix) 1,000 mg magnesium sulfate IVPB 2000 mg (premix) 2,000 mg gentamicin IVPB 80 mg (premix) 80 mg ondansetron PF (ZOFRAN) 2 mg/mL injectio n 4 mg ketorolac (TORADOL) injection 15 mg/mL 1 5 mg lactated ringers infusion 1,000 mL * Agents Name Sevoflurane Isoflurane Inspired Isoflurane Inspired Sevoflurane * Blood No blood administrations on file. Lines, Drains, and Airways Type Details Placement Removal Midline Single Lumen Placement Date: 10/12/24; Placement Time: 160; Existing LDA Placed by: Other (Comment); Cath Out Checklist Completed: Yes; Length: 10 cm; Orientation: Left; Location: Cephalic; Site Prep: Chlorhexadine and isopropyl alcohol; Local Anesth: None; Inserted By: Carroll Dia RN; Insertion Attempts: 1; Patient Tolerance: Tolerated well; Placement Verification: Blood return 10/12/24 1601 by Carroll Dia RN ETT Placement Date: 11/01/24; Placement Time: 170 (created via procedure documentation); Mask Ventilation: Ventilated by mask; Type: Cuffed; Tube Size: 7.5 mm; Laryngoscope: Other (Comment) (Edgar); Blade Size: 3; Location: Oral; Grade View: 1; Insertion Attempts: 1; Placement Verification: Auscultation, End tidal CO2, Symmetrical chest wall movement; Removal Date: 11/01/24; Removal Time: 213311/01/24 170 by Sukhwinder Newman APRN-LAURO 11/01/242133 by JESSICA Pretty documented in this encounter Social History Tobacco [...] OR Notes * Anesthesia Postprocedure Evaluation - Alban Villanueva MD - 11/01/2024 9:42 PM EDT ANESTHESIA POST-EVALUATION [facility] Procedure Summary Date: 11/01/24 Room / Location: [facility] Anesthesia Start: 1651 Anesthesia Stop: 2141 Procedures: LASER HOLMIUM URETEROSCOPY WITH VACUUM ASPIRATION (Right) CYSTOSCOPY EXCHANGE STENT URETER (Right) CYSTOSCOPY RETROGRADE PYELOGRAM WITH FLUOROSCOPIC VISUALIZATION (Right) Diagnosis: Kidney stones Ureteral stent present (Kidney stones [N20.0]) (Ureteral stent present [Z96.0]) Surgeons: Dudley Lundberg Jr., MD Responsible Provider: Alban Villanueva MD Anesthesia Type: general endotracheal ASA Status: 4 Vitals: 11/01/242141 BP: 156/71 Pulse: 101 Resp: 23 Temp: 36 ??C (96.8 ??F) SpO2: 97% Patient Evaluated: PACU Patient Participation: Complete - patient participated Patient Level of Consciousness: Awake and Alert Pain Management: Adequate Airway Patency: Patent Anesthetic Complications: No Cardiovascular Status: Hemodynamically Stable Respiratory Status: Nonlabored Ventilation and Face Mask Post-op Hydration: Euvolemic Final Anesthesia Type: general endotracheal and endotracheal tube No notable events documented. * Anesthesia Procedure Notes - EFRA Adair - 11/01/2024 5:07 PM EDTAssociated Order(s): Airway Airway Patient location during procedure: OR Urgency: Elective Date/Time: 11/01/2024 5:01 PM Airway not difficult IV In Situ: Peripheral General Information and Staff Service Provider: Kalen Ramirez MD MANUFACTURING EXECUTIVE: EFRA Adair Placed by: EFRA Adair Patient Identified, IV Checked, Risks and Benefits Discussed, Surgical Consent, Monitors and Equipment Checked, Pre-op Evaluation and Timeout Performed Fire Risk Assessment Score: 0 Consent for Emergent Airway (if performed for an anesthetic, see related documentation for consents) Risks and benefits: risks, benefits and alternatives were discussed Indications and Patient Condition Sedation level: Deep Preoxygenated: yesPatient position: Supine and Sniffing MILS maintained throughout Mask difficulty assessment: Vent By Mask Indications for airway management: Anesthesia Complications: No Complicating Factors: No Final Airway Details Final airway type: ETT Endotracheal airway: Cuffed and ETT - Single Lumen Techniques used for successful ETT Placement: Video Laryngoscopy and With Stylet Cormack-Lehane Classification: Grade I Adjuncts used in placement: Anterior Pressure/BURP Endotracheal tube insertion site: Oral Post Intubation Trauma? No Visibility: Cords Clear Blade: Other (Hernández) Blade size: #3 Placement verified by: chest auscultation, capnography and symmetrical chest wall movement ETT size: 7.5 mm Measured from: Gums Secured at (cm): 21 Number of other approaches attempted: 0 Number of attempts at approach: 1 * Anesthesia Preprocedure Evaluation - Kalen Ramirez MD - 11/01/2024 2:36 PM EDT Images from the original note were not included. ANESTHESIA PRE-PROCEDURE EVALUATION [facility] Procedure(s): LASER HOLMIUM URETEROSCOPY WITH VACUUM ASPIRATION CYSTOSCOPY EXCHANGE STENT URETER CYSTOSCOPY RETROGRADE PYELOGRAM WITH FLUOROSCOPIC VISUALIZATION ANESTHESIA PHYSICAL EXAM Patient summary reviewed and nursing notes reviewed. Echocardiogram reviewed, stress test reviewed and patient has cardiac clearance. No history of anesthetic complications Airway Mallampati: II TM distance: <3 FB Neck ROM: Limited (-) vocal cord disorder Dental : exam normal Pulmonary (-) decreased breath sounds, rales, rhonchi, stridor, wheezing Cardiovascular Exercise tolerance: Good (-) no friction rub, carotid bruit is not present, no peripheral edema, no apnea of prematurity, nohistory of heart murmur ECG reviewed Rhythm: Regular Rate: Normal Comment: Impression IMPRESSION: 1. Normal exercise Cardiolite SPECT MPI. 2. No tomographic evidence of ischemia or prior myocardial infarction. 3. Normal left ventricular volume and wall motion, ejection fraction measured 74% with normal TID at 0.8. No previous study is available for comparison. Transcribed By: LILIA 11/21/17 1824 Dictated By: Chidi Arceo MD 11/21/17 1300 Neuro Abdominal (+) obesity (-) scaphoid, nasogastric tube Abdomen soft Other Findings [facility] Outside Information Nakul Coleman CNP Nurse Practitioner Infectious Disease Progress Notes Signed Encounter Date: 10/21/2024 Note Received: 11/01/24 1259 Signed Infectious Disease. Telemedicine Note Consent Statement: I [...] that there are some limitations compared to [id number] evaluations. We elected to proceed. Division of Infectious Diseases - Progress Note Our team prefers to use Retsly for communication during business hours (8 AM - 5 PM). We make every effort to keep the Treatment Team in [facility] updated. If I do not respond within 30 minutes, please call the answering service. From 5 PM - 8 AM, please call our answering service at [phone] to speak to the on-call physician. Patient name: Rosina Alcantara Patient Today's Date and Time: 10/20/2024, 3:26 PM PCP: N/a Discharged from [facility] on 10/18/24 Location of provider: [facility] Current location of patient: [place] Impression /Recommendations: ?? Recurrent UTI ?? Right renal stones ?? Ureteral stent ?? Bilateral ureter stricture (malformation) ?? 15 years of stones. Hx of two lithotripsy and stents ?? Dealing with this for 2.5 years, monthly ?? 08/26 CT urogram: Multiple and large, partially obstructive right renal calculi measuring 2.7 cm with configuration suggestive of a staghorn calculus. Mucosal thickening and periureteral stranding about the proximal/mid right ureter could reflect sequela of intermittent obstruction versus infectious/inflammatory process ?? 10/08 UC: MDR Klebsiella pneumoniae (Meropenem resistant but no CRE so susceptibility inferred, gent and amikacin susceptible) ?? 10/12 S/p stent placement ?? 10/21 Dysuria improved ?? 10/25 plan for lithotripsy ?? Please send cultures if able ?? Continue Meropenem 1g q8, EOT 11/03/24 ?? Midline ?? Weekly CBC, CMP ? DM 2, poorly controlled ?? 05/14 A1c: 7.2 ?? Tight glycemic is control important for preventing infections ?? Frequently check feet, including between toes and heels to assess for any skin breakdown ? IBS Labs: N/a ?? WBC: ?? Cr.: () Pt doing well with only [...] lithotripsy with Dr. Toño Mccauley on 10/25. [Medical History] [Medical History] Past Medical History No past medical history on file. Objective Physical Examination : There were no vitals taken for this visit. Temperature Range: General Appearance: Awake, alert, and in no apparent distress Eyes: Sclera anicteric; conjunctivae pink ENT: Oropharynx clear, without erythema, exudate, or thrush. Neck: Supple, without lymphadenopathy. Extremities: RUE midline, No cyanosis, clubbing, edema, or effusions. Neurologic: A&Ox4 . Medications: This progress note was completed using a voice tailor men's ready to wear system. Every effort was made to ensure accuracy; however, inadvertent computerized tailor men's ready to wear errors may be present. Thank you for allowing us to participate in the care of this patient. Please do not hesitate to reach out to me via EpicChat or pager with any questions or concerns. Nakul Coleman APRN, CNP Please contact via Press-sense [phone] Telemedicine on 10/21/2024 Note shared with patient in the original system Received From: [facility] ANESTHESIA PLAN ASA 4 Anesthesia Type: general endotracheal Induction: Intravenous Anesthetic risks, plan and alternatives discussed with Patient. Plan discussed with MANUFACTURING EXECUTIVE. Airway Management: Endotracheal and Video Laryngoscopy Post op Pain Management: IV Analgesics Inteded use of opioids Transfer to PACU PONV: Intermediate Risk Total [...] 176.8 mol/L Patient Active Problem List Diagnosis ??? Urologic disorders ??? Kidney stones ??? History of recurrent urinary tract infection ??? Microscopic hematuria ??? Primary hydronephrosis ??? Ureteral stent present documented in this encounter Plan of Treatment Upcoming Encounters Date Type Department Care Team (Latest Contact Info) Description 11/15/2024 12:00 PM EDT Hospital Encounter [facility] Surgery [address] [place] [phone] Dudley Lundberg Jr., MD [address] [place] [phone] 11/15/2024 12:00 PM EDT - 11/15/2024 3:00 PM EDT Surgery [facility] Surgery [address] [place] [phone] Dudley Lundberg Jr., MD [address] [place] [phone] LASER HOLMIUM URETEROSCOPY RENAL STONE >1CM 11/26/2024 2:00 PM EDT Office Visit [facility] [address] [place] [phone] Dudley Lundberg Jr., MD [address] [place] [phone] Scheduled Procedures Name Priority Associated Diagnoses Date/Ti ct LASER HOLMIUM URETEROSCOPY RENAL STONE >1CM Kidney [...] Procedure Name Priority Date/Time Associated Diagnosis Comments MT AN ELECTIVE ENDOTRACHEAL AIRWAY Routine 11/01/2024 5:01 PM EDT documented in this encounter Results * MT AN ELECTIVE ENDOTRACHEAL AIRWAY (11/01/2024 5:01 PM EDT) Narrative Sukhwinder Newman APRN-CRNA - 11/01/2024 5:01 PM EDT EFRA Adair 11/01/2024 5:08 PM Airway Patient location during procedure: OR Urgency: Elective Date/Time: 11/01/2024 5:01 PM Airway not difficult IV In Situ: Peripheral General Information and Staff Service Provider: Kalen Ramirez MD MANUFACTURING EXECUTIVE: EFRA Adair Placed by: Sukhwinder Newman APRN-MANUFACTURING EXECUTIVE Patient Identified, IV Checked, Risks and Benefits Discussed, Surgical Consent, Monitors and Equipment Checked, Pre-op Evaluation and Timeout Performed Fire Risk Assessment Score: 0 Consent for Emergent Airway (if performed for an anesthetic, see related documentation for consents) Risks and benefits: risks, benefits and alternatives were discussed Indications and Patient Condition Sedation level: Deep Preoxygenated: yesPatient position: Supine and Sniffing MILS maintained throughout Mask difficulty assessment: Vent By Mask Indications for airway management: Anesthesia Complications: No Complicating Factors: No Final Airway Details Final airway type: ETT Endotracheal airway: Cuffed and ETT - Single Lumen Techniques used for successful ETT Placement: Video Laryngoscopy and With Stylet Cormack-Lehane Classification: Grade I Adjuncts used in placement: Anterior Pressure/BURP Endotracheal tube insertion site: Oral Post Intubation Trauma? No Visibility: Cords Clear Blade: Other (Hernández) Blade size: #3 Placement verified by: chest auscultation, capnography and symmetrical chest wall movement ETT size: 7.5 mm Measured from: Gums Secured at (cm): 21 Number of other approaches attempted: 0 Number of attempts at approach: 1 us Kalen Ramirez MD ANESTHESIA ORDERABLES Final Re sult documented in this encounter Visit Diagnoses Not on filedocumented in this encounter Administered Medications Inactive Administered Medications - up to 3 most recent administrations Medication Order MAR Action Action Date Dose Rate Site acetaminophen (OFIRMEV) IVPB Premix intravenous, Administer over 15 Minutes, As needed, Starting on Fri11/01/24 at 1801, Anesthesia Intra-op Given 11/01/2024 6:01 PM EDT 1,000 mg dexAMETHasone (DECADRON) injection intravenous, As needed, Starting on Fri11/01/24 at 1703, Anesthesia Intra-op Given 11/01/2024 5:03 PM EDT 4 mg fentaNYL (SUBLIMAZE) injection intravenous, As needed, Starting on Fri11/01/24 at 1656, Anesthesia Intra-op Given 11/01/2024 9:13 PM EDT 25 mcg Given 11/01/2024 9:05 PM EDT 25 mcg Given 11/01/2024 8:45 PM EDT 25 mcg gentamicin IVPB 80 mg/100 mL in iso-osmotic sodium chloride (0.8 mg/mL premix) intravenous, Administer over 60 Minutes, As needed, Starting on Fri11/01/24 at 2111, Anesthesia Intra-op Given 11/01/2024 9:11 PM EDT 80 mg ketorolac (TORADOL) injection intravenous, As needed, Starting on Fri11/01/24 at 2138, Anesthesia Intra-op Given 11/01/2024 9:38 PM EDT 15 mg lactated ringers infusion intravenous, Continuous PRN, Starting on Fri11/01/24 at 1652, Anesthesia Intra-op New Bag 11/01/2024 4:52 PM EDT lidocaine PF (XYLOCAINE) 10 mg/mL (1 %) injection intravenous, As needed, Starting on Fri11/01/24 at 1656, Anesthesia Intra-op Given 11/01/2024 4:56 PM EDT 50 mg magnesium sulfate IVPB 2000 mg/50 mL in iso-osmotic water (40 mg/mL premix) intravenous, Administer over 120 Minutes, As needed, Starting on Fri11/01/24 at 1833, Anesthesia Intra-op Given 11/01/2024 6:33 PM EDT 2,000 mg ondansetron (PF) (ZOFRAN) injection intravenous, As needed, Starting on Fri11/01/24 at 2134, Anesthesia Intra-op Given 11/01/2024 9:34 PM EDT 4 mg phenylephrine HCl in 0.9% NaCl 1 mg/10 mL (100 mcg/mL) syringe intravenous, As needed, Starting on Fri11/01/24 at 1715, Anesthesia Intra-op Given 11/01/2024 5:15 PM EDT 100 mcg propofoL (DIPRIVAN) infusion intravenous, As needed, Starting on Fri11/01/24 at 1656, Anesthesia Intra-op Given 11/01/2024 4:56 PM EDT 150 mg rocuronium (ZEMURON) injection intravenous, As needed, Starting on Fri11/01/24 at 1656, Anesthesia Intra-op Given 11/01/2024 6:29 PM EDT 10 mg Given 11/01/2024 5:40 PM EDT 20 mg Given 11/01/2024 5:10 PM EDT 20 mg sugammadex (BRIDION) injection intravenous, As needed, Starting on Fri11/01/24 at 2130, Anesthesia Intra-op Given 11/01/2024 9:30 PM EDT 200 mg documented in this encounter Additional Health Concerns Active Problems Noted Date Diagnosed Date Autogenerated Problem 10/14/2024 documented as of this encounter Care Teams Real Estate Financial Analyst Relationship Specialty Start Date End Date Derrick Ortiz Jr., DO [address] [place] [address], [address] [address] PCP - General Family Medicine 09/30/24 documented as of this encounter
--- OUTSIDE RECORDS SUMMARY | 2024-11-02 16:15 | XMS_ITS | Encounter Summary ---
Author Organization [facility] [employer] Address [id number] [address] [place] [address] Care Team Providers Care Chemical Research Technician Name Role Phone Diana Joya DO, George R Primary Care Provider + Reason for Visit * Reason Comments Follow-up Encounter Details Date Type Department Care Team ([facility] st Contact Info) Description 11/02/2024 4:15 PM EDT [facility] [address] [place] [address] [phone] Rolando Lundberg Jr., MD [address] [place] [id number] Urologic disorders (Primary Dx); Kidney stones; History of recurrent urinary tract infection Social History Tobacco Use Types Packs/Day Years [...] Sign Reading Time Taken Comments Blood Pressure 127/77 11/02/2024 4:43 PM EDT Pulse 87 11/02/2024 4:43 PM EDT Temperature - - Respiratory Rate - - Oxygen Saturation - - Inhaled Oxygen Concentration - - Weight 94.3 kg (208 lb) 11/02/2024 4:43 PM EDT Height 160 cm (5' 3 ) 11/02/2024 4:43 PM EDT Body Mass Index 36.85 11/02/2024 4:43 PM EDT documented in this encounter Progress Notes * Rolando Lundberg Jr., MD - 11/02/2024 4:15 PM EDT Images from the original note were not included. [address] [facility] [id number] Patient: Rosina Alcantara Date of : 1955 Encounter Date: 11/02/2024 History of Present Illness: Chief Complaint: 1 day post op renal stones. See below Urinalysis today: No results for input(s): EXTPOCURCO , EXTPOCURCH , EXTPOCAPP , EXTPOCURBS , EXTPOCURBIL , EXTPOCUKET , EXTPOCUSPG , EXTPOCUHGB , EXTPOCUPRO , EXTPOCUURO , EXTPOCULEU , EXTPOCUNIT , EXTPOCUWBC , EXTPOCUBLD , EXTPOCURBC , EXTPOCUCRY , EXTPOCUBAC , EXTPOCUTREP , EXTPOCUPH , EXTPOCUL EE in the last 72 hours. Last BUN and creatinine: No results found for: BUN Lab Results Component Value Date CREATININE 0.49 10/12/2024 Last PSA: No results found for: PSA No results found for: PROSTATICSP Past Medical, Family, and Social History Update: The following portions of the patient's history were reviewed and updated as appropriate: allergies, current medications, past family history, past medical history, past social history, past surgicalhistory and problem list. Past Medical History: Diagnosis Date Atherosclerosis Colon, diverticulosis Common bile duct dilatation Dental disease upper partial, full lower plate Diabetes ([facility]) Diabetes mellitus type 2, controlled ([facility]) Diarrhea Diverticulosis large intestine w/o perforation or abscess w/o bleeding 07/2024 per colonoscopy History of recurrent urinary tract infection 08/13/2024 Hypertension IBS (irritable bowel syndrome) Irritable bowel Kidney stones 08/13/2024 Nephrolithiasis Neuropathy Obesity Primary hydronephrosis 10/08/2024 Rash 10/08/2024 currently using steroid cream as needed on legs Urologic disorders 08/12/2024 1. IBS with Urolithiasis; by history status post ESWL x2 estimated 2005 elsewhere without success [facility] stones ???in a pocket?? ; CT NOMS 02/16/2024 multiple right renalstones including 2.7 cm staghorn with mild hydronephrosis; patient's nephew Conrad Adams MD 2. Recurrent UTIs 3. Microscopic hematuria UTI (urinary tract infection) RESISTANCE TO ANTIBIOTICS Visual impairment glasses Past Surgical History: Procedure Laterality Date CHOLECYSTECTOMY pt unsure of date - done at [facility] COLONOSCOPY 07/2024 [facility] in [place], [place] - no further screening colonoscopies required per CYSTOSCOPY EXCHANGE STENT URETER Right 11/01/2024 Performed by Rolando Lundberg Jr., MD at [facility] CYSTOSCOPY EXCHANGE STENT URETER Right 10/25/2024 Performed by Rolando Lundberg Jr., MD at [facility] CYSTOSCOPY INSERTION STENT URETER Right 10/12/2024 Performed by Rolando Lundberg Jr., MD at [facility] CYSTOSCOPY RETROGRADE PYELOGRAM Right 10/12/2024 Performed by Rolando Lundberg Jr., MD at [facility] CYSTOSCOPY RETROGRADE PYELOGRAM WITH FLOUROSCOPY Right 10/25/2024 Performed by Rolando Lundberg Jr., MD at [facility] CYSTOSCOPY RETROGRADE PYELOGRAM WITH FLUOROSCOPIC VISUALIZATION Right 11/01/2024 Performed by Rolando Lundberg Jr., MD at [facility] DENTAL SURGERY multiple teeth extractions on both upper and lower LASER HOLMIUM URETEROSCOPY WITH VACUUM ASPIRATION Right 11/01/2024 Performed by Rolando Lundberg Jr., MD at [facility] LASER HOLMIUM URETEROSCOPY WITH VACUUM ASPIRATION Right 10/25/2024 Performed by Rolando Lundberg Jr., MD at [facility] LITHOTRIPSY x 2 with stents - pt unsure of date TONSILLECTOMY 1964 as a child TUBAL LIGATION 1979 Family History Problem Relation Age of Onset Anesthesia problems Neg Hx Current Outpatient Medications Medication Sig Dispense Refill glyBURIDE (DIABETA) 2.5 mg tablet Take 1 tablet (2.5 mg total) by mouth in the morning and 1 tablet(2.5 mg total) before bedtime. heparin lock flush, porcine, 10 unit/mL injection Infuse 1-5 mL (10-50 Units total) into a venous catheter as needed (line care per nursing agency protocol.). 1 mL 0 lisinopriL (PRINIVIL,ZESTRIL) 10 mg tablet Take 1 tablet (10 mg total) by mouth before bedtime. Indications: high blood pressure. meropenem (MERREM) 1 gram injection Infuse 1,000 mg into a venous catheter every 8 (eight) hours for 21 days. End Date 11/03/2024 61 each 0 meropenem 1,000 mg in sodium chloride 0.9 % 100 mL IVPB W/ADAPTER Infuse 1,000 mg into a venous catheter every 8 (eight) hours for 21 days. 1 each 0 metFORMIN (GLUCOPHAGE) 1000 mg tablet Take 1 tablet (1,000 mg total) by mouth daily with dinner Indications: type 2 diabetes mellitus. omeprazole (PriLOSEC) 20 mg capsule Take 1 capsule (20 mg total) by mouth every morning before breakfast Indications: gastroesophageal reflux disease. oxybutynin XL (DITROPAN XL) 10 mg 24 hr tablet Take 1 tablet (10 mg total) by mouth in the morning.30 tablet 0 sodium chloride injection Infuse 10-20 mL into a venous catheter as needed for line care (line careper nursing agency protocol.). 1 mL 0 tamsulosin (FLOMAX) 0.4 mg capsule Take 1 capsule (0.4 mg total) by mouth nightly. 90 capsule 1 triamcinolone (KENALOG) 0.1 % cream Apply 1 Application topically 2 (two) times a day as needed forrash or irritation. semaglutide (OZEMPIC) 1 mg/dose (4 mg/3 mL) pen injector Inject under the skin. LAST DOSE [id number] UNTIL AFTER SURGERY 10-25-2024 (Patient not taking: Reported on 11/02/2024) Current Facility-Administered Medications Medication Dose Route Frequency Provider Last Rate Last Admin gentamicin (GARAMYCIN) injection 80 mg 80 mg intramuscular Once Scar Demarco MD (All medications reviewed and updated by provider since last office visit or hospitalization) Allergies: Patient has no known allergies. Tobacco History: Social History Tobacco Use Smoking Status Former Current packs/day: 0.00 Average packs/day: 1 pack/day for 40.0 years (40.0 ttl pk-yrs) Types: Cigarettes Start date: 1970 Quit date: 2010 Years since quittin.6 Smokeless Tobacco Never (If patient a smoker, smoking cessation counseling offered) Social History: Social History Substance and Sexual Activity Alcohol Use Not Currently Review of Systems: General: Negative for chills and fever. Cardiovascular: Negative for chest pain and shortness of breath. Gastrointestinal: Negative for constipation, diarrhea, nausea, and vomitting. -per HPI Physical Exam: BP 127/77 Pulse 87 Ht 160 cm (5' 3 ) Wt 94.3 kg (208 lb) BMI 36.85 kg/m?? Alert, pleasant, without signs of acute illness, and in no distress. Respirations unlabored . Skin dry on examination now. Assessment and Plan: Rosina was seen today for follow-up. Diagnoses and all orders for this visit: Urologic disorders Kidney stones History of recurrent urinary tract infection Problem List Unprioritized Urologic disorders - Primary Overview 1. IBS with Urolithiasis; by history status post ESWL x2 estimated 2004 elsewhere without success [facility] stones ???in a pocket?? and at some point stent insertion; CT NOMS 02/16/2024 multiple right renal stones including 2.7 cm staghorn with mild hydronephrosis; CT urogram 08/26/2024 estimated at least 7 radiopaque right renal stones largest 2.7 cm with mild hydronephrosis and solitary punctate left renal stone; 10/12/2024 cystoscopic right stent placement; 10/25/2024 and 11/01/2024 right ureteral pyeloscopy holmium laser with clear Gloria access sheath right renal stones with stent exchanges; patient's nephew Conrad Adams MD 2. Very Recurrent UTIs 3. Microscopic hematuria 4. Multiple left parapelvic cysts CT urogram 08/26/2024 5. KUB July 2024; CT August 2024 Kidney stones History of recurrent urinary tract infection Follow-up: Patient returns, with her daughter and granddaughter, doing very well from yesterday's second-stageureteroscopy of her dramatic right renal stone burden with recurrent UTI, continuing on her 1 g every 8 hours meropenem, Flomax 0.4 mg nightly, and Ditropan XL 10 mg daily PRN. She looks great. I showed patient and family fluoroscopy films of before and after her procedure and her original films, and she has at this point really just 1 or possibly 2 lower pole calyceal stones and likely some residual debris especially in an upper pole calyx, which I advised I was able to access despite my concern that it might be a calyceal diverticulum. That did not proved to be obviously the case. Fluoroscopy report provided no further information. We discussed next steps. Continue the above medications and IV meropenem. She will approach Infectious Disease, as I would like at least prophylactic dose of IV meropenem or other antibiotic they choose and cystoscopy, rightflexible ureteral pyeloscopy with clear Gloria vacuum assist access sheath, holmium laser/basket residual right renal stones with stent exchange possible retrograde pyelogram with a general anestheticwith paralysis with fluoroscopy to be scheduled in 2 weeks. Patient declined to have me review risks and alternatives as discussed multiple times already. I did provide specific warning there is a possibility we may not be able to access this particularly lower pole stone or stones, but we shall see. Inversion therapy 3 times daily and generous daily fluid intake. Then plan metabolic stone evaluation. Urology service is the provider for the patient's ongoing management of stones, which is a chronic condition requiring ongoing follow-up. ROLANDO LUNDBERG JR, MD This note was created with the assistance of a speech recognition program. While intending to generate a timely document that accurately reflects the content of the visit, no guarantee can be provided that every grammatical or spelling mistake has been or will be identified or corrected. Thank you for your understanding. documented in this encounter Plan of Treatment Upcoming Encounters Date Type Department Care Team (Latest Contact Info) Description 11/15/2024 12:00 PM EDT Hospital Encounter [facility] - Surgery [address] [facility] [place] [address] Rolando Lundberg Jr., MD [address] [place] [phone] 11/15/2024 12:00 PM EDT - 11/15/2024 3:00 PM EDT Surgery [facility] - Surgery [address] [place] [address] [phone] Rolando Lundberg Jr., MD [address] [place] [phone] LASER HOLMIUM URETEROSCOPY RENAL STONE >1CM 11/26/2024 2:00 PM EDT Office Visit [facility] [address] [place] [phone] Rolando Lundberg Jr., MD [address] [place] [phone] Scheduled Procedures Name Priority Associated Diagnoses Date/Ti wi LASER HOLMIUM URETEROSCOPY RENAL STONE >1CM Kidney [...] as of this encounter Visit Diagnoses Diagnosis Urologic disorders- Primary Unspecified disorder of urethra and urinary tract Kidney stones Calculus of kidney History of recurrent urinary tract infection Kidney stones Calculus of kidney History of recurrent urinary tract infection documented in this encounter Additional Health Concerns Active Problems Noted Date Diagnosed Date Autogenerated Problem 10/14/2024 documented as of this encounter Care Teams Chemical Research Technician Relationship Specialty Start Date End Date Derrick Ortiz Jr., DO [address] [place] [address], [address], [place] [address] PCP - General Family Medicine 09/30/24 documented as of this encounter
--- OUTSIDE RECORDS SUMMARY | 2024-11-09 13:45 | XMS_ITS | Encounter Summary ---
Author Organization [facility] [employer] Address [id number] [address] [place] [address] Care Team Providers Care Aerospace Medicine Physician Name Role Phone Diana Joya DO, George R Primary Care Provider + Encounter Details Date Type Department Care Team (Late st Contact Info) Description 11/09/2024 1:45 PM EDT Support Visit [facility] On [address] [phone] Social History Tobacco Use Types Packs/Day Years [...] encounter Miscellaneous Notes * Pre-Procedure Instructions - Adelina Rebollar RN - 11/09/2024 1:45 PM EDT Your surgery/procedure is scheduled at [facility] on November 15, 2024 at 12:00 pm Arrival Time 10:00 am [facility] Address: [address] [place], [place] [phone] Park in P1 Parking lot located on [facility]. Report to the Entrance B. Check in at the information desk. The waiting room is located on the second floor. If you have any questions prior to surgery, please call Pre-Admission Clinic at [phone] between 7:30 am and 4:30 pm Friday through Friday. If you have questions the morning of surgery, please call the Pre-op Department at [phone]. Notify your SURGEON if you develop any illness such as a cold, cough, fever, sore throat, vomiting or are hospitalized between now and your surgery. Medication Instructions (Do not stop your medications without consulting the prescribing physician). Take the following medications the morning of surgery with a sip of water: omeprazole Diabetic or Weight loss medications: none Take inhalers as prescribed the morning of [...] all solids by midnight, You may have a small amount of clear liquids up to 2 hours before [...] piercing's, hair extensions that contain metal, nail belarusian, make-up, and contact lens. You may brush your teeth the morning of surgery, but do not swallow the water. Wear your dentures and partial plates to the hospital (no adhesive). Shower the night before your procedure. If applicable, use the CHG (chlorhexidine gluconate) soap or wipes. Place clean linens on your bed after showering and put on freshly laundered nightclothes. Do not allow pets to sleep in [...] RIGHTS AND RESPONSIBILITIES As a patient at [facility], you have the right to: Receive medical care and be informed of who is taking care of you Be treated with dignity and respect Have a family member/payable representative of choice and your physician notified of your admission Receive information and actively participate in decisions about your care and treatment Refuse care, treatment and services Decide who may provide your support and speak for you Access nondenominational and spiritual services Participate in ethical issues [...] of hospital charges and payment methods Patient/patient payable representative responsibilities are to: Provide information about [...] Description 11/15/2024 12:00 PM EDT Hospital Encounter [facility] Surgery [address] [place] [phone] Dudley Lundberg Jr., MD [address] [place] [address] [phone] 11/15/2024 12:00 PM EDT - 11/15/2024 3:00 PM EDT Surgery [address] [phone] Dudley Lundberg Jr., MD [address] [place] [address] [phone] LASER HOLMIUM URETEROSCOPY RENAL STONE >1CM 11/26/2024 2:00 PM EDT Office Visit [facility] [address] [place] [address] [phone] Dudley Lundberg Jr., MD [address] [place] [phone] Scheduled Procedures Name Priority Associated Diagnoses Date/Ti az LASER HOLMIUM URETEROSCOPY RENAL STONE >1CM Kidney [...] Autogenerated Goal Care Plan Autogenerated Problem No RodolfoisiCalli Autogenerated Goal Care Plan Autogenerated Problem No Stephen [place] documented as of this encounter Visit Diagnoses Not on filedocumented in this encounter Additional Health Concerns Active Problems Noted Date Diagnosed Date Autogenerated Problem 10/14/2024 Autogenerated Problem 11/08/2024 documented as of this encounter Care Teams Aerospace Medicine Physician Relationship Specialty Start Date End Date Derrick Ortiz Jr., [address] [place] [address], [address] [place] [phone] PCP - General Family Medicine 09/30/24 documented as of this encounter
--- OUTSIDE RECORDS SUMMARY | 2024-11-11 09:34 | XMS_ITS | Clinical Summary ---
Author Organization [facility] Healthcare Address [address] [place] [address] Care Team Providers Care Manager Of Customer Billing Name Role Phone Derrick Ortiz DO Unavailable [phone] Derrick Ortiz DO Primary Care Provider [phone] Allergies No known active allergies Medications omeprazole (PriLOSEC) [address] capsuleIndications :Gastroesophageal reflux disease without esophagitis Take 1 capsule (20 mg) by mouth 1 (one) time each day at the same time 90 capsule 3 4 Active magnesium 30 MG tablet Take 30 mg by mouth Daily Active lisinopril 10 MG tabletIndications: Benign essential hypertension Take 1 tablet (10 mg) by mouth Daily 90 tablet 1 5 Active metFORMIN XR (Glucophage-XR) 500 MG 24 hr tabletIndications: Type 2 diabetes mellitus without complication, without long-term current use of insulin (HCC) Take 2 tablets (1,000 mg) by mouth in the evening. Take with meals Do not crush, chew, or split. 180 tablet 1 5 Active Semaglutide,0.25 or 0.5MG/DOS, (Ozempic, 0.25 or 0.5 MG/DOSE,) 2 MG/3ML solution pen-injectorIndica tions:Type 2 diabetes mellitus without complications (HCC) Inject 0.5 mg under the skin every 7 (seven) days 3 mL 5 Active semaglutide (Ozempic, 1 MG/DOSE,) 4 MG/3ML solution pen-injectorIndica tions:Type 2 diabetes mellitus without complication, without long-term current use of insulin (HCC) Inject 1 mg under the skin 1 (one) time per week 1 each 5 5 Active triamcinolone (Kenalog) 0.1 % creamIndications:E czema, unspecified type Apply topically 2 (two) times a day as needed (pain and swelling) 45 g 2 5 Active aspirin 81 MG EC tabletIndications: Type 2 diabetes mellitus with diabetic nephropathy (HCC) Take 1 tablet (81 mg) by mouth 1 (one) time each day at the same time 5 Active glyBURIDE (Diabeta) 2.5 MG tabletIndications: Type 2 diabetes mellitus without complication, without long-term current use of insulin ([facility]) Take 1 tablet (2.5 mg) by mouth in the morning and 1 tablet (2.5 mg) before bedtime. 60 tablet 11 5 10/19/19 26 Active Active Problems Problem Noted Date Diagnosed [...] Encounters Date Type Department Care Team Description 11/04/2024 Clinisync Result Encounter [facility] External Department Unsolicited Provider, Generic External Data 10/28/2024 Clinisync Result Encounter NOMS External Department Unsolicited Provider, Generic External Data 10/18/2024 Telephone [facility] [address] [place] [address] Yanni Gonzalez MA BS reading 10/15/2024 Telephone [facility] [address] [place] [address] Yanni Gonzalez MA Medication Question 10/15/2024 Patient Outreach [facility] [address] [place] [address] Andreia Bolaños LPN 10/14/20[facility] [address] [place] [address] Lachelle Moura MA 09/28/2024 1:00 PM EDT Office Visit [facility] [address] [place] [address] Derrick Ortiz DO Essential (primary) hypertension (Primary [...] mammogram for breast cancer 09/28/2024 [facility] [address] [place] [address] Derrick Ortiz DO 09/28/2024 Travel 09/02/2024 Refill [facility] [address] [place] [address] Derrick Ortiz DO Type 2 diabetes mellitus without complications (HCC) 08/24/2024 10:20 AM EDT Office Visit [facility] [address] [place] [address] Urinary tract infection with hematuria, site unspecified 08/24/2024 [facility] [address] [place] [address] Yanni Gonzalez MA Care Coordination 08/24/2024 Travel 08/23/2024 [facility] [address] [place] [address] Kaftan, Derrick R, DO Medication Question from Last 3 Months [...] Procedure Name Priority Date/Time Associated Diagnosis Comments ALL C REACTIVE PROTEIN Routine 8:30 AM EDT TBH CREATININE Routine 11/04/2024 8:30 AM EDT ALL BUN Routine 11/04/2024 8:30 AM EDT ALL CBC WITH AUTO DIFF Routine 8:30 AM EDT ALL CBC WITH AUTO DIFF Routine 8:20 AM EDT ALL C REACTIVE PROTEIN Routine 8:20 AM EDT TBH CREATININE Routine 10/28/2024 8:20 AM EDT ALL BUN Routine 10/28/2024 8:20 AM EDT POCT URINALYSIS DIPSTICK Routine 09/28/2024 1:07 PM [...] Recently Relevant to Health Maintenance Results * TBH CREATININE (11/04/2024 8:30 AM EDT) Only the most recent of2 resultswithin the time period is included. CREATININE 0.64 0.55 - 1.02 mg/dL TBH TBH EGFR-AF COLOMBIAN >60 >=60 mL/min/1.7 3m 2 TBH TBH EGFR-NON AF [place]AN >60 >=60 mL/min/1.7 3m 2 TBH 11/04/2024 8:30 AM EDT 11/04/2024 9:35 AM EDT Narrative CLINISYNC - 11/04/2024 10:09 AM EDT [facility] DROP OFF Generic External Data Provider CLINIS[facility]NC F inal Result [facility] * (ABNORMAL) ALL CBC WITH AUTO DIFF (11/04/2024 8:30 AM EDT) Only the most recent of2 resultswithin the time period is included. TBH WBC 9.8 4.0 - 11.0 10 3/uL TBH TBH RBC 3.83(L) 4.20 - 5.40 10 6/uL TBH TBH HGB 11.0(L) 12.0 - 16.0 g/dL TBH TBH HCT 33.2(L) 36.0 - 48.0 % TBH TBH MCV 86.7 81.0 - 99.0 fL TBH TBH MCH 28.7 26.7 - 34.0 pg TBH TBH MCHC 33.1 29.9 - 35.2 g/dL TBH TBH RDW 12.4 11.0 - 15.0 % TBH TBH PLT 213 150 - 450 10 3/uL TBH TBH MPV 11.3 9.5 - 13.5 fL TBH NEUTROPHILS PERCENT AUTO 59.1 43.0 - 75.0 % TBH LYMPHOCYTES PERCENT AUTO 27.4 20.5 - 60.0 % TBH MONOCYTES PERCENT AUTO 11.8 1.7 - 12.0 % TBH TBH EO % 1.0 0.9 - 7.0 % TBH BASOPHILS PERCENT AUTO 0.2 0.2 - 2.0 % TBH IMMATURE GRANULOCYTES PCT AUTO 0.5 0.0 - 0.5 % TBH NEUTROPHILS ABSOLUTE AUTO 5.8 1.4 - 6.5 10 3/uL TBH LYMPHOCYTES ABSOLUTE AUTO 2.7 1.2 - 3.8 10 3/uL TBH MONOCYTES ABSOLUTE AUTO 1.2(H) 0.3 - 0.8 10 3/uL TBH TBH EO # 0.1 0.0 - 0.7 10 3/uL TBH BASOPHILS ABSOLUTE AUTO 0.0 0.0 - 0.1 10 3/uL TBH IMMATURE GRANULOCYTES ABS AUTO 0.05(H) 0.00 - 0.03 10 3/uL TBH 11/04/2024 8:30 AM EDT 11/04/2024 9:35 AM EDT Narrative CLINISYNC - 11/04/2024 9:41 AM EDT us Generic External Data Provider CLINIS[facility]NC F inal Result [facility] * (ABNORMAL) ALL C REACTIVE PROTEIN (11/04/2024 8:30 AM EDT) Only the most recent of2 resultswithin the time period is included. C REACTIVE PROTEIN 11.64(H) <=0.50 mg/dL TBH 11/04/2024 8:30 AM EDT 11/04/2024 9:35 AM EDT Narrative CLINISYNC - 11/04/2024 10:09 AM EDT [facility] DROP OFF us Generic External Data Provider CLINISYNC F inal Result CLINISYDE TB * ALL BUN (11/04/2024 8:30 AM EDT) Only the most recent of2 resultswithin the time period is included. BLOOD UREA NITROGEN 11.0 7.0 - 18.0 mg/dL TB 11/04/2024 8:30 AM EDT 11/04/2024 9:35 AM EDT Narrative CLINISYNC - 11/04/2024 10:09 AM EDT [facility] DROP OFF Generic External Data Provider CLINISYNC F inal Result Performing Organization Address [facility]/ZIP Co de Phone Number [facility]INCLAYDE TB * (ABNORMAL) POCT Urinalysis dipstick (09/28/2024 1:07 [...] - 10/02/2024 1:07 PM EDT Performed at: [address] [place] [id number] Grinder Outside Diameter: Armani Gann PhD, Phone: [phone] Derrick Ortiz DO LAB URINE ORDERABLES Final Re sult Performing Organization Address [facility] Co de Phone Number [facility] * Urine culture (09/28/2024 12:00 AM EDT) Only the most recent of2 resultswithin the time period is included. Urine Cult Rt Status Final report [facility] Urine Urine specimen obtained by clean catch procedure / Unknown 09/28/2024 09/28/2024 Comment:URINE - CLEAN CATCH Narrative [facility] - 10/02/2024 1:07 PM EDT Performed at: [address] [place] [id number] Grinder Outside Diameter: Armani Gann PhD, Phone: [phone] Derrick Ortiz DO LAB MICROBIOLOGY - GENERAL OR DERABLES Final Result Performing Organization Address [facility] Co de Phone Number [facility] * (ABNORMAL) Microalbumin [...] 10:07 AM EDT Performed at: 02 - [facility] [id number] Grinder Outside Diameter: Armani Gann PhD, Phone: [phone] Derrick Ortiz DO LAB URINE ORDERABLES Final Re sult [facility] [...] 10:07 AM EDT Performed at: 01 - [place] [address], [address], [place], [place] [id number] Grinder Outside Diameter: Elroy Jack MD, Phone: [phone] Derrick Ortiz LAB BLOOD ORDERABLES Final Re sult [facility] * (ABNORMAL) Hemoglobin A1c (09/09/2024 2:32 PM EDT) HgbA1C 6.4(H) 4.8 - 5.6 % [facility] Comment: Prediabetes: 5.7 - 6.4 Diabetes: >6.4 Glycemic control for adults with diabetes: <7.0 Blood Venous blood specimen / Unknown 09/09/2024 2:32 PM EDT 09/09/2024 Narrative [facility] - 09/10/2024 10:07 AM EDT Performed at: 02 - [address] [id number] Grinder Outside Diameter: Armani Gann PhD, Phone: [phone] Derrick Ortiz LAB BLOOD ORDERABLES Final Re sult Performing Organization Address City/[facility]/ZIP Co de Phone Number [facility] * (ABNORMAL) [...] 10:07 AM EDT Performed at: 01 - [place] [place] [address], [address], [place], [place] [id number] Grinder Outside Diameter: Elroy Jack MD, Phone: [phone] Derrick Ortiz DO LAB BLOOD ORDERABLES Final Re sult [facility] * Colonoscopy (04/22/2024 9:00 AM EST) Anatomical Region Laterality Modality Endoscopy Travis Yoon MD ENDOSCOPY PROCEDURE ORDERABL ES Final Result * (ABNORMAL) Cologuard?? colon cancer screening (01/27/2024 9:31 AM EST) NONINV COLON CA DNA+OCC BLD SCRN STL-IMP Positive( A) Negative 02/03/2024 5:27 PM EST [facility] (CLIA #:[id number]) Comment: POSITIVE TEST RESULT. A positive Cologuard [...] (Partha Farrar al, N Engl J Med 2014;370(14):3425-7023.) Cologuard may produce a false negative or false positive result (no colorectal cancer or precancerous polyp present at colonoscopy follow up). A negative Cologuard test result does not guarantee the absence of CRC or advanced adenoma (pre-cancer). The current Cologuard screening interval is every 3 years. ([place] [employer] Society and U.S. Multi-Society Task Force). Cologuard performance data in a 10,000 patient pivotal study using colonoscopy as the reference method can be accessed at the following location: [email or web address]/results. Additional description of the Cologuard test process, warnings and precautions can be found at www.[email or web address].com. Stool specimen (specimen) 01/27/2024 9:31 AM EST 01/28/2024 12:14 PM EST us Derrick Ortiz DO LAB MOLECULAR DIAGNOSTICS ORD ERABLES Final Result [facility] (CLIA #:[id number]) [place] [address], * Bilateral screening mammogram with tomosynthesis (06/18/2023 1:05 PM EDT) Anatomical Region Laterality Modality Breast Bilateral Mammography 06/20/2023 12:3 2 PM EDT Impressions 06/20/2023 1:47 PM EDT BIRADS 1 - Negative Follow-up: Routine Screening Mamm. Density: Almost entirely fatty [1]. Board Certified Radiologists. Accredited by the ACR and FDA. MAMMOGRAPHY IS VERY IMPORTANT TO YOUR HEALTH. THE CURRENT [place] COLLEGE OF RADIOLOGY AND NATIONAL COMPREHENSIVE CANCER [...] in technique and positioning. Derrick Ortiz DO IM BI PROCEDURES Final Resul t from Last 3 Months or Most Recently Relevant to Health Maintenance [place] [phone] Care Teams Manager Of Customer Billing Relationship Specialty Start Date End Date Derrick Ortiz DO [address] [place] [address] PCP - ACO Reach 08/15/22 Derrick Ortiz DO [address] [place] [address] PCP - General Family Medicine 10/23/22
--- OUTSIDE RECORDS SUMMARY | 2024-11-11 09:34 | XMS_ITS | Encounter Summary ---
Author Organization [facility] Address [address] [place] [address] Care Team Providers Care Puppet Engineer Name Role Phone Unavailable Primary Care Provider Unavailabl e Encounter Details Date Type Department Care Team (Late st Contact Info) Description 11/08/2024 Abstract [facility] Infectious Disease [address] [place] [address] Alexx Bonner DO [address] [facility]/[place] [address] Social History Tobacco Use Types Packs/Day Years Used Date Smoking Tobacco: Never Assessed PHQ-2 Answer Date Recorded Patient Health Questionnaire-2 Score 1 11/03/2024 Comments Unknown Sex and Gender Information Value Date Recorded Sex Assigned at Choose not to disclose 1:05 PM EDT Legal Sex Female 3:24 PM EDT Gender Identity Choose not to disclose 1:05 PM EDT Sexual Orientation Choose not to disclose 2024 1:05 PM EDT documented as of this encounter Plan of Treatment Not on file documented as of this encounter Visit Diagnoses Not on filedocumented in this encounter
--- OUTSIDE RECORDS SUMMARY | 2024-11-11 09:34 | XMS_ITS | Encounter Summary ---
Author Organization [facility] Address [address] [place] [address] Care Team Providers Care Commercial Loan Assistant Name Role Phone Derrick Ortiz DO Unavailable [phone] Derrick Ortiz DO Primary Care Provider [phone] Encounter Details Date Type Department Care Team (Late st Contact Info) Description 05/14/2023 Abstract [facility] [address] [place] [phone] Derrick Ortiz DO [address] [place] [address] Social History Tobacco Use Types Packs/Day Years [...] documented as of this encounter Care Teams Commercial Loan Assistant Relationship Specialty Start Date End Date Derrick Ortiz DO [address] [place] [address] PCP - ACO Reach 08/15/22 Derrick Ortiz DO [address] [place] [id number] PCP - General Family Medicine 10/23/22 documented as of this encounter
--- OUTSIDE RECORDS SUMMARY | 2024-11-11 09:34 | XMS_ITS | Encounter Summary ---
Author Organization [facility] Address [address] [place] [address] Care Team Providers Care Benefits Counselor Name Role Phone Unavailable Primary Care Provider Unavailabl e Encounter Details Date Type Department Care Team (Late st Contact Info) Description 11/09/2024 Telephone [facility] Infectious Disease [address] [place] [address] Qi Wilkins RN Social History Tobacco Use Types Packs/Day [...] encounter Miscellaneous Notes * Telephone Encounter - Qi Wilkins RN - 11/09/2024 11:14 AM EDT RN called to request most recent labs be faxed to [facility] ID. Fax number confirmed with Valery. documented in this encounter Plan of Treatment Not on file documented as of this encounter Visit Diagnoses Not on filedocumented in this encounter
--- OUTSIDE RECORDS SUMMARY | 2024-11-11 09:34 | XMS_ITS | Encounter Summary ---
Author Organization [facility] Address [address] [place] [address] Care Team Providers Care Organ Tuner Electronic Name Role Phone Derrick Ortiz Unavailable [phone] Derrick Ortiz DO Primary Care Provider [phone] Encounter Details Date Type Department Care Team (Late st Contact Info) Description 03/25/2023 Orders Only [facility] [address] [place] [address] A, Unknown Practice [address] [place] [phone] Social History Tobacco Use Types Packs/Day Years [...] on filedocumented in this encounter Care Teams Organ Tuner Electronic Relationship Specialty Start Date End Date Derrick Ortiz DO [address] [place] [address] PCP - ACO Reach 08/15/22 Derrick Ortiz DO [address] [place] [address] PCP - General Family Medicine 10/23/22 documented as of this encounter
--- OUTSIDE RECORDS SUMMARY | 2024-11-11 09:34 | XMS_ITS | Encounter Summary ---
Author Organization [facility] Address [address] [place] [address] Care Team Providers Care Merchandise Presentation Manager Name Role Phone Unavailable Primary Care Provider Unavailabl e Encounter Details Date Type Department Care Team (Late st Contact Info) Description 11/04/2024 Telephone [facility] Infectious Disease [address] [place] [address] Qi Wilkins RN Social History Tobacco Use [...] Telephone Encounter - Qi Wilkins RN - 11/04/2024 10:32 AM EDT Updated Debora, Pharmacist at [facility] that Meropenem should be extended til 11/17 per OMAIRA Mota. documented in this encounter Plan of Treatment Not on file documented as of this encounter Visit Diagnoses Not on filedocumented in this encounter
--- OUTSIDE RECORDS SUMMARY | 2024-11-11 09:35 | XMS_ITS | Encounter Summary ---
Author Organization [facility] Address [address] [place] [address] Care Team Providers Care Advertiser Name Role Phone Derrick Ortiz DO Unavailable [phone] Derrick Ortiz DO Primary Care Provider [phone] Encounter Details Date Type Department Care Team (Late st Contact Info) Description 05/14/2024 Abstract [facility] [place] [facility] [address] [place] [phone] Derrick Ortiz DO [address] [place] [address] Social History Tobacco Use Types Packs/Day Years [...] Not at all 05/14/2024 11:00 AM Maryann Schreiebr N P Poor appetite or overeating Not [...] documented as of this encounter Care Teams Advertiser Relationship Specialty Start Date End Date Derrick Ortiz DO [address] [place] [address] PCP - ACO Reach 08/15/22 Derrick Ortiz DO [address] [facility] [address] [place] [address] PCP - General Family Medicine 10/23/22 documented as of this encounter
--- OUTSIDE RECORDS SUMMARY | 2024-11-11 09:35 | XMS_ITS | Clinical Summary ---
Author Organization [facility] Address [address] [place] [address] Care Team Providers Care Digital Content Coordinator Name Role Phone Unavailable Primary Care Provider Unavailabl e Allergies No known active allergies Medications aspirin 81 mg EC tablet Take 81 mg by mouth. 09/28/2024 Active glyBURIDE (Diabeta) 2.5 mg tablet Take 2.5 mg by mouth twice a day. 10/18/2024 10/19/19 26 Active lisinopril 10 mg tablet Take 10 mg by mouth in the morning. 03/20/2023 Active meropenem (Merrem) 1 gram injection Infuse 1,000 mg into a venous catheter every 8 (eight) hours. 10/13/2024 11/18/19 25 Active metFORMIN (Glucophage) 1,000 mg tablet [...] Encounters Date Type Department Care Team Description 11/09/2024 Telephone [facility] Infectious Disease [address] [place] [address] Qi Wilkins, TONY 11/08/2024 Abstract [facility] Infectious Disease [address] [place] [phone] Alexx Bonner DO 11/04/2024 Telephone [facility] Infectious Disease [address] [place] [address] Qi Wilkins, TONY 11/03/2024 2:00 PM EDT Telemedicine [facility] Infectious Disease [address] [place] [address] Nakul Coleman CNP Infection due to ESBL-producing Klebsiella pneumoniae (Primary Dx); Right renal stone; Ureteral stent present 10/28/2024 Telephone [facility] Infectious Disease [address] [place] [address] Maritza Dimas, TONY 10/27/2024 Telephone [facility] Infectious Disease [address] [place] [phone] Maritza Dimas, TONY 10/21/2024 3:00 PM EDT Telemedicine [facility] Infectious Disease [address] [place] [phone] Nakul Coleman CNP Recurrent UTI (Primary Dx); Infection due to ESBL-producing Klebsiella pneumoniae; Right renal stone; Ureteral stent present 10/18/2024 Telephone [facility] Infectious Disease [address] [place] [address], [address] [place] [address] Maritza Dimas, RN from Last 3 Months Social History [...] 2024 1:05 PM EDT Plan of Treatment Health Maintenance Due Date Last Done Comments CT Colonography 1955 FOBT 1955 Medicare Annual Wellness (AWV) 1955 Sigmoidoscopy 1955 Diabetes: Retinopathy Screening 06/26/1963 Adult Tetanus 06/26/1975 Zoster Vaccines (1 of 2) 06/26/2003 08/30/2015 Pneumococcal Vaccine: 50+ Years (3 of 3 - PCV20 or PCV21) 08/28/2023 08/27/2018, 03/01/2015 COVID-19 Vaccine (1 - season) 2023 Influenza Vaccine (#1) 2024 , 01/13/2017, 01/13/2017, Additional history exists Diabetes: Hemoglobin A1C 12/10/2024 09/09/2024 FIT 01/26/2025 01/27/2024 Mammogram 06/17/2025 06/18/2023 Diabetes: Urine Protein Screening 09/09/2025 09/09/2024 Depression Screening 11/03/2025 11/03/2024 Fall Risk Screening 11/03/2025 11/03/2024 FIT-DNA 01/26/2027 01/27/2024, 10/0 07/2020, 11/18/2017 Colonoscopy [...]
--- OUTSIDE RECORDS SUMMARY | 2024-11-11 09:35 | XMS_ITS | Encounter Summary ---
Author Organization [facility] op5 [facility] tem Address [id number] [address] [place] [address] Care Team Providers Care Capacity Planner Name Role Phone Diana Joya DO, George R Primary Care Provider + Encounter Details Date Type Department Care Team (Latest Contact Info) Description 11/01/2024 Travel Social History Tobacco Use Types Packs/Day [...] Description 11/15/2024 12:00 PM EDT Hospital Encounter [facility] Surgery [address] [place] [phone] Dudley Lundberg Jr., MD [address] [place] [address] 11/15/2024 12:00 PM EDT - 11/15/2024 3:00 PM EDT Surgery [facility] Surgery [address] [place] [address] Dudley Lundberg Jr., MD [address] [place] [address] LASER HOLMIUM URETEROSCOPY RENAL STONE >1CM 11/26/2024 2:00 PM EDT Office Visit [facility] [address] [place] [phone] Dudley Lundberg Jr., MD [address] [place] [address] Scheduled Procedures Name Priority Associated Diagnoses Date/Ti me LASER HOLMIUM URETEROSCOPY RENAL STONE >1CM Kidney [...] documented as of this encounter Care Teams Capacity Planner Relationship Specialty Start Date End Date Derrick Ortiz Jr., [address] [place] [address], [address], [place] [address] PCP - General Family Medicine 09/30/24 documented as of this encounter
--- OUTSIDE RECORDS SUMMARY | 2024-11-11 09:35 | XMS_ITS | Encounter Summary ---
Author Organization [employer] Address [id number] [address] [place] [address] Care Team Providers Care Floor Layer Tile Name Role Phone Diana Joya DO, George R Primary Care Provider + Encounter Details Date Type Department Care Team (Late st Contact Info) Description 11/03/2024 Telephone [facility] [address] [place] [address] [phone] Dudley Lundberg Jr., MD [address] [place] [phone] Social History Tobacco Use Types Packs/Day Years [...] Encounter - Dudley Lundberg Jr., MD - 11/03/2024 4:21 PM EDT Images from the original note were not included. Aby advise patient if she gets recurrence, she needs to go to the emergency department. Ebonie, see the below messages. Please coordinate with patient so we get the procedure scheduled 1, 2, or 3 days before her last IV antibiotic dosing. 11/03/2024 - Patient Calls: Aby Riley CMA and You (Newest Message First) View All Conversations on this Encounter 11/03/24 3:20 PM Aby Riley CMA routed this conversation to Me (Selected Message) Aby Riley CMA BRAD 11/03/24 3:20 PM Note Patient called and said ID put her on 2 more weeks of Meropenem and is recommending surgery be doneby then so she does not have to be on this longer. I advised that you had already sent the message to your rn surgery advising a 2 week time frame. She said she also wanted to mention that last night she started having uncontrolled shivers and herlegs were so weak she could not use them at all. She said she is feeling fine today and those issues have completely resolved. 11/03/24 3:20 PM Rosina Alcantara contacted Aby Riley CMA Recent Patient Communication * Telephone Encounter - Aby Riley CMA - 11/03/2024 4:21 PM EDT Patient advised if she has symptoms similar to what she described from last night to go to ER. She was also advised of time frame Dr. Lundberg is asking surgery to be scheduled and will await Ebonie's call. documented in this encounter Plan of Treatment Upcoming Encounters Date Type Department Care Team (Latest Contact Info) Description 11/15/2024 12:00 PM EDT Hospital Encounter [facility] - Surgery [address] [place] [phone] Dudley Lundberg Jr., MD [address] [place] [phone] 11/15/2024 12:00 PM EDT - 11/15/2024 3:00 PM EDT Surgery [facility] - Surgery [address] [place] [phone] Dudley Lundberg Jr., MD [address] [place] [phone] LASER HOLMIUM URETEROSCOPY RENAL STONE >1CM 11/26/2024 2:00 PM EDT Office Visit [facility] [address] [place] [phone] Dudley Lundberg Jr., MD [address] [place] [address] [phone] Scheduled Procedures Name Priority Associated Diagnoses Date/Ti nd LASER HOLMIUM URETEROSCOPY RENAL STONE >1CM Kidney [...] documented as of this encounter Care Teams Floor Layer Tile Relationship Specialty Start Date End Date Derrick Ortiz Jr., [address] [place] [address], [address], [place] [address] PCP - General Family Medicine 09/30/24 documented as of this encounter
--- OUTSIDE RECORDS SUMMARY | 2024-11-11 09:35 | XMS_ITS | Encounter Summary ---
Author Organization [employer] Address [id number] [address] [place] [address] Care Team Providers Care Senior Software Test Engineer Name Role Phone Diana Joya DO, George R Primary Care Provider + Encounter Details Date Type Department Care Team (Late st Contact Info) Description 11/05/2024 Telephone [facility] [address] [place] [address] [place] [address] [place] [phone] Dudley Lundberg Jr., MD [address] [place] [phone] Social History Tobacco Use Types Packs/Day Years [...] encounter Miscellaneous Notes * Telephone Encounter - Miri Moffett - 11/05/2024 12:40 PM EDT Patient called back and advised she will be done with antibiotics on 11-17-24. Patient was asking about procedure that is to be scheduled. I provided pt with Ebonie phone number [phone] option 4 to call with questions. documented in this encounter Plan of Treatment Upcoming Encounters Date Type Department Care Team (Latest Contact Info) Description 11/15/2024 12:00 PM EDT Hospital Encounter [facility] Surgery [address] [place] [phone] Dudley Lundberg Jr., MD [address] [place] [address] 11/15/2024 12:00 PM EDT - 11/15/2024 3:00 PM EDT Surgery [address] [phone] Dudley Lundberg Jr., MD [address] [place] [phone] LASER HOLMIUM URETEROSCOPY RENAL STONE >1CM 11/26/2024 2:00 PM EDT Office Visit [facility] [address] [place] [phone] Dudley Lundberg Jr., MD [address] [place] [phone] Scheduled Procedures Name Priority Associated Diagnoses Date/Ti dc LASER HOLMIUM URETEROSCOPY RENAL STONE >1CM Kidney [...] documented as of this encounter Care Teams Senior Software Test Engineer Relationship Specialty Start Date End Date Derrick Ortiz Jr., DO [address] [place] [address], [address] [place] [address] PCP - General Family Medicine 09/30/24 documented as of this encounter
--- OUTSIDE RECORDS SUMMARY | 2024-11-11 09:35 | XMS_ITS | Encounter Summary ---
Author Organization [facility] [facility] tem Address [id number] [address] [place] [address] Care Team Providers Care Turner Machine Operator Name Role Phone Diana Joya DO, George R Primary Care Provider + Encounter Details Date Type Department Care Team (Latest Contact Info) Description 11/09/2024 Travel Social History Tobacco Use Types Packs/Day [...] Description 11/15/2024 12:00 PM EDT Hospital Encounter [facility] Surgery [address] [place] [address] [phone] Dudley Lundberg Jr., MD [address] [place] [address] 11/15/2024 12:00 PM EDT - 11/15/2024 3:00 PM EDT Surgery [facility] Surgery [address] [facility] [place] [phone] Dudley Lundberg Jr., MD [address] [place] [address] LASER HOLMIUM URETEROSCOPY RENAL STONE >1CM 11/26/2024 2:00 PM EDT Office Visit [facility] [address] [place] [phone] Dudley Lundberg Jr., MD [address] [place], [place] [phone] Scheduled Procedures Name Priority Associated Diagnoses Date/Ti [...] Care Plan Autogenerated Problem No Calli Wheat Autogenerated Goal Care Plan Autogenerated Problem No Calli Wheat documented as of this encounter Visit Diagnoses Not on filedocumented in this encounter Additional Health Concerns Active Problems Noted Date Diagnosed Date Autogenerated Problem 10/14/2024 Autogenerated Problem 11/08/2024 documented as of this encounter Care Teams Turner Machine Operator Relationship Specialty Start Date End Date Derrick Ortiz Jr., [address] [place] [address], [address], [place] [address] PCP - General Family Medicine 09/30/24 documented as of this encounter
--- OUTSIDE RECORDS SUMMARY | 2024-11-11 09:35 | XMS_ITS | Encounter Summary ---
Author Organization [employer] Address [id number] [address] [place] [address] Care Team Providers Care Thimble Press Operator Name Role Phone Diana Joya DO, George R Primary Care Provider + Encounter Details Date Type Department Care Team (Late st Contact Info) Description 11/03[facility]2024 [facility] [address] [place] [phone] Aby Riley CMA Social History Tobacco Use Types Packs/Day [...] encounter Miscellaneous Notes * Telephone Encounter - Aby Riley CMA - 11/03/2024 3:17 PM EDT Patient called and said ID put her on 2 more weeks of Meropenem and is recommending surgery be doneby then so she does not have to be on this longer. I advised that you had already sent the message to your transport conductor advising a 2 week time frame. She said she also wanted to mention that last night she started having uncontrolled shivers and herlegs were so weak she could not use them at all. She said she is feeling fine today and those issues have completely resolved. documented in this encounter Plan of Treatment Upcoming Encounters Date Type Department Care Team (Latest Contact Info) Description 11/15/2024 12:00 PM EDT Hospital Encounter [facility] Surgery [address] [place] [phone] Dudley Lundberg Jr., MD [address] [place] [address] 11/15/2024 12:00 PM EDT - 11/15/2024 3:00 PM EDT Surgery [facility] Surgery [address] [place] [phone] Dudley Lundberg Jr., MD [address] [place] [address] LASER HOLMIUM URETEROSCOPY RENAL STONE >1CM 11/26/2024 2:00 PM EDT Office Visit [facility] [address] [place] [phone] Dudley Lundberg Jr., MD [address] [place] [address] Scheduled Procedures Name Priority Associated Diagnoses Date/Ti ma LASER HOLMIUM URETEROSCOPY RENAL STONE >1CM Kidney [...] documented as of this encounter Care Teams Thimble Press Operator Relationship Specialty Start Date End Date Derrick Ortiz Jr., DO [address] [place] [address], [address], [place] [address] PCP - General Family Medicine 09/30/24 documented as of this encounter
--- OUTSIDE RECORDS SUMMARY | 2024-11-11 09:35 | XMS_ITS | Clinical Summary ---
Author Organization [employer] tem Address [id number] [address] [place] [address] Care Team Providers Care Doctor Podiatric Medicine Name Role Phone Diana Joya DO, George R Primary Care Provider + Allergies No known active allergies Medications omeprazole (PriLOSEC) 20 mg capsuleIndica tions:gastroe sophageal reflux disease Take 1 capsule (20 mg total) by mouth every morning before breakfast Indications: gastroesophageal reflux disease. 06/16/19 25 Active lisinopriL (PRINIVIL,ZES TRIL) 10 mg tabletIndicat ions:hyperten erick Take 1 tablet (10 mg total) by mouth before bedtime. Indications: high blood pressure. Active tamsulosin (FLOMAX) 0.4 mg capsule Take 1 capsule (0.4 mg total) by mouth nightly. 90 capsule 1 10/09/19 25 Active triamcinolone (KENALOG) 0.1 % cream Apply [...] care per nursing agency protocol.). 1 mL 10/14/19 25 Active sodium chloride injection Infuse 10-20 mL into a venous catheter as needed for line care (line care per nursing agency protocol.). 1 mL 10/14/19 25 Active oxybutynin XL (DITROPAN XL) 10 mg 24 hr tablet Take 1 tablet (10 mg total) by mouth in the morning. 30 tablet 10/14/19 25 Active glyBURIDE (DIABETA) 2.5 mg tablet Take 1 tablet (2.5 mg total) by mouth in the morning and 1 tablet (2.5 mg total) before bedtime. 10/19/19 25 026 Active semaglutide (OZEMPIC) 1 mg/dose (4 mg/3 mL) pen injector Inject under the skin. LAST DOSE 10-04-2024 HOLDING UNTIL AFTER SURGERY 10-25-2024 Active semaglutide 1 mg/dose (4 mg/3 mL) pen injectorIndic ations:type 2 diabetes mellitus Inject 0.5 mg under the skin once a week Indications: type 2 diabetes mellitus. Takes every Friday - pt did take her last injection on 10/04/2024 07/15/19 25 025 Discontinu ed(Stop Taking at Discharge) heparin lock flush, porcine, injection 100 unit/mL solution Infuse 1-5 mL (100-500 Units total) into a venous catheter as needed (line care per nursing agency protocol.). 1 mL 10/14/19 25 025 Discontinu ed(Ailynlica te Listing) meropenem (MERREM) 1 gram injection Infuse 1,000 mg into a venous catheter every 8 (eight) hours for 21 days. End Date 11/03/2024 63 each 10/14/19 25 025 meropenem 1,000 mg in sodium chloride 0.9 % 100 mL IVPB W/ADAPTER Infuse 1,000 mg into a venous catheter every 8 (eight) hours for 21 days. 1 each 10/14/19 25 025 oxyCODONE-grzegorz taminophen (PERCOCET) 5-325 mg per tabletIndicat ions:Kidney stones Take 1 tablet by mouth every 6 (six) hours as needed for pain for up to 5 days. Max Daily Amount: 4 tablets 5 tablet 10/26/19 25 025 Hospital, Clinic, or Other Facility Administered Medication Ordered Dose Route Frequency Start Date End Date Status gentamicin (GARAMYCIN) injection 80 mgIndications:Urologic disorders,History of recurrent urinary tract infection 80 mg IM Once 10/12/2024 Active Active Problems Problem Noted Date Diagnosed Date Ureteral stent present 10/26/2024 Primary hydronephrosis 10/08/2024 Kidney stones 08/13/2024 History of recurrent urinary tract infection Microscopic hematuria 08/13/2024 Urologic disorders 08/12/2024 Overview (11/02/2024): 1. IBS with Urolithiasis; by history status post ESWL x2 estimated 2004 elsewhere without success [facility] stones i n a pocket [...] right ureteral pyeloscopy holmium laser with clear Gregory access sheath right renal stones with stent exchanges; patient's nephew Conrad Adams MD 2. Very Recurrent UTIs 3. Microscopic hematuria 4. Multiple left parapelvic cysts CT urogram 08/26/2024 5. KUB July 2024; CT August 2024 Encounters Date Type Department Care Team Description 11/09/2024 1:45 PM EDT Support Visit [facility] On [address] [phone] 11/09/2024 Travel 11/08/2024 Telephone [facility] [address] [place] [phone] Dudley Lundberg Jr., MD 11/05/2024 Travel 11/05/2024 Telephone [facility] [address] [facility] A [facility] [place] [address] Dudley Lundberg Jr., MD 11/03/2024 Telephone [facility] [address] [place] [phone] Dudley Lundberg Jr., MD 11/03/2024 Telephone [facility] [address] [place] [address] Aby Riley CMA 11/02/2024 4:15 PM EDT Office Visit [facility] [address] [place] [address] Dudley Lundberg Jr., MD Urologic disorders (Primary Dx); Kidney stones; History of recurrent urinary tract infection 11/02/2024 Telephone [facility] [address] [place] [address] Dudley Lundberg Jr., MD 11/01/2024 4:52 PM EDT Anesthesia Event [address] [address] Alban Villanueva MD Banoub, Ashraf F, MD 11/01/2024 4:14 PM EDT - 11/01/2024 7:44 PM EDT Surgery [address] [address] Dudley Lundberg Jr., MD LASER HOLMIUM URETEROSCOPY WITH VACUUM ASPIRATION 11/01/2024 12:59 PM EDT - 11/01/2024 11:00 PM EDT Hospital Encounter [address] [address] Dudley Lundberg Jr., MD Kidney stones; Ureteral stent present Discharge Disposition: Home 11/01/2024 Travel 10/25/2024 4:11 PM EDT Anesthesia Event [address] [address] Pankaj Wilcox MD Lott, Monica G, CONTROL PANEL ASSEMBLER-MEDICAL INSURANCE VERIFIER 10/25/2024 3:53 PM EDT - 10/25/2024 7:23 PM EDT Surgery [facility] Surgery [address] [facility] [place] [address] Dudley Lundberg Jr., MD LASER HOLMIUM URETEROSCOPY WITH VACUUM ASPIRATION 10/25/2024 1:52 PM EDT - 10/25/2024 8:26 PM EDT Hospital Encounter [facility] Surgery [address] [facility] [place] [address] Dudley Lundberg Jr., MD Kidney stones Discharge Disposition: Home 10/25/2024 Telephone [facility] [address] [place] [address] Dudley Lundberg Jr., MD 10/25/2024 Travel 10/18/2024 2:15 PM EDT [facility] On [address] [address] 10/18/2024 Documentation [facility] [address] [place] [address] Dudley Lundberg Jr., MD 10/13/2024 Telephone [facility] [address] [place] [address] Dudley Lundberg Jr., MD 10/12/2024 11:45 AM EDT - 10/12/2024 1:00 PM EDT Surgery [facility] Surgery [address] [facility] [place] [address] Dudley Lundberg Jr., MD CYSTOSCOPY INSERTION STENT URETER [43806 (CPT )] 10/12/2024 10:57 AM EDT Anesthesia Event [facility] Surgery [address] [facility] [place] [address] Boris Friedman MD 10/12/2024 9:29 AM EDT - 10/14/2024 2:14 PM EDT Hospital Encounter [facility] Observation Unit [address] [place] [address] Dudley Lundberg Jr., MD Medication monitoring encounter (Primary Dx); Urologic disorders; History of recurrent urinary tract infection; Primary hydronephrosis Discharge Disposition: Home Health 10/12/2024 Telephone [facility] [address] [place] [address] [address] [place] [address] Dudley Lundberg Jr., MD 10/12/2024 Travel 10/11/2024 Telephone [facility] [address] [place] [phone] Tory Welsh CMA 10/08/2024 11:45 AM EDT Procedure visit [facility] On [address] [address] Preop testing (Primary Dx) 10/08/2024 10:00 AM EDT Office Visit [facility] [address] [place] [address] Dudley Lundberg Jr., MD History of recurrent urinary tract infection (Primary Dx); Kidney stones; Urologic disorders; Microscopic hematuria 10/08/2024 Telephone [facility] [address] [place] [address] [address] [place] [address] Dudley Lundberg Jr., MD 10/04/2024 Telephone [facility] [address] [place] [address] [address] [place] [address] Dudley Lundberg Jr., MD 09/30/2024 Telephone [facility] [address] [place] [address] [address] [place] [address] Dudley Lundberg Jr., MD 08/30/2024 Telephone [facility] [address] [place] [address] [address] [place] [address] Dudley Lundberg Jr., MD 08/26/2024 2:24 PM EDT - 08/26/2024 11:59 PM EDT Hospital Encounter [facility] - CT Imaging [address] [place] [address] Dudley Lundberg Jr., MD Kidney stones; Microscopic hematuria; History of recurrent urinary tract infection Discharge Disposition: Home 08/26/2024 Travel 08/17/2024 Travel 08/13/2024 11:55 AM EDT - 08/13/2024 11:59 PM EDT Hospital Encounter [facility] - Radiology [address] [place] [address] Dudley Lundberg Jr., MD Kidney stones; Microscopic hematuria; History of recurrent urinary tract infection Discharge Disposition: Home 08/13/2024 10:30 AM EDT Office Visit [facility] [address] [place] [address] Dudley Lundberg Jr., MD Urologic disorders (Primary Dx); Kidney stones; Microscopic hematuria; History of recurrent urinary tract infection 08/13/2024 Travel 08/13/2024 Telephone [facility] [address] [address] [place] [address] Dudley Lundberg Jr., MD 08/12/2024 Telephone [facility] [address] [place] [address] Yuliana López LPN from Last 3 Months Family History Medical History Relation Name Comments Anesthesia problems Neg Hx Social History Tobacco Use Types Packs/Day Years Used Date Smoking Tobacco: Former Cigarettes 1 40 1 971 - 2010 Smokeless Tobacco: Never Tobacco Cessation:Counseling [...] Pulse 87 11/02/2024 4:43 PM EDT Temperature 36 C (96.8 F) 11/01/2024 10:45 PM EDT Respiratory Rate 23 11/01/2024 10:45 PM EDT Oxygen Saturation 96% 11/01/2024 10:45 PM EDT Inhaled Oxygen Concentration - - Weight 94.3 kg (208 lb) 11/02/2024 4:43 PM EDT Height 160 cm (5' 3 ) 11/02/2024 4:43 PM EDT Body Mass Index 36.85 11/02/2024 4:43 PM EDT Plan of Treatment Upcoming Encounters Date Type Department Care Team (Latest Contact Info) Description 11/15/2024 12:00 PM EDT Hospital Encounter [address] [address] Dudley Lundberg Jr., MD [address] [place] [address] 11/15/2024 12:00 PM EDT - 11/15/2024 3:00 PM EDT Surgery [address] [address] Dudley Lundberg Jr., MD [address] [place] [address] LASER HOLMIUM URETEROSCOPY RENAL STONE >1CM 11/26/2024 2:00 PM EDT Office Visit [facility] [address] [place] [phone] Dudley Lundberg Jr., MD [address] [place] [address] Scheduled Procedures Name Priority Associated Diagnoses Date/Ti hi LASER HOLMIUM URETEROSCOPY RENAL STONE >1CM Kidney [...] urinary tract infection 11/15/2024 12:00 PM EDT Health Maintenance Due Date Last Done Comments Depression Screening 1965 Adult BMI Follow Up Plan 06/26/1971 DTaP,Tdap and Td Vaccines (1 - Tdap) 1972 Zoster (Shingles) Vaccine (2 of 3) 10/25/2015 08/30/2015 Fall Risk Screening 2018 Influenza Vaccine 11/22/2024 01/06/2020, , 02/03/2015, Additional history exists Adult BMI Screening 11/02/2025 11/02/2024 Tobacco Screening 11/09/2025 11/09/2024 Goals Goal Patient Goal Type Associated Problems [...] [employer] Implanted Type Area Instrument Technician Apprentice Device Identifier Shelf Expiration Date Model / Serial / Lot Stent Uret 7fr 24cm 2 Pgtl Crv Rdpq Pstnr Mfl [facility] [place] [employer] - [id number] Implanted:Qty : 1 on 10/25/2024 by Dudley Lundberg Jr., MD at [facility] Stent Right: Ureter [employer] 07/21/2027 [id number] / / [id number] Stent Uret 7fr 24cm 2 Pgtl Crv Rdpq Pstnr Mfl [facility] [place] [employer] - [id number] Implanted:Qty : 1 on 11/01/2024 by Dudley Lundberg Jr., MD at [facility] Stent Right: Ureter [employer] [id number] 07/21/2027 [id number] / / [id number] Explanted Type Area Instrument Technician Apprentice Device Identifier Shelf Expiration Date Model / Serial / Lot Stent Uret 8fr 24cm 2 Pgtl Crv Rdpq Pstnr Brd [facility] [place] [employer] Rpl [id number] - [id number] Implanted:Qty: 1 on 10/12/2024 by Dudley Lundberg Jr., MD at [facility] Explanted:Qty: 1 on 10/25/2024 at [facility] Stent Right: Ureter [employer] 08/20/2025 [id number] / / [id number] Procedures Procedure Name Priority Date/Time Associated Diagnosis Comments URINALYSIS Routine 11/05/2024 2:05 PM EDT Kidney stones URINE CULTURE Routine 11/05/2024 2:05 PM EDT Kidney stones BEDSIDE GLUCOSE Routine 11/01/2024 9:51 PM EDT FL FLUOROSCOPY UP TO 1 HOUR Routine 11/01/2024 9:41 PM EDT KIDNEY STONE ANALYSIS STAT 11/01/2024 9:28 PM EDT Kidney stones Ureteral stent present ID AN ELECTIVE ENDOTRACHEAL AIRWAY Routine 11/01/2024 5:01 PM EDT CYSTOSCOPY RETROGRADE PYELOGRAM 11/01/2024 4:52 PM EDT [...] BEDSIDE GLUCOSE Routine 11/01/2024 3:11 PM EDT FL FLUOROSCOPY UP TO 1 HOUR Routine 10/25/2024 7:21 PM EDT BEDSIDE GLUCOSE Routine 10/25/2024 7:13 PM EDT KIDNEY STONE ANALYSIS STAT 10/25/2024 6:54 PM EDT Kidney stones ID AN ELECTIVE ENDOTRACHEAL AIRWAY Routine 10/25/2024 4:22 [...] Case Notes LAURA (EPIC 45, GAVE 45) ID CYSTOSCOPY,INSERT URETERAL STENT 10/12/2024 10:57 AM EDT [...] infection from Last 3 Months Results * (ABNORMAL) Urinalysis (11/05/2024 2:05 PM EDT) COLOR Colorless(A ) Yellow 11/05/2024 6:56 PM EDT [facility] TURBIDITY Clear Clear 11/05/2024 6:56 PM EDT [facility] SPECIFIC GRAVITY 1.004 1.003 - 1.035 11/05/2024 6:56 PM T [facility] NITRITE Negative Negative 11/05/2024 6:56 PM T [facility] PH,URINE 6.0 5.0 - 8.5 11/05/2024 6:56 PM T [facility] LEUKOCYTE ESTERASE Large(A) Negative 11/05/2024 6:56 PM EDT [facility] PROTEIN Negative Negative 11/05/2024 6:56 PM EDT [facility] KETONES (URINE) Negative Negative 6:56 PM EDT [facility] UROBILINOGEN <1.1 eu/dL <1.1 eu/dL 11/05/2024 6:56 PM EDT [facility] BILIRUBIN (URINE) Negative Negative 11/05/2024 6:56 PM EDT [facility] BLOOD/HGB Moderate(A) Negative 11/05/2024 6:56 PM EDT [facility] R.B.CELLS 4 0 - 5 11/05/2024 6:56 PM T [facility] SQUAMOUS EPITHELIUM <1 0 - 5 11/05/2024 6:56 PM T [facility] W.B.CELLS 65(H) 0 - 5 11/05/2024 6:56 PM EDT [facility] WBC CLUMPS Few(A) None 11/05/2024 6:56 PM EDT [facility] GLUCOSE (URINE) Negative Negative 6:56 PM EDT [facility] Urine Urine / Unknown Collection / Unknown 11/05/2024 2:05 PM EDT 11/05/2024 2:05 PM EDT us Dudley Lundberg Jr., MD URINE ORDERABLES Final R esult Performing Organization Address City/[facility]/ZIP Co de Phone Number [facility] [address] [place] [address], [place] [phone] * Urine culture (11/05/2024 2:05 PM EDT) Only the most recent of2 resultswithin the time period is included. CULTURE RESULTS 10-50,000 ORGANISMS/mL NORMAL UROGENITAL ORESTES 11/06/2024 8:56 AM EDT [facility] Urine Urine specimen collection, clean catch / Unknown Collection / Unknown 11/05/2024 2:05 PM EDT 11/05/2024 2:05 PM EDT us Dudley Lundberg Jr., MD MICROBIOLOGY - GENERAL O RDERABLES Final Result Performing Organization Address [facility] de Phone Number [facility] [address] [place] [address], [place] [phone] * (ABNORMAL) Bedside Glucose *Place/Obtain serum glucose if >500 per glucometer. (11/01/2024 9:51 PM EDT) Only the most recent of8 resultswithin the time period is included. Bedside Glucose (POC) 213(H) 65 - 99 mg/dL 11/01/2024 9:53 PM EDT [facility] arterial/capilla ry 11/01/2024 9:51 PM EDT 11/01/2024 9:52 PM EDT us Dudley Lundberg Jr., MD POINT OF CARE TEST ORDER [place] Final Result [facility] [place] [address], [place] * Fluoroscopy less than one hour (11/01/2024 9:41 PM EDT) Only the most recent of3 resultswithin the time period is included. Anatomical [...] Glover MD on 11/01/2024 11:35 PM us Dudley Lundberg Jr., MD IMG FLUOROSCOPY ORDERABL ES Final Result * Kidney Stone Analysis: (11/01/2024 9:28 PM EDT) Only the most recent of2 resultswithin the time period is included. KIDNEY STONE ANALYSIS DNR 11/10/2024 12:50 PM EDT [facility] STONE SOURCE: Right Ureter 11/10/2024 12:50 PM EDT [facility] STONE INTERPRETATION SEE COMMENTS 11/10/2024 12:50 PM EDT [facility] Comment: 70% Calcium phosphate (apatite). 20% Calcium oxalate monohydrate. 10% Calcium oxalate dihydrate. RESULT COMMENT SEE COMMENTS 11/10/2024 12:50 PM EDT [facility] Comment: For stones containing calcium oxalate, calcium phosphate, and/or uric acid, a 24 hr urinary supersaturation test may help detect underlying risk factors for this type of stone formation and provide guidance for a stone prevention strategy. ADDITIONAL INFORMATION This test was developed and its performance characteristics determined by [facility] in a manner consistent with CLIA requirements. This test has not been cleared or approved by the U.S. Food and Drug Administration. Test Performed by: [facility] [address] [place] [address] Manager Labor Delivery: Orlando Pena Ph.D.; CLIA# [id number] Calculus Structure of right ureter / Unknown 11/01/2024 9:28 PM EDT 11/02/2024 7:20 AM EDT Comment:Pre-op diagnosis: Kidney stones [N20.0] Ureteral stent present [Z96.0] us Dudley Lundberg Jr., MD LAB ORDERABLES Final Re sult [facility] [address] [place] [address], [place] * ID AN ELECTIVE ENDOTRACHEAL AIRWAY (11/01/2024 5:01 PM EDT) Narrative Sukhwinder Newman APRN-CRNA - 11/01/2024 5:01 PM EDT [facility] 11/01/2024 5:08 PM Airway Patient location during procedure: OR Urgency: Elective Date/Time: 11/01/2024 5:01 PM Airway not difficult IV In Situ: Peripheral General Information and Staff Service Provider: Kalen Ramirez MD MEDICAL INSURANCE VERIFIER: EFRA [facility]air Placed by: EFRA Adair Patient [...] Trauma? No Visibility: Cords Clear Blade: Other (Christianson) Blade size: #3 Placement verified by: chest auscultation, capnography and symmetrical chest wall movement ETT size: 7.5 mm Measured from: Gums Secured at (cm): 21 Number of other approaches attempted: 0 Number of attempts at approach: 1 Kalen Ramirez MD ANESTHESIA ORDERABLES Final Re sult * ID AN ELECTIVE ENDOTRACHEAL AIRWAY (10/25/2024 4:22 PM EDT) Aubrie Kahn APRN-LAURO - 10/25/2024 4:22 PM EDT Aubrie Fletcher APRN-LAURO 10/25/2024 4:38 PM Airway Patient location during procedure: OR Urgency: Elective Date/Time: 10/25/2024 4:22 PM Airway not difficult IV In Situ: Peripheral General Information and Staff Service Provider: Pankaj Wilcox MD Placed by: Aubrie Fletcher APRN-LAURO Patient Identified, IV Checked, Risks and Benefits [...] Additional Comments Poor view with mac 3 Pankaj Wilcox MD ANESTHESIA ORDERABLES Final Resu lt * Creatinine includes GFR, serum (10/12/2024 3:22 PM EDT) Only the most recent of2 resultswithin the time period is included. CREATININE 0.49 0.40 - 1.00 mg/dL 10/12/2024 4:16 PM EDT [facility] Comment:METHOD TRACEABLE TO IDMS STANDARD EGFR Non-Race Dependent >90 >=60 ml/min/1.7 3sq.m 10/12/2024 4:16 PM EDT [facility] Comment: Reported eGFR is based on the CKD-EPI 2020 equation that does not use a race coefficient. Blood Venous blood / Unknown Venipuncture / Unknown 10/12/2024 3:22 PM EDT 10/12/2024 3:43 PM EDT Alexx Bonner DO LAB BLOOD ORDERABLES Final Resu lt [facility] [address] [place] [address], [place] [phone] * Lavender Top (10/12/2024 3:17 PM EDT) Extra Tube Auto Resulted 10/12/2024 5:01 PM EDT [facility] Blood Venous blood / Unknown Venipuncture / Unknown 10/12/2024 3:17 PM EDT 10/12/2024 3:43 PM EDT Dudley Lundberg Jr., MD LAB BLOOD ORDERABLES Fin al Result [facility] [address] [place] [address], [place] [phone] * ID AN ELECTIVE SUPRAGLOTTIC AIRWAY (10/12/2024 11:05 AM [...] - 15.5 g/dL 10/08/2024 3:55 PM EDT [facility] Hematocrit 41.0 35 - 47 % 10/08/2024 3:55 PM EDT [facility] Blood Venous blood / Unknown Venipuncture / Unknown 10/08/2024 12:54 PM EDT 10/08/2024 12:54 PM EDT us Albaro Herring MD LAB BLOOD ORDERABLES Final R esult Performing Organization Address City/[facility]/ZIP Co de Phone Number [facility] [address] [place] [address], * ECG 12 lead (10/08/2024 12:39 PM EDT) 10/08/2024 12:3 9 PM EDT Narrative TRAC[facility] - 10/08/2024 5:06 PM EDT Albaro Herring MD ECG ORDERABLES Final Result Performing Organization Address [facility] de Phone Number TRACEMD[facility] * Send Out Test (10/08/2024 11:34 AM EDT) TEST NAME CRE 10/15/2024 6:24 AM EDT [facility] SPECIMEN URINE 10/15/2024 6:24 AM EDT [facility] SENT TO OD 10/15/2024 6:24 AM EDT [facility] TEST RESULT 10/15/2024 6:24 AM EDT [facility] Urine Urine specimen collection, clean catch / Unknown 10/08/2024 11:34 AM EDT 10/08/2024 11:39 AM EDT Narrative [facility] - 10/15/2024 6:24 AM EDT See separate report. View in OnBase or in EPIC. Dudley Lundberg Jr., MD LAB ORDERABLES Final Re sult Performing Organization Address [facility] Co de Phone Number [facility] [address] [place] [address], [place] [phone] * (ABNORMAL) Microscopic, urine (10/08/2024 11:34 AM EDT) MUCOUS Present(A) None 10/08/2024 1:26 PM EDT [facility] R.B.CELLS 14(H) 0 - 5 10/08/2024 1:26 PM EDT [facility] SQUAMOUS EPITHELIUM 1 0 - 5 10/08/2024 1:26 PM EDT [facility] W.B.CELLS 538(H) 0 - 5 10/08/2024 1:26 PM EDT [facility] Urine specimen collection, clean catch / Unknown 10/08/2024 11:34 AM EDT 10/08/2024 11:39 AM EDT us Dudley Lundberg Jr., MD URINE ORDERABLES Final R esult [facility] [address] [place] [address], [place] [phone] * POCT Urinalysis Auto, W/O Microscopy (10/08/2024 10:07 AM EDT) Pathologist [facility] External Poct Urine Glucose Negative MANUALLY TRANSCRIBED [...] Resident: Shen Santillan MD on 08/30/2024 9:25AM I, Collin Holland MD have personally reviewed the image(s) and agree withand/or edited the report Finalized by Collin Holland MD on 08/30/2024 11:51 AM Dudley Lundberg Jr., MD [facility] CT ORDERABLES Final Result * X-ray abdomen [...] MD on 08/16/2024 8:10 PM Procedure Note Jorden Burns MD - 08/16/2024 EXAM: XR ABDOMEN [...] 08/16/2024 8:10 PM Dudley Lundberg Jr., MD [facility] DIAGNOSTIC IMAGING O RDERABLES Final Result from Last 3 Months Additional Health Concerns Active Problems Noted Date Diagnosed Date Autogenerated Problem 10/14/2024 Autogenerated Problem 11/08/2024 Insurance MEDICARE [employer] Advance Directives * Full Code (Latest Code Status on File) Date Activated Date Inactivated Comments 10/12/2024 11:48 AM 10/14/2024 4:14 PM Care Teams Doctor Podiatric Medicine Relationship Specialty Start Date End Date Derrick Ortiz Jr., [address] [place] [address], [address] [place] [address] PCP - General Family Medicine 09/30/24
--- OUTSIDE RECORDS SUMMARY | 2024-11-11 09:35 | XMS_ITS | Encounter Summary ---
Author Organization [facility] Address [address] [place] [address] Care Team Providers Care Concrete Bucket Loader Name Role Phone Derrick Ortiz DO Unavailable [phone] TlelizabethDerrick castellon Primary Care Provider [phone] Encounter Details Date Type Department Care Team (Late st Contact Info) Description 10/21/2022 Orders Only [facility] [address] [place] [phone] Amalia Baker, DIRECTOR COMMERCIAL SALES [address] [place] [address] Social History Tobacco Use Types [...] on filedocumented in this encounter Care Teams Concrete Bucket Loader Relationship Specialty Start Date End Date Derrick Ortiz DO [address] [place] [address] PCP - ACO Reach 08/15/22 Derrick Ortiz DO [address] [place] [address] PCP - General Family Medicine 10/23/22 documented as of this encounter
--- OUTSIDE RECORDS SUMMARY | 2024-11-11 09:35 | XMS_ITS | Encounter Summary ---
Author Organization [facility] [employer] [facility] Address [id number] [address] [place] [address] Care Team Providers Care Auto Transport Driver Name Role Phone Diana Joya DO, George R Primary Care Provider + Encounter Details Date Type Department Care Team (Latest Contact Info) Description 11/05/2024 Travel Social History Tobacco Use Types Packs/Day [...] Description 11/15/2024 12:00 PM EDT Hospital Encounter [facility] [address] [place] [phone] Dudley Lundberg Jr., MD [address] [place] [phone] 11/15/2024 12:00 PM EDT - 11/15/2024 3:00 PM EDT Surgery [facility] [address] [place] [phone] Dudley Lundberg Jr., MD [address] [place] [address] LASER HOLMIUM URETEROSCOPY RENAL STONE >1CM 11/26/2024 2:00 PM EDT Office Visit [facility] [address] [place] [phone] Dudley Lundberg Jr., MD [address] [place] [address] Scheduled Procedures Name Priority Associated Diagnoses Date/Ti [...] documented as of this encounter Care Teams Auto Transport Driver Relationship Specialty Start Date End Date Derrick Ortiz Jr., [address] [place] [address], [address], [place] [address] PCP - General Family Medicine 09/30/24 documented as of this encounter
--- OUTSIDE RECORDS SUMMARY | 2024-11-11 09:35 | XMS_ITS | Encounter Summary ---
Author Organization [facility] Address [address] [place] [address] Care Team Providers Care Literary Writer Name Role Phone Derrick Ortiz DO Unavailable [phone] Derrick Ortiz DO Primary Care Provider [phone] Encounter Details Date Type Department Care Team (Late st Contact Info) Description 04/22/2024 Orders Only [facility] [address] [facility] [address] [place] [phone] Travis Arreguin MD [address] [facility] [address] [place] [address] Social History Tobacco Use Types Packs/Day Years [...] documented as of this encounter Care Teams Literary Writer Relationship Specialty Start Date End Date Derrick Ortiz DO [address] [place] [address] PCP - ACO Reach 08/15/22 Derrick Ortiz DO [address] [place] [address] PCP - General Family Medicine 10/23/22 documented as of this encounter
--- OUTSIDE RECORDS SUMMARY | 2024-11-11 09:35 | XMS_ITS | Encounter Summary ---
Author Organization [employer] Address [id number] [address] [place] [address] Care Team Providers Care Hatch Tender Name Role Phone Diana Joya DO, George R Primary Care Provider + Encounter Details Date Type Department Care Team (Late st Contact Info) Description 10/11/2024 Telephone [facility] [address] [place] [address] Tory Welsh CMA Social History [...] 10/12/2024. Please advise. * Telephone Encounter - Kimberly Juarez APRN-STITCH BONDING MACHINE TENDER HELPER - 10/11/2024 8:[address] Lundberg started her on Cipro 10/08/24. Please continue to track for final results and discuss withDr Lundberg. Thank you documented in this encounter Plan of Treatment Upcoming Encounters Date Type Department Care Team (Latest Contact Info) Description 11/15/2024 12:00 PM EDT Hospital Encounter [facility] Surgery [address] [place] [phone] Dudley Lundberg Jr., MD [address] [place] [address] 11/15/2024 12:00 PM EDT - 11/15/2024 3:00 PM EDT Surgery [address] [phone] Dudley Lundberg Jr., MD [address] [place] [address] LASER HOLMIUM URETEROSCOPY RENAL STONE >1CM 11/26/2024 2:00 PM EDT Office Visit [facility] [address] [place] [phone] Dudley Lundberg Jr., MD [address] [place] [address] Scheduled Procedures Name Priority Associated Diagnoses Date/Ti sc LASER HOLMIUM URETEROSCOPY RENAL STONE >1CM Kidney [...] - Navin Vazquez RN 10/12/24 4:26 PM documented as of this encounter Visit Diagnoses Not on filedocumented in this encounter Care Teams Hatch Tender Relationship Specialty Start Date End Date Derrick Ortiz Jr., [address] [place] [address], [address] [place] [address] PCP - General Family Medicine 09/30/24 documented as of this encounter
--- OUTSIDE RECORDS SUMMARY | 2024-11-11 09:35 | XMS_ITS | Encounter Summary ---
Author Organization [employer] Address [id number] [address] [place] [address] Care Team Providers Care Bioinformatician Name Role Phone Diana Joya DO, George R Primary Care Provider + Encounter Details Date Type Department Care Team (Late st Contact Info) Description 11/08/2024 Telephone [facility] [address] [place] [phone] Dudley Lundberg Jr., MD [address] [place] [address] Social History Tobacco Use Types Packs/Day Years [...] Encounter - Dudley Lundberg Jr., MD - 11/08/2024 8:18 AM EDT Images from the original note were not included. Ebonie, please see my prior messages. 11/05/2024 - Patient Calls: Miri Moffett and others (Newest Message First) View All Conversations on this Encounter 11/05/24 12:42 PM Miri Moffett routed this conversation to Me Ebonie José Miguel (Selected Message) Miri Moffett ARNOLD 11/05/24 12:42 PM Note Patient called back and advised she will be done with antibiotics on 11-17-24. Patient was asking about procedure that is to be scheduled. I provided pt with Ebonie phone number [phone] option 4 to call with questions. Recent Patient Communication documented in this encounter Plan of Treatment Upcoming Encounters Date Type Department Care Team (Latest Contact Info) Description 11/15/2024 12:00 PM EDT Hospital Encounter [address] [phone] Dudley Lundberg Jr., MD [address] [place] [address] 11/15/2024 12:00 PM EDT - 11/15/2024 3:00 PM EDT Surgery [address] [phone] Dudley Lundberg Jr., MD [address] [place] [address] LASER HOLMIUM URETEROSCOPY RENAL STONE >1CM 11/26/2024 2:00 PM EDT Office Visit [facility] [address] [place] [phone] Dudley Lundberg Jr., MD [address] [place] [address] Scheduled Procedures Name Priority Associated Diagnoses Date/Ti [...] documented as of this encounter Care Teams Bioinformatician Relationship Specialty Start Date End Date Derrick Ortiz Jr., [address] [place] [address], [address] [place], [place] [phone] PCP - General Family Medicine 09/30/24 documented as of this encounter
--- OUTSIDE RECORDS SUMMARY | 2024-11-11 09:35 | XMS_ITS | Encounter Summary ---
Author Organization [facility] Address [address] [place] [address] Care Team Providers Care Prop And Effects Designer Name Role Phone Derrick Ortiz Unavailable [phone] Derrick Ortiz Primary Care Provider [phone] Encounter Details Date Type Department Care Team (Late st Contact Info) Description 11/04/2024 Clinisync Result Encounter [facility] External Department Unsolicited Provider, Generic External Data Social History Tobacco Use Types Packs/Day Years [...] Procedure Name Priority Date/Time Associated Diagnosis Comments TBH CREATININE Routine 11/04/2024 8:30 AM EDT ALL CBC WITH AUTO DIFF Routine 11/04/2024 8:30 AM EDT ALL C REACTIVE PROTEIN Routine 11/04/2024 8:30 AM EDT ALL BUN Routine 11/04/2024 8:30 AM EDT documented in this encounter Results * (ABNORMAL) ALL C REACTIVE PROTEIN (11/04/2024 8:30 AM EDT) C REACTIVE PROTEIN 11.64(H) <=0.50 mg/dL TB 11/04/2024 8:30 AM EDT 11/04/2024 9:35 AM EDT Narrative CLINISYNC - 11/04/2024 10:09 AM EDT [facility] DROP OFF Generic External Data Provider CLINISYNC F inal Result Performing Organization Address [facility] Co de Phone Number CLINISYNC [facility] * TBH CREATININE (11/04/2024 8:30 AM EDT) Pathologist [facility] CREATININE 0.64 0.55 - 1.02 mg/dL TB TB EGFR-AF ALBANIAN >60 >=60 mL/min/1.7 3m 2 TBH TBH EGFR-NON AF ALBANIAN >60 >=60 mL/min/1.7 3m 2 TBH 11/04/2024 8:30 AM EDT 11/04/2024 9:35 AM EDT Narrative CLINISYNC - 11/04/2024 10:09 AM EDT [facility] DROP OFF Generic External Data Provider CLINISYNC F inal Result CLINISYNC [facility] * ALL BUN (11/04/2024 8:30 AM EDT) BLOOD UREA NITROGEN 11.0 7.0 - 18.0 mg/dL TB 11/04/2024 8:30 AM EDT 11/04/2024 9:35 AM EDT Narrative CLINISYNC - 11/04/2024 10:09 AM EDT [facility] DROP OFF us Generic External Data Provider LAURYN Quach inal Result LAURYN [facility] * (ABNORMAL) ALL CBC WITH AUTO DIFF (11/04/2024 8:30 AM EDT) TB WBC 9.8 4.0 - 11.0 10 3/uL [...] AM EDT us Generic External Data Provider EMILYISYARIANNA F inal Result LAURYN [facility] documented in this encounter Visit Diagnoses Not on filedocumented in this encounter Additional Health Concerns Assessment Noted Time PHQ-9 Depression Total Score: 0 05/14/19 25 11:00 AM EST documented as of this encounter Care Teams Prop And Effects Designer Relationship Specialty Start Date End Date Derrick Ortiz DO [address] [place] [address] PCP - ACO Reach 08/15/22 Derrick Ortiz DO [address] [place] [address] PCP - General Family Medicine 10/23/22 documented as of this encounter
--- OUTSIDE RECORDS SUMMARY | 2024-11-11 09:35 | XMS_ITS | Encounter Summary ---
Author Organization [employer] Address [facility] [id number] [address] [place] [address] Care Team Providers Care Retort Cooler Name Role Phone Diana Joya DO, George R Primary Care Provider + Encounter Details Date Type Department Care Team (Late st Contact Info) Description 11/02/2024 Telephone [facility] [address] [place] [phone] Dudley Lundberg Jr., MD [address] [place] [address] Social History Tobacco Use Types Packs/Day Years [...] Encounter - Dudley Lundberg Jr., MD - 11/02/2024 4:58 PM EDT Dx right renal stones procedure cystoscopy, right flexible ureteral pyeloscopy holmium laser/basket extraction large right renal stone burden greater than 2.7 cm, stent exchange, possible retrograde pyelogram with clear Gloria vacuum access sheath with fluoroscopy anesthesia Schedule with general anesthetic with paralysis with PAT clearance. location [facility] when 2 weeks-patient needs to be kept on IV antibiotic until then by Infectious Disease asa class 3 time 3 hours follow up 1 week antibiotics meropenem 1 g IV meds to hold no pre op films no other * Telephone Encounter - Ebonie Valdez - 11/02/2024 4:58 PM EDT Pt lmom 11/05/2024 Called pt 11/08/2024 @ 932am lmom * Telephone Encounter - Ebonie Valdez - 11/02/2024 4:58 PM EDT Spoke to pt 11/08/2024 Pat phone call 11/09/2024 pm Tth 11/15/2024 @ 12pm arrive @ 10am F/u 11/26/2024 @ 2pm Pt aware verbal 11/08/2024 documented in this encounter Plan of Treatment Upcoming Encounters Date Type Department Care Team (Latest Contact Info) Description 11/15/2024 12:00 PM EDT Hospital Encounter [facility] - Surgery [address] [place] [phone] Dudley Lundberg Jr., MD [address] [place] [address] 11/15/2024 12:00 PM EDT - 11/15/2024 3:00 PM EDT Surgery [facility] Surgery [address] [place] [phone] Dudley Lundberg Jr., MD [address] [place] [address] LASER HOLMIUM URETEROSCOPY RENAL STONE >1CM 11/26/2024 2:00 PM EDT Office Visit [facility] [address] [place] [phone] Dudley Lundberg Jr., MD [address] [place] [address] Scheduled Procedures Name Priority Associated Diagnoses Date/Ti [...] documented as of this encounter Care Teams Retort Cooler Relationship Specialty Start Date End Date Derrick Ortiz Jr., DO [address] [place] [address], [address], [place] [address] PCP - General Family Medicine 7/10/25 documented as of this encounter
--- OUTSIDE RECORDS SUMMARY | 2024-11-11 09:35 | XMS_ITS | Encounter Summary ---
Author Organization [facility] Address [address] [place] [address] Care Team Providers Care Medical Billing Assistant Name Role Phone eDrrick Ortiz Unavailable [phone] Derrick Ortiz Primary Care Provider [phone] Encounter Details Date Type Department Care Team (Late st Contact Info) Description 10/28/2024 Clinisync Result Encounter [facility] External Department [...] Date/Time Associated Diagnosis Comments TBH CREATININE Routine 10/28/2024 8:20 AM EDT ALL CBC WITH AUTO DIFF Routine 10/28/2024 8:20 AM EDT ALL C REACTIVE PROTEIN Routine 10/28/2024 8:20 AM EDT ALL BUN Routine 10/28/2024 8:20 AM EDT documented in this encounter Results * (ABNORMAL) ALL CBC WITH AUTO DIFF (10/28/2024 8:20 AM EDT) TB WBC 8.8 4.0 - 11.0 10 3/uL TBH TBH RBC 3.94(L) 4.20 - 5.40 10 6/uL TBH TBH HGB 11.6(L) 12.0 - 16.0 g/dL TBH TBH HCT 34.7(L) 36.0 - 48.0 % TBH TBH MCV 88.1 81.0 - 99.0 fL TBH TBH MCH 29.4 26.7 - 34.0 pg TBH TBH MCHC 33.4 29.9 - 35.2 g/dL TBH TBH RDW 12.1 11.0 - 15.0 % TBH TBH PLT 288 150 - 450 10 3/uL TBH TBH MPV 10.6 9.5 - 13.5 fL TBH NEUTROPHILS PERCENT AUTO 59.1 43.0 - 75.0 % TBH LYMPHOCYTES PERCENT AUTO 27.9 20.5 - 60.0 % TBH MONOCYTES PERCENT AUTO 10.0 1.7 - 12.0 % TBH TBH EO % 2.5 0.9 - 7.0 % TBH BASOPHILS PERCENT AUTO 0.2 0.2 - 2.0 % TBH IMMATURE GRANULOCYTES PCT AUTO 0.3 0.0 - 0.5 % TBH NEUTROPHILS ABSOLUTE AUTO 5.2 1.4 - 6.5 10 3/uL TBH LYMPHOCYTES ABSOLUTE AUTO 2.5 1.2 - 3.8 10 3/uL TBH MONOCYTES ABSOLUTE AUTO 0.9(H) 0.3 - 0.8 10 3/uL TBH TBH EO # 0.2 0.0 - 0.7 10 3/uL TBH BASOPHILS ABSOLUTE AUTO 0.0 0.0 - 0.1 10 3/uL TBH IMMATURE GRANULOCYTES ABS AUTO 0.03 0.00 - 0.03 10 3/uL TBH 10/28/2024 8:20 AM EDT 10/28/2024 9:13 AM EDT Narrative CLINISYNC - 10/28/2024 10:36 AM EDT Generic External Data Provider CLINISYNC F inal Result CLINISYNC TB * (ABNORMAL) ALL C REACTIVE PROTEIN (10/28/2024 8:20 AM EDT) C REACTIVE PROTEIN 7.59(H) <=0.50 mg/dL TB 10/28/2024 8:20 AM EDT 10/28/2024 9:13 AM EDT Narrative CLINISYNC - 10/28/2024 10:[address] [facility] DROP OFF Generic External Data Provider EMILYISYNC F inal Result Performing Organization Address [facility] Co de Phone Number CLINISYNC TB * (ABNORMAL) TBH CREATININE (10/28/2024 8:20 AM EDT) CREATININE 0.52(L) 0.55 - 1.02 mg/dL TBH TBH EGFR-AF [place]IAN >60 >=60 mL/min/1.7 3m 2 TBH TBH EGFR-NON AF [place]IAN >60 >=60 mL/min/1.7 3m 2 TBH 10/28/2024 8:20 AM EDT 10/28/2024 9:13 AM EDT Narrative CLINISYNC - 10/28/2024 10:[address] [facility] DROP OFF Generic External Data Provider EMILYISYNC F inal Result Performing Organization Address City/[facility]/ZIP Co de Phone Number CLINISYNC TB * ALL BUN (10/28/2024 8:20 AM EDT) BLOOD UREA NITROGEN 13.0 7.0 - 18.0 mg/dL TBH 10/28/2024 8:20 AM EDT 10/28/2024 9:13 AM EDT Narrative CLINISYNC - 10/28/2024 10:05 AM EDT [facility] DROP OFF us Generic External Data Provider LAURYN F inal Result CLINISYNC [facility] documented in this encounter Visit Diagnoses Not on filedocumented in this encounter Additional Health Concerns Assessment Noted Time PHQ-9 Depression Total Score: 0 05/14/19 25 11:00 AM EST documented as of this encounter Care Teams Medical Billing Assistant Relationship Specialty Start Date End Date Derrick Ortiz DO [address] [place] [address] PCP - ACO Reach 08/15/22 Derrick Ortiz DO [address] [place] [address] PCP - General Family Medicine 10/23/22 documented as of this encounter
[2024-11-11 10:34] LABS: Blood Urea Nitrogen 11.0 mg/dL (7.0-18.0); Estimated GFR (African America >60 (>=60 mL/min/1.73m^2); Estimated GFR (Non-African Ame >60 (>=60 mL/min/1.73m^2)
[2024-11-11 11:05] LABS: Hematocrit 33.6 % (36.0-48.0); Hemoglobin 10.5 g/dL (12.0-16.0); Immature Granulocytes Abs Auto 0.10 10^3/uL (0.00-0.03); Immature Granulocytes Pct Auto 1.1 % (0.0-0.5); Lymphocytes Absolute Auto 2.9 10^3/uL (1.2-3.8); Mean Corpuscular HGB Conc 31.3 g/dL (29.9-35.2); Mean Corpuscular Hemoglobin 27.9 pg (26.7-34.0); Mean Corpuscular Volume 89.1 fL (81.0-99.0); Platelet Count 440 10^3/uL (150-450); Red Blood Count 3.77 10^6/uL (4.20-5.40); White Blood Count 9.2 10^3/uL (4.0-11.0)
== END 2024-11-11 09:29 | disposition home or self-care (01) ==
LOC: LAB 09:28
PROVIDERS: PCP Family Medicine
DX: N20.0 Calculus of kidney (principal)
CPT/HCPCS: 36415; 82565; 84520; 85025; 86140